=== PATIENT | male | born 1950 | race Caucasian/White ===

== ENCOUNTER 2016-08-30 10:20 | Inpatient (IN) | payer OTHER, MEDICARE ==
[~2016-08-30] VITALS: Ht 193 cm; Wt 138.5 kg
[~2016-08-30 10:20] MED LIST: ACET650S19 PO; ATOR40TA59 PO; CELE200C PO; FERR325T72 PO; FURO80TA3 PO; GLIP5TAB10 PO; HYDR-2666 PO; HYDR-2672 PO; HYDR-963 PO; HYDR-971 PO; Hydrocodone/Acetaminophen PO; LEVO500T8 PO; LISI-334 PO; METF-620 PO; PANT40TA5 PO; POTA20TA82 PO; SOTA80TA48 PO; SUCR1TAB29 PO; WARF-78 PO; WARF5TAB7 PO; Warfarin Sodium MC
[2016-08-30] MEDS ORDERED: IV NORMAL SALINE 1000ML BAG 1,000 ML IV ONE (10:45)
[2016-08-30] MEDS ORDERED: fentaNYL PF VIAL 100 MCG/2 ML VIAL IV ONE (10:45)
[2016-08-30 10:58] LABS: BASO # 0.1 x10^3/uL (0.0-0.2); BASO % 1 % (0-3); EOS % 3 % (0-3); HEMATOCRIT 32.7 % (39.0-53.0); HEMOGLOBIN 11.1 g/dL (13.0-17.5); LYMPH % 14 % (24-48); MEAN CORPUSCULAR HEMOGLOBIN 29 pg (25-35); MEAN CORPUSCULAR HGB CONC 34 g/dL (31-37); MEAN CORPUSCULAR VOLUME 86 fL (79-100); MONO % 8 % (0-9); NEUT % 74 % (31-73); PLATELET COUNT 183 x10^3/uL (140-400); RED BLOOD COUNT 3.82 x10^6/uL (4.30-5.70); RED CELL DISTRIBUTION WIDTH 14.4 % (11.5-14.5)
[2016-08-30 11:07] LABS: INR 1.2 (0.8-1.1); PROTHROMBIN TIME PATIENT 14.3 SEC (11.7-14.0)
[2016-08-30 11:25] LABS: ETHANOL < 10 mg/dL (0-10)
[2016-08-30 11:34] LABS: CALCIUM 9.1 mg/dL (8.5-10.1); CREATININE 1.3 mg/dL (0.7-1.3); GFR 54.9; POTASSIUM 4.3 mmol/L (3.5-5.1)
[2016-08-30 11:39] LABS: ALBUMIN 3.5 g/dL (3.4-5.0); MAGNESIUM 1.6 mg/dL (1.8-2.4); TOTAL BILIRUBIN 0.4 mg/dL (0.2-1.0); TOTAL PROTEIN 7.1 g/dL (6.4-8.2)
[2016-08-30] MEDS ORDERED: CONTRAST GIVEN MC PRN (11:45)
[2016-08-30] MEDS ORDERED: IOHEXOL 300 MG/ML 75 ML VIAL IV ONE (12:15)
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
[2016-08-30 12:50] LABS: BILIRUBIN,URINE NEGATIVE (NEG); GLUCOSE,URINE NEGATIVE (NEG); NITRITE,URINE NEGATIVE (NEG); PROTEIN,URINE NEGATIVE (NEG-TRACE); UROBILINOGEN,URINE 0.2 mg/dL (0.2 mg/dL)
[2016-08-30 12:56] LABS: BARBITURATES NEG (NEG); BENZODIAZEPINES NEG (NEG); CANNABINOIDS NEG (NEG); COCAINE NEG (NEG); METHADONE NEG (NEG); OPIATES NEG (NEG); PHENCYCLIDINE NEG (NEG)
[2016-08-30 12:58] LABS: BACTERIA,URINE 0 /HPF (0-FEW); WBC,URINE OCC /HPF (0-4)
[2016-08-30 12:59] LABS: SQUAMOUS EPITHELIAL CELL,UR OCC /LPF
[2016-08-30] MEDS ORDERED: ONDANSETRON PF 4 MG/2 ML VIAL. IV PRN (13:00)
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
[2016-08-30] MEDS ORDERED: SERT50TA PO (14:39)
[2016-08-30] MEDS ORDERED: ASPI1TAB88 PO (14:39)
--- NOTE | 2016-08-30 14:50 | ACF ---
Admission Forms Criteria MENTAL STATUS CHANGE Clinical Indications for Inpatient Care (Place 'X' for any and all applicable criteria): Ongoing inpatient care may be needed for 1 or more of the following(1)(2)(3)(5)( 6): [X]I. Suspected serious etiology (eg, medical disorder, [employer] event) of altered mental status [ ]II. Danger to self or others not manageable at lower level of care [ ]III. Grave disability (eg, inability to perform self care necessary at lower level of care) [ ]IV. Agitation or inappropriate behavior interfering with care for primary condition (eg, attempting to discontinue lines or drains prematurely, unable to cooperate with respiratory care) [ ]V. Delirium [A] [D][E] as described by 1 or more of the following(26): [ ]a) Delirium due to alcohol or sedative [F] withdrawal [ ]b) Delirium of uncertain etiology that has not responded to appropriate empiric treatment [ ]c) Delirium that prevents performance of a life-sustaining function (eg, feeding or hydrating oneself) [ ]. General contraindications and/or Inappropriate clinical situations for Observational Care in patients with Mental Status Change, when ANY ONE of the following is required: [ ]a) Prediction of prolongation of LOS based on ANY ONE of the following may be considered as a contraindication for observational care 2, 3, 4, 5, 6, 7, 8, 9, 10, 11 [ ]i) Age > 65 yrs. [ ]ii) Patient arriving by ambulance [ ]iii) Patient with high acuity [ ]iv) Patient requiring vital sign monitoring [ ]v) Patient on IV medication [ ]b) Systolic blood pressures greater than or equal to 180mmHg 3, 12 [ ]c) Patient with altered mental status including delirium and other alteration of consciousness, (3) [ ]d) Patient whose discharge disposition will be to a halfway home or rehabilitation home should not be managed in Emergency Department Observation Unit. CMS rule requires 3 days hospital stay before such placement.3,13 [ ]e) Patient with failure to thrive due to broad array of etiologies 3,16,17 [ ]f) Inability to ambulate 3,14 Extended stay beyond goal length of stay for the primary condition may be needed until ALL of the following are present(3)(5): [ ]a) Underlying medical etiology of mental status change is absent, or has been established and adequately treated [ ]b) Danger to self or others is absent or manageable at lower level of care. [ ]c) Behavior crisis management, including physical or chemical restraints, is not required or available at lower level of car [ ]d) Substance or alcohol withdrawal is absent or manageable at lower level of care. [ ]e) Behavioral symptoms (eg, agitation, somnolence, inappropriate behavior) are absent, or are manageable at lower level of care. The original [facility] [employer] content created by [facility] has been revised. The portions of the content which have been revised are identified through the use of italic text or in bold, and [facility] has neither reviewed nor approved the modified material. All other unmodified content is copyright [facility]. Please see references footnoted in the original [facility] edition 2016 Admission Criteria Met?: Yes YADI NGUYEN August 30, 2016 14:50
[2016-08-30 15:00] VITALS: BP 117/79
[2016-08-30] MEDS: fentaNYL PF VIAL 100 MCG/2 ML VIAL IV PRN (15:43)
--- NOTE | 2016-08-30 15:59 | EKG ---
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
[2016-08-30 19:57] VITALS: BP 104/81
[2016-08-31] VITALS (7 sets, daily range): BP systolic 107–140; BP diastolic 68–103
[2016-08-31 03:35] LABS: BASO % 1 % (0-3); EOS % 3 % (0-3); HEMATOCRIT 30.2 % (39.0-53.0); HEMOGLOBIN 10.2 g/dL (13.0-17.5); LYMPH # 1.2 x10^3/uL (1.0-4.8); LYMPH % 18 % (24-48); MEAN CORPUSCULAR HEMOGLOBIN 29 pg (25-35); MEAN CORPUSCULAR HGB CONC 34 g/dL (31-37); MEAN CORPUSCULAR VOLUME 85 fL (79-100); MONO % 8 % (0-9); NEUT % 70 % (31-73); PLATELET COUNT 152 x10^3/uL (140-400); RED BLOOD COUNT 3.54 x10^6/uL (4.30-5.70); RED CELL DISTRIBUTION WIDTH 14.4 % (11.5-14.5); WHITE BLOOD COUNT 6.5 x10^3/uL (4.0-11.0)
[2016-08-31 03:50] LABS: CALCIUM 8.7 mg/dL (8.5-10.1); CREATININE 1.2 mg/dL (0.7-1.3); GFR 60.2; POTASSIUM 4.1 mmol/L (3.5-5.1)
[2016-08-31] MEDS: fentaNYL PF VIAL 100 MCG/2 ML VIAL IV PRN (05:27)
[2016-08-31] MEDS ORDERED: HYDROcodone/APAP 10/325 1 TAB TABLET PO PRN (08:15)
--- NOTE | 2016-08-31 08:18 | PDOC ---
Provider Note Provider Note [id number] ANA MARIA REYNA MD August 31, 2016 08:18
[2016-08-31] MEDS: ACETAMINOPHEN 650 MG/20.3 ML SOLUTION. PO SCH ×4 (09:04→20:37)
[2016-08-31] MEDS: SOTALOL 80 MG TABLET. PO SCH ×2 (09:05→20:38)
[2016-08-31] MEDS: PANTOPRAZOLE 40 MG TABLET.DR. PO SCH ×2 (09:05→16:54)
[2016-08-31] MEDS: FUROSEMIDE 80 MG TABLET. PO SCH (09:05)
[2016-08-31] MEDS: SERTRALINE 50 MG TABLET. PO SCH (09:06)
[2016-08-31] MEDS: POTASSIUM CHLORIDE 20 MEQ TABLET.ER. PO SCH ×2 (09:06→16:54)
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
[2016-08-31] MEDS ORDERED: ATORVASTATIN CALCIUM 40 MG TABLET. PO SCH (21:00)
[2016-09-01 03:00] VITALS: BP 130/85
[2016-09-01] MEDS: ACETAMINOPHEN 650 MG/20.3 ML SOLUTION. PO SCH ×3 (03:35→08:03)
[2016-09-01 07:00] VITALS: BP 149/101
[2016-09-01] MEDS: POTASSIUM CHLORIDE 20 MEQ TABLET.ER. PO SCH (08:03)
[2016-09-01] MEDS: FUROSEMIDE 80 MG TABLET. PO SCH (08:03)
[2016-09-01] MEDS: PANTOPRAZOLE 40 MG TABLET.DR. PO SCH (08:04)
[2016-09-01] MEDS: SERTRALINE 50 MG TABLET. PO SCH (08:04)
[2016-09-01 08:05] VITALS: BP 149/101
[2016-09-01] MEDS: SOTALOL 80 MG TABLET. PO SCH (08:05)
--- NOTE | 2016-09-01 08:20 | DISCH ---
DISCHARGE INSTRUCTIONS Condition on Discharge Condition on Discharge: Stable Activity After Discharge Activity Instructions for Disc: No restrictions Diet after Discharge Diet after Discharge: Cardiac Follow-Up Follow up with: as scheduled ANA MARIA REYNA MD September 01, 2016 08:20
--- NOTE | 2016-09-01 08:24 | PDOC ---
Provider Note Provider Note [id number] ANA MARIA REYNA MD September 01, 2016 08:24
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
== END 2016-09-01 11:50 | disposition home or self-care (01) | DRG 605 ==
LOC: ER 10:20 → 6 SOUTH 11:50
PROVIDERS: ADMIT Family Medicine; ATTEND Family Medicine
DX: S00.03XA Contusion of scalp, initial encounter (principal); E11.42 Type 2 diabetes mellitus with diabetic polyneuropathy; E78.5 Hyperlipidemia, unspecified; I09.9 Rheumatic heart disease, unspecified; I11.0 Hypertensive heart disease with heart failure; I25.10 Atherosclerotic heart disease of native coronary artery without angina pectoris; I34.0 Nonrheumatic mitral (valve) insufficiency; I35.1 Nonrheumatic aortic (valve) insufficiency; I48.2 Chronic atrial fibrillation; I50.9 Heart failure, unspecified; N28.1 Cyst of kidney, acquired; M19.90 Unspecified osteoarthritis, unspecified site; R09.02 Hypoxemia; Z88.0 Allergy status to penicillin; Y92.488 Other paved roadways as the place of occurrence of the external cause; V49.3XXA Car occupant (driver) (passenger) injured in unspecified nontraffic accident, initial encounter; Z82.49 Family history of ischemic heart disease and other diseases of the circulatory system
CPT/HCPCS: 36415; 70450; 71275; 72125; 74177; 80048; 80053; 81001; 82550; 82947; 83605; 83690; 83735; 83880; 84443; 84484; 85027; 85610; 85730; 93005; 96374; G0480; G0481; G6038; J3010; J7030; Q9967; 80196; 99285-25

== ENCOUNTER 2016-09-18 12:00 | Inpatient (IN) | payer MEDICARE ==
[~2016-09-18] VITALS: Ht 190.5 cm; Wt 136.1 kg
[2016-09-18] VITALS (9 sets, daily range): BP systolic 100–132; BP diastolic 71–96
[~2016-09-18 12:00] MED LIST changes: +ASPI1TAB88 PO; -HYDR-2666 PO; -HYDR-2672 PO; +HYDR-2758 PO; +HYDR-2766 PO; +SERT50TA PO; -SUCR1TAB29 PO; +SUCR1TAB35 PO
[2016-09-18] MEDS ORDERED: fentaNYL PF VIAL 100 MCG/2 ML VIAL IV PRN (12:15)
[2016-09-18] MEDS ORDERED: NITROGLYCERIN SUBLINGUAL 0.4 MG BOTTLE OF 25. SL PRN ×2 (12:15→15:30)
[2016-09-18] MEDS ORDERED: ASPIRIN CHEWABLE 81 MG TABLET. PO ONE (12:15)
[2016-09-18] MEDS ORDERED: AMIODARONE 900 MG in IV DEXTROSE 5% 500 ML IV PRN (12:15)
[2016-09-18] MEDS ORDERED: AMIODARONE 150 MG in IV DEXTROSE 5% 100 ML IV ONE (12:15)
[2016-09-18 12:24] LABS: BASO # 0.1 x10^3/uL (0.0-0.2); BASO % 1 % (0-3); EOS % 2 % (0-3); HEMATOCRIT 37.3 % (39.0-53.0); HEMOGLOBIN 12.4 g/dL (13.0-17.5); LYMPH # 1.3 x10^3/uL (1.0-4.8); LYMPH % 12 % (24-48); MEAN CORPUSCULAR HEMOGLOBIN 29 pg (25-35); MEAN CORPUSCULAR HGB CONC 33 g/dL (31-37); MEAN CORPUSCULAR VOLUME 87 fL (79-100); MONO % 6 % (0-9); NEUT % 79 % (31-73); PLATELET COUNT 230 x10^3/uL (140-400); RED BLOOD COUNT 4.32 x10^6/uL (4.30-5.70); RED CELL DISTRIBUTION WIDTH 14.2 % (11.5-14.5); WHITE BLOOD COUNT 10.3 x10^3/uL (4.0-11.0)
[2016-09-18 12:25] LABS: POTASSIUM ISTAT 4.3 mmol/L (3.5-5.0)
[2016-09-18 12:39] LABS: CALCIUM 9.1 mg/dL (8.5-10.1); CREATININE 1.6 mg/dL (0.7-1.3); GFR 43.2; POTASSIUM 4.5 mmol/L (3.5-5.1)
--- NOTE | 2016-09-18 12:39 | EKG ---
[facility] [address] [place] [address] Test Date: 2016-09-18 Test Time: 12:02:46 Pat Name: AGUSTIN ESTRELLA Department: Room: Gender: M [employer]: : [id number] Requested By: BRIGIDA CHA Order Number: [id number] Reading MD: Jamil Lopez Measurements Intervals [place] Rate: 114 P: 67 MA: 60 QRS: -67 QRSD: 122 T: 3 QT: 364 QTc: 506 Interpretive Statements SINUS TACHYCARDIA ABNORMAL LEFT AXIS DEVIATION LEFT ANTERIOR FASCICULAR BLOCK LVH WITH REPOLARIZATION ABNORMALITY NONSPECIFIC ST-T WAVE CHANGES. RI6.01 Unconfirmed report Compared to ECG 08/30/2016 10:35:46 Electronically Signed On 09-22-2016 9:41:19 CDT by Jamil Lopez
--- NOTE | 2016-09-18 12:40 | RAD ---
Indication: Chest pain. Time of exam 12:16 PM Correlation is made with prior chest from 07/23/2015. The heart is enlarged but stable. The lungs are clear of acute infiltrates. No failure is seen. There is no effusion or pneumothorax. Calcified granuloma right lower lobe is stable. Impression: Stable chest. No acute feature is detected.
[2016-09-18] MEDS ORDERED: IV NORMAL SALINE 500ML BAG 500 ML IV ONE (12:45)
[2016-09-18] MEDS ORDERED: IV NORMAL SALINE 1000ML BAG 1,000 ML IV ONE (12:45)
[2016-09-18 12:52] LABS: DIRECT BILIRUBIN 0.4 mg/dL (0.0-0.2); MAGNESIUM 1.9 mg/dL (1.8-2.4); TOTAL BILIRUBIN 0.7 mg/dL (0.2-1.0); TOTAL PROTEIN 7.5 g/dL (6.4-8.2)
[2016-09-18] MEDS ORDERED: DIGOXIN 250 MCG TABLET. PO ONE (13:00)
--- NOTE | 2016-09-18 14:23 | ED.ADGEN ---
Past Medical History Past Medical History: A-Fib, CHF, Diabetes-Type II, Heart Disease Additional Past Medical Histor: AORTIC VALVE LEAK Past Surgical History: Tonsillectomy Additional Past Surgical Histo: CARDIAC CATH W NO STENT PER PATIENT Alcohol Use: None Drug Use: None Adult General Chief Complaint Chief Complaint: CHEST PAIN HPI HPI Patient is a 66 year old woman, history of type 2 diabetes mellitus, atrial fibrillation, atrial flutter, CHF, aortic valve leak, who presents to the emergency department via EMS with report of chest pain and flutter, with a concern for a run of ventricular tachycardia area patient became diaphoretic, and minimally responsive en route to the emergency department, they state that they witnessed a brief run of ventricular tachycardia, however patient became alert again, never lost pulses, and went back to with a sinus tachycardia without intervention. Patient was initiated and amiodarone by EMS, before they lost a line en route. There was no infiltration. Patient upon arousing the ED is complaining of midsternal chest pain, he is noted to be pale and diaphoretic , hypotensive, 80s over 50s, heart rate in the 1 teens, in atrial flutter. Patient states that he was feeling well up until about 8:00 this morning and began experiencing a fluttering sensation in his chest, and a feeling of chest pain. He states he has had similar symptoms previously associated with his cardiac issues. His faculty member is Dr. Dickinson. He states that his gives them although his medications but he believes to, patient's stay already, including a full dose of aspirin. Complains of mild dizziness and nausea, and as stated had a brief episode of possible syncope en route to the emergency department. He is complaining of bilateral ear pain, mild headache, denies any weakness, numbness or tingling. Patient's family is en route to the emergency department. Review of Systems Review of Systems Constitutional: Denies fever or chills. [] Eyes: Denies change in visual acuity. [] HENT: Denies nasal congestion or sore throat. [] Respiratory: Denies cough or shortness of breath. [] Cardiovascular: Chest pain, no edema. Complaining of "fluttering in the chest". GI: Denies abdominal pain, nausea, vomiting, bloody stools or diarrhea. [] : Denies dysuria. [] Musculoskeletal: Denies back pain or joint pain. [] Integument: Denies rash. [] Neurologic: Denies headache, focal weakness or sensory changes. [] Endocrine: Denies polyuria or polydipsia. [] Lymphatic: Denies swollen glands. [] Psychiatric: Denies depression or anxiety. [] Current Medications Current Medications Current Medications Medications (Trade) Dose Ordered Sig/Chantal Start Time Stop Time Status Last Admin Dose Admin Amiodarone HCl 150 mg/Dextrose 103 ml @ 618 mls/hr 1X ONCE 09/18/16 12:15 09/18/16 12:24 DC 09/18/16 12:24 618 MLS/HR Amiodarone HCl 900 mg/Dextrose 518 ml @ 0 mls/hr CONT PRN 09/18/16 12:15 09/18/16 12:35 DC 09/18/16 12:34 33 MLS/HR Aspirin (Children'S Aspirin) 324 mg 1X ONCE 09/18/16 12:15 09/18/16 12:16 DC 09/18/16 12:19 324 MG Digoxin (Lanoxin) 500 mcg 1X ONCE 09/18/16 13:00 09/18/16 13:01 DC 09/18/16 12:50 500 MCG Fentanyl Citrate (Fentanyl 2ml Vial) 25 mcg PRN Q15MIN PRN 09/18/16 12:15 09/18/16 15:34 DC 09/18/16 12:27 25 MCG Nitroglycerin (Nitrostat) 0.4 mg PRN Q5MIN PRN 09/18/16 12:15 Sodium Chloride 500 ml @ 500 mls/hr 1X ONCE 09/18/16 12:45 09/18/16 13:44 DC Allergies Allergies Allergies Coded Allergies Type Severity Reaction Last Updated Verified Penicillins Allergy Severe RASH AND HIVES 10/10/15 Yes Physical Exam Physical Exam Constitutional: Well developed, well nourished, ill in appearance, pale and diaphoretic. [] HENT: Normocephalic, atraumatic, bilateral external ears normal, oropharynx moist, no oral exudates, nose normal. [] Eyes: PERRLA, EOMI, conjunctiva normal, no discharge. [] Neck: Normal range of motion, no tenderness, supple, no stridor. [] Cardiovascular:Heart rate regular rhythm, 3-5 systolic murmur, S1, S2, rapid. No rubs, no gallops. Lungs & Thorax: Diminished breath sounds at bases bilaterally, no rhonchi or rales. [] Abdomen: Bowel sounds normal, soft, obese, no rebound, rigidity, no guarding, no tenderness, no masses, no pulsatile masses. [] Skin: Diaphoretic, pale, no erythema, no rash. [] Back: No tenderness, no CVA tenderness. [] Extremities: No tenderness, no cyanosis, no clubbing, ROM intact, no edema. [] Neurologic: Patient is drowsy, but easily aroused, oriented X 3, normal motor function, normal sensory function, no focal deficits noted. [] Psychologic: Affect normal, judgement normal, mood normal. [] Current Patient Data Vital Signs Vital Signs Date Time Temp Pulse Resp B/P (MAP) Pulse Ox O2 Delivery O2 Flow Rate FiO2 09/18/16 12:50 90/64 09/18/16 12:27 16 94 Room Air 09/18/16 12:24 117 09/18/16 12:00 98.2 98.2 Lab Values Laboratory Tests Test 09/18/16 12:05 09/18/16 12:20 White Blood Count 10.3 x10^3/uL (4.0-11.0) Red Blood Count 4.32 x10^6/uL (4.30-5.70) Hemoglobin 12.4 g/dL (13.0-17.5) L Hematocrit 37.3 % (39.0-53.0) L Mean Corpuscular Volume 87 fL (79-100) Mean Corpuscular Hemoglobin 29 pg (25-35) Mean Corpuscular Hemoglobin Concent 33 g/dL (31-37) Red Cell Distribution Width 14.2 % (11.5-14.5) Platelet Count 230 x10^3/uL (140-400) Neutrophils (%) (Auto) 79 % (31-73) H Lymphocytes (%) (Auto) 12 % (24-48) L Monocytes (%) (Auto) 6 % (0-9) Eosinophils (%) (Auto) 2 % (0-3) Basophils (%) (Auto) 1 % (0-3) Neutrophils # (Auto) 8.2 x10^3uL (1.8-7.7) H Lymphocytes # (Auto) 1.3 x10^3/uL (1.0-4.8) Monocytes # (Auto) 0.6 x10^3/uL (0.0-1.1) Eosinophils # (Auto) 0.2 x10^3/uL (0.0-0.7) Basophils # (Auto) 0.1 x10^3/uL (0.0-0.2) Sodium Level 142 mmol/L (136-145) Potassium Level 4.5 mmol/L (3.5-5.1) Chloride Level 102 mmol/L (98-107) Carbon Dioxide Level 29 mmol/L (21-32) Anion Gap 11 (6-14) 18 mmol/L (6-14) H Blood Urea Nitrogen 37 mg/dL (8-26) H Creatinine 1.6 mg/dL (0.7-1.3) H Estimated GFR (Cockcroft-Gault) 43.2 Glucose Level 196 mg/dL (70-99) H 197 mg/dL (70-99) H Calcium Level 9.1 mg/dL (8.5-10.1) Magnesium Level 1.9 mg/dL (1.8-2.4) Total Bilirubin 0.7 mg/dL (0.2-1.0) Direct Bilirubin 0.4 mg/dL (0.0-0.2) H Aspartate Amino Transferase (AST) 44 U/L (15-37) H Alanine Aminotransferase (ALT) 40 U/L (16-63) Alkaline Phosphatase 112 U/L (46-116) Troponin I Quantitative 0.017 ng/mL (0.000-0.055) CH-Hli-A-Type Natriuretic Peptide 2232 pg/mL (0-124) H Total Protein 7.5 g/dL (6.4-8.2) Albumin 4.0 g/dL (3.4-5.0) POC Hemoglobin 12.6 g/dL (14-18) L POC Hematocrit 37 % (37-52) POC Sodium 139 mmol/L (135-145) POC Potassium 4.3 mmol/L (3.5-5.0) POC Chloride 100 mmol/L (98-110) POC Total CO2 26 mmol/L (23-32) POC Blood Urea Nitrogen 35 mg/dL (8-26) H POC Creatinine 1.6 mg/dL (0.5-1.4) H POC Ionized Calcium (Yasmine) 1.16 mmol/L (1.13-1.32) POC Troponin I 0.00 ng/ml (<0.08) Laboratory Tests 09/18/16 12:05 Laboratory Tests 09/18/16 12:05 09/18/16 12:20 EKG EKG ECG: EMS 12-lead: Patient noted to have possible ventricular tachycardia on rhythm strip. EC: Atrial flutter, with right bundle branch block noted, left axis deviation, QTC of 506, NE 2, QRS of 122, abnormal ECG, does not meet STEMI criteria. As interpreted by me. [EC: Atrial fibrillation, heart rate 115 bpm, QTC of 503, NE 58, QRS of 116, left jugular hypertrophy noted, abnormal ECG, does not meet STEMI criteria. Went for above EKGs are compared to previous ECG from , morphology is overall preserved, with atrial flutter pattern again identified. Radiology/Procedures Radiology/Procedures [][facility] [address] [place] [address] IMAGING REPORT Signed PATIENT: AGUSTIN ESTRELLA ACCOUNT: [id number] : 1950 LOCATION: ER AGE: 66 SEX: M EXAM STATUS: PRE ER ORD. PHYSICIAN: BRIGIDA CHA DO REASON: CP PROCEDURE: PORTABLE CHEST 1V Indication: Chest pain. Time of exam 12:16 PM Correlation is made with prior chest from 07/23/2015. The heart is enlarged but stable. The lungs are clear of acute infiltrates. No failure is seen. There is no effusion or pneumothorax. Calcified granuloma right lower lobe is stable. Impression: Stable chest. No acute feature is detected. DICTATED and SIGNED BY: SEE HOLLAND MD DATE: 09/18/16 1037 CC: ANA MARIA REYNA MD; BRIGIDA CHA DO ~ Course & Med Decision Making Course & Med Decision Making Pertinent Labs and Imaging studies reviewed. (See chart for details) Upon arrival, patient was pale and diaphoretic, noted to be hypotensive 80s over 50s, with heart rate in the 1 teens, atrial flutter. IV fluids were initiated, as was amiodarone infusion. Patient was placed on the Zoll pads, however his mentation and coloration rapidly improved, along with his blood pressure. Blood pressure is now 90s over 60s, heart rate is still in the 1 teens atrial flutter, patient is awake, alert, oriented, stating that his chest pain is fully resolved of receiving a dose of fentanyl in the emergency department. Review of ECGs as stated, patient remains in atrial flutter, with concern for a run of ventricular tachycardia en route to the ED. Laboratory studies reveal a creatinine of 1.6, without any significant electrolyte abnormalities, troponin is negative. Findings as above discussed with Dr. Estrella on-call for the patient's primary gas distribution and emergency clerk, Dr. Dickinson, patient has received amiodarone, and a dose of digoxin 500 g in the ED, and is resting comfortably, heart rate is now at 111 atrial flutter, blood pressure is 102/69, and patient is resting comfortably and denying all complaints at this time. Family is at bedside. She is agreeable with the single dose of digoxin and plan to continue the amiodarone drip, with admission to the ICU, where she will all the patient closely. At this time there is no indication for intervention. I did discuss with the patient and family at bedside, they are agreeable with this plan. Findings as above discussed with Dr. Marrero, is on-call for the patient 's primary care provider Dr. Reyna, patient accepted to his service as a full [place] or the ICU, with cardiology consultation and close monitoring as stated. His blood pressure improved to 1 teens over 70s, heart rate 90s to low 100s and atrial flutter, denying complaints, at time of transfer to the ICU. Dragon Disclaimer Dragon Disclaimer This electronic medical record was generated, in whole or in part, using a voice recognition dictation system. Departure Impression: Primary Impression: Chest pain Additional Impression: Arrhythmia Disposition: 09 ADMITTED INPATIENT Admitting Physician: Carlos Marrero Condition: IMPROVED Problem Qualifiers BRIGIDA CHA DO Sep 18, 2016 14:23
[2016-09-18] MEDS ORDERED: ONDANSETRON PF 4 MG/2 ML VIAL. IV PRN (15:30)
[2016-09-18] MEDS ORDERED: DEXTROSE 50% 25 GM / 50ML DISP.SYRIN. IV PRN (15:30)
[2016-09-18] MEDS ORDERED: ACETAMINOPHEN 325 MG TABLET. PO PRN (15:30)
[2016-09-18] MEDS: INSULIN ASPART 300 UNITS/3 ML INSULN.PEN SQ SCH (17:00)
[2016-09-18] MEDS: METOPROLOL TARTRATE 5 MG/5 ML VIAL. IVP SCH (20:39)
[2016-09-19] VITALS (24 sets, daily range): BP systolic 103–136; BP diastolic 69–97
[2016-09-19] MEDS: METOPROLOL TARTRATE 5 MG/5 ML VIAL. IVP SCH ×4 (00:03→18:01)
[2016-09-19 04:50] LABS: BASO % 0 % (0-3); EOS % 3 % (0-3); HEMATOCRIT 31.4 % (39.0-53.0); HEMOGLOBIN 10.8 g/dL (13.0-17.5); LYMPH # 1.4 x10^3/uL (1.0-4.8); LYMPH % 17 % (24-48); MEAN CORPUSCULAR HEMOGLOBIN 29 pg (25-35); MEAN CORPUSCULAR HGB CONC 35 g/dL (31-37); MEAN CORPUSCULAR VOLUME 84 fL (79-100); MONO % 8 % (0-9); NEUT % 72 % (31-73); PLATELET COUNT 171 x10^3/uL (140-400); RED BLOOD COUNT 3.74 x10^6/uL (4.30-5.70); WHITE BLOOD COUNT 7.9 x10^3/uL (4.0-11.0)
[2016-09-19 05:10] LABS: CALCIUM 8.8 mg/dL (8.5-10.1); CREATININE 1.5 mg/dL (0.7-1.3); GFR 46.5; POTASSIUM 4.2 mmol/L (3.5-5.1)
[2016-09-19] MEDS: fentaNYL PF VIAL 100 MCG/2 ML VIAL IV PRN ×2 (05:35→14:07)
--- NOTE | 2016-09-19 06:56 | ACF ---
Admission Forms Criteria CHEST PAIN Clinical Indications for Admission to Inpatient Care (Place 'X' for any and all applicable criteria): Admission is indicated for chest pain and ANY ONE of the following(1)(2)(3)(4)(5 ): [ ]I. Angina with acute coronary syndrome (Also use Myocardial Infarction or Angina guideline) [ ]II. Hemodynamic instability [ ]III. Angina needing acute intervention as indicated by ALL of the following( 11)(12): [ ]a) Unstable angina is present as indicated by angina that is ANY ONE of the following: [ ]i) New onset [ ]ii) Nocturnal [ ]iii) Prolonged at rest [ ]iv) Progressive [ ]b) Angina warrants acute intervention as indicated by ANY ONE of the following: [ ]i) Recurrent angina (e.g, not responding as previously to treatment) [ ]ii) Angina at rest or with low-level activities despite initial medical therapy [ ]iii) New or presumably new ST-segment depression on ECG [ ]iv) Signs or symptoms of heart failure (eg, dyspnea, pulmonary edema) [ ]v) New or worsening mitral regurgitation [ ]vi) Hemodynamic instability [ ]vii) Dangerous arrhythmia (eg, sustained ventricular tachycardia) [ ]viii) History of percutaneous coronary intervention within 6 months [ ]ix) History of coronary artery bypass graft surgery [ ]x) ELLIE risk score of 2 or greater[A] [ ]xi) History of Diabetes(14) [ ]xii) High-risk cardiac ischemia findings on noninvasive testing (e.g, echocardiogram, treadmill testing, nuclear scan) [ ]xiii) Chronic renal insufficiency (ie, estimated GFR less than 60 mL/min/1.732m) [ ]xiv) Left ventricular ejection fraction less than 40% [X]IV. Evidence of IA (eg, cardiac biomarkers positive, ST-segment elevation on ECG) also use Myocardial Infarction Criteria Form. [ ]V. Pulmonary edema [ ]. Respiratory distress [ ]VII. Chest pain indicative of serious diagnosis other than coronary artery disease (eg, aortic dissection) [ ]VIII. Contraindications and/or Inappropriate clinical situations for Observational Care in patients with Chest Pain, when ANY ONE of the following is required: [ ]a) Patient with risk factor for pulmonary embolism, acute coronary syndrome and myocardial infarction (18) [ ]b) Patient with Pulmonary embolism require an average LOS of 4.3 days, therefore emergency department observation management is inappropriate 18,23 [ ]c) Painful condition/s in the elderly, have the highest rate of recidivism after emergency department observation management (10.8%) 20,21,22 [ ]d) Elevated cardiac biomarker requires intensive and exhaustive care (19) [ ]IX. General contraindications and/or Inappropriate clinical situations for Observational Care in patients with Chest Pain, when ANY ONE of the following is required: [ ]a) Prediction of prolongation of LOS based on ANY ONE of the following may be considered as a contraindication for observational care 2, 3, 4, 5, 6, 7, 8, 9, 10, 11 [ ]i) Age > 65 yrs. [ ]ii) Patient arriving by ambulance [ ]iii) Patient with high acuity [ ]iv) Patient requiring vital sign monitoring [ ]v) Patient on IV medication [ ]b) Systolic blood pressures 180mmHg 3,12 [ ]c) Patient with altered mental status including delirium and other alteration of consciousness, (3) [ ]d) Patient whose discharge disposition will be to a usp home or rehabilitation home should not be managed in Emergency Department Observation Unit. CMS rule requires 3 days hospital stay before such placement. 3,13 [ ]e) Patient with failure to thrive due to broad array of etiologies 3,16,17 [ ]f) Inability to ambulate 3,14 Extended stay beyond goal length of stay may be needed for (1)(28): [ ]a) Specific condition diagnosed after evaluation (eg, pulmonary embolism, aortic dissection) [ ]b) Unstable angina [ ]c) Continued suspicion of acute coronary syndrome with inability to complete needed cardiac evaluation (eg, patient clinically unable to undergo stress testing) [ ]d) Myocardial infarction (Contents from ANGINA and CHEST PAIN clinical indications for admission to inpatient care have been integrated in this form) The original [employer] content created by [employer] has been revised. The portions of the content which have been revised are identified through the use of italic text or in bold, and [facility] has neither reviewed nor approved the modified material. All other unmodified content is copyright [employer]. Please see references footnoted in the original [facility] edition 2016 Admission Criteria Met?: Yes RASHI DALEY Sep 19, 2016 06:56
[2016-09-19] MEDS: INSULIN ASPART 300 UNITS/3 ML INSULN.PEN SQ SCH ×3 (08:00→17:58)
--- NOTE | 2016-09-19 11:26 | CARD ---
APPROVED REPORT EXAM: Two-dimensional and M-mode echocardiogram with Doppler and color Doppler. Other Information Quality : GoodHR: 111bpm Rhythm : Tachycardia INDICATION Atrial flutter RISK FACTORS Obesity 2D DIMENSIONS RVDd2.7 (2.9-3.5cm)Left Atrium(2D)3.7 (1.6-4.0cm) IVSd1.2 (0.7-1.1cm)Aortic Root(2D)2.6 (2.0-3.7cm) LVDd4.6 (3.9-5.9cm)LVOT Diameter2.5 (1.8-2.4cm) PWd1.2 (0.7-1.1cm)LVDs3.9 (2.5-4.0cm) FS (%) 16.2 %SV33.2 ml LVEF(%)34.1 (>50%) Aortic Valve AoV Peak Amado.236.4cm/sAoV VTI36.2cm AO Peak GR.22.4mmHgLVOT Peak Amado.93.7cm/s AO Mean GR.12mmHgAVA (VMAX)1.96cm2 Mitral Valve MV E Nmzxoext90.1cm/sMV DECEL [id number] MV A Kyvgdmmv77.6cm/sE/A Ratio0.4 MV A [id number] Tricuspid Valve TR P. Jelmfpgb205dg/sTR Peak Gr.18mmHg LEFT VENTRICLE The left ventricle is normal size. There is mild concentric left ventricular hypertrophy. Left ventri carie systolic function is mildly impaired. The Ejection Fraction is 45-50%. Abnormal septal wall motio n is noted. There is mild global hypokinesis of the left ventricle. No left ventricle thrombus noted on this study. RIGHT VENTRICLE The right ventricle is normal size. There is normal right ventricular wall thickness. The right ventr icular systolic function is normal. ATRIA The left atrium is moderately dilated. The right atrium size is normal. The interatrial septum is int act with no evidence for an atrial septal defect or patent foramen ovale as noted on 2-D or Doppler i maging. AORTIC VALVE The aortic valve is not well visualized. Doppler and Color Flow revealed no significant aortic regurg itation. Aortic valve stenosis was difficult to assess at exam time. Visually,there is some aortic va lvular narrowing possibly in the mild range. MITRAL VALVE The mitral valve is not well visualized but appears to open well. Mitral annular calcification is mil d. There is no evidence of mitral valve prolapse. There is no mitral valve stenosis. Doppler and [place] r Flow revealed trace mitral regurgitation. TRICUSPID VALVE Doppler and Color Flow revealed trace tricuspid regurgitation. The pulmonary artery systolic pressure is estimated at 21 mmHg. There is no pulmonary hypertension. PULMONIC VALVE The pulmonicl valve is not well visualized but appears to open well. Doppler and Color Flow revealed no pulmonic valvular regurgitation. There is no pulmonic valvular stenosis. GREAT VESSELS The aortic root is normal in size. The ascending aorta is normal in size. The pulmonary artery is nor mal. The IVC was obscured, unable to assess. PERICARDIAL EFFUSION There is no evidence of significant pericardial effusion. Critical Notification Critical Value: No <Conclusion> The left ventricle is normal size. There is mild concentric left ventricular hypertrophy. Left ventricle systolic function is mildly impaired. The Ejection Fraction is 45-50% There is hypokinesis of the septum and apex There is no significant diastolic dysfunction There is no evidence of significant pericardial effusion. There is no mitral stenosis and a trace mitral regurgitation The lrdft atrium is mildly enlarged The aortic valve was not well visualized and adequate doppler interrogation could not be carried out The right ventricle is of a normal size. Doppler and Color Flow revealed trace tricuspid regurgitation. The pulmonary artery systolic pressure is estimated at 21 mmHg. There is no pulmonary hypertension.
--- NOTE | 2016-09-19 12:42 | PDOC ---
GENERAL General: see dictated H&P. Problems: VITAL SIGNS Vital Signs: Vital Signs Date Time Temp Pulse Resp B/P (MAP) Pulse Ox O2 Delivery O2 Flow Rate FiO2 09/19/16 12:00 Nasal Cannula 2.0 09/19/16 12:00 98.6 120 20 119/80 (93) 100 98.6 I & O I & O Intake and Output 09/19/16 07:00 Intake Total 1003 ml Output Total 1200 ml Balance -197 ml Intake Oral 400 ml IV Total 603 ml Output Urine Total 1200 ml ALLERGIES Allergies: Allergies Coded Allergies Type Severity Reaction Last Updated Verified Penicillins Allergy Severe RASH AND HIVES 10/10/15 Yes MEDS Medications: Current Medications Medications (Trade) Dose Ordered Sig/Chantal Start Time Stop Time Status Last Admin Dose Admin Acetaminophen (Tylenol) 650 mg PRN Q4HRS PRN 09/18/16 15:30 09/19/16 15:29 Amiodarone HCl 150 mg/Dextrose 103 ml @ 618 mls/hr 1X ONCE 09/18/16 12:15 09/18/16 12:24 DC 09/18/16 12:24 618 MLS/HR Amiodarone HCl 900 mg/Dextrose 518 ml @ 0 mls/hr CONT PRN 09/18/16 12:15 09/18/16 12:35 DC 09/18/16 12:34 33 MLS/HR Aspirin (Children'S Aspirin) 324 mg 1X ONCE 09/18/16 12:15 09/18/16 12:16 DC 09/18/16 12:19 324 MG Dextrose (Dextrose 50%-Water Syringe) 12.5 gm PRN Q15MIN PRN 09/18/16 15:30 Digoxin (Lanoxin) 500 mcg 1X ONCE 09/18/16 13:00 09/18/16 13:01 DC 09/18/16 12:50 500 MCG Enoxaparin Sodium (Lovenox 150mg Syringe) 130 mg 1X ONCE 09/18/16 19:45 09/18/16 19:48 DC 09/18/16 19:51 130 MG Fentanyl Citrate (Fentanyl 2ml Vial) 50 mcg PRN Q2HR PRN 09/18/16 15:30 09/19/16 15:29 09/19/16 05:35 50 MCG Insulin Aspart (NovoLOG) 0-5 UNITS TIDWMEALS 09/18/16 17:00 Metoprolol Tartrate (Lopressor) 2.5 mg Q6HRS 09/18/16 20:30 09/19/16 05:35 2.5 MG Nitroglycerin (Nitrostat) 0.4 mg PRN Q5MIN PRN 09/18/16 15:30 09/18/16 15:34 DC Ondansetron HCl (Zofran) 4 mg PRN Q8HRS PRN 09/18/16 15:30 09/19/16 15:29 Sodium Chloride 500 ml @ 500 mls/hr 1X ONCE 09/18/16 12:45 09/18/16 13:44 DC LAB Lab: Laboratory Tests Test 09/18/16 17:47 09/18/16 18:08 09/19/16 00:55 09/19/16 04:25 Glucose (Fingerstick) 106 mg/dL (70-99) Troponin I Quantitative 3.126 ng/mL (0.000-0.055) 4.990 ng/mL (0.000-0.055) 6.234 ng/mL (0.000-0.055) White Blood Count 7.9 x10^3/uL (4.0-11.0) Red Blood Count 3.74 x10^6/uL (4.30-5.70) Hemoglobin 10.8 g/dL (13.0-17.5) Hematocrit 31.4 % (39.0-53.0) Mean Corpuscular Volume 84 fL (79-100) Mean Corpuscular Hemoglobin 29 pg (25-35) Mean Corpuscular Hemoglobin Concent 35 g/dL (31-37) Red Cell Distribution Width 14.0 % (11.5-14.5) Platelet Count 171 x10^3/uL (140-400) Neutrophils (%) (Auto) 72 % (31-73) Lymphocytes (%) (Auto) 17 % (24-48) Monocytes (%) (Auto) 8 % (0-9) Eosinophils (%) (Auto) 3 % (0-3) Basophils (%) (Auto) 0 % (0-3) Neutrophils # (Auto) 5.7 x10^3uL (1.8-7.7) Lymphocytes # (Auto) 1.4 x10^3/uL (1.0-4.8) Monocytes # (Auto) 0.6 x10^3/uL (0.0-1.1) Eosinophils # (Auto) 0.2 x10^3/uL (0.0-0.7) Basophils # (Auto) 0.0 x10^3/uL (0.0-0.2) Sodium Level 140 mmol/L (136-145) Potassium Level 4.2 mmol/L (3.5-5.1) Chloride Level 103 mmol/L (98-107) Carbon Dioxide Level 30 mmol/L (21-32) Anion Gap 7 (6-14) Blood Urea Nitrogen 39 mg/dL (8-26) Creatinine 1.5 mg/dL (0.7-1.3) Estimated GFR (Cockcroft-Gault) 46.5 Glucose Level 119 mg/dL (70-99) Calcium Level 8.8 mg/dL (8.5-10.1) Test 09/19/16 08:04 09/19/16 12:09 Glucose (Fingerstick) 107 mg/dL (70-99) 137 mg/dL (70-99) MARISOL MG MD Sep 19, 2016 12:42
[2016-09-19] MEDS: IV NORMAL SALINE 1000ML BAG 1,000 ML IV SCH (13:30)
[2016-09-19] MEDS ORDERED: LEVOTHYROXINE 50 MCG TABLET PO SCH (13:30)
--- NOTE | 2016-09-19 15:11 | HP ---
ADMIT DATE: CHIEF COMPLAINT AND HISTORY OF PRESENT ILLNESS: This is a 66-year-old white male patient of Dr. Stanley Selby, had the onset of feeling his heart racing like crazy and then a severe headache on the day of admission. He summoned the ambulance and passed out at least [address] to the hospital with tachycardia that was felt to be ventricular tachycardia, although he spontaneously awoken on each of the three and did not require any cardioversion. He was started on amiodarone on the way. Does have a longstanding history of AFib/flutter and sees cardiology namely Dr. Dickinson regularly for this. He was admitted through the Emergency Room to the ICU for the same. PAST MEDICAL HISTORY: Remarkable for the AFib/flutter, he has the history of congestive heart failure, diabetes, atherosclerotic heart disease, aortic insufficiency, ____ some years ago with no stenting needed. MEDICATIONS: Medications were brought with the patient, listed on the computer and have been addressed. ALLERGIES: ALLERGIC TO PENICILLIN. SOCIAL HISTORY: He is nonsmoker, nondrinker, does not use drugs. He is retired from the [employer]. FAMILY HISTORY: Noncontributory. REVIEW OF SYSTEMS: Is that as mentioned above. PHYSICAL EXAMINATION: GENERAL: He is a well-developed, well-nourished white male, in no acute distress at time of my examination. VITAL SIGNS: Stable. He is afebrile. He is slightly tachycardic with a heart rate of 110. HEAD, EYES, EARS, NOSE AND THROAT: Unremarkable. NECK: Supple, without any thyromegaly. CHEST: Clear to auscultation and percussion. HEART: Regular with grade 2-3/6 systolic murmur and is tachycardic. ABDOMEN: Soft, nontender, without hepatosplenomegaly or masses. EXTREMITIES: Without cyanosis, clubbing or edema. NEUROLOGIC: He is intact. LABORATORY DATA: Initial lab work and investigations shows normal chest x-ray. Creatinine of 1.6. BNP of 2200, TSH was increased is 6.2. IMPRESSION: 1. Cardiac arrhythmia with syncope as discussed above likely Vtach but certainly could be his atrial flutter with strange conduction. 2. Other problems listed above. PLAN: The patient has in the ICU. Cardiology has been consulted. He has been remained on amiodarone drip at the time of admission. The patient will be monitored, managed and treated appropriately. MARISOL MG MD DR: Ade JOB#: [id number] / [id number]
[2016-09-19] MEDS: SERTRALINE 50 MG TABLET. PO SCH (17:10)
[2016-09-19] MEDS ORDERED: METOPROLOL TARTRATE 5 MG/5 ML VIAL. IVP SCH (19:30)
--- NOTE | 2016-09-19 20:57 | RAD ---
PQRS Compliance Statement: One or more of the following individualized dose reduction techniques were utilized for this examination: 1. Automated exposure control 2. Adjustment of the mA and/or kV according to patient size 3. Use of iterative reconstruction technique CT HEAD WITHOUT CONTRAST History: headache, weakness, frequent falls Comparison: CT head without contrast, August 30, 2016. Technique: Axial images are obtained of the head from the skull base through the vertex without IV contrast. Findings: No mass-effect, midline shift, extra-axial fluid collection, hemorrhage, or obvious acute infarction is identified. Basilar cisterns are patent. The ventricles and sulci are prominent, consistent with age-related cerebral atrophy. Bone windows demonstrate no acute calvarial abnormality. Left parietal scalp hematoma is mostly resolved. The visualized paranasal sinuses are clear. Mastoid air cells are well aerated. IMPRESSION: No acute intracranial abnormality. Electronically signed by: Steven Coelho MD (09/19/2016 8:54 PM)
[2016-09-19] MEDS ORDERED: ASPIRIN PO SCH (21:00)
[2016-09-19] MEDS ORDERED: CAFFEINE PO SCH (21:00)
--- NOTE | 2016-09-19 23:48 | CONS ---
DATE OF CONSULTATION: HISTORY OF PRESENT ILLNESS: This is a 66-year-old white male who was at home. He had a sudden onset of palpitations and shortness of breath. He also had chest pain. He had a headache. These symptoms got worse and he requested his to call the ambulance. In the ambulance, he states the pain got worse. He also had a few syncopal episodes. He was brought into the Emergency Room and I saw him over there. All these symptoms started just yesterday. He has fallen twice. He has been in the hospital. The believes he did hit his head at those times. The last time he was here he was seen by Dr. Dickinson. Both the falls occurred after he had been driving and Dr. Dickinson advised him not to drive. During those hospitalizations, it was known that he was in atrial fibrillation and Dr. Dickinson was aware of it. He, however, had no chest pain. He believes he has had a cardiac catheterization in the past, but he does not remember when. He did have a GI bleed in September and October 2015 and thus when he went into atrial fibrillation he is not on any anticoagulation. His ventricular response was controlled. He gives no history of hypertension. I believe he does have diabetes mellitus. There is no history of myocardial infarction, though he believes he has had a cardiac catheterization in the past. There is no history of stroke. PRESENT MEDICATIONS: 1. Atorvastatin 40 mg a day. 2. Furosemide 80 mg a day. 3. Glipizide 5 mg a day. 4. Metformin 1000 mg twice a day. 5. Protonix 20 mg a day. 6. Zoloft 50 mg at night. 7. Sotalol 40 mg twice a day. He has had at least 3 admissions to this hospital for altered mental status and was thought to have mild dementia. The first one was in 2013 and then in 2016 and again now in 2017. He had undergone an echocardiogram and then a TOMAS last year and the TOMAS revealed severe aortic regurgitation. There is no documentation of severe congestive heart failure. PHYSICAL EXAMINATION: GENERAL: When I saw him in the ER he was alert, awake, though a little bit drowsy. His and daughter had to contribute to in history that he was giving. VITAL SIGNS: In the ER his heart rate was 120 beats per minute. The blood pressure was 90/70. LUNGS: Clear. HEART: The heart sounds are normal. There is a grade 1/6 systolic murmur. ABDOMEN: Soft. EXTREMITIES: There is no edema of the legs. LABORATORY DATA: A chest x-ray was unremarkable. I reviewed the EKGs. He has right bundle branch block. This probably shows atrial flutter with a 2:1 conduction. There was one area in which flutter waves could be seen when the R-R interval was slightly longer, but most of the time it could not be seen. The ambulance has an EKG which shows a rate of 250 beats per minute and wide QRS complexes. When comparing the access and the morphology of the complexes during the rapid rate at 250 and during the slower rate at 125 they are very similar. It is quite possible that this rapid rate represents a 1:1 conduction rather than ventricular tachycardia. The patient was given amiodarone and started on an amiodarone drip in the ambulance. LABORATORY INVESTIGATIONS: Initial troponin was negative. However, later the troponin went up to 3, then 4 and then 6. The hemoglobin is 10.2. The BUN is 39, the creatinine is 1.5. The blood sugars are acceptable. IMPRESSION: 1. [id number] myocardial infarction. 2. Atrial flutter with 2:1 conduction, brief episode of a 1:1 conduction causing a wide QRS tachycardia. Doubt that this is his ventricular tachycardia. 3. Chest pain. 4. History of aortic regurgitation, no evidence of congestive heart failure. 5. Diabetes mellitus. 6. Obesity. 7. Probable early dementia. 8. Mild chronic kidney disease. Discussed in length with the patient and his . He has had no further episodes of chest pain. His heart rate is controlled with beta denisse and he has had no further ventricular arrhythmia since the amiodarone was discontinued. Because of the elevated enzymes to 6, it would be best to proceed with coronary arteriograms. The patient is agreeable. We will arrange for it tomorrow. In the meantime, I will continue to give him the IV Lopressor, which is keeping his heart rate under control. Thank you for asking us to see him. Dr. Dickinson returns on 09/21/2016 at night. AMADO YU MD DR: KIRK/danni JOB#: [id number] / [id number]
[2016-09-20] VITALS (30 sets, daily range): BP systolic 119–184; BP diastolic 83–126
[2016-09-20] MEDS: METOPROLOL TARTRATE 5 MG/5 ML VIAL. IVP SCH ×4 (00:03→19:00)
[2016-09-20] MEDS: IV NORMAL SALINE 1000ML BAG 1,000 ML IV SCH (02:50)
[2016-09-20 04:56] LABS: CALCIUM 8.7 mg/dL (8.5-10.1); CREATININE 1.2 mg/dL (0.7-1.3); GFR 60.2; POTASSIUM 4.3 mmol/L (3.5-5.1)
[2016-09-20 04:59] LABS: CHOLESTEROL/HDL RATIO 3.6
[2016-09-20] MEDS: INSULIN ASPART 300 UNITS/3 ML INSULN.PEN SQ SCH ×3 (07:10→17:00)
[2016-09-20] MEDS ORDERED: ANTI-COAG MONITOR BY PHARMACY. MC PRN (08:15)
[2016-09-20] MEDS: SERTRALINE 50 MG TABLET. PO SCH (13:27)
[2016-09-20] MEDS ORDERED: LIDOCAINE 2% 20 ML VIAL. ONE (13:40)
[2016-09-20] MEDS ORDERED: IODIXANOL 320 MG/ML 100 ML VIAL. ONE (13:40)
[2016-09-20] MEDS ORDERED: MIDAZOLAM HCL/PF 2 MG/2 ML VIAL. ONE (14:02)
[2016-09-20] MEDS ORDERED: fentaNYL PF VIAL 100 MCG/2 ML VIAL ONE (14:03)
[2016-09-20] MEDS ORDERED: NITROGLYCERIN PREMIX 250 ML IV ONE (14:39)
[2016-09-20] MEDS ORDERED: ADENOSINE 90 MG/30 ML VIAL. IV ONE (14:49)
[2016-09-20] MEDS ORDERED: hydrALAZINE 20 MG/ML VIAL. ONE (15:06)
[2016-09-20] MEDS ORDERED: HEPARIN for IV BOLUS 10,000 UNIT/10 ML VIAL. ONE (15:17)
[2016-09-20] MEDS ORDERED: ADENOSINE 90 MG in IV NORMAL SALINE 50ML 90 ML IV ONE (15:30)
[2016-09-20] MEDS ORDERED: CONTRAST GIVEN MC PRN (15:30)
[2016-09-20] MEDS ORDERED: hydrALAZINE 20 MG/ML VIAL. IVP ONE (15:30)
[2016-09-20] MEDS ORDERED: IODIXANOL 320 MG/ML 100 ML VIAL. IART ONE (15:30)
[2016-09-20] MEDS ORDERED: fentaNYL PF VIAL 100 MCG/2 ML VIAL IV ONE (15:30)
[2016-09-20] MEDS ORDERED: HEPARIN for IV BOLUS 10,000 UNIT/10 ML VIAL. IV ONE (15:30)
[2016-09-20] MEDS ORDERED: MIDAZOLAM HCL/PF 2 MG/2 ML VIAL. IV ONE (15:30)
--- NOTE | 2016-09-20 15:40 | CARD ---
APPROVED REPORT Procedure(s) performed: Left Heart Catheterization, Coronary angiography FFR / IFR - LAD HISTORY previous NE: previous CHF, diabetes mellitus with oraloral and insulin treatment, peripheral vascular disease, tobacco history() : The patient is a former smoker, hypertension, dyslipidemia, family hist ory of premature CAD. INDICATION The indication(s) include : non-STEMI . CASE TECHNIQUE During this case, Fluoroscopy and low osmolar contrast were used for imaging. PROCEDURE NARRATIVE The patient was brought electively to the cardiac catheterization lab. A timeout was performed confi rming the patient's name, date of , procedure, and site of procedure. All necessary personnel w ere wearing the appropriate protective equipment and radiation monitor devices. After explaining the risks and benefits of the procedure and alternatives, informed consent was obtained. (See nursing no maria teresa for medications administered). Due to patient's height at 6'4'', a radial approach was limited d ue to catheter length. The right groin was sterilely prepped and draped in the usual fashion. The r ight groin was infiltrated with 10 mL of 2% lidocaine for subcutaneous anesthesia. A 6 F sheath was inserted into the right CF artery without difficulty. Right and left coronary angiography was perfor med using a JR4 and JL5 catheter, respectively. Left ventricular end diastolic pressure was obtaine d with a pigtail catheter and pullback was performed. HEMODYNAMICS: LVEDP 12 mm Hg No gradient on LV to aortic pullback. LEFT VENTRICULOGRAM: Deferred due to renal insufficiency and previous echo. CORONARY ANGIOGRAPHY: LM is a large caliber vessel with normal angiographic appearance. LAD is a large caliber vessel with a mid 70% stenosis. D1 is a moderate caliber vessel with possible ostial 50% stenosis. LCx is a large caliber co-dominant vessel with normal angiographic appearance. OM1 is a moderate caliber vessel with normal angiographic appearance. LPDA is a moderate caliber vessel with normal angiographic appearance. RCA is a moderate caliber co-dominant vessel with normal angiographic appearance. *Due to patient's body habitus, iliac tortuosity and difficulty engaging, the ostium diagonal vessel could not be vessel visualized. INTERVENTIONAL TECHNIQUE: FFR OF THE LAD The patient previously was reported to have moderate to severe aortic insufficiency and current surfa ce echo could not delineate the aortic valve well. Based upon the hemodynamic tracings, he did not burgos ve severe or AI. The patient also has a history of GIB for which he has not been on anticoagulatio n or antiplatelet therapy. Therefore, it was felt that perhaps a ZHANG to LAD with aortic valve replac ement may be the best option to avoid show card writer anti-platelet therapy. Therefore, a functional study was performed. Enoxaparin was administered prior to the intervention. The 6Fr short sheath was exchan ged for a 55 cm Alfred Sheath. Next, a 6F JL5 guide catheter was used to engage the LM. A 0.014'' Verr sandy pressure wire was used to engage the LM. After appropriate normalization, NTG administration and confirmation of pressures, an iFR was measured at 0.92 (Threshold of abnormality). Therefore, a FFR s tudy was performed where 140mcg/kg/min of adenosine was administered and an FFR was measured at 0.80 (positive study). Finally, a pigtail catheter was placed in the left ventricle and pressures were obt ained. The right groin sheath was removed and hemostasis achieved with an Angioseal device. The patie nt tolerated the procedure well and there were no immediate complications. Conclusion 1. Normal left sided filling pressures. 2. 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 3. Positive FFR of the mid LAD at 0.80. Recommendations 1. Consider repeat TOMAS to evaluate the aortic valve, if patient has persistent moderate to severe aor tic insufficiency, he might be best served with AVR and 1V CABG (ZHANG to LAD) given his history of GI B which would allow him to not have to be on DAPT for up to 1 year. 2. Ultimately, if surgery is not indicated, would recommend challenge with DAPT for 4 weeks and if to lerated would then consider drug eluting stent placement in the LAD. Given the patient's Afib and nee d for anticoagulation, he might be high risk for GIB, therefore, ultimately, he might only be able to tolerate a bare metal stent to limit duration of dual anti-platelet therapy. Ideally, given the loca tion of lesion, retirement patency would be best served with either a ZHANG or drug eluting stent. 3. Final recommendations per Dr. Andrew Vaughan and Dr. Dickinson. 4. If repeat intervention planned, recommend either left radial or plan for long sheath placement to traverse the iliac tortuosity.
--- NOTE | 2016-09-20 21:02 | PDOC ---
Provider Note Provider Note Cussed with Dr. Payne. He has a significant obstruction in the LAD. He has already shown some wall motion abnormalities on echocardiogram in the LAD distribution. There is a possible ostial obstruction of D1. Surgery is being considered and patient voices his desire to proceed with surgery. Dr. Dickinson returns tomorrow and he will decide. He continues to be in atrial flutter. Blood pressure is now elevated. May transfer out of ICU. AMADO YU MD Sep 20, 2016 21:02
[2016-09-20] MEDS ORDERED: amLODIPine BESYLATE 5 MG TABLET PO ONE (21:15)
[2016-09-20] MEDS: METOPROLOL TART IMMED RELEASE 50 MG TABLET. PO SCH (21:36)
[2016-09-20] MEDS: ACETAMINOPHEN 325 MG TABLET. PO PRN (21:59)
[2016-09-21] VITALS (12 sets, daily range): BP systolic 112–150; BP diastolic 65–98
[2016-09-21] MEDS: ACETAMINOPHEN 325 MG TABLET. PO PRN ×2 (04:14→20:02)
[2016-09-21 05:01] LABS: CREATININE 0.9 mg/dL (0.7-1.3); GFR 83.9; POTASSIUM 4.2 mmol/L (3.5-5.1)
[2016-09-21] MEDS: METOPROLOL TART IMMED RELEASE 50 MG TABLET. PO SCH ×3 (06:08→21:39)
[2016-09-21] MEDS: INSULIN ASPART 300 UNITS/3 ML INSULN.PEN SQ SCH ×3 (08:00→17:00)
[2016-09-21] MEDS: SERTRALINE 50 MG TABLET. PO SCH (08:29)
[2016-09-21] MEDS ORDERED: DIGOXIN 250 MCG TABLET. PO ONE (08:45)
--- NOTE | 2016-09-21 08:51 | PDOC ---
Provider Note Provider Note no more chest pain, still af /rate 110-120- will add digoxin to po metop- esr re headaches as ct ok ANA MARIA REYNA MD Sep 21, 2016 08:51
[2016-09-21] MEDS ORDERED: amLODIPine BESYLATE 5 MG TABLET PO SCH (09:00)
[2016-09-21] MEDS: PANTOPRAZOLE 40 MG TABLET.DR. PO SCH (12:17)
[2016-09-21] MEDS: DIGOXIN 250 MCG TABLET. PO SCH (17:28)
--- NOTE | 2016-09-21 23:18 | PDOC ---
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 Remains in atrial flutter. Heart rate response is 100 -110 bpm at rest. Discussed with his sister. When the patient had bleeding ulcer he was taking large doses of NSAIDs. He probably will be able to tolerate the DAPT . Dr. Dickinson returns tomorrow. AMADO YU MD Sep 21, 2016 23:18
[2016-09-22 03:15] VITALS: BP 135/98
[2016-09-22] MEDS: ACETAMINOPHEN 325 MG TABLET. PO PRN ×2 (05:22→12:29)
[2016-09-22 07:39] VITALS: BP 107/84
[2016-09-22] MEDS: SERTRALINE 50 MG TABLET. PO SCH (08:29)
[2016-09-22] MEDS: METOPROLOL TART IMMED RELEASE 50 MG TABLET. PO SCH ×2 (08:29→20:19)
[2016-09-22] MEDS: PANTOPRAZOLE 40 MG TABLET.DR. PO SCH (08:29)
[2016-09-22] MEDS: DIGOXIN 250 MCG TABLET. PO SCH (08:29)
[2016-09-22] MEDS: INSULIN ASPART 300 UNITS/3 ML INSULN.PEN SQ SCH ×3 (08:34→18:34)
--- NOTE | 2016-09-22 08:57 | PDOC ---
Provider Note Provider Note 1 week of persistant, bilat pain in "ears" and central head, no jaw claudication , esr only 29 but is a little up, and he is tender over both TAs- cannot be sure he does not have early temporal arteritis, discussed need for art bx to rule out , in advance of any CV intervention- he consents to discuss bx w/ surgeon, will start moderate dose pred in advance, will need more insulin re same-- notr TOMAS 2013 showed NO aortic stenosis, but moderate aortic regurg ANA MARIA REYNA MD Sep 22, 2016 08:57
[2016-09-22] MEDS: predniSONE 20 MG TABLET PO SCH (09:53)
[2016-09-22 12:32] VITALS: BP 131/79
--- NOTE | 2016-09-22 15:26 | PDOC2 ---
CONSULT Date of Consult Date of Consult DATE: 09/22/16 TIME: 15:25 Past Medical History Cardiovascular: CAD, HTN, Hyperlipidemia, Valve insufficiency Pulmonary: Bronchitis Endocrine: Diabetes Family History Family History: Hypertension Current Problem List Problem List Problems Medical Problems: (1) Arrhythmia Status: Acute Current Medications Current Medications Current Medications Aspirin (Children'S Aspirin) 324 mg 1X ONCE PO Last administered on 09/18/16 12:19; Start 09/18/16 at 12:15; Stop 09/18/16 at 12:16; Status DC Fentanyl Citrate (Fentanyl 2ml Vial) 25 mcg PRN Q15MIN PRN IV PAIN GREATER THAN 3/10 Last administered on 09/18/16 12:27; Start 09/18/16 at 12:15; Stop 09/18 at 15:34; Status DC Nitroglycerin (Nitrostat) 0.4 mg PRN Q5MIN PRN SL CHEST PAIN; Start 09/18/16 at 12:15 Amiodarone HCl 150 mg/Dextrose 103 ml @ 618 mls/hr 1X ONCE IV Last administered on 09/18/16 12:24; Start 09/18/16 at 12:15; Stop 09/18/16 at 12:24; Status DC Amiodarone HCl 900 mg/Dextrose 518 ml @ 0 mls/hr CONT PRN IV SEE I/O RECORD Last administered on 09/18/16 12:34; Start 09/18/16 at 12:15; Stop 09/18/16 at 12: 35; Status DC Sodium Chloride 1,000 ml @ 1,000 mls/hr 1X ONCE IV Last administered on 12:35; Start 09/18/16 at 12:45; Stop 09/18/16 at 13:44; Status DC Digoxin (Lanoxin) 500 mcg 1X ONCE PO Last administered on 09/18/16 12:50; Start 09/18/16 at 13:00; Stop 09/18/16 at 13:01; Status DC Sodium Chloride 500 ml @ 500 mls/hr 1X ONCE IV ; Start 09/18/16 at 12:45; Stop 09/18/16 at 13:44; Status DC Ondansetron HCl (Zofran) 4 mg PRN Q8HRS PRN IV NAUSEA/VOMITING; Start 09/18/16 at 15:30; Stop 09/19/16 at 15:29; Status DC Fentanyl Citrate (Fentanyl 2ml Vial) 50 mcg PRN Q2HR PRN IV PAIN Last administered on 09/19/16 14:07; Start 09/18/16 at 15:30; Stop 09/19/16 at 15:29; Status DC Acetaminophen (Tylenol) 650 mg PRN Q4HRS PRN PO FEVER; Start 09/18/16 at 15:30; Stop 09/19/16 at 15:29; Status DC Nitroglycerin (Nitrostat) 0.4 mg PRN Q5MIN PRN SL CHEST PAIN; Start 09/18/16 at 15:30; Stop 09/18/16 at 15:34; Status DC Insulin Aspart (NovoLOG) 0-5 UNITS TIDWMEALS SQ Last administered on 09/22/16 12:38; Start 09/18/16 at 17:00 Dextrose (Dextrose 50%-Water Syringe) 12.5 gm PRN Q15MIN PRN IV SEE COMMENTS; Start 09/18/16 at 15:30 Metoprolol Tartrate (Lopressor) 2.5 mg Q6HRS IVP ; Start 09/19/16 at 19:30; Stop 09/19/16 at 19:30; Status DC Enoxaparin Sodium (Lovenox 150mg Syringe) 130 mg 1X ONCE SQ Last administered on 09/18/16 19:51; Start 09/18/16 at 19:45; Stop 09/18/16 at 19:48; Status DC Metoprolol Tartrate (Lopressor) 2.5 mg Q6HRS IVP Last administered on 09/19/16 05:35; Start 09/18/16 at 20:30; Stop 09/19/16 at 12:53; Status DC Levothyroxine Sodium (Synthroid) 50 mcg DAILY07 PO ; Start 09/19/16 at 13:30; Stop 09/19/16 at 14:26; Status DC Sodium Chloride 1,000 ml @ 75 mls/hr [id number] IV Last administered on 09/20/16 02:50; Start 09/19/16 at 13:30; Stop 09/20/16 at 19:05; Status DC Enoxaparin Sodium (Lovenox Per Pharmacy Treatment Dosing) 1 each PRN DAILY PRN MC SEE COMMENTS; Start 09/19/16 at 13:00; Stop 09/20/16 at 21:22; Status DC Metoprolol Tartrate (Lopressor) 5 mg Q6HRS IVP Last administered on 09/20/16 19 :00; Start 09/19/16 at 13:30; Stop 09/20/16 at 21:22; Status DC Enoxaparin Sodium (Lovenox 150mg Syringe) 130 mg BID SQ Last administered on 14:03; Start 09/19/16 at 13:30; Stop 09/20/16 at 19:54; Status DC Sertraline HCl (Zoloft) 50 mg DAILY PO Last administered on 09/22/16 08:29; Start 09/19/16 at 14:30 Non-Formulary Medication 2 each BID PO ; Start 09/19/16 at 21:00; Status UNV Info (Anti-Coagulation Monitoring By Pharmacy) 1 each PRN DAILY PRN MC SEE COMMENTS Last administered on 09/20/16 08:20; Start 09/20/16 at 08:15; Stop at 16:21; Status DC Lidocaine HCl 20 ml STK-MED ONCE .ROUTE ; Start 09/20/16 at 13:40; Stop 09/20/16 at 13:41; Status DC Heparin Sodium/ Sodium Chloride 1,000 ml @ As Directed STK-MED ONCE .ROUTE ; Start 09/20/16 at 13:40; Stop 09/20/16 at 13:41; Status DC Iodixanol (Visipaque 320) 100 ml STK-MED ONCE .ROUTE ; Start 09/20/16 at 13:40; Stop 09/20/16 at 13:41; Status DC Midazolam HCl (Versed) 2 mg STK-MED ONCE .ROUTE ; Start 09/20/16 at 14:02; Stop 09/20/16 at 14:03; Status DC Fentanyl Citrate (Fentanyl 2ml Vial) 100 mcg STK-MED ONCE .ROUTE ; Start at 14:03; Stop 09/20/16 at 14:04; Status DC Heparin Sodium/ Sodium Chloride 500 ml @ As Directed STK-MED ONCE .ROUTE ; Start 09/20/16 at 14:32; Stop 09/20/16 at 14:33; Status DC Nitroglycerin/ Dextrose 250 ml @ As Directed STK-MED ONCE IV ; Start 09/20/16 at 14:39; Stop 09/20/16 at 14:40; Status DC Adenosine (Adenoscan) 90 mg STK-MED ONCE IV ; Start 09/20/16 at 14:49; Stop at 14:50; Status DC Hydralazine HCl (Apresoline) 20 mg STK-MED ONCE .ROUTE ; Start 09/20/16 at 15:06 ; Stop 09/20/16 at 15:07; Status DC Heparin Sodium (Porcine) (Heparin Sodium) 10,000 unit STK-MED ONCE .ROUTE ; Start 09/20/16 at 15:17; Stop 09/20/16 at 15:18; Status DC Heparin Sodium/ Sodium Chloride 1,000 unit 1X ONCE IART Last administered on 15:28; Start 09/20/16 at 15:30; Stop 09/20/16 at 15:31; Status DC Midazolam HCl (Versed) 2 mg 1X ONCE IV ; Start 09/20/16 at 15:30; Stop 09/20/16 at 15:31; Status DC Fentanyl Citrate (Fentanyl 2ml Vial) 100 mcg 1X ONCE IV ; Start 09/20/16 at 15: 30; Stop 09/20/16 at 15:31; Status DC Iodixanol (Visipaque 320) 100 ml 1X ONCE IART Last administered on 09/20/16 15 :28; Start 09/20/16 at 15:30; Stop 09/20/16 at 15:31; Status DC Heparin Sodium (Porcine) (Heparin Sodium) 4,000 unit 1X ONCE IV Last administered on 09/20/16 15:32; Start 09/20/16 at 15:30; Stop 09/20/16 at 15:31; Status DC Adenosine 90 mg/ Sodium Chloride 120 ml @ 200 mls/hr 1X ONCE IV Last administered on 09/20/16 15:29; Start 09/20/16 at 15:30; Stop 09/20/16 at 16:05; Status DC Hydralazine HCl (Apresoline) 5 mg 1X ONCE IVP Last administered on 09/20/16 15 :30; Start 09/20/16 at 15:30; Stop 09/20/16 at 15:31; Status DC Info (Do NOT chart on this entry -- for MONITORING) 1 each PRN DAILY PRN MC SEE COMMENTS; Start 09/20/16 at 15:30; Stop 09/22/16 at 15:29 Amlodipine Besylate (Norvasc) 5 mg DAILY PO Last administered on 09/21/16 08:30 ; Start 09/21/16 at 09:00; Stop 09/21/16 at 23:22; Status DC Amlodipine Besylate (Norvasc) 5 mg 1X ONCE PO Last administered on 09/20/16 21 :36; Start 09/20/16 at 21:15; Stop 09/20/16 at 21:16; Status DC Metoprolol Tartrate (Lopressor) 50 mg Q8HRS PO Last administered on 09/21/16 21 :39; Start 09/20/16 at 22:00; Stop 09/21/16 at 23:22; Status DC Acetaminophen (Tylenol) 650 mg PRN QID PRN PO PAIN Last administered on 12:29; Start 09/20/16 at 22:00 Pantoprazole Sodium (Protonix) 40 mg DAILYAC PO Last administered on 09/22/16 08:29; Start 09/21/16 at 11:30 Digoxin (Lanoxin) 500 mcg 1X ONCE PO Last administered on 09/21/16 09:28; Start 09/21/16 at 08:45; Stop 09/21/16 at 08:55; Status DC Digoxin (Lanoxin) 250 mcg DAILY PO Last administered on 09/22/16 08:29; Start 09/21/16 at 16:00 Metoprolol Tartrate (Lopressor) 50 mg BID PO Last administered on 09/22/16 08: 29; Start 09/22/16 at 09:00 Diltiazem HCl (Cardizem 24hr Cd) 180 mg DAILY PO Last administered on 09/22/16 08:29; Start 09/22/16 at 09:00 Prednisone (Prednisone) 40 mg DAILY PO Last administered on 09/22/16 09:53; Start 09/22/16 at 09:30 Metformin HCl (Glucophage) 1,000 mg BIDWMEALS PO ; Start 09/22/16 at 17:00 Active Scripts Active Pantoprazole Sodium 40 Mg Tablet.dr 40 Mg PO BIDAC Reported Joaquin Back & Body Caplet (Aspirin/Caffeine) 1 Each Tablet 2 Each PO BID Zoloft (Sertraline Hcl) 50 Mg Tablet 1 Tab PO DAILY Glipizide 5 Mg Tablet 0.5 Tab PO BID Potassium Chloride 20 Meq Tablet.er 20 Meq PO BID last dose this am next dose with supper Sotalol (Sotalol Hcl) 80 Mg Tablet 40 Mg PO BID last dose this am next dose tonight Furosemide 80 Mg Tablet 80 Mg PO DAILY last dose this am next dose tomorrow Atorvastatin Calcium 40 Mg Tablet 40 Mg PO HS last dose was last dose next dose tonight Metformin Hcl 1,000 Mg Tablet 1,000 Mg PO BID last dose this am next dose with supper Allergies Allergies: Coded Allergies: Penicillins (Verified Allergy, Severe, RASH AND HIVES, 10/10/15) Vitals VITALS Vital Signs Date Time Temp Pulse Resp B/P (MAP) Pulse Ox O2 Delivery O2 Flow Rate FiO2 09/22/16 12:32 88 131/79 (96) 09/22/16 08:00 Room Air 2.0 09/22/16 07:39 97.7 20 97 97.7 Labs Labs Laboratory Tests Test 09/20/16 16:04 09/20/16 21:40 09/21/16 04:10 09/21/16 08:13 Glucose (Fingerstick) 99 mg/dL (70-99) 248 mg/dL (70-99) 132 mg/dL (70-99) Sodium Level 139 mmol/L (136-145) Potassium Level 4.2 mmol/L (3.5-5.1) Chloride Level 103 mmol/L (98-107) Carbon Dioxide Level 31 mmol/L (21-32) Anion Gap 5 (6-14) Blood Urea Nitrogen 19 mg/dL (8-26) Creatinine 0.9 mg/dL (0.7-1.3) Estimated GFR (Cockcroft-Gault) 83.9 Glucose Level 120 mg/dL (70-99) Calcium Level 9.0 mg/dL (8.5-10.1) Test 09/21/16 09:20 09/21/16 11:32 09/21/16 16:58 09/21/16 20:32 Erythrocyte Sedimentation Rate 29 (0-15) Glucose (Fingerstick) 280 mg/dL (70-99) 118 mg/dL (70-99) 197 mg/dL (70-99) Test 09/22/16 07:44 09/22/16 12:28 Glucose (Fingerstick) 166 mg/dL (70-99) 171 mg/dL (70-99) Laboratory Tests Test 09/21/16 16:58 09/21/16 20:32 09/22/16 07:44 09/22/16 12:28 Glucose (Fingerstick) 118 mg/dL (70-99) 197 mg/dL (70-99) 166 mg/dL (70-99) 171 mg/dL (70-99) Assessment/Plan Assessment/Plan FNTBD for left TAB in the morning Thanks for consult RIGO GUZMÁN MD Sep 22, 2016 15:26
[2016-09-22 15:50] VITALS: BP 156/104
[2016-09-22 19:10] VITALS: BP 104/64
--- NOTE | 2016-09-22 21:17 | PDOC ---
PROGRESS NOTES Subjective Subjective No chest pains now. Complaining of a severe headache. Objective Objective Vital Signs Date Time Temp Pulse Resp B/P (MAP) Pulse Ox O2 Delivery O2 Flow Rate FiO2 09/22/16 20:19 119 105/63 09/22/16 19:10 97.5 18 96 Room Air 97.5 09/22/16 08:00 2.0 Intake and Output 09/22/16 07:00 Intake Total 1180 ml Output Total 1000 ml Balance 180 ml Intake Oral 1180 ml Output Urine Total 1000 ml Physical Exam Physical Exam No significant changes in cardiac exam Assessment Assessment At this time the patient appears to be compensated cardiac-rayo. He has a known history of valvular heart disease with aortic insufficiency as well as coronary artery disease. He would be a very poor surgical candidate. At this time I think that we need to evaluate this situation of a possible temporal arteritis therefore I agree with proceeding with the biopsy. After the biopsy and then depending on the results I would then suggest to get a cardiovascular surgery consult and then discuss with the patient and the family the situation, options, risks as well as his poor overall conditioning. Comment Review of Relevant I have reviewed the following items mervin (where applicable) has been applied. Labs Laboratory Tests Test 09/20/16 21:40 09/21/16 04:10 09/21/16 08:13 09/21/16 09:20 Glucose (Fingerstick) 248 mg/dL (70-99) 132 mg/dL (70-99) Sodium Level 139 mmol/L (136-145) Potassium Level 4.2 mmol/L (3.5-5.1) Chloride Level 103 mmol/L (98-107) Carbon Dioxide Level 31 mmol/L (21-32) Anion Gap 5 (6-14) Blood Urea Nitrogen 19 mg/dL (8-26) Creatinine 0.9 mg/dL (0.7-1.3) Estimated GFR (Cockcroft-Gault) 83.9 Glucose Level 120 mg/dL (70-99) Calcium Level 9.0 mg/dL (8.5-10.1) Erythrocyte Sedimentation Rate 29 (0-15) Test 09/21/16 11:32 09/21/16 16:58 09/21/16 20:32 09/22/16 07:44 Glucose (Fingerstick) 280 mg/dL (70-99) 118 mg/dL (70-99) 197 mg/dL (70-99) 166 mg/dL (70-99) Test 09/22/16 12:28 09/22/16 17:12 09/22/16 21:02 Glucose (Fingerstick) 171 mg/dL (70-99) 230 mg/dL (70-99) 299 mg/dL (70-99) Laboratory Tests Test 09/22/16 07:44 09/22/16 12:28 09/22/16 17:12 09/22/16 21:02 Glucose (Fingerstick) 166 mg/dL (70-99) 171 mg/dL (70-99) 230 mg/dL (70-99) 299 mg/dL (70-99) Medications Current Medications Aspirin (Children'S Aspirin) 324 mg 1X ONCE PO Last administered on 09/18/16 12:19; Start 09/18/16 at 12:15; Stop 09/18/16 at 12:16; Status DC Fentanyl Citrate (Fentanyl 2ml Vial) 25 mcg PRN Q15MIN PRN IV PAIN GREATER THAN 3/10 Last administered on 09/18/16 12:27; Start 09/18/16 at 12:15; Stop 09/18 at 15:34; Status DC Nitroglycerin (Nitrostat) 0.4 mg PRN Q5MIN PRN SL CHEST PAIN; Start 09/18/16 at 12:15 Amiodarone HCl 150 mg/Dextrose 103 ml @ 618 mls/hr 1X ONCE IV Last administered on 09/18/16 12:24; Start 09/18/16 at 12:15; Stop 09/18/16 at 12:24; Status DC Amiodarone HCl 900 mg/Dextrose 518 ml @ 0 mls/hr CONT PRN IV SEE I/O RECORD Last administered on 09/18/16 12:34; Start 09/18/16 at 12:15; Stop 09/18/16 at 12: 35; Status DC Sodium Chloride 1,000 ml @ 1,000 mls/hr 1X ONCE IV Last administered on 12:35; Start 09/18/16 at 12:45; Stop 09/18/16 at 13:44; Status DC Digoxin (Lanoxin) 500 mcg 1X ONCE PO Last administered on 09/18/16 12:50; Start 09/18/16 at 13:00; Stop 09/18/16 at 13:01; Status DC Sodium Chloride 500 ml @ 500 mls/hr 1X ONCE IV ; Start 09/18/16 at 12:45; Stop 09/18/16 at 13:44; Status DC Ondansetron HCl (Zofran) 4 mg PRN Q8HRS PRN IV NAUSEA/VOMITING; Start 09/18/16 at 15:30; Stop 09/19/16 at 15:29; Status DC Fentanyl Citrate (Fentanyl 2ml Vial) 50 mcg PRN Q2HR PRN IV PAIN Last administered on 09/19/16 14:07; Start 09/18/16 at 15:30; Stop 09/19/16 at 15:29; Status DC Acetaminophen (Tylenol) 650 mg PRN Q4HRS PRN PO FEVER; Start 09/18/16 at 15:30; Stop 09/19/16 at 15:29; Status DC Nitroglycerin (Nitrostat) 0.4 mg PRN Q5MIN PRN SL CHEST PAIN; Start 09/18/16 at 15:30; Stop 09/18/16 at 15:34; Status DC Insulin Aspart (NovoLOG) 0-5 UNITS TIDWMEALS SQ Last administered on 09/22/16 18:34; Start 09/18/16 at 17:00 Dextrose (Dextrose 50%-Water Syringe) 12.5 gm PRN Q15MIN PRN IV SEE COMMENTS; Start 09/18/16 at 15:30 Metoprolol Tartrate (Lopressor) 2.5 mg Q6HRS IVP ; Start 09/19/16 at 19:30; Stop 09/19/16 at 19:30; Status DC Enoxaparin Sodium (Lovenox 150mg Syringe) 130 mg 1X ONCE SQ Last administered on 09/18/16 19:51; Start 09/18/16 at 19:45; Stop 09/18/16 at 19:48; Status DC Metoprolol Tartrate (Lopressor) 2.5 mg Q6HRS IVP Last administered on 09/19/16 05:35; Start 09/18/16 at 20:30; Stop 09/19/16 at 12:53; Status DC Levothyroxine Sodium (Synthroid) 50 mcg DAILY07 PO ; Start 09/19/16 at 13:30; Stop 09/19/16 at 14:26; Status DC Sodium Chloride 1,000 ml @ 75 mls/hr [id number] IV Last administered on 09/20/16 02:50; Start 09/19/16 at 13:30; Stop 09/20/16 at 19:05; Status DC Enoxaparin Sodium (Lovenox Per Pharmacy Treatment Dosing) 1 each PRN DAILY PRN MC SEE COMMENTS; Start 09/19/16 at 13:00; Status Cancel Metoprolol Tartrate (Lopressor) 5 mg Q6HRS IVP Last administered on 09/20/16 19 :00; Start 09/19/16 at 13:30; Stop 09/20/16 at 21:22; Status DC Enoxaparin Sodium (Lovenox 150mg Syringe) 130 mg BID SQ Last administered on 14:03; Start 09/19/16 at 13:30; Stop 09/20/16 at 19:54; Status DC Sertraline HCl (Zoloft) 50 mg DAILY PO Last administered on 09/22/16 08:29; Start 09/19/16 at 14:30 Non-Formulary Medication 2 each BID PO ; Start 09/19/16 at 21:00; Status UNV Info (Anti-Coagulation Monitoring By Pharmacy) 1 each PRN DAILY PRN MC SEE COMMENTS Last administered on 09/20/16 08:20; Start 09/20/16 at 08:15; Stop at 16:21; Status DC Lidocaine HCl 20 ml STK-MED ONCE .ROUTE ; Start 09/20/16 at 13:40; Stop 09/20/16 at 13:41; Status DC Heparin Sodium/ Sodium Chloride 1,000 ml @ As Directed STK-MED ONCE .ROUTE ; Start 09/20/16 at 13:40; Stop 09/20/16 at 13:41; Status DC Iodixanol (Visipaque 320) 100 ml STK-MED ONCE .ROUTE ; Start 09/20/16 at 13:40; Stop 09/20/16 at 13:41; Status DC Midazolam HCl (Versed) 2 mg STK-MED ONCE .ROUTE ; Start 09/20/16 at 14:02; Stop 09/20/16 at 14:03; Status DC Fentanyl Citrate (Fentanyl 2ml Vial) 100 mcg STK-MED ONCE .ROUTE ; Start at 14:03; Stop 09/20/16 at 14:04; Status DC Heparin Sodium/ Sodium Chloride 500 ml @ As Directed STK-MED ONCE .ROUTE ; Start 09/20/16 at 14:32; Stop 09/20/16 at 14:33; Status DC Nitroglycerin/ Dextrose 250 ml @ As Directed STK-MED ONCE IV ; Start 09/20/16 at 14:39; Stop 09/20/16 at 14:40; Status DC Adenosine (Adenoscan) 90 mg STK-MED ONCE IV ; Start 09/20/16 at 14:49; Stop at 14:50; Status DC Hydralazine HCl (Apresoline) 20 mg STK-MED ONCE .ROUTE ; Start 09/20/16 at 15:06 ; Stop 09/20/16 at 15:07; Status DC Heparin Sodium (Porcine) (Heparin Sodium) 10,000 unit STK-MED ONCE .ROUTE ; Start 09/20/16 at 15:17; Stop 09/20/16 at 15:18; Status DC Heparin Sodium/ Sodium Chloride 1,000 unit 1X ONCE IART Last administered on 15:28; Start 09/20/16 at 15:30; Stop 09/20/16 at 15:31; Status DC Midazolam HCl (Versed) 2 mg 1X ONCE IV ; Start 09/20/16 at 15:30; Stop 09/20/16 at 15:31; Status DC Fentanyl Citrate (Fentanyl 2ml Vial) 100 mcg 1X ONCE IV ; Start 09/20/16 at 15: 30; Stop 09/20/16 at 15:31; Status DC Iodixanol (Visipaque 320) 100 ml 1X ONCE IART Last administered on 09/20/16 15 :28; Start 09/20/16 at 15:30; Stop 09/20/16 at 15:31; Status DC Heparin Sodium (Porcine) (Heparin Sodium) 4,000 unit 1X ONCE IV Last administered on 09/20/16 15:32; Start 09/20/16 at 15:30; Stop 09/20/16 at 15:31; Status DC Adenosine 90 mg/ Sodium Chloride 120 ml @ 200 mls/hr 1X ONCE IV Last administered on 09/20/16 15:29; Start 09/20/16 at 15:30; Stop 09/20/16 at 16:05; Status DC Hydralazine HCl (Apresoline) 5 mg 1X ONCE IVP Last administered on 09/20/16 15 :30; Start 09/20/16 at 15:30; Stop 09/20/16 at 15:31; Status DC Info (Do NOT chart on this entry -- for MONITORING) 1 each PRN DAILY PRN MC SEE COMMENTS; Start 09/20/16 at 15:30; Stop 09/22/16 at 15:29; Status DC Amlodipine Besylate (Norvasc) 5 mg DAILY PO Last administered on 09/21/16 08:30 ; Start 09/21/16 at 09:00; Stop 09/21/16 at 23:22; Status DC Amlodipine Besylate (Norvasc) 5 mg 1X ONCE PO Last administered on 09/20/16 21 :36; Start 09/20/16 at 21:15; Stop 09/20/16 at 21:16; Status DC Metoprolol Tartrate (Lopressor) 50 mg Q8HRS PO Last administered on 09/21/16 21 :39; Start 09/20/16 at 22:00; Stop 09/21/16 at 23:22; Status DC Acetaminophen (Tylenol) 650 mg PRN QID PRN PO PAIN Last administered on 12:29; Start 09/20/16 at 22:00 Pantoprazole Sodium (Protonix) 40 mg DAILYAC PO Last administered on 09/22/16 08:29; Start 09/21/16 at 11:30 Digoxin (Lanoxin) 500 mcg 1X ONCE PO Last administered on 09/21/16 09:28; Start 09/21/16 at 08:45; Stop 09/21/16 at 08:55; Status DC Digoxin (Lanoxin) 250 mcg DAILY PO Last administered on 09/22/16 08:29; Start 09/21/16 at 16:00 Metoprolol Tartrate (Lopressor) 50 mg BID PO Last administered on 09/22/16 20: 19; Start 09/22/16 at 09:00 Diltiazem HCl (Cardizem 24hr Cd) 180 mg DAILY PO Last administered on 09/22/16 08:29; Start 09/22/16 at 09:00 Prednisone (Prednisone) 40 mg DAILY PO Last administered on 09/22/16 09:53; Start 09/22/16 at 09:30 Metformin HCl (Glucophage) 1,000 mg BIDWMEALS PO Last administered on 09/22/16 18:29; Start 09/22/16 at 17:00 Levofloxacin/ Dextrose 100 ml @ 100 mls/hr 1X PREOP PRN IV prophylaxis; Start 09/23/16 at 06:00; Stop 09/23/16 at 18:00 Fentanyl Citrate (Fentanyl 2ml Vial) 25 mcg PRN Q5MIN PRN IV MILD PAIN; Start 09/23/16 at 07:00; Stop 09/24/16 at 06:59 Fentanyl Citrate (Fentanyl 2ml Vial) 50 mcg PRN Q5MIN PRN IV MODERATE PAIN; Start 09/23/16 at 07:00; Stop 09/24/16 at 06:59 Morphine Sulfate 1 mg PRN Q10MIN PRN IV SEVERE PAIN; Start 09/23/16 at 07:00; Stop 09/24/16 at 06:59 Ringer's Solution 1,000 ml @ 0 mls/hr Q0M IV ; Start 09/23/16 at 07:00; Stop 09/23/16 at 18:59 Lidocaine HCl 2 ml PRN 1X PRN ID PRIOR TO IV START; Start 09/23/16 at 07:00; Stop 09/24/16 at 06:59 Hydromorphone HCl (Dilaudid) 0.5 mg PRN Q10MIN PRN IV SEV PAIN, Second choice; Start 09/23/16 at 07:00; Stop 09/24/16 at 06:59 Prochlorperazine Edisylate (Compazine) 5 mg PACU PRN PRN IV NAUSEA, MRX1; Start 09/23/16 at 07:00; Stop 09/24/16 at 06:59 Active Scripts Active Pantoprazole Sodium 40 Mg Tablet.dr 40 Mg PO BIDAC Reported Joaquin Back & Body Caplet (Aspirin/Caffeine) 1 Each Tablet 2 Each PO BID Zoloft (Sertraline Hcl) 50 Mg Tablet 1 Tab PO DAILY Glipizide 5 Mg Tablet 0.5 Tab PO BID Potassium Chloride 20 Meq Tablet.er 20 Meq PO BID last dose this am next dose with supper Sotalol (Sotalol Hcl) 80 Mg Tablet 40 Mg PO BID last dose this am next dose tonight Furosemide 80 Mg Tablet 80 Mg PO DAILY last dose this am next dose tomorrow Atorvastatin Calcium 40 Mg Tablet 40 Mg PO HS last dose was last dose next dose tonight Metformin Hcl 1,000 Mg Tablet 1,000 Mg PO BID last dose this am next dose with supper Vitals/I & O Vital Sign - Last 24 Hours 09/21/16 09/21/16 09/22/16 09/22/16 21:39 23:15 03:15 07:39 Temp 98.5 98.1 97.7 98.5 98.1 97.7 Pulse 116 115 105 123 Resp 22 18 20 B/P (MAP) 128/74 150/90 (110) 135/98 (110) 107/84 (92) Pulse Ox 98 97 97 O2 Delivery Room Air Room Air Room Air 09/22/16 09/22/16 09/22/16 09/22/16 08:00 08:29 08:29 08:29 Pulse 123 123 123 B/P (MAP) 107/84 107/84 107/84 O2 Delivery Room Air O2 Flow Rate 2.0 09/22/16 09/22/16 09/22/16 09/22/16 12:32 15:50 19:10 20:19 Temp 98.0 97.5 98.0 97.5 Pulse 88 103 110 119 Resp 22 18 B/P (MAP) 131/79 (96) 156/104 (121) 104/64 (77) 105/63 Pulse Ox 96 96 O2 Delivery Room Air Room Air Intake and Output 09/21/16 09/21/16 09/22/16 15:00 23:00 07:00 Intake Total 700 ml 480 ml Output Total 400 ml 600 ml Balance 300 ml 480 ml -600 ml EUGENIO THOMPSON MD Sep 22, 2016 21:17
[2016-09-22 23:10] VITALS: BP 140/83
[2016-09-23 03:15] VITALS: BP 133/92
[2016-09-23] MEDS: ACETAMINOPHEN 325 MG TABLET. PO PRN ×2 (05:14→10:48)
[2016-09-23] MEDS ORDERED: IV RINGERS,LACTATED 1000ML 1,000 ML IV SCH (07:00)
[2016-09-23] MEDS ORDERED: LIDOCAINE 1% 1 ML SYRINGE. ID PRN (07:00)
[2016-09-23] MEDS ORDERED: fentaNYL PF VIAL 100 MCG/2 ML VIAL IV PRN ×2 (07:00)
[2016-09-23] MEDS ORDERED: PROCHLORPERAZINE 10 MG/2 ML VIAL. IV PRN (07:00)
[2016-09-23] MEDS ORDERED: MORPHINE SULFATE 2 MG/ML DISP.SYRIN. IV PRN (07:00)
[2016-09-23] MEDS ORDERED: HYDROmorphone 2 MG/ML VIAL IV PRN (07:00)
[2016-09-23] MEDS ORDERED: BUPIVAC MPF-EPI 0.5%-1:200000 30 ML VIAL. ONE (07:38)
[2016-09-23] MEDS ORDERED: BUPIVACAINE MPF 0.5% 30 ML VIAL. ONE (07:38)
[2016-09-23] MEDS: INSULIN ASPART 300 UNITS/3 ML INSULN.PEN SQ SCH ×4 (08:00→21:29)
[2016-09-23] MEDS ORDERED: fentaNYL PF VIAL 100 MCG/2 ML VIAL ONE (08:21)
[2016-09-23] MEDS ORDERED: NEOMY/BACITR/POLYMYXIN OINT PACKET. TP ONE (08:46)
[2016-09-23] MEDS ORDERED: LIDOCAINE 2% PF Vial for OR 5 ML VIAL. ONE (09:08)
[2016-09-23] MEDS ORDERED: PHENYLEPHRINE in 0.9% NACL PF 1 MG/10 ML DISP.SYRIN. IV ONE (09:08)
[2016-09-23] MEDS ORDERED: ONDANSETRON PF 4 MG/2 ML VIAL. ONE (09:08)
[2016-09-23] MEDS ORDERED: DEXAMETHASONE SOD PHOS 20 MG/5 ML VIAL. ONE (09:08)
[2016-09-23] MEDS ORDERED: PROPOFOL 20 ML IV ONE (09:08)
[2016-09-23] MEDS ORDERED: SEVOFLURANE 31 TO 60 MINUTES. IH ONE (09:08)
--- NOTE | 2016-09-23 09:08 | PDOC ---
Provider Note Provider Note out for surg- still had MONDRAGON yesterday- pulse slower last 12 hrs- will continue pred until TA bx back to r/o TA- consult dr rodríguez re CAD but agree poor surg candidate- back on metformin re dm, will need more insulin for steroids ANA MARIA REYNA MD Sep 23, 2016 09:08
--- NOTE | 2016-09-23 09:29 | PDOC ---
BRIEF OPERATIVE NOTE Date: Sep 23, 2016 Pre-Op Diagnosis headaches Post-Op Diagnosis same Procedure Performed left temporal artery biopsy Surgeon Bharathi Anesthesia Type: General Blood Loss 5cc IV Fluid 800cc Specimens Obtained left temporal artery biopsy Findings mildly prominent artery Complications none Additional Remarks # [id number] RIGO GUZMÁN MD Sep 23, 2016 09:29
[2016-09-23] MEDS: SERTRALINE 50 MG TABLET. PO SCH (10:37)
[2016-09-23] MEDS: PANTOPRAZOLE 40 MG TABLET.DR. PO SCH (10:37)
[2016-09-23] MEDS: predniSONE 20 MG TABLET PO SCH (10:37)
[2016-09-23] MEDS: METOPROLOL TART IMMED RELEASE 50 MG TABLET. PO SCH ×2 (10:41→21:12)
[2016-09-23] MEDS: DIGOXIN 250 MCG TABLET. PO SCH (10:41)
--- NOTE | 2016-09-23 10:44 | OP ---
DATE OF SURGERY: 09/23/2016 PREOPERATIVE DIAGNOSIS: Headaches, rule out temporal arteritis. POSTOPERATIVE DIAGNOSIS: Headaches, rule out temporal arteritis. PROCEDURE: Left temporal artery biopsy. SURGEON: Rigo Guzmán MD ANESTHESIA: General. ESTIMATED BLOOD LOSS: 5 mL. IV FLUID: 800. INDICATIONS: The patient is a 66-year-old gentleman with persistent headaches. He is brought for temporal artery biopsy. DESCRIPTION OF PROCEDURE: The patient was taken to the Operating Suite, given general LMA, and the left alevism preauricular area was prepped and draped in the usual sterile fashion. A course of the vessel was traced with a marking pen, and the incision was infiltrated with 0.5% Marcaine plain. Skin was incised, and dissection was carried down to the vessel. A segment was ligated proximally and distally and harvested for biopsy. Good hemostasis was present. Incision was closed with interrupted inverted 3-0 Vicryl in the subcutaneous tissue, subcuticular 4-0 Monocryl with Steri-Strips for the skin. Sterile dressing was applied. The patient was awakened from his anesthetic and taken to the Recovery Room in satisfactory condition. RIGO GUZMÁN MD DR: LIONEL/danni JOB#: [id number] / [id number]
[2016-09-23 11:00] VITALS: BP 127/82
[2016-09-23 15:00] VITALS: BP 120/80
--- NOTE | 2016-09-23 15:35 | PDOC ---
PROGRESS NOTES Subjective Subjective The patient tolerated the temporal artery biopsy very well. There were no issues with the anesthetic. No cardiac complaints at this time Objective Objective Vital Signs Date Time Temp Pulse Resp B/P (MAP) Pulse Ox O2 Delivery O2 Flow Rate FiO2 09/23/16 11:00 98.0 93 18 127/82 (97) 97 Room Air 98.0 09/23/16 09:31 10 Intake and Output 09/23/16 07:00 Intake Total 520 ml Output Total 1200 ml Balance -680 ml Intake Oral 520 ml Output Urine Total 1200 ml # Voids 3 Physical Exam Physical Exam No significant changes in cardiac exam Assessment Assessment Patient compensated cardiac-rayo. Awaiting results of the biopsy. Comment Review of Relevant I have reviewed the following items mervin (where applicable) has been applied. Labs Laboratory Tests Test 09/21/16 16:58 09/21/16 20:32 09/22/16 07:44 09/22/16 12:28 Glucose (Fingerstick) 118 mg/dL (70-99) 197 mg/dL (70-99) 166 mg/dL (70-99) 171 mg/dL (70-99) Test 09/22/16 17:12 09/22/16 21:02 09/23/16 07:37 09/23/16 09:52 Glucose (Fingerstick) 230 mg/dL (70-99) 299 mg/dL (70-99) 107 mg/dL (70-99) 128 mg/dL (70-99) Test 09/23/16 13:10 Glucose (Fingerstick) 240 mg/dL (70-99) Laboratory Tests Test 09/22/16 17:12 09/22/16 21:02 09/23/16 07:37 09/23/16 09:52 Glucose (Fingerstick) 230 mg/dL (70-99) 299 mg/dL (70-99) 107 mg/dL (70-99) 128 mg/dL (70-99) Test 09/23/16 13:10 Glucose (Fingerstick) 240 mg/dL (70-99) Medications Current Medications Aspirin (Children'S Aspirin) 324 mg 1X ONCE PO Last administered on 09/18/16t 12:19; Start 09/18/16 at 12:15; Stop 09/18/16 at 12:16; Status DC Fentanyl Citrate (Fentanyl 2ml Vial) 25 mcg PRN Q15MIN PRN IV PAIN GREATER THAN 3/10 Last administered on 09/18/16 12:27; Start 09/18/16 at 12:15; Stop 09/18 at 15:34; Status DC Nitroglycerin (Nitrostat) 0.4 mg PRN Q5MIN PRN SL CHEST PAIN; Start 09/18/16 at 12:15 Amiodarone HCl 150 mg/Dextrose 103 ml @ 618 mls/hr 1X ONCE IV Last administered on 09/18/16 12:24; Start 09/18/16 at 12:15; Stop 09/18/16 at 12:24; Status DC Amiodarone HCl 900 mg/Dextrose 518 ml @ 0 mls/hr CONT PRN IV SEE I/O RECORD Last administered on 09/18/16 12:34; Start 09/18/16 at 12:15; Stop 09/18/16 at 12: 35; Status DC Sodium Chloride 1,000 ml @ 1,000 mls/hr 1X ONCE IV Last administered on 12:35; Start 09/18/16 at 12:45; Stop 09/18/16 at 13:44; Status DC Digoxin (Lanoxin) 500 mcg 1X ONCE PO Last administered on 09/18/16 12:50; Start 09/18/16 at 13:00; Stop 09/18/16 at 13:01; Status DC Sodium Chloride 500 ml @ 500 mls/hr 1X ONCE IV ; Start 09/18/16 at 12:45; Stop 09/18/16 at 13:44; Status DC Ondansetron HCl (Zofran) 4 mg PRN Q8HRS PRN IV NAUSEA/VOMITING; Start 09/18/16 at 15:30; Stop 09/19/16 at 15:29; Status DC Fentanyl Citrate (Fentanyl 2ml Vial) 50 mcg PRN Q2HR PRN IV PAIN Last administered on 09/19/16 14:07; Start 09/18/16 at 15:30; Stop 09/19/16 at 15:29; Status DC Acetaminophen (Tylenol) 650 mg PRN Q4HRS PRN PO FEVER; Start 09/18/16 at 15:30; Stop 09/19/16 at 15:29; Status DC Nitroglycerin (Nitrostat) 0.4 mg PRN Q5MIN PRN SL CHEST PAIN; Start 09/18/16 at 15:30; Stop 09/18/16 at 15:34; Status DC Insulin Aspart (NovoLOG) 0-5 UNITS TIDWMEALS SQ Last administered on 09/23/16 13:15; Start 09/18/16 at 17:00 Dextrose (Dextrose 50%-Water Syringe) 12.5 gm PRN Q15MIN PRN IV SEE COMMENTS; Start 09/18/16 at 15:30 Metoprolol Tartrate (Lopressor) 2.5 mg Q6HRS IVP ; Start 09/19/16 at 19:30; Stop 09/19/16 at 19:30; Status DC Enoxaparin Sodium (Lovenox 150mg Syringe) 130 mg 1X ONCE SQ Last administered on 09/18/16 19:51; Start 09/18/16 at 19:45; Stop 09/18/16 at 19:48; Status DC Metoprolol Tartrate (Lopressor) 2.5 mg Q6HRS IVP Last administered on 09/19/16 05:35; Start 09/18/16 at 20:30; Stop 09/19/16 at 12:53; Status DC Levothyroxine Sodium (Synthroid) 50 mcg DAILY07 PO ; Start 09/19/16 at 13:30; Stop 09/19/16 at 14:26; Status DC Sodium Chloride 1,000 ml @ 75 mls/hr [id number] IV Last administered on 09/20/16 02:50; Start 09/19/16 at 13:30; Stop 09/20/16 at 19:05; Status DC Enoxaparin Sodium (Lovenox Per Pharmacy Treatment Dosing) 1 each PRN DAILY PRN MC SEE COMMENTS; Start 09/19/16 at 13:00; Status Cancel Metoprolol Tartrate (Lopressor) 5 mg Q6HRS IVP Last administered on 09/20/16 19 :00; Start 09/19/16 at 13:30; Stop 09/20/16 at 21:22; Status DC Enoxaparin Sodium (Lovenox 150mg Syringe) 130 mg BID SQ Last administered on 14:03; Start 09/19/16 at 13:30; Stop 09/20/16 at 19:54; Status DC Sertraline HCl (Zoloft) 50 mg DAILY PO Last administered on 09/23/16t 10:37; Start 09/19/16 at 14:30 Non-Formulary Medication 2 each BID PO ; Start 09/19/16 at 21:00; Status UNV Info (Anti-Coagulation Monitoring By Pharmacy) 1 each PRN DAILY PRN MC SEE COMMENTS Last administered on 09/20/16t 08:20; Start 09/20/16 at 08:15; Stop at 16:21; Status DC Lidocaine HCl 20 ml STK-MED ONCE .ROUTE ; Start 09/20/16 at 13:40; Stop 09/20/16 at 13:41; Status DC Heparin Sodium/ Sodium Chloride 1,000 ml @ As Directed STK-MED ONCE .ROUTE ; Start 09/20/16 at 13:40; Stop 09/20/16 at 13:41; Status DC Iodixanol (Visipaque 320) 100 ml STK-MED ONCE .ROUTE ; Start 09/20/16 at 13:40; Stop 09/20/16 at 13:41; Status DC Midazolam HCl (Versed) 2 mg STK-MED ONCE .ROUTE ; Start 09/20/16 at 14:02; Stop 09/20/16 at 14:03; Status DC Fentanyl Citrate (Fentanyl 2ml Vial) 100 mcg STK-MED ONCE .ROUTE ; Start at 14:03; Stop 09/20/16 at 14:04; Status DC Heparin Sodium/ Sodium Chloride 500 ml @ As Directed STK-MED ONCE .ROUTE ; Start 09/20/16 at 14:32; Stop 09/20/16 at 14:33; Status DC Nitroglycerin/ Dextrose 250 ml @ As Directed STK-MED ONCE IV ; Start 09/20/16 at 14:39; Stop 09/20/16 at 14:40; Status DC Adenosine (Adenoscan) 90 mg STK-MED ONCE IV ; Start 09/20/16 at 14:49; Stop at 14:50; Status DC Hydralazine HCl (Apresoline) 20 mg STK-MED ONCE .ROUTE ; Start 09/20/16 at 15:06 ; Stop 09/20/16 at 15:07; Status DC Heparin Sodium (Porcine) (Heparin Sodium) 10,000 unit STK-MED ONCE .ROUTE ; Start 09/20/16 at 15:17; Stop 09/20/16 at 15:18; Status DC Heparin Sodium/ Sodium Chloride 1,000 unit 1X ONCE IART Last administered on 15:28; Start 09/20/16 at 15:30; Stop 09/20/16 at 15:31; Status DC Midazolam HCl (Versed) 2 mg 1X ONCE IV ; Start 09/20/16 at 15:30; Stop 09/20/16 at 15:31; Status DC Fentanyl Citrate (Fentanyl 2ml Vial) 100 mcg 1X ONCE IV ; Start 09/20/16 at 15: 30; Stop 09/20/16 at 15:31; Status DC Iodixanol (Visipaque 320) 100 ml 1X ONCE IART Last administered on 09/20/16 15 :28; Start 09/20/16 at 15:30; Stop 09/20/16 at 15:31; Status DC Heparin Sodium (Porcine) (Heparin Sodium) 4,000 unit 1X ONCE IV Last administered on 09/20/16 15:32; Start 09/20/16 at 15:30; Stop 09/20/16 at 15:31; Status DC Adenosine 90 mg/ Sodium Chloride 120 ml @ 200 mls/hr 1X ONCE IV Last administered on 09/20/16 15:29; Start 09/20/16 at 15:30; Stop 09/20/16 at 16:05; Status DC Hydralazine HCl (Apresoline) 5 mg 1X ONCE IVP Last administered on 09/20/16 15 :30; Start 09/20/16 at 15:30; Stop 09/20/16 at 15:31; Status DC Info (Do NOT chart on this entry -- for MONITORING) 1 each PRN DAILY PRN MC SEE COMMENTS; Start 09/20/16 at 15:30; Stop 09/22/16 at 15:29; Status DC Amlodipine Besylate (Norvasc) 5 mg DAILY PO Last administered on 09/21/16 08:30 ; Start 09/21/16 at 09:00; Stop 09/21/16 at 23:22; Status DC Amlodipine Besylate (Norvasc) 5 mg 1X ONCE PO Last administered on 09/20/16 21 :36; Start 09/20/16 at 21:15; Stop 09/20/16 at 21:16; Status DC Metoprolol Tartrate (Lopressor) 50 mg Q8HRS PO Last administered on 09/21/16 21 :39; Start 09/20/16 at 22:00; Stop 09/21/16 at 23:22; Status DC Acetaminophen (Tylenol) 650 mg PRN QID PRN PO PAIN Last administered on 10:48; Start 09/20/16 at 22:00 Pantoprazole Sodium (Protonix) 40 mg DAILYAC PO Last administered on 09/23/16 10:37; Start 09/21/16 at 11:30 Digoxin (Lanoxin) 500 mcg 1X ONCE PO Last administered on 09/21/16 09:28; Start 09/21/16 at 08:45; Stop 09/21/16 at 08:55; Status DC Digoxin (Lanoxin) 250 mcg DAILY PO Last administered on 09/23/16 10:41; Start 09/21/16 at 16:00 Metoprolol Tartrate (Lopressor) 50 mg BID PO Last administered on 09/23/16 10: 41; Start 09/22/16 at 09:00 Diltiazem HCl (Cardizem 24hr Cd) 180 mg DAILY PO Last administered on 09/23/16 10:40; Start 09/22/16 at 09:00 Prednisone (Prednisone) 40 mg DAILY PO Last administered on 09/23/16 10:37; Start 09/22/16 at 09:30 Metformin HCl (Glucophage) 1,000 mg BIDWMEALS PO Last administered on 09/23/16 10:37; Start 09/22/16 at 17:00 Levofloxacin/ Dextrose 100 ml @ 100 mls/hr 1X PREOP PRN IV prophylaxis Last administered on 09/23/16 08:44; Start 09/23/16 at 06:00; Stop 09/23/16 at 18:00 Fentanyl Citrate (Fentanyl 2ml Vial) 25 mcg PRN Q5MIN PRN IV MILD PAIN; Start 09/23/16 at 07:00; Stop 09/24/16 at 06:59 Fentanyl Citrate (Fentanyl 2ml Vial) 50 mcg PRN Q5MIN PRN IV MODERATE PAIN; Start 09/23/16 at 07:00; Stop 09/24/16 at 06:59 Morphine Sulfate 1 mg PRN Q10MIN PRN IV SEVERE PAIN; Start 09/23/16 at 07:00; Stop 09/24/16 at 06:59 Ringer's Solution 1,000 ml @ 0 mls/hr Q0M IV ; Start 09/23/16 at 07:00; Stop 09/23/16 at 18:59 Lidocaine HCl 2 ml PRN 1X PRN ID PRIOR TO IV START; Start 09/23/16 at 07:00; Stop 09/24/16 at 06:59 Hydromorphone HCl (Dilaudid) 0.5 mg PRN Q10MIN PRN IV SEV PAIN, Second choice; Start 09/23/16 at 07:00; Stop 09/24/16 at 06:59 Prochlorperazine Edisylate (Compazine) 5 mg PACU PRN PRN IV NAUSEA, MRX1; Start 09/23/16 at 07:00; Stop 09/24/16 at 06:59 Bupivacaine HCl/ Epinephrine Bitart (Sensorcain-Mpf Epi 0.5%-[id number]) 30 ml STK -MED ONCE .ROUTE ; Start 09/23/16 at 07:38; Stop 09/23/16 at 07:39; Status DC Bupivacaine HCl (Sensorcaine Mpf 0.5%) 30 ml STK-MED ONCE .ROUTE Last administered on 09/23/16t 09:10; Start 09/23/16 at 07:38; Stop 09/23/16 at 07:39; Status DC Fentanyl Citrate (Fentanyl 2ml Vial) 100 mcg STK-MED ONCE .ROUTE ; Start at 08:21; Stop 09/23/16 at 08:22; Status DC Neomycin/ Polymyxin/ Bacitracin (Triple Antibiotic Ointment) 1 pkt STK-MED ONCE TP ; Start 09/23/16 at 08:46; Stop 09/23/16 at 08:47; Status DC Dexamethasone Sodium Phosphate (Decadron) 20 mg STK-MED ONCE .ROUTE ; Start 09/23 at 09:08; Stop 09/23/16 at 09:09; Status DC Ondansetron HCl (Zofran) 4 mg STK-MED ONCE .ROUTE ; Start 09/23/16 at 09:08; Stop 09/23/16 at 09:09; Status DC Propofol 20 ml @ As Directed STK-MED ONCE IV ; Start 09/23/16 at 09:08; Stop 09/23 at 09:09; Status DC Lidocaine HCl (Lidocaine Pf 2% Vial) 5 ml STK-MED ONCE .ROUTE ; Start 09/23/16 at 09:08; Stop 09/23/16 at 09:09; Status DC Sevoflurane (Ultane) 30 ml STK-MED ONCE IH ; Start 09/23/16 at 09:08; Stop at 09:09; Status DC Phenylephrine HCl 1 mg STK-MED ONCE IV ; Start 09/23/16 at 09:08; Stop 09/23/16 at 09:09; Status DC Active Scripts Active Pantoprazole Sodium 40 Mg Tablet.dr 40 Mg PO BIDAC Reported Joaquin Back & Body Caplet (Aspirin/Caffeine) 1 Each Tablet 2 Each PO BID Zoloft (Sertraline Hcl) 50 Mg Tablet 1 Tab PO DAILY Glipizide 5 Mg Tablet 0.5 Tab PO BID Potassium Chloride 20 Meq Tablet.er 20 Meq PO BID last dose this am next dose with supper Sotalol (Sotalol Hcl) 80 Mg Tablet 40 Mg PO BID last dose this am next dose tonight Furosemide 80 Mg Tablet 80 Mg PO DAILY last dose this am next dose tomorrow Atorvastatin Calcium 40 Mg Tablet 40 Mg PO HS last dose was last dose next dose tonight Metformin Hcl 1,000 Mg Tablet 1,000 Mg PO BID last dose this am next dose with supper Vitals/I & O Vital Sign - Last 24 Hours 09/22/16 09/22/16 09/22/16 09/22/16 15:50 19:10 20:10 20:19 Temp 98.0 97.5 98.0 97.5 Pulse 103 110 119 Resp 22 18 B/P (MAP) 156/104 (121) 104/64 (77) 105/63 Pulse Ox 96 96 O2 Delivery Room Air Room Air Room Air 09/22/16 09/23/16 09/23/16 09/23/16 23:10 03:15 07:42 08:00 Temp 98.0 98.3 97.2 98.0 98.3 97.2 Pulse 96 89 103 Resp 18 20 20 B/P (MAP) 140/83 (102) 133/92 (106) 141/94 Pulse Ox 96 96 95 O2 Delivery Room Air Room Air Room Air Room Air 09/23/16 09/23/16 09/23/16 09/23/16 09:16 09:16 09:31 09:46 Temp 98.4 98.4 Pulse 100 103 94 Resp 26 20 24 B/P (MAP) 127/80 138/102 139/95 Pulse Ox 99 97 94 O2 Delivery Simple Mask Mask Simple Mask Room Air O2 Flow Rate 10 10 10 09/23/16 09/23/16 09/23/16 09/23/16 10:01 10:40 10:41 10:41 Temp 98.2 98.2 Pulse 89 114 114 114 Resp 16 B/P (MAP) 138/86 132/84 132/84 132/84 Pulse Ox 95 O2 Delivery Room Air 09/23/16 11:00 Temp 98.0 98.0 Pulse 93 Resp 18 B/P (MAP) 127/82 (97) Pulse Ox 97 O2 Delivery Room Air Intake and Output 09/22/16 09/22/16 09/23/16 15:00 23:00 07:00 Intake Total 220 ml 300 ml Output Total 400 ml 600 ml 200 ml Balance -180 ml -600 ml 100 ml EUGENIO THOMPSON MD Sep 23, 2016 15:35
[2016-09-23] MEDS: oxyCODONE/APAP 5/325 1 TAB TABLET PO PRN (16:41)
[2016-09-23 19:40] VITALS: BP 124/79
[2016-09-23] MEDS ORDERED: INSULIN ASPART 300 UNITS/3 ML INSULN.PEN SQ ONE (21:30)
[2016-09-23 23:00] VITALS: BP 142/99
[2016-09-24 03:41] VITALS: BP 164/99
[2016-09-24] MEDS: oxyCODONE/APAP 5/325 1 TAB TABLET PO PRN ×2 (04:45→20:41)
[2016-09-24 07:00] VITALS: BP 131/86
[2016-09-24] MEDS: INSULIN ASPART 300 UNITS/3 ML INSULN.PEN SQ SCH ×3 (08:00→18:22)
[2016-09-24] MEDS: SERTRALINE 50 MG TABLET. PO SCH (08:40)
[2016-09-24] MEDS: predniSONE 20 MG TABLET PO SCH (08:40)
[2016-09-24] MEDS: METOPROLOL TART IMMED RELEASE 50 MG TABLET. PO SCH ×2 (08:40→20:38)
[2016-09-24] MEDS: DIGOXIN 250 MCG TABLET. PO SCH (08:41)
[2016-09-24] MEDS: PANTOPRAZOLE 40 MG TABLET.DR. PO SCH (08:44)
--- NOTE | 2016-09-24 08:58 | PDOC ---
Provider Note Provider Note vss, still af w/ rapid rate at times- feels MONDRAGON some better after 3 days steroid , biopsy pending- add low dose levemir, more dilt re rate ANA MARIA REYNA MD Sep 24, 2016 08:58
--- NOTE | 2016-09-24 09:02 | PDOC ---
Provider Note Provider Note add eliquis for now re high risk AF , can stop if any procedures needed- Chads2 score 2 ANA MARIA REYNA MD Sep 24, 2016 09:02
--- NOTE | 2016-09-24 10:29 | PDOC ---
SURGICAL PROGRESS NOTE Subjective pain to right temporal side now Vital Signs Vital Signs Date Time Temp Pulse Resp B/P (MAP) Pulse Ox O2 Delivery O2 Flow Rate FiO2 09/24/16 08:41 94 131/86 09/24/16 08:00 Room Air 09/24/16 07:00 97.3 18 95 97.3 09/23/16 09:31 10 I&O Intake and Output 09/24/16 07:00 Intake Total 2850 ml Output Total 200 ml Balance 2650 ml Intake Oral 1900 ml IV Total 950 ml Output Urine Total 200 ml # Bowel Movements 1 General: Alert, Cooperative HEENT: Other (temporal biopsy site c/d/i, no erythema or bleeidng) Labs Laboratory Tests Test 09/22/16 12:28 09/22/16 17:12 09/22/16 21:02 09/23/16 07:37 Glucose (Fingerstick) 171 mg/dL (70-99) 230 mg/dL (70-99) 299 mg/dL (70-99) 107 mg/dL (70-99) Test 09/23/16 09:52 09/23/16 13:10 09/23/16 17:42 09/23/16 21:09 Glucose (Fingerstick) 128 mg/dL (70-99) 240 mg/dL (70-99) 301 mg/dL (70-99) 264 mg/dL (70-99) Test 09/24/16 07:50 Glucose (Fingerstick) 127 mg/dL (70-99) Laboratory Tests Test 09/23/16 13:10 09/23/16 17:42 09/23/16 21:09 09/24/16 07:50 Glucose (Fingerstick) 240 mg/dL (70-99) 301 mg/dL (70-99) 264 mg/dL (70-99) 127 mg/dL (70-99) Problem List Problems Medical Problems: (1) Arrhythmia Status: Acute Assessment/Plan s/p biopsy site dry, will sign off, please call with questions Problems: LOUIS CORTEZ APRN Sep 24, 2016 10:29
[2016-09-24 11:00] VITALS: BP 111/72
[2016-09-24] MEDS: APIXABAN 5 MG TABLET. PO SCH ×2 (12:51→20:36)
[2016-09-24] MEDS: INSULIN DETEMIR 300 UNITS/3 ML INSULN.PEN. SQ SCH ×2 (13:00→20:54)
[2016-09-24 15:38] VITALS: BP 127/84
--- NOTE | 2016-09-24 17:29 | PDOC ---
PROGRESS NOTES Subjective Subjective She is very weak. He could not stand on his own without assistance. The biopsy results are pending. Objective Objective Vital Signs Date Time Temp Pulse Resp B/P (MAP) Pulse Ox O2 Delivery O2 Flow Rate FiO2 09/24/16 15:38 97.6 80 18 127/84 (98) 96 Room Air 97.6 09/23/16 09:31 10 Intake and Output 09/24/16 07:00 Intake Total 2850 ml Output Total 200 ml Balance 2650 ml Intake Oral 1900 ml IV Total 950 ml Output Urine Total 200 ml # Bowel Movements 1 Physical Exam Physical Exam No significant changes in cardiac exam Assessment Assessment This very weak and deconditioned patient is not in my opinion a very good surgical candidate for a big open heart surgery with bypass and valve replacement. Before deciding on the treatment modality for his heart problems I would like to see the results of the temporal artery biopsy because if he has a positive biopsy he would have to be on steroids for several weeks and we would then need to wait before anything else would be done with regards to heart surgery. Comment Review of Relevant I have reviewed the following items mervin (where applicable) has been applied. Labs Laboratory Tests Test 09/22/16 21:02 09/23/16 07:37 09/23/16 09:52 09/23/16 13:10 Glucose (Fingerstick) 299 mg/dL (70-99) 107 mg/dL (70-99) 128 mg/dL (70-99) 240 mg/dL (70-99) Test 09/23/16 17:42 09/23/16 21:09 09/24/16 07:50 09/24/16 11:42 Glucose (Fingerstick) 301 mg/dL (70-99) 264 mg/dL (70-99) 127 mg/dL (70-99) 167 mg/dL (70-99) Laboratory Tests Test 09/23/16 17:42 09/23/16 21:09 09/24/16 07:50 09/24/16 11:42 Glucose (Fingerstick) 301 mg/dL (70-99) 264 mg/dL (70-99) 127 mg/dL (70-99) 167 mg/dL (70-99) Medications Current Medications Aspirin (Children'S Aspirin) 324 mg 1X ONCE PO Last administered on 09/18/16t 12:19; Start 09/18/16 at 12:15; Stop 09/18/16 at 12:16; Status DC Fentanyl Citrate (Fentanyl 2ml Vial) 25 mcg PRN Q15MIN PRN IV PAIN GREATER THAN 3/10 Last administered on 09/18/16 12:27; Start 09/18/16 at 12:15; Stop 09/18 at 15:34; Status DC Nitroglycerin (Nitrostat) 0.4 mg PRN Q5MIN PRN SL CHEST PAIN; Start 09/18/16 at 12:15 Amiodarone HCl 150 mg/Dextrose 103 ml @ 618 mls/hr 1X ONCE IV Last administered on 09/18/16 12:24; Start 09/18/16 at 12:15; Stop 09/18/16 at 12:24; Status DC Amiodarone HCl 900 mg/Dextrose 518 ml @ 0 mls/hr CONT PRN IV SEE I/O RECORD Last administered on 09/18/16 12:34; Start 09/18/16 at 12:15; Stop 09/18/16 at 12: 35; Status DC Sodium Chloride 1,000 ml @ 1,000 mls/hr 1X ONCE IV Last administered on 12:35; Start 09/18/16 at 12:45; Stop 09/18/16 at 13:44; Status DC Digoxin (Lanoxin) 500 mcg 1X ONCE PO Last administered on 09/18/16 12:50; Start 09/18/16 at 13:00; Stop 09/18/16 at 13:01; Status DC Sodium Chloride 500 ml @ 500 mls/hr 1X ONCE IV ; Start 09/18/16 at 12:45; Stop 09/18/16 at 13:44; Status DC Ondansetron HCl (Zofran) 4 mg PRN Q8HRS PRN IV NAUSEA/VOMITING; Start 09/18/16 at 15:30; Stop 09/19/16 at 15:29; Status DC Fentanyl Citrate (Fentanyl 2ml Vial) 50 mcg PRN Q2HR PRN IV PAIN Last administered on 09/19/16 14:07; Start 09/18/16 at 15:30; Stop 09/19/16 at 15:29; Status DC Acetaminophen (Tylenol) 650 mg PRN Q4HRS PRN PO FEVER; Start 09/18/16 at 15:30; Stop 09/19/16 at 15:29; Status DC Nitroglycerin (Nitrostat) 0.4 mg PRN Q5MIN PRN SL CHEST PAIN; Start 09/18/16 at 15:30; Stop 09/18/16 at 15:34; Status DC Insulin Aspart (NovoLOG) 0-5 UNITS TIDWMEALS SQ Last administered on 09/24/16 12:59; Start 09/18/16 at 17:00 Dextrose (Dextrose 50%-Water Syringe) 12.5 gm PRN Q15MIN PRN IV SEE COMMENTS; Start 09/18/16 at 15:30 Metoprolol Tartrate (Lopressor) 2.5 mg Q6HRS IVP ; Start 09/19/16 at 19:30; Stop 09/19/16 at 19:30; Status DC Enoxaparin Sodium (Lovenox 150mg Syringe) 130 mg 1X ONCE SQ Last administered on 09/18/16 19:51; Start 09/18/16 at 19:45; Stop 09/18/16 at 19:48; Status DC Metoprolol Tartrate (Lopressor) 2.5 mg Q6HRS IVP Last administered on 09/19/16 05:35; Start 09/18/16 at 20:30; Stop 09/19/16 at 12:53; Status DC Levothyroxine Sodium (Synthroid) 50 mcg DAILY07 PO ; Start 09/19/16 at 13:30; Stop 09/19/16 at 14:26; Status DC Sodium Chloride 1,000 ml @ 75 mls/hr [id number] IV Last administered on 09/20/16 02:50; Start 09/19/16 at 13:30; Stop 09/20/16 at 19:05; Status DC Enoxaparin Sodium (Lovenox Per Pharmacy Treatment Dosing) 1 each PRN DAILY PRN MC SEE COMMENTS; Start 09/19/16 at 13:00; Status Cancel Metoprolol Tartrate (Lopressor) 5 mg Q6HRS IVP Last administered on 09/20/16 19 :00; Start 09/19/16 at 13:30; Stop 09/20/16 at 21:22; Status DC Enoxaparin Sodium (Lovenox 150mg Syringe) 130 mg BID SQ Last administered on 14:03; Start 09/19/16 at 13:30; Stop 09/20/16 at 19:54; Status DC Sertraline HCl (Zoloft) 50 mg DAILY PO Last administered on 09/24/16 08:40; Start 09/19/16 at 14:30 Non-Formulary Medication 2 each BID PO ; Start 09/19/16 at 21:00; Status UNV Info (Anti-Coagulation Monitoring By Pharmacy) 1 each PRN DAILY PRN MC SEE COMMENTS Last administered on 09/20/16 08:20; Start 09/20/16 at 08:15; Stop at 16:21; Status DC Lidocaine HCl 20 ml STK-MED ONCE .ROUTE ; Start 09/20/16 at 13:40; Stop 09/20/16 at 13:41; Status DC Heparin Sodium/ Sodium Chloride 1,000 ml @ As Directed STK-MED ONCE .ROUTE ; Start 09/20/16 at 13:40; Stop 09/20/16 at 13:41; Status DC Iodixanol (Visipaque 320) 100 ml STK-MED ONCE .ROUTE ; Start 09/20/16 at 13:40; Stop 09/20/16 at 13:41; Status DC Midazolam HCl (Versed) 2 mg STK-MED ONCE .ROUTE ; Start 09/20/16 at 14:02; Stop 09/20/16 at 14:03; Status DC Fentanyl Citrate (Fentanyl 2ml Vial) 100 mcg STK-MED ONCE .ROUTE ; Start at 14:03; Stop 09/20/16 at 14:04; Status DC Heparin Sodium/ Sodium Chloride 500 ml @ As Directed STK-MED ONCE .ROUTE ; Start 09/20/16 at 14:32; Stop 09/20/16 at 14:33; Status DC Nitroglycerin/ Dextrose 250 ml @ As Directed STK-MED ONCE IV ; Start 09/20/16 at 14:39; Stop 09/20/16 at 14:40; Status DC Adenosine (Adenoscan) 90 mg STK-MED ONCE IV ; Start 09/20/16 at 14:49; Stop at 14:50; Status DC Hydralazine HCl (Apresoline) 20 mg STK-MED ONCE .ROUTE ; Start 09/20/16 at 15:06 ; Stop 09/20/16 at 15:07; Status DC Heparin Sodium (Porcine) (Heparin Sodium) 10,000 unit STK-MED ONCE .ROUTE ; Start 09/20/16 at 15:17; Stop 09/20/16 at 15:18; Status DC Heparin Sodium/ Sodium Chloride 1,000 unit 1X ONCE IART Last administered on 15:28; Start 09/20/16 at 15:30; Stop 09/20/16 at 15:31; Status DC Midazolam HCl (Versed) 2 mg 1X ONCE IV ; Start 09/20/16 at 15:30; Stop 09/20/16 at 15:31; Status DC Fentanyl Citrate (Fentanyl 2ml Vial) 100 mcg 1X ONCE IV ; Start 09/20/16 at 15: 30; Stop 09/20/16 at 15:31; Status DC Iodixanol (Visipaque 320) 100 ml 1X ONCE IART Last administered on 09/20/16 15 :28; Start 09/20/16 at 15:30; Stop 09/20/16 at 15:31; Status DC Heparin Sodium (Porcine) (Heparin Sodium) 4,000 unit 1X ONCE IV Last administered on 09/20/16 15:32; Start 09/20/16 at 15:30; Stop 09/20/16 at 15:31; Status DC Adenosine 90 mg/ Sodium Chloride 120 ml @ 200 mls/hr 1X ONCE IV Last administered on 09/20/16 15:29; Start 09/20/16 at 15:30; Stop 09/20/16 at 16:05; Status DC Hydralazine HCl (Apresoline) 5 mg 1X ONCE IVP Last administered on 09/20/16 15 :30; Start 09/20/16 at 15:30; Stop 09/20/16 at 15:31; Status DC Info (Do NOT chart on this entry -- for MONITORING) 1 each PRN DAILY PRN MC SEE COMMENTS; Start 09/20/16 at 15:30; Stop 09/22/16 at 15:29; Status DC Amlodipine Besylate (Norvasc) 5 mg DAILY PO Last administered on 09/21/16 08:30 ; Start 09/21/16 at 09:00; Stop 09/21/16 at 23:22; Status DC Amlodipine Besylate (Norvasc) 5 mg 1X ONCE PO Last administered on 09/20/16 21 :36; Start 09/20/16 at 21:15; Stop 09/20/16 at 21:16; Status DC Metoprolol Tartrate (Lopressor) 50 mg Q8HRS PO Last administered on 09/21/16 21 :39; Start 09/20/16 at 22:00; Stop 09/21/16 at 23:22; Status DC Acetaminophen (Tylenol) 650 mg PRN QID PRN PO PAIN Last administered on 10:48; Start 09/20/16 at 22:00 Pantoprazole Sodium (Protonix) 40 mg DAILYAC PO Last administered on 09/24/16 08:44; Start 09/21/16 at 11:30 Digoxin (Lanoxin) 500 mcg 1X ONCE PO Last administered on 09/21/16 09:28; Start 09/21/16 at 08:45; Stop 09/21/16 at 08:55; Status DC Digoxin (Lanoxin) 250 mcg DAILY PO Last administered on 09/24/16 08:41; Start 09/21/16 at 16:00 Metoprolol Tartrate (Lopressor) 50 mg BID PO Last administered on 09/24/16 08: 40; Start 09/22/16 at 09:00 Diltiazem HCl (Cardizem 24hr Cd) 180 mg DAILY PO Last administered on 09/24/16 08:40; Start 09/22/16 at 09:00; Stop 09/24/16 at 08:58; Status DC Prednisone (Prednisone) 40 mg DAILY PO Last administered on 09/24/16 08:40; Start 09/22/16 at 09:30 Metformin HCl (Glucophage) 1,000 mg BIDWMEALS PO Last administered on 09/24/16 08:40; Start 09/22/16 at 17:00 Levofloxacin/ Dextrose 100 ml @ 100 mls/hr 1X PREOP PRN IV prophylaxis Last administered on 09/23/16 08:44; Start 09/23/16 at 06:00; Stop 09/23/16 at 18:00; Status DC Fentanyl Citrate (Fentanyl 2ml Vial) 25 mcg PRN Q5MIN PRN IV MILD PAIN; Start 09/23/16 at 07:00; Stop 09/24/16 at 06:59; Status DC Fentanyl Citrate (Fentanyl 2ml Vial) 50 mcg PRN Q5MIN PRN IV MODERATE PAIN; Start 09/23/16 at 07:00; Stop 09/24/16 at 06:59; Status DC Morphine Sulfate 1 mg PRN Q10MIN PRN IV SEVERE PAIN; Start 09/23/16 at 07:00; Stop 09/24/16 at 06:59; Status DC Ringer's Solution 1,000 ml @ 0 mls/hr Q0M IV ; Start 09/23/16 at 07:00; Stop 09/23/16 at 18:59; Status DC Lidocaine HCl 2 ml PRN 1X PRN ID PRIOR TO IV START; Start 09/23/16 at 07:00; Stop 09/24/16 at 06:59; Status DC Hydromorphone HCl (Dilaudid) 0.5 mg PRN Q10MIN PRN IV SEV PAIN, Second choice; Start 09/23/16 at 07:00; Stop 09/24/16 at 06:59; Status DC Prochlorperazine Edisylate (Compazine) 5 mg PACU PRN PRN IV NAUSEA, MRX1; Start 09/23/16 at 07:00; Stop 09/24/16 at 06:59; Status DC Bupivacaine HCl/ Epinephrine Bitart (Sensorcain-Mpf Epi 0.5%-[id number]) 30 ml STK -MED ONCE .ROUTE ; Start 09/23/16 at 07:38; Stop 09/23/16 at 07:39; Status DC Bupivacaine HCl (Sensorcaine Mpf 0.5%) 30 ml STK-MED ONCE .ROUTE Last administered on 09/23/16t 09:10; Start 09/23/16 at 07:38; Stop 09/23/16 at 07:39; Status DC Fentanyl Citrate (Fentanyl 2ml Vial) 100 mcg STK-MED ONCE .ROUTE ; Start at 08:21; Stop 09/23/16 at 08:22; Status DC Neomycin/ Polymyxin/ Bacitracin (Triple Antibiotic Ointment) 1 pkt STK-MED ONCE TP ; Start 09/23/16 at 08:46; Stop 09/23/16 at 08:47; Status DC Dexamethasone Sodium Phosphate (Decadron) 20 mg STK-MED ONCE .ROUTE ; Start 09/23 at 09:08; Stop 09/23/16 at 09:09; Status DC Ondansetron HCl (Zofran) 4 mg STK-MED ONCE .ROUTE ; Start 09/23/16 at 09:08; Stop 09/23/16 at 09:09; Status DC Propofol 20 ml @ As Directed STK-MED ONCE IV ; Start 09/23/16 at 09:08; Stop 09/23 at 09:09; Status DC Lidocaine HCl (Lidocaine Pf 2% Vial) 5 ml STK-MED ONCE .ROUTE ; Start 09/23/16 at 09:08; Stop 09/23/16 at 09:09; Status DC Sevoflurane (Ultane) 30 ml STK-MED ONCE IH ; Start 09/23/16 at 09:08; Stop at 09:09; Status DC Phenylephrine HCl 1 mg STK-MED ONCE IV ; Start 09/23/16 at 09:08; Stop 09/23/16 at 09:09; Status DC Oxycodone/ Acetaminophen (Percocet 5/325) 1 tab PRN Q6HRS PRN PO PAIN Last administered on 09/24/16 04:45; Start 09/23/16 at 16:00 Insulin Aspart (NovoLOG) 2 units 1X ONCE SQ Last administered on 09/23/16 21: 51; Start 09/23/16 at 21:30; Stop 09/23/16 at 21:31; Status DC Insulin Detemir (Levemir) 10 units BID SQ Last administered on 09/24/16 13:00; Start 09/24/16 at 09:00 Diltiazem HCl (Cardizem 24hr Cd) 240 mg DAILY PO ; Start 09/24/16 at 09:00 Apixaban (Eliquis) 5 mg BID PO Last administered on 09/24/16 12:51; Start at 10:00 Active Scripts Active Pantoprazole Sodium 40 Mg Tablet. 40 Mg PO BIDAC Reported Joaquin Back & Body Caplet (Aspirin/Caffeine) 1 Each Tablet 2 Each PO BID Zoloft (Sertraline Hcl) 50 Mg Tablet 1 Tab PO DAILY Glipizide 5 Mg Tablet 0.5 Tab PO BID Potassium Chloride 20 Meq Tablet.er 20 Meq PO BID last dose this am next dose with supper Sotalol (Sotalol Hcl) 80 Mg Tablet 40 Mg PO BID last dose this am next dose tonight Furosemide 80 Mg Tablet 80 Mg PO DAILY last dose this am next dose tomorrow Atorvastatin Calcium 40 Mg Tablet 40 Mg PO HS last dose was last dose next dose tonight Metformin Hcl 1,000 Mg Tablet 1,000 Mg PO BID last dose this am next dose with supper Vitals/I & O Vital Sign - Last 24 Hours 09/23/16 09/23/16 09/23/16 09/23/16 19:40 20:00 21:12 23:00 Temp 97.4 97.7 97.4 97.7 Pulse 107 107 107 Resp 22 22 B/P (MAP) 124/79 (94) 124/79 142/99 (113) Pulse Ox 94 93 O2 Delivery Room Air Room Air Room Air 09/24/16 09/24/16 09/24/16 09/24/16 03:41 04:45 05:53 07:00 Temp 97.9 97.3 97.9 97.3 Pulse 118 94 Resp 26 20 18 18 B/P (MAP) 164/99 (120) 131/86 (101) Pulse Ox 95 95 95 95 O2 Delivery Room Air Room Air Room Air Room Air 09/24/16 09/24/16 09/24/16 09/24/16 08:00 08:40 08:40 08:41 Pulse 94 94 94 B/P (MAP) 131/86 131/86 131/86 O2 Delivery Room Air 09/24/16 09/24/16 09/24/16 09:00 11:00 15:38 Temp 98.0 97.6 98.0 97.6 Pulse 82 82 80 Resp 20 18 B/P (MAP) 102/64 111/72 (85) 127/84 (98) Pulse Ox 94 96 O2 Delivery Room Air Room Air Intake and Output 09/23/16 09/23/16 09/24/16 15:00 23:00 07:00 Intake Total 1190 ml 1420 ml 240 ml Output Total 200 ml Balance 1190 ml 1420 ml 40 ml EUGENIO THOMPSON MD Sep 24, 2016 17:29
[2016-09-24] MEDS: ACETAMINOPHEN 325 MG TABLET. PO PRN (18:20)
[2016-09-24 19:03] VITALS: BP 124/71
[2016-09-24 22:27] VITALS: BP 116/72
[2016-09-25 02:57] VITALS: BP 136/82
[2016-09-25] MEDS: PANTOPRAZOLE 40 MG TABLET.DR. PO SCH (06:29)
[2016-09-25 07:00] VITALS: BP 147/90
[2016-09-25] MEDS: INSULIN ASPART 300 UNITS/3 ML INSULN.PEN SQ SCH ×3 (08:00→18:08)
[2016-09-25] MEDS: INSULIN DETEMIR 300 UNITS/3 ML INSULN.PEN. SQ SCH ×2 (09:00→20:35)
[2016-09-25] MEDS: APIXABAN 5 MG TABLET. PO SCH (09:03)
[2016-09-25] MEDS: DIGOXIN 250 MCG TABLET. PO SCH (09:03)
[2016-09-25] MEDS: SERTRALINE 50 MG TABLET. PO SCH (09:04)
[2016-09-25] MEDS: predniSONE 20 MG TABLET PO SCH (09:04)
[2016-09-25] MEDS: METOPROLOL TART IMMED RELEASE 50 MG TABLET. PO SCH ×2 (09:04→20:32)
[2016-09-25] MEDS ORDERED: ANTI-COAG MONITOR BY PHARMACY. MC PRN (09:30)
[2016-09-25 11:00] VITALS: BP 149/87
--- NOTE | 2016-09-25 12:03 | PDOC ---
Provider Note Provider Note was confused last pm w/ visual hallucinations, better now and oriented- exam nonfocal- will dc digoxin as no benefit, dc eliquis re fall risk > benefit ANA MARIA REYNA MD Sep 25, 2016 12:03
--- NOTE | 2016-09-25 14:03 | PDOC ---
PROGRESS NOTES Subjective Subjective Patient is very confused today. He had a Percocet last night to help with the severe headache. Objective Objective Vital Signs Date Time Temp Pulse Resp B/P (MAP) Pulse Ox O2 Delivery O2 Flow Rate FiO2 09/25/16 11:00 97.1 72 18 149/87 (107) 95 Room Air 97.1 09/23/16 09:31 10 Intake and Output 09/25/16 07:00 Intake Total 300 ml Output Total 100 ml Balance 200 ml Intake Oral 300 ml Output Urine Total 100 ml # Voids 1 Physical Exam Physical Exam No significant changes in cardiac exam Assessment Assessment The patient's confusion may be secondary to a combination of the premedications with the hospital stay and his dementia. I have been of the opinion that the patient has been developing dementia for some time but this has not been confirmed. The biopsy results are pending. Once we have the results of the biopsy will then discuss with the patient and the family about what to do to follow. Comment Review of Relevant I have reviewed the following items mervin (where applicable) has been applied. Labs Laboratory Tests Test 09/23/16 17:42 09/23/16 21:09 09/24/16 07:50 09/24/16 11:42 Glucose (Fingerstick) 301 mg/dL (70-99) 264 mg/dL (70-99) 127 mg/dL (70-99) 167 mg/dL (70-99) Test 09/24/16 17:27 09/24/16 20:42 09/25/16 07:58 09/25/16 11:54 Glucose (Fingerstick) 210 mg/dL (70-99) 247 mg/dL (70-99) 70 mg/dL (70-99) 117 mg/dL (70-99) Laboratory Tests Test 09/24/16 17:27 09/24/16 20:42 09/25/16 07:58 09/25/16 11:54 Glucose (Fingerstick) 210 mg/dL (70-99) 247 mg/dL (70-99) 70 mg/dL (70-99) 117 mg/dL (70-99) Medications Current Medications Aspirin (Children'S Aspirin) 324 mg 1X ONCE PO Last administered on 09/18/16t 12:19; Start 09/18/16 at 12:15; Stop 09/18/16 at 12:16; Status DC Fentanyl Citrate (Fentanyl 2ml Vial) 25 mcg PRN Q15MIN PRN IV PAIN GREATER THAN 3/10 Last administered on 09/18/16 12:27; Start 09/18/16 at 12:15; Stop 09/18 at 15:34; Status DC Nitroglycerin (Nitrostat) 0.4 mg PRN Q5MIN PRN SL CHEST PAIN; Start 09/18/16 at 12:15 Amiodarone HCl 150 mg/Dextrose 103 ml @ 618 mls/hr 1X ONCE IV Last administered on 09/18/16 12:24; Start 09/18/16 at 12:15; Stop 09/18/16 at 12:24; Status DC Amiodarone HCl 900 mg/Dextrose 518 ml @ 0 mls/hr CONT PRN IV SEE I/O RECORD Last administered on 09/18/16 12:34; Start 09/18/16 at 12:15; Stop 09/18/16 at 12: 35; Status DC Sodium Chloride 1,000 ml @ 1,000 mls/hr 1X ONCE IV Last administered on 12:35; Start 09/18/16 at 12:45; Stop 09/18/16 at 13:44; Status DC Digoxin (Lanoxin) 500 mcg 1X ONCE PO Last administered on 09/18/16 12:50; Start 09/18/16 at 13:00; Stop 09/18/16 at 13:01; Status DC Sodium Chloride 500 ml @ 500 mls/hr 1X ONCE IV ; Start 09/18/16 at 12:45; Stop 09/18/16 at 13:44; Status DC Ondansetron HCl (Zofran) 4 mg PRN Q8HRS PRN IV NAUSEA/VOMITING; Start 09/18/16 at 15:30; Stop 09/19/16 at 15:29; Status DC Fentanyl Citrate (Fentanyl 2ml Vial) 50 mcg PRN Q2HR PRN IV PAIN Last administered on 09/19/16 14:07; Start 09/18/16 at 15:30; Stop 09/19/16 at 15:29; Status DC Acetaminophen (Tylenol) 650 mg PRN Q4HRS PRN PO FEVER; Start 09/18/16 at 15:30; Stop 09/19/16 at 15:29; Status DC Nitroglycerin (Nitrostat) 0.4 mg PRN Q5MIN PRN SL CHEST PAIN; Start 09/18/16 at 15:30; Stop 09/18/16 at 15:34; Status DC Insulin Aspart (NovoLOG) 0-5 UNITS TIDWMEALS SQ Last administered on 09/24/16 18:22; Start 09/18/16 at 17:00 Dextrose (Dextrose 50%-Water Syringe) 12.5 gm PRN Q15MIN PRN IV SEE COMMENTS; Start 09/18/16 at 15:30 Metoprolol Tartrate (Lopressor) 2.5 mg Q6HRS IVP ; Start 09/19/16 at 19:30; Stop 09/19/16 at 19:30; Status DC Enoxaparin Sodium (Lovenox 150mg Syringe) 130 mg 1X ONCE SQ Last administered on 09/18/16 19:51; Start 09/18/16 at 19:45; Stop 09/18/16 at 19:48; Status DC Metoprolol Tartrate (Lopressor) 2.5 mg Q6HRS IVP Last administered on 09/19/16 05:35; Start 09/18/16 at 20:30; Stop 09/19/16 at 12:53; Status DC Levothyroxine Sodium (Synthroid) 50 mcg DAILY07 PO ; Start 09/19/16 at 13:30; Stop 09/19/16 at 14:26; Status DC Sodium Chloride 1,000 ml @ 75 mls/hr [id number] IV Last administered on 09/20/16 02:50; Start 09/19/16 at 13:30; Stop 09/20/16 at 19:05; Status DC Enoxaparin Sodium (Lovenox Per Pharmacy Treatment Dosing) 1 each PRN DAILY PRN MC SEE COMMENTS; Start 09/19/16 at 13:00; Status Cancel Metoprolol Tartrate (Lopressor) 5 mg Q6HRS IVP Last administered on 09/20/16 19 :00; Start 09/19/16 at 13:30; Stop 09/20/16 at 21:22; Status DC Enoxaparin Sodium (Lovenox 150mg Syringe) 130 mg BID SQ Last administered on 14:03; Start 09/19/16 at 13:30; Stop 09/20/16 at 19:54; Status DC Sertraline HCl (Zoloft) 50 mg DAILY PO Last administered on 09/25/16 09:04; Start 09/19/16 at 14:30 Non-Formulary Medication 2 each BID PO ; Start 09/19/16 at 21:00; Status UNV Info (Anti-Coagulation Monitoring By Pharmacy) 1 each PRN DAILY PRN MC SEE COMMENTS Last administered on 09/20/16 08:20; Start 09/20/16 at 08:15; Stop at 16:21; Status DC Lidocaine HCl 20 ml STK-MED ONCE .ROUTE ; Start 09/20/16 at 13:40; Stop 09/20/16 at 13:41; Status DC Heparin Sodium/ Sodium Chloride 1,000 ml @ As Directed STK-MED ONCE .ROUTE ; Start 09/20/16 at 13:40; Stop 09/20/16 at 13:41; Status DC Iodixanol (Visipaque 320) 100 ml STK-MED ONCE .ROUTE ; Start 09/20/16 at 13:40; Stop 09/20/16 at 13:41; Status DC Midazolam HCl (Versed) 2 mg STK-MED ONCE .ROUTE ; Start 09/20/16 at 14:02; Stop 09/20/16 at 14:03; Status DC Fentanyl Citrate (Fentanyl 2ml Vial) 100 mcg STK-MED ONCE .ROUTE ; Start at 14:03; Stop 09/20/16 at 14:04; Status DC Heparin Sodium/ Sodium Chloride 500 ml @ As Directed STK-MED ONCE .ROUTE ; Start 09/20/16 at 14:32; Stop 09/20/16 at 14:33; Status DC Nitroglycerin/ Dextrose 250 ml @ As Directed STK-MED ONCE IV ; Start 09/20/16 at 14:39; Stop 09/20/16 at 14:40; Status DC Adenosine (Adenoscan) 90 mg STK-MED ONCE IV ; Start 09/20/16 at 14:49; Stop at 14:50; Status DC Hydralazine HCl (Apresoline) 20 mg STK-MED ONCE .ROUTE ; Start 09/20/16 at 15:06 ; Stop 09/20/16 at 15:07; Status DC Heparin Sodium (Porcine) (Heparin Sodium) 10,000 unit STK-MED ONCE .ROUTE ; Start 09/20/16 at 15:17; Stop 09/20/16 at 15:18; Status DC Heparin Sodium/ Sodium Chloride 1,000 unit 1X ONCE IART Last administered on 15:28; Start 09/20/16 at 15:30; Stop 09/20/16 at 15:31; Status DC Midazolam HCl (Versed) 2 mg 1X ONCE IV ; Start 09/20/16 at 15:30; Stop 09/20/16 at 15:31; Status DC Fentanyl Citrate (Fentanyl 2ml Vial) 100 mcg 1X ONCE IV ; Start 09/20/16 at 15: 30; Stop 09/20/16 at 15:31; Status DC Iodixanol (Visipaque 320) 100 ml 1X ONCE IART Last administered on 09/20/16 15 :28; Start 09/20/16 at 15:30; Stop 09/20/16 at 15:31; Status DC Heparin Sodium (Porcine) (Heparin Sodium) 4,000 unit 1X ONCE IV Last administered on 09/20/16 15:32; Start 09/20/16 at 15:30; Stop 09/20/16 at 15:31; Status DC Adenosine 90 mg/ Sodium Chloride 120 ml @ 200 mls/hr 1X ONCE IV Last administered on 09/20/16 15:29; Start 09/20/16 at 15:30; Stop 09/20/16 at 16:05; Status DC Hydralazine HCl (Apresoline) 5 mg 1X ONCE IVP Last administered on 09/20/16 15 :30; Start 09/20/16 at 15:30; Stop 09/20/16 at 15:31; Status DC Info (Do NOT chart on this entry -- for MONITORING) 1 each PRN DAILY PRN MC SEE COMMENTS; Start 09/20/16 at 15:30; Stop 09/22/16 at 15:29; Status DC Amlodipine Besylate (Norvasc) 5 mg DAILY PO Last administered on 09/21/16 08:30 ; Start 09/21/16 at 09:00; Stop 09/21/16 at 23:22; Status DC Amlodipine Besylate (Norvasc) 5 mg 1X ONCE PO Last administered on 09/20/16 21 :36; Start 09/20/16 at 21:15; Stop 09/20/16 at 21:16; Status DC Metoprolol Tartrate (Lopressor) 50 mg Q8HRS PO Last administered on 09/21/16 21 :39; Start 09/20/16 at 22:00; Stop 09/21/16 at 23:22; Status DC Acetaminophen (Tylenol) 650 mg PRN QID PRN PO PAIN Last administered on 18:20; Start 09/20/16 at 22:00 Pantoprazole Sodium (Protonix) 40 mg DAILYAC PO Last administered on 09/25/16 06:29; Start 09/21/16 at 11:30 Digoxin (Lanoxin) 500 mcg 1X ONCE PO Last administered on 09/21/16 09:28; Start 09/21/16 at 08:45; Stop 09/21/16 at 08:55; Status DC Digoxin (Lanoxin) 250 mcg DAILY PO Last administered on 09/25/16 09:03; Start 09/21/16 at 16:00; Stop 09/25/16 at 12:02; Status DC Metoprolol Tartrate (Lopressor) 50 mg BID PO Last administered on 09/25/16 09: 04; Start 09/22/16 at 09:00 Diltiazem HCl (Cardizem 24hr Cd) 180 mg DAILY PO Last administered on 09/24/16 08:40; Start 09/22/16 at 09:00; Stop 09/24/16 at 08:58; Status DC Prednisone (Prednisone) 40 mg DAILY PO Last administered on 09/25/16 09:04; Start 09/22/16 at 09:30 Metformin HCl (Glucophage) 1,000 mg BIDWMEALS PO Last administered on 09:04; Start 09/22/16 at 17:00 Levofloxacin/ Dextrose 100 ml @ 100 mls/hr 1X PREOP PRN IV prophylaxis Last administered on 09/23/16 08:44; Start 09/23/16 at 06:00; Stop 09/23/16 at 18:00; Status DC Fentanyl Citrate (Fentanyl 2ml Vial) 25 mcg PRN Q5MIN PRN IV MILD PAIN; Start 09/23/16 at 07:00; Stop 09/24/16 at 06:59; Status DC Fentanyl Citrate (Fentanyl 2ml Vial) 50 mcg PRN Q5MIN PRN IV MODERATE PAIN; Start 09/23/16 at 07:00; Stop 09/24/16 at 06:59; Status DC Morphine Sulfate 1 mg PRN Q10MIN PRN IV SEVERE PAIN; Start 09/23/16 at 07:00; Stop 09/24/16 at 06:59; Status DC Ringer's Solution 1,000 ml @ 0 mls/hr Q0M IV ; Start 09/23/16 at 07:00; Stop 09/23/16 at 18:59; Status DC Lidocaine HCl 2 ml PRN 1X PRN ID PRIOR TO IV START; Start 09/23/16 at 07:00; Stop 09/24/16 at 06:59; Status DC Hydromorphone HCl (Dilaudid) 0.5 mg PRN Q10MIN PRN IV SEV PAIN, Second choice; Start 09/23/16 at 07:00; Stop 09/24/16 at 06:59; Status DC Prochlorperazine Edisylate (Compazine) 5 mg PACU PRN PRN IV NAUSEA, MRX1; Start 09/23/16 at 07:00; Stop 09/24/16 at 06:59; Status DC Bupivacaine HCl/ Epinephrine Bitart (Sensorcain-Mpf Epi 0.5%-[id number]) 30 ml STK -MED ONCE .ROUTE ; Start 09/23/16 at 07:38; Stop 09/23/16 at 07:39; Status DC Bupivacaine HCl (Sensorcaine Mpf 0.5%) 30 ml STK-MED ONCE .ROUTE Last administered on 09/23/16t 09:10; Start 09/23/16 at 07:38; Stop 09/23/16 at 07:39; Status DC Fentanyl Citrate (Fentanyl 2ml Vial) 100 mcg STK-MED ONCE .ROUTE ; Start at 08:21; Stop 09/23/16 at 08:22; Status DC Neomycin/ Polymyxin/ Bacitracin (Triple Antibiotic Ointment) 1 pkt STK-MED ONCE TP ; Start 09/23/16 at 08:46; Stop 09/23/16 at 08:47; Status DC Dexamethasone Sodium Phosphate (Decadron) 20 mg STK-MED ONCE .ROUTE ; Start 09/23 at 09:08; Stop 09/23/16 at 09:09; Status DC Ondansetron HCl (Zofran) 4 mg STK-MED ONCE .ROUTE ; Start 09/23/16 at 09:08; Stop 09/23/16 at 09:09; Status DC Propofol 20 ml @ As Directed STK-MED ONCE IV ; Start 09/23/16 at 09:08; Stop 09/23 at 09:09; Status DC Lidocaine HCl (Lidocaine Pf 2% Vial) 5 ml STK-MED ONCE .ROUTE ; Start 09/23/16 at 09:08; Stop 09/23/16 at 09:09; Status DC Sevoflurane (Ultane) 30 ml STK-MED ONCE IH ; Start 09/23/16 at 09:08; Stop at 09:09; Status DC Phenylephrine HCl 1 mg STK-MED ONCE IV ; Start 09/23/16 at 09:08; Stop 09/23/16 at 09:09; Status DC Oxycodone/ Acetaminophen (Percocet 5/325) 1 tab PRN Q6HRS PRN PO PAIN Last administered on 09/24/16 20:41; Start 09/23/16 at 16:00 Insulin Aspart (NovoLOG) 2 units 1X ONCE SQ Last administered on 09/23/16 21: 51; Start 09/23/16 at 21:30; Stop 09/23/16 at 21:31; Status DC Insulin Detemir (Levemir) 10 units BID SQ Last administered on 09/24/16 20:54; Start 09/24/16 at 09:00 Diltiazem HCl (Cardizem 24hr Cd) 240 mg DAILY PO Last administered on 09:04; Start 09/24/16 at 09:00 Apixaban (Eliquis) 5 mg BID PO Last administered on 09/25/16 09:03; Start 09/24 at 10:00; Stop 09/25/16 at 12:01; Status DC Info (Anti-Coagulation Monitoring By Pharmacy) 1 each PRN DAILY PRN MC SEE COMMENTS Last administered on 09/25/16 09:23; Start 09/25/16 at 09:30; Stop 02/01 at 12:03; Status DC Active Scripts Active Pantoprazole Sodium 40 Mg Tablet.dr 40 Mg PO BIDAC Reported Joaquin Back & Body Caplet (Aspirin/Caffeine) 1 Each Tablet 2 Each PO BID Zoloft (Sertraline Hcl) 50 Mg Tablet 1 Tab PO DAILY Glipizide 5 Mg Tablet 0.5 Tab PO BID Potassium Chloride 20 Meq Tablet.er 20 Meq PO BID last dose this am next dose with supper Sotalol (Sotalol Hcl) 80 Mg Tablet 40 Mg PO BID last dose this am next dose tonight Furosemide 80 Mg Tablet 80 Mg PO DAILY last dose this am next dose tomorrow Atorvastatin Calcium 40 Mg Tablet 40 Mg PO HS last dose was last dose next dose tonight Metformin Hcl 1,000 Mg Tablet 1,000 Mg PO BID last dose this am next dose with supper Vitals/I & O Vital Sign - Last 24 Hours 09/24/16 09/24/16 09/24/16 09/24/16 15:38 19:03 19:04 19:05 Temp 97.6 98.5 97.6 98.5 Pulse 80 80 Resp 18 B/P (MAP) 127/84 (98) 124/71 (88) 124/71 Pulse Ox 96 92 O2 Delivery Room Air Room Air Room Air 09/24/16 09/24/16 09/24/16 09/25/16 20:38 20:41 22:27 02:57 Temp 97.7 98.2 97.7 98.2 Pulse 122 84 68 Resp 18 18 B/P (MAP) 119/78 116/72 (87) 136/82 (100) Pulse Ox 93 94 O2 Delivery Room Air Room Air Room Air 09/25/16 09/25/16 09/25/16 09/25/16 07:00 08:00 09:03 09:04 Pulse 87 87 87 Resp 18 B/P (MAP) 147/90 (109) 147/90 147/90 Pulse Ox 96 O2 Delivery Room Air Room Air 09/25/16 09/25/16 09:04 11:00 Temp 97.1 97.1 Pulse 87 72 Resp 18 B/P (MAP) 147/90 149/87 (107) Pulse Ox 95 O2 Delivery Room Air Intake and Output 09/24/16 09/24/16 09/25/16 15:00 23:00 07:00 Intake Total 300 ml Output Total 100 ml Balance -100 ml 300 ml EUGENIO THOMPSON MD Sep 25, 2016 14:03
[2016-09-25 15:16] VITALS: BP 107/56
[2016-09-25 19:00] VITALS: BP 132/77
[2016-09-25 22:26] VITALS: BP 143/98
[2016-09-26 02:07] LABS: BILIRUBIN,URINE NEGATIVE (NEG); GLUCOSE,URINE NEGATIVE (NEG); NITRITE,URINE NEGATIVE (NEG); PH,URINE 5.5; PROTEIN,URINE 30 mg/dL (NEG-TRACE); UROBILINOGEN,URINE 0.2 mg/dL (0.2 mg/dL)
[2016-09-26 02:18] LABS: BACTERIA,URINE 0 /HPF (0-FEW); RBC,URINE 0 /HPF (0-2); SQUAMOUS EPITHELIAL CELL,UR FEW /LPF; YEAST,URINE PRESENT /HPF
[2016-09-26 04:43] VITALS: BP 132/89
[2016-09-26 07:00] VITALS: BP 158/98
[2016-09-26] MEDS: oxyCODONE/APAP 5/325 1 TAB TABLET PO PRN ×3 (07:58→22:42)
[2016-09-26] MEDS: SERTRALINE 50 MG TABLET. PO SCH (07:58)
[2016-09-26] MEDS: predniSONE 20 MG TABLET PO SCH (07:58)
[2016-09-26] MEDS: METOPROLOL TART IMMED RELEASE 50 MG TABLET. PO SCH (07:59)
[2016-09-26] MEDS: PANTOPRAZOLE 40 MG TABLET.DR. PO SCH (07:59)
[2016-09-26] MEDS: INSULIN ASPART 300 UNITS/3 ML INSULN.PEN SQ SCH ×3 (08:00→17:33)
[2016-09-26] MEDS: INSULIN DETEMIR 300 UNITS/3 ML INSULN.PEN. SQ SCH (08:04)
[2016-09-26 11:00] VITALS: BP 122/75
--- NOTE | 2016-09-26 11:36 | PDOC ---
Provider Note Provider Note vss, more alert- rate better w/ more dilt, was on sotalol at home , will wean off metoprolol and make sure no rebound tachycardia- TA bx available tomorrow, cont pred until then- he still complains of [place] , no focal signs, so will repeat ct head, rest of meds same ANA MARIA REYNA MD Sep 26, 2016 11:36
--- NOTE | 2016-09-26 13:37 | RAD ---
Indication headaches. Noncontrast images of the head were obtained and are compared to an examination one week earlier. No acute or significant calvarial finding is seen. The visualized paranasal sinuses appear unremarkable. There is no subdural or epidural hematoma. There is underlying atrophy. An acute finding is not seen. There is no evidence of hemorrhage. There has not been a significant change when compared to the previous exam IMPRESSION: No acute finding. No significant change PQRS Compliance Statement: One or more of the following individualized dose reduction techniques were utilized for this examination: 1. Automated exposure control 2. Adjustment of the mA and/or kV according to patient size 3. Use of iterative reconstruction technique
--- NOTE | 2016-09-26 14:02 | PDOC ---
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 He continues to complain headaches. Has not had any chest pain. Heart rate is under control with a normal blood pressure response. Biopsy results are not yet available. Apparently prednisone has not been effective. AMADO YU MD Sep 26, 2016 14:02
[2016-09-26 15:00] VITALS: BP 124/61
[2016-09-26 19:05] VITALS: BP 115/81
[2016-09-26] MEDS ORDERED: METOPROLOL TART IMMED RELEASE 25 MG TABLET. PO SCH (21:00)
[2016-09-26] MEDS ORDERED: INSULIN DETEMIR 300 UNITS/3 ML INSULN.PEN. SQ SCH (23:00)
[2016-09-26 23:13] VITALS: BP 154/105
[2016-09-27 03:29] VITALS: BP 146/90
[2016-09-27 07:45] VITALS: BP 147/87
[2016-09-27] MEDS: INSULIN ASPART 300 UNITS/3 ML INSULN.PEN SQ SCH ×3 (08:00→17:00)
--- NOTE | 2016-09-27 08:43 | PDOC ---
Provider Note Provider Note feels better but hr still [id number] and af - will resume home sotalol in place of metoprolol, abhijeet dc w/ af/rvr- TA bx pending, resume home glipizide also ANA MARIA REYNA MD Sep 27, 2016 08:43
[2016-09-27] MEDS ORDERED: INSULIN DETEMIR 300 UNITS/3 ML INSULN.PEN. SQ SCH (09:00)
[2016-09-27] MEDS: PANTOPRAZOLE 40 MG TABLET.DR. PO SCH (09:09)
[2016-09-27] MEDS: ACETAMINOPHEN 325 MG TABLET. PO PRN (09:09)
[2016-09-27] MEDS: SERTRALINE 50 MG TABLET. PO SCH (09:10)
[2016-09-27] MEDS: glipiZIDE 5 MG TABLET PO SCH ×2 (09:10→21:17)
[2016-09-27] MEDS: oxyCODONE/APAP 5/325 1 TAB TABLET PO PRN (09:11)
[2016-09-27] MEDS: predniSONE 20 MG TABLET PO SCH (09:12)
[2016-09-27] MEDS: SOTALOL 80 MG TABLET. PO SCH ×2 (09:12→21:13)
[2016-09-27 11:06] VITALS: BP 138/92
--- NOTE | 2016-09-27 11:47 | PDOC ---
PROGRESS NOTES Subjective Subjective The patient is less confused but still having confusion. The temporal artery biopsy was negative but distant does not completely rule out the possibility of a temporal arteritis seems it could have skip lesions Objective Objective Vital Signs Date Time Temp Pulse Resp B/P (MAP) Pulse Ox O2 Delivery O2 Flow Rate FiO2 09/27/16 11:06 97.6 103 24 138/92 (107) 95 Room Air 97.6 09/23/16 09:31 10 Intake and Output 09/27/16 07:00 Intake Total 2480 ml Output Total 0 ml Balance 2480 ml Intake Oral 2480 ml Output Urine Total 0 ml # Voids 5 Physical Exam Physical Exam No significant changes in cardiac exam Assessment Assessment A patient's biopsy was negative but he continues to have confusion. It could still be a temporal arteritis. I would like to get a neurology consult. After he is evaluated by neurology consider getting a CV surgery consult since the patient and family are willing to have surgery as a consideration. To me he would be a very poor surgical risk. Comment Review of Relevant I have reviewed the following items mervin (where applicable) has been applied. Labs Laboratory Tests Test 09/25/16 11:54 09/25/16 14:42 09/25/16 16:29 09/25/16 17:13 Glucose (Fingerstick) 117 mg/dL (70-99) 219 mg/dL (70-99) 276 mg/dL (70-99) 283 mg/dL (70-99) Test 09/25/16 20:31 09/25/16 21:45 09/26/16 06:57 09/26/16 11:08 Glucose (Fingerstick) 216 mg/dL (70-99) 111 mg/dL (70-99) 172 mg/dL (70-99) Urine Collection Type Unknown Urine Color Yellow Urine Clarity Clear Urine pH 5.5 Urine Specific Cameron 1.015 Urine Protein 30 mg/dL (NEG-TRACE) Urine Glucose (UA) Negative mg/dL (NEG) Urine Ketones (Stick) Negative mg/dL (NEG) Urine Blood Negative (NEG) Urine Nitrite Negative (NEG) Urine Bilirubin Negative (NEG) Urine Urobilinogen Dipstick 0.2 mg/dL (0.2 mg/dL) Urine Leukocyte Esterase Negative (NEG) Urine RBC 0 /HPF (0-2) Urine WBC 1-4 /HPF (0-4) Urine Squamous Epithelial Cells Few /LPF Urine Amorphous Sediment Present /HPF Urine Bacteria 0 /HPF (0-FEW) Urine Mucus Mod /LPF Urine Yeast Present /HPF Test 09/26/16 17:12 09/26/16 20:43 09/27/16 07:58 Glucose (Fingerstick) 271 mg/dL (70-99) 192 mg/dL (70-99) 91 mg/dL (70-99) Laboratory Tests Test 09/26/16 17:12 09/26/16 20:43 09/27/16 07:58 Glucose (Fingerstick) 271 mg/dL (70-99) 192 mg/dL (70-99) 91 mg/dL (70-99) Medications Current Medications Aspirin (Children'S Aspirin) 324 mg 1X ONCE PO Last administered on 09/18/16 12:19; Start 09/18/16 at 12:15; Stop 09/18/16 at 12:16; Status DC Fentanyl Citrate (Fentanyl 2ml Vial) 25 mcg PRN Q15MIN PRN IV PAIN GREATER THAN 3/10 Last administered on 09/18/16 12:27; Start 09/18/16 at 12:15; Stop 09/18 at 15:34; Status DC Nitroglycerin (Nitrostat) 0.4 mg PRN Q5MIN PRN SL CHEST PAIN; Start 09/18/16 at 12:15 Amiodarone HCl 150 mg/Dextrose 103 ml @ 618 mls/hr 1X ONCE IV Last administered on 09/18/16 12:24; Start 09/18/16 at 12:15; Stop 09/18/16 at 12:24; Status DC Amiodarone HCl 900 mg/Dextrose 518 ml @ 0 mls/hr CONT PRN IV SEE I/O RECORD Last administered on 09/18/16 12:34; Start 09/18/16 at 12:15; Stop 09/18/16 at 12: 35; Status DC Sodium Chloride 1,000 ml @ 1,000 mls/hr 1X ONCE IV Last administered on 12:35; Start 09/18/16 at 12:45; Stop 09/18/16 at 13:44; Status DC Digoxin (Lanoxin) 500 mcg 1X ONCE PO Last administered on 6/3/17at 12:50; Start 09/18/16 at 13:00; Stop 09/18/16 at 13:01; Status DC Sodium Chloride 500 ml @ 500 mls/hr 1X ONCE IV ; Start 09/18/16 at 12:45; Stop 09/18/16 at 13:44; Status DC Ondansetron HCl (Zofran) 4 mg PRN Q8HRS PRN IV NAUSEA/VOMITING; Start 09/18/16 at 15:30; Stop 09/19/16 at 15:29; Status DC Fentanyl Citrate (Fentanyl 2ml Vial) 50 mcg PRN Q2HR PRN IV PAIN Last administered on 09/19/16 14:07; Start 09/18/16 at 15:30; Stop 09/19/16 at 15:29; Status DC Acetaminophen (Tylenol) 650 mg PRN Q4HRS PRN PO FEVER; Start 09/18/16 at 15:30; Stop 09/19/16 at 15:29; Status DC Nitroglycerin (Nitrostat) 0.4 mg PRN Q5MIN PRN SL CHEST PAIN; Start 09/18/16 at 15:30; Stop 09/18/16 at 15:34; Status DC Insulin Aspart (NovoLOG) 0-5 UNITS TIDWMEALS SQ Last administered on 09/26/16 17:33; Start 09/18/16 at 17:00 Dextrose (Dextrose 50%-Water Syringe) 12.5 gm PRN Q15MIN PRN IV SEE COMMENTS; Start 09/18/16 at 15:30 Metoprolol Tartrate (Lopressor) 2.5 mg Q6HRS IVP ; Start 09/19/16 at 19:30; Stop 09/19/16 at 19:30; Status DC Enoxaparin Sodium (Lovenox 150mg Syringe) 130 mg 1X ONCE SQ Last administered on 09/18/16 19:51; Start 09/18/16 at 19:45; Stop 09/18/16 at 19:48; Status DC Metoprolol Tartrate (Lopressor) 2.5 mg Q6HRS IVP Last administered on 09/19/16 05:35; Start 09/18/16 at 20:30; Stop 09/19/16 at 12:53; Status DC Levothyroxine Sodium (Synthroid) 50 mcg DAILY07 PO ; Start 09/19/16 at 13:30; Stop 09/19/16 at 14:26; Status DC Sodium Chloride 1,000 ml @ 75 mls/hr [id number] IV Last administered on 09/20/16 02:50; Start 09/19/16 at 13:30; Stop 09/20/16 at 19:05; Status DC Enoxaparin Sodium (Lovenox Per Pharmacy Treatment Dosing) 1 each PRN DAILY PRN MC SEE COMMENTS; Start 09/19/16 at 13:00; Status Cancel Metoprolol Tartrate (Lopressor) 5 mg Q6HRS IVP Last administered on 09/20/16 19 :00; Start 09/19/16 at 13:30; Stop 09/20/16 at 21:22; Status DC Enoxaparin Sodium (Lovenox 150mg Syringe) 130 mg BID SQ Last administered on 14:03; Start 09/19/16 at 13:30; Stop 09/20/16 at 19:54; Status DC Sertraline HCl (Zoloft) 50 mg DAILY PO Last administered on 09/27/16 09:10; Start 09/19/16 at 14:30 Non-Formulary Medication 2 each BID PO ; Start 09/19/16 at 21:00; Status UNV Info (Anti-Coagulation Monitoring By Pharmacy) 1 each PRN DAILY PRN MC SEE COMMENTS Last administered on 09/20/16 08:20; Start 09/20/16 at 08:15; Stop at 16:21; Status DC Lidocaine HCl 20 ml STK-MED ONCE .ROUTE ; Start 09/20/16 at 13:40; Stop 09/20/16 at 13:41; Status DC Heparin Sodium/ Sodium Chloride 1,000 ml @ As Directed STK-MED ONCE .ROUTE ; Start 09/20/16 at 13:40; Stop 09/20/16 at 13:41; Status DC Iodixanol (Visipaque 320) 100 ml STK-MED ONCE .ROUTE ; Start 09/20/16 at 13:40; Stop 09/20/16 at 13:41; Status DC Midazolam HCl (Versed) 2 mg STK-MED ONCE .ROUTE ; Start 09/20/16 at 14:02; Stop 09/20/16 at 14:03; Status DC Fentanyl Citrate (Fentanyl 2ml Vial) 100 mcg STK-MED ONCE .ROUTE ; Start at 14:03; Stop 09/20/16 at 14:04; Status DC Heparin Sodium/ Sodium Chloride 500 ml @ As Directed STK-MED ONCE .ROUTE ; Start 09/20/16 at 14:32; Stop 09/20/16 at 14:33; Status DC Nitroglycerin/ Dextrose 250 ml @ As Directed STK-MED ONCE IV ; Start 09/20/16 at 14:39; Stop 09/20/16 at 14:40; Status DC Adenosine (Adenoscan) 90 mg STK-MED ONCE IV ; Start 09/20/16 at 14:49; Stop at 14:50; Status DC Hydralazine HCl (Apresoline) 20 mg STK-MED ONCE .ROUTE ; Start 09/20/16 at 15:06 ; Stop 09/20/16 at 15:07; Status DC Heparin Sodium (Porcine) (Heparin Sodium) 10,000 unit STK-MED ONCE .ROUTE ; Start 09/20/16 at 15:17; Stop 09/20/16 at 15:18; Status DC Heparin Sodium/ Sodium Chloride 1,000 unit 1X ONCE IART Last administered on 15:28; Start 09/20/16 at 15:30; Stop 09/20/16 at 15:31; Status DC Midazolam HCl (Versed) 2 mg 1X ONCE IV ; Start 09/20/16 at 15:30; Stop 09/20/16 at 15:31; Status DC Fentanyl Citrate (Fentanyl 2ml Vial) 100 mcg 1X ONCE IV ; Start 09/20/16 at 15: 30; Stop 09/20/16 at 15:31; Status DC Iodixanol (Visipaque 320) 100 ml 1X ONCE IART Last administered on 09/20/16 15 :28; Start 09/20/16 at 15:30; Stop 09/20/16 at 15:31; Status DC Heparin Sodium (Porcine) (Heparin Sodium) 4,000 unit 1X ONCE IV Last administered on 09/20/16 15:32; Start 09/20/16 at 15:30; Stop 09/20/16 at 15:31; Status DC Adenosine 90 mg/ Sodium Chloride 120 ml @ 200 mls/hr 1X ONCE IV Last administered on 09/20/16 15:29; Start 09/20/16 at 15:30; Stop 09/20/16 at 16:05; Status DC Hydralazine HCl (Apresoline) 5 mg 1X ONCE IVP Last administered on 09/20/16 15 :30; Start 09/20/16 at 15:30; Stop 09/20/16 at 15:31; Status DC Info (Do NOT chart on this entry -- for MONITORING) 1 each PRN DAILY PRN MC SEE COMMENTS; Start 09/20/16 at 15:30; Stop 09/22/16 at 15:29; Status DC Amlodipine Besylate (Norvasc) 5 mg DAILY PO Last administered on 09/21/16 08:30 ; Start 09/21/16 at 09:00; Stop 09/21/16 at 23:22; Status DC Amlodipine Besylate (Norvasc) 5 mg 1X ONCE PO Last administered on 09/20/16 21 :36; Start 09/20/16 at 21:15; Stop 09/20/16 at 21:16; Status DC Metoprolol Tartrate (Lopressor) 50 mg Q8HRS PO Last administered on 09/21/16 21 :39; Start 09/20/16 at 22:00; Stop 09/21/16 at 23:22; Status DC Acetaminophen (Tylenol) 650 mg PRN QID PRN PO PAIN Last administered on 09:09; Start 09/20/16 at 22:00 Pantoprazole Sodium (Protonix) 40 mg DAILYAC PO Last administered on 09/27/16 09:09; Start 09/21/16 at 11:30 Digoxin (Lanoxin) 500 mcg 1X ONCE PO Last administered on 09/21/16 09:28; Start 09/21/16 at 08:45; Stop 09/21/16 at 08:55; Status DC Digoxin (Lanoxin) 250 mcg DAILY PO Last administered on 09/25/16 09:03; Start 09/21/16 at 16:00; Stop 09/25/16 at 12:02; Status DC Metoprolol Tartrate (Lopressor) 50 mg BID PO Last administered on 09/26/16 07: 59; Start 09/22/16 at 09:00; Stop 09/26/16 at 11:29; Status DC Diltiazem HCl (Cardizem 24hr Cd) 180 mg DAILY PO Last administered on 09/24/16 08:40; Start 09/22/16 at 09:00; Stop 09/24/16 at 08:58; Status DC Prednisone (Prednisone) 40 mg DAILY PO Last administered on 09/27/16 09:12; Start 09/22/16 at 09:30 Metformin HCl (Glucophage) 1,000 mg BIDWMEALS PO Last administered on 09:10; Start 09/22/16 at 17:00 Levofloxacin/ Dextrose 100 ml @ 100 mls/hr 1X PREOP PRN IV prophylaxis Last administered on 09/23/16 08:44; Start 09/23/16 at 06:00; Stop 09/23/16 at 18:00; Status DC Fentanyl Citrate (Fentanyl 2ml Vial) 25 mcg PRN Q5MIN PRN IV MILD PAIN; Start 09/23/16 at 07:00; Stop 09/24/16 at 06:59; Status DC Fentanyl Citrate (Fentanyl 2ml Vial) 50 mcg PRN Q5MIN PRN IV MODERATE PAIN; Start 09/23/16 at 07:00; Stop 09/24/16 at 06:59; Status DC Morphine Sulfate 1 mg PRN Q10MIN PRN IV SEVERE PAIN; Start 09/23/16 at 07:00; Stop 09/24/16 at 06:59; Status DC Ringer's Solution 1,000 ml @ 0 mls/hr Q0M IV ; Start 09/23/16 at 07:00; Stop 09/23/16 at 18:59; Status DC Lidocaine HCl 2 ml PRN 1X PRN ID PRIOR TO IV START; Start 09/23/16 at 07:00; Stop 09/24/16 at 06:59; Status DC Hydromorphone HCl (Dilaudid) 0.5 mg PRN Q10MIN PRN IV SEV PAIN, Second choice; Start 09/23/16 at 07:00; Stop 09/24/16 at 06:59; Status DC Prochlorperazine Edisylate (Compazine) 5 mg PACU PRN PRN IV NAUSEA, MRX1; Start 09/23/16 at 07:00; Stop 09/24/16 at 06:59; Status DC Bupivacaine HCl/ Epinephrine Bitart (Sensorcain-Mpf Epi 0.5%-1:720940) 30 ml STK -MED ONCE .ROUTE ; Start 09/23/16 at 07:38; Stop 09/23/16 at 07:39; Status DC Bupivacaine HCl (Sensorcaine Mpf 0.5%) 30 ml STK-MED ONCE .ROUTE Last administered on 09/23/16 09:10; Start 09/23/16 at 07:38; Stop 09/23/16 at 07:39; Status DC Fentanyl Citrate (Fentanyl 2ml Vial) 100 mcg STK-MED ONCE .ROUTE ; Start at 08:21; Stop 09/23/16 at 08:22; Status DC Neomycin/ Polymyxin/ Bacitracin (Triple Antibiotic Ointment) 1 pkt STK-MED ONCE TP ; Start 09/23/16 at 08:46; Stop 09/23/16 at 08:47; Status DC Dexamethasone Sodium Phosphate (Decadron) 20 mg STK-MED ONCE .ROUTE ; Start 09/23 at 09:08; Stop 09/23/16 at 09:09; Status DC Ondansetron HCl (Zofran) 4 mg STK-MED ONCE .ROUTE ; Start 09/23/16 at 09:08; Stop 09/23/16 at 09:09; Status DC Propofol 20 ml @ As Directed STK-MED ONCE IV ; Start 09/23/16 at 09:08; Stop 09/23 at 09:09; Status DC Lidocaine HCl (Lidocaine Pf 2% Vial) 5 ml STK-MED ONCE .ROUTE ; Start 09/23/16 at 09:08; Stop 09/23/16 at 09:09; Status DC Sevoflurane (Ultane) 30 ml STK-MED ONCE IH ; Start 09/23/16 at 09:08; Stop at 09:09; Status DC Phenylephrine HCl 1 mg STK-MED ONCE IV ; Start 09/23/16 at 09:08; Stop 09/23/16 at 09:09; Status DC Oxycodone/ Acetaminophen (Percocet 5/325) 1 tab PRN Q6HRS PRN PO PAIN Last administered on 09/27/16 09:11; Start 09/23/16 at 16:00 Insulin Aspart (NovoLOG) 2 units 1X ONCE SQ Last administered on 09/23/16 21: 51; Start 09/23/16 at 21:30; Stop 09/23/16 at 21:31; Status DC Insulin Detemir (Levemir) 10 units BID SQ Last administered on 09/26/16 08:04 ; Start 09/24/16 at 09:00; Stop 09/26/16 at 22:32; Status DC Diltiazem HCl (Cardizem 24hr Cd) 240 mg DAILY PO Last administered on 09:11; Start 09/24/16 at 09:00 Apixaban (Eliquis) 5 mg BID PO Last administered on 09/25/16 09:03; Start 09/24 at 10:00; Stop 09/25/16 at 12:01; Status DC Info (Anti-Coagulation Monitoring By Pharmacy) 1 each PRN DAILY PRN MC SEE COMMENTS Last administered on 09/25/16 09:23; Start 09/25/16 at 09:30; Stop 02/01 at 12:03; Status DC Metoprolol Tartrate (Lopressor) 25 mg BID PO Last administered on 09/26/16 21: 26; Start 09/26/16 at 21:00; Stop 09/27/16 at 08:39; Status DC Insulin Detemir (Levemir) 6 units BID SQ ; Start 09/27/16 at 09:00; Stop at 09:00; Status DC Insulin Detemir (Levemir) 6 units BID SQ Last administered on 09/26/16 22:45; Start 09/26/16 at 23:00; Stop 09/27/16 at 08:39; Status DC Sotalol HCl (Betapace) 40 mg BID PO Last administered on 09/27/16 09:12; Start 09/27/16 at 09:00 Glipizide (Glucotrol) 2.5 mg BID PO Last administered on 09/27/16 09:10; Start 09/27/16 at 09:00 Active Scripts Active Pantoprazole Sodium 40 Mg Tablet.dr 40 Mg PO BIDAC Reported Joaquin Back & Body Caplet (Aspirin/Caffeine) 1 Each Tablet 2 Each PO BID Zoloft (Sertraline Hcl) 50 Mg Tablet 1 Tab PO DAILY Glipizide 5 Mg Tablet 0.5 Tab PO BID Potassium Chloride 20 Meq Tablet.er 20 Meq PO BID last dose this am next dose with supper Sotalol (Sotalol Hcl) 80 Mg Tablet 40 Mg PO BID last dose this am next dose tonight Furosemide 80 Mg Tablet 80 Mg PO DAILY last dose this am next dose tomorrow Atorvastatin Calcium 40 Mg Tablet 40 Mg PO HS last dose was last dose next dose tonight Metformin Hcl 1,000 Mg Tablet 1,000 Mg PO BID last dose this am next dose with supper Vitals/I & O Vital Sign - Last 24 Hours 09/26/16 09/26/16 09/26/16 09/26/16 15:00 15:45 19:05 19:35 Temp 98.1 99.0 98.1 99.0 Pulse 90 99 Resp 16 18 B/P (MAP) 124/61 (82) 115/81 (92) Pulse Ox 96 94 O2 Delivery Room Air Room Air Room Air Room Air 09/26/16 09/26/16 09/26/16 09/27/16 21:26 22:42 23:13 03:29 Temp 97.9 98.0 97.9 98.0 Pulse 101 108 72 Resp 18 16 B/P (MAP) 115/81 154/105 (121) 146/90 (108) Pulse Ox 92 93 O2 Delivery Room Air Room Air Room Air 09/27/16 09/27/16 09/27/16 09/27/16 07:45 09:11 09:11 09:12 Temp 97.7 97.7 Pulse 97 97 97 Resp 17 18 B/P (MAP) 147/87 (107) 147/87 147/87 Pulse Ox 94 94 O2 Delivery Room Air Room Air 09/27/16 09/27/16 10:11 11:06 Temp 97.6 97.6 Pulse 103 Resp 18 24 B/P (MAP) 138/92 (107) Pulse Ox 94 95 O2 Delivery Room Air Room Air Intake and Output 09/26/16 09/26/16 09/27/16 15:00 23:00 07:00 Intake Total 490 ml 990 ml 1000 ml Output Total 0 ml Balance 490 ml 990 ml 1000 ml EUGENIO THOMPSON MD Sep 27, 2016 11:47
[2016-09-27 15:40] VITALS: BP 139/98
--- NOTE | 2016-09-27 16:38 | PATHOLOGY ---
PATHOLOGY REPORT * * * * * * * * FINAL DIAGNOSIS: Left temporal artery biopsy: - No significant pathologic abnormalities. COMMENT: The left temporal artery biopsy is examined at multiple levels. There is no evidence of temporal arteritis. (JPM:[id number]; d/t: 09/27/2016) REPORT ELECTRONICALLY SIGNED BY: Tim Paul M.D. DATE/TIME: 09/27/2016 16:37 * * * * * * * * GROSS PATHOLOGY: Received in formalin labeled "Agustin Estrella, left temporal biopsy," and additionally labeled on the requisition as "left temporal artery biopsy," is a 2.3 cm segment of whitish-álvarez tubular soft tissue measuring 0.2 cm in diameter. The tissue is submitted in toto in cassette A1. (KAH; 09/24/2016) INITIAL CPT CODE(S): A; 77144 Professional services performed by [facility] [place] [address] Technical services performed by [facility] at [address] [place] [address], [facility] [address], [place] [address]. SPECIMEN(S) RECEIVED: A.Left temporal artery biopsy CLINICAL HISTORY: Headaches PATIENT: AGUSTIN ESTRELLA /AGE: 2 1950 (Age: 66) PATIENT #: [id number] ALT CASE #: SPECIMEN COLLECTION DATE: 09/23/2016 SPECIMEN RECEIVED DATE: 09/23/2016 [facility] - [address] [place] [address] - PHONE: [phone] * * * END OF REPORT * * *
--- NOTE | 2016-09-27 19:32 | PDOC2 ---
NEUROLOGY CONSULT Date of Admission Date of Admission DATE: 09/27/16 TIME: 19:22 Reason for Consult Reason for Consult: IMPRESSION: Worsening of headaches. Chronic headache. MS changes. DM AFib/flutter Syncope. Obesity. RECOMMENDATIONS/PLAN: Brain MRI w/wo contrast. Lab: see orders. Pain control Treat medical and cardiac diseases. OT/PT. HISTORY OF THE PRESENT ILLNESS: 66-y-old male patient was admitted due to cardiac diseases. he has Hx of chronic headaches but his headaches became worse now and he rated his headaches 10/10. His haedaches were described as sharp pain in his left side of head to right side of head per his description. PAST MEDICAL HISTORY: AFib/flutter, CHF, diabetes, atherosclerotic heart disease, aortic insufficiency. ALLERGIES: ALLERGIC TO PENICILLIN. SOCIAL HISTORY: He is nonsmoker, nondrinker, does not use drugs. He is retired from the [employer]. FAMILY HISTORY: Noncontributory. MEDICATIONS: Refer to [facility] FAMILY HISTORY: Non contributory. SOCIAL HISTORY: Denies smoking, drinking, and illicit drug use. REVIEW OF SYSTEMS: Constitutional: No malnutrition, weight loss, cachexia. Head: No traumatic brain or head injury. Skin: No edema, or rash. Ear: pain in left side ear area. Eyes: No vision loss or color blindness. Nose: No bleeding or purulent discharges. Hearing: Hearing decrease. Neck: No injury. Cardiac: AFib, syncope. Pulmonary: No COPD. GI: No GI ulcer, GI bleeding. Urinary/genital: No dysuria, hematuria, incontinence. Endocrinologic: Diabetes Mellitus, obesity. Skeletomuscular: No muscular atrophy, deformity. Neurological: see HP. Psychiatric: Denies drug use/abuse. Otherwise, not [id number] review of systems. PHYSICAL EXAMINATION: General appearance is in subacute distress. HEENT: Normocephalic and nontraumatic. Eyes, nose, ears, and throat are unremarkable. Neck is supple. No lymphadenopathy. No crepitus. Cardiovascular: S1, S2, regular rate and rhythm. Pulmonary: Clear to auscultation bilaterally. Abdomen: Bowel sounds are positive. Abdomen is soft, nontender, and nondistended. Extremities: No rash, lesions, or edema. No restriction of range of motion NEUROLOGICAL EXAMINATION: Awake. Oriented to time, place and person. PERRL. EOMI. CN: no focal findings. Muscle tone: within normal. Muscle strength: 4+ DTR: 2 Plantar reflex: Neutral response bilaterally Gait: not examined in bed. Sensory exam: no abnormal findings. No acute cerebellar signs elicited. F-T-N test fine. Current Medications Current Medications Current Medications Aspirin (Children'S Aspirin) 324 mg 1X ONCE PO Last administered on 09/18/16 12:19; Start 09/18/16 at 12:15; Stop 09/18/16 at 12:16; Status DC Fentanyl Citrate (Fentanyl 2ml Vial) 25 mcg PRN Q15MIN PRN IV PAIN GREATER THAN 3/10 Last administered on 09/18/16 12:27; Start 09/18/16 at 12:15; Stop 09/18 at 15:34; Status DC Nitroglycerin (Nitrostat) 0.4 mg PRN Q5MIN PRN SL CHEST PAIN; Start 09/18/16 at 12:15 Amiodarone HCl 150 mg/Dextrose 103 ml @ 618 mls/hr 1X ONCE IV Last administered on 09/18/16 12:24; Start 09/18/16 at 12:15; Stop 09/18/16 at 12:24; Status DC Amiodarone HCl 900 mg/Dextrose 518 ml @ 0 mls/hr CONT PRN IV SEE I/O RECORD Last administered on 09/18/16 12:34; Start 09/18/16 at 12:15; Stop 09/18/16 at 12: 35; Status DC Sodium Chloride 1,000 ml @ 1,000 mls/hr 1X ONCE IV Last administered on 12:35; Start 09/18/16 at 12:45; Stop 09/18/16 at 13:44; Status DC Digoxin (Lanoxin) 500 mcg 1X ONCE PO Last administered on 09/18/16 12:50; Start 09/18/16 at 13:00; Stop 09/18/16 at 13:01; Status DC Sodium Chloride 500 ml @ 500 mls/hr 1X ONCE IV ; Start 09/18/16 at 12:45; Stop 09/18/16 at 13:44; Status DC Ondansetron HCl (Zofran) 4 mg PRN Q8HRS PRN IV NAUSEA/VOMITING; Start 09/18/16 at 15:30; Stop 09/19/16 at 15:29; Status DC Fentanyl Citrate (Fentanyl 2ml Vial) 50 mcg PRN Q2HR PRN IV PAIN Last administered on 09/19/16 14:07; Start 09/18/16 at 15:30; Stop 09/19/16 at 15:29; Status DC Acetaminophen (Tylenol) 650 mg PRN Q4HRS PRN PO FEVER; Start 09/18/16 at 15:30; Stop 09/19/16 at 15:29; Status DC Nitroglycerin (Nitrostat) 0.4 mg PRN Q5MIN PRN SL CHEST PAIN; Start 09/18/16 at 15:30; Stop 09/18/16 at 15:34; Status DC Insulin Aspart (NovoLOG) 0-5 UNITS TIDWMEALS SQ Last administered on 09/26/16 17:33; Start 09/18/16 at 17:00 Dextrose (Dextrose 50%-Water Syringe) 12.5 gm PRN Q15MIN PRN IV SEE COMMENTS; Start 09/18/16 at 15:30 Metoprolol Tartrate (Lopressor) 2.5 mg Q6HRS IVP ; Start 09/19/16 at 19:30; Stop 09/19/16 at 19:30; Status DC Enoxaparin Sodium (Lovenox 150mg Syringe) 130 mg 1X ONCE SQ Last administered on 09/18/16 19:51; Start 09/18/16 at 19:45; Stop 09/18/16 at 19:48; Status DC Metoprolol Tartrate (Lopressor) 2.5 mg Q6HRS IVP Last administered on 09/19/16 05:35; Start 09/18/16 at 20:30; Stop 09/19/16 at 12:53; Status DC Levothyroxine Sodium (Synthroid) 50 mcg DAILY07 PO ; Start 09/19/16 at 13:30; Stop 09/19/16 at 14:26; Status DC Sodium Chloride 1,000 ml @ 75 mls/hr [id number] IV Last administered on 09/20/16 02:50; Start 09/19/16 at 13:30; Stop 09/20/16 at 19:05; Status DC Enoxaparin Sodium (Lovenox Per Pharmacy Treatment Dosing) 1 each PRN DAILY PRN MC SEE COMMENTS; Start 09/19/16 at 13:00; Status Cancel Metoprolol Tartrate (Lopressor) 5 mg Q6HRS IVP Last administered on 09/20/16 19 :00; Start 09/19/16 at 13:30; Stop 09/20/16 at 21:22; Status DC Enoxaparin Sodium (Lovenox 150mg Syringe) 130 mg BID SQ Last administered on 14:03; Start 09/19/16 at 13:30; Stop 09/20/16 at 19:54; Status DC Sertraline HCl (Zoloft) 50 mg DAILY PO Last administered on 09/27/16 09:10; Start 09/19/16 at 14:30 Non-Formulary Medication 2 each BID PO ; Start 09/19/16 at 21:00; Status UNV Info (Anti-Coagulation Monitoring By Pharmacy) 1 each PRN DAILY PRN MC SEE COMMENTS Last administered on 09/20/16 08:20; Start 09/20/16 at 08:15; Stop at 16:21; Status DC Lidocaine HCl 20 ml STK-MED ONCE .ROUTE ; Start 09/20/16 at 13:40; Stop 09/20/16 at 13:41; Status DC Heparin Sodium/ Sodium Chloride 1,000 ml @ As Directed STK-MED ONCE .ROUTE ; Start 09/20/16 at 13:40; Stop 09/20/16 at 13:41; Status DC Iodixanol (Visipaque 320) 100 ml STK-MED ONCE .ROUTE ; Start 09/20/16 at 13:40; Stop 09/20/16 at 13:41; Status DC Midazolam HCl (Versed) 2 mg STK-MED ONCE .ROUTE ; Start 09/20/16 at 14:02; Stop 09/20/16 at 14:03; Status DC Fentanyl Citrate (Fentanyl 2ml Vial) 100 mcg STK-MED ONCE .ROUTE ; Start at 14:03; Stop 09/20/16 at 14:04; Status DC Heparin Sodium/ Sodium Chloride 500 ml @ As Directed STK-MED ONCE .ROUTE ; Start 09/20/16 at 14:32; Stop 09/20/16 at 14:33; Status DC Nitroglycerin/ Dextrose 250 ml @ As Directed STK-MED ONCE IV ; Start 09/20/16 at 14:39; Stop 09/20/16 at 14:40; Status DC Adenosine (Adenoscan) 90 mg STK-MED ONCE IV ; Start 09/20/16 at 14:49; Stop at 14:50; Status DC Hydralazine HCl (Apresoline) 20 mg STK-MED ONCE .ROUTE ; Start 09/20/16 at 15:06 ; Stop 09/20/16 at 15:07; Status DC Heparin Sodium (Porcine) (Heparin Sodium) 10,000 unit STK-MED ONCE .ROUTE ; Start 09/20/16 at 15:17; Stop 09/20/16 at 15:18; Status DC Heparin Sodium/ Sodium Chloride 1,000 unit 1X ONCE IART Last administered on 15:28; Start 09/20/16 at 15:30; Stop 09/20/16 at 15:31; Status DC Midazolam HCl (Versed) 2 mg 1X ONCE IV ; Start 09/20/16 at 15:30; Stop 09/20/16 at 15:31; Status DC Fentanyl Citrate (Fentanyl 2ml Vial) 100 mcg 1X ONCE IV ; Start 09/20/16 at 15: 30; Stop 09/20/16 at 15:31; Status DC Iodixanol (Visipaque 320) 100 ml 1X ONCE IART Last administered on 09/20/16 15 :28; Start 09/20/16 at 15:30; Stop 09/20/16 at 15:31; Status DC Heparin Sodium (Porcine) (Heparin Sodium) 4,000 unit 1X ONCE IV Last administered on 09/20/16 15:32; Start 09/20/16 at 15:30; Stop 09/20/16 at 15:31; Status DC Adenosine 90 mg/ Sodium Chloride 120 ml @ 200 mls/hr 1X ONCE IV Last administered on 09/20/16 15:29; Start 09/20/16 at 15:30; Stop 09/20/16 at 16:05; Status DC Hydralazine HCl (Apresoline) 5 mg 1X ONCE IVP Last administered on 09/20/16 15 :30; Start 09/20/16 at 15:30; Stop 09/20/16 at 15:31; Status DC Info (Do NOT chart on this entry -- for MONITORING) 1 each PRN DAILY PRN MC SEE COMMENTS; Start 09/20/16 at 15:30; Stop 09/22/16 at 15:29; Status DC Amlodipine Besylate (Norvasc) 5 mg DAILY PO Last administered on 09/21/16 08:30 ; Start 09/21/16 at 09:00; Stop 09/21/16 at 23:22; Status DC Amlodipine Besylate (Norvasc) 5 mg 1X ONCE PO Last administered on 09/20/16 21 :36; Start 09/20/16 at 21:15; Stop 09/20/16 at 21:16; Status DC Metoprolol Tartrate (Lopressor) 50 mg Q8HRS PO Last administered on 09/21/16 21 :39; Start 09/20/16 at 22:00; Stop 09/21/16 at 23:22; Status DC Acetaminophen (Tylenol) 650 mg PRN QID PRN PO PAIN Last administered on 09:09; Start 09/20/16 at 22:00 Pantoprazole Sodium (Protonix) 40 mg DAILYAC PO Last administered on 09/27/16 09:09; Start 09/21/16 at 11:30 Digoxin (Lanoxin) 500 mcg 1X ONCE PO Last administered on 09/21/16 09:28; Start 09/21/16 at 08:45; Stop 09/21/16 at 08:55; Status DC Digoxin (Lanoxin) 250 mcg DAILY PO Last administered on 09/25/16 09:03; Start 09/21/16 at 16:00; Stop 09/25/16 at 12:02; Status DC Metoprolol Tartrate (Lopressor) 50 mg BID PO Last administered on 09/26/16 07: 59; Start 09/22/16 at 09:00; Stop 09/26/16 at 11:29; Status DC Diltiazem HCl (Cardizem 24hr Cd) 180 mg DAILY PO Last administered on 09/24/16 08:40; Start 09/22/16 at 09:00; Stop 09/24/16 at 08:58; Status DC Prednisone (Prednisone) 40 mg DAILY PO Last administered on 09/27/16 09:12; Start 09/22/16 at 09:30 Metformin HCl (Glucophage) 1,000 mg BIDWMEALS PO Last administered on 18:47; Start 09/22/16 at 17:00 Levofloxacin/ Dextrose 100 ml @ 100 mls/hr 1X PREOP PRN IV prophylaxis Last administered on 09/23/16 08:44; Start 09/23/16 at 06:00; Stop 09/23/16 at 18:00; Status DC Fentanyl Citrate (Fentanyl 2ml Vial) 25 mcg PRN Q5MIN PRN IV MILD PAIN; Start 09/23/16 at 07:00; Stop 09/24/16 at 06:59; Status DC Fentanyl Citrate (Fentanyl 2ml Vial) 50 mcg PRN Q5MIN PRN IV MODERATE PAIN; Start 09/23/16 at 07:00; Stop 09/24/16 at 06:59; Status DC Morphine Sulfate 1 mg PRN Q10MIN PRN IV SEVERE PAIN; Start 09/23/16 at 07:00; Stop 09/24/16 at 06:59; Status DC Ringer's Solution 1,000 ml @ 0 mls/hr Q0M IV ; Start 09/23/16 at 07:00; Stop 09/23/16 at 18:59; Status DC Lidocaine HCl 2 ml PRN 1X PRN ID PRIOR TO IV START; Start 09/23/16 at 07:00; Stop 09/24/16 at 06:59; Status DC Hydromorphone HCl (Dilaudid) 0.5 mg PRN Q10MIN PRN IV SEV PAIN, Second choice; Start 09/23/16 at 07:00; Stop 09/24/16 at 06:59; Status DC Prochlorperazine Edisylate (Compazine) 5 mg PACU PRN PRN IV NAUSEA, MRX1; Start 09/23/16 at 07:00; Stop 09/24/16 at 06:59; Status DC Bupivacaine HCl/ Epinephrine Bitart (Sensorcain-Mpf Epi 0.5%-[id number]) 30 ml STK -MED ONCE .ROUTE ; Start 09/23/16 at 07:38; Stop 09/23/16 at 07:39; Status DC Bupivacaine HCl (Sensorcaine Mpf 0.5%) 30 ml STK-MED ONCE .ROUTE Last administered on 09/23/16 09:10; Start 09/23/16 at 07:38; Stop 09/23/16 at 07:39; Status DC Fentanyl Citrate (Fentanyl 2ml Vial) 100 mcg STK-MED ONCE .ROUTE ; Start at 08:21; Stop 09/23/16 at 08:22; Status DC Neomycin/ Polymyxin/ Bacitracin (Triple Antibiotic Ointment) 1 pkt STK-MED ONCE TP ; Start 09/23/16 at 08:46; Stop 09/23/16 at 08:47; Status DC Dexamethasone Sodium Phosphate (Decadron) 20 mg STK-MED ONCE .ROUTE ; Start 09/23 at 09:08; Stop 09/23/16 at 09:09; Status DC Ondansetron HCl (Zofran) 4 mg STK-MED ONCE .ROUTE ; Start 09/23/16 at 09:08; Stop 09/23/16 at 09:09; Status DC Propofol 20 ml @ As Directed STK-MED ONCE IV ; Start 09/23/16 at 09:08; Stop 09/23 at 09:09; Status DC Lidocaine HCl (Lidocaine Pf 2% Vial) 5 ml STK-MED ONCE .ROUTE ; Start 09/23/16 at 09:08; Stop 09/23/16 at 09:09; Status DC Sevoflurane (Ultane) 30 ml STK-MED ONCE IH ; Start 09/23/16 at 09:08; Stop at 09:09; Status DC Phenylephrine HCl 1 mg STK-MED ONCE IV ; Start 09/23/16 at 09:08; Stop 09/23/16 at 09:09; Status DC Oxycodone/ Acetaminophen (Percocet 5/325) 1 tab PRN Q6HRS PRN PO PAIN Last administered on 09/27/16 09:11; Start 09/23/16 at 16:00 Insulin Aspart (NovoLOG) 2 units 1X ONCE SQ Last administered on 09/23/16 21: 51; Start 09/23/16 at 21:30; Stop 09/23/16 at 21:31; Status DC Insulin Detemir (Levemir) 10 units BID SQ Last administered on 09/26/16 08:04 ; Start 09/24/16 at 09:00; Stop 09/26/16 at 22:32; Status DC Diltiazem HCl (Cardizem 24hr Cd) 240 mg DAILY PO Last administered on 09:11; Start 09/24/16 at 09:00 Apixaban (Eliquis) 5 mg BID PO Last administered on 09/25/16 09:03; Start 09/24 at 10:00; Stop 09/25/16 at 12:01; Status DC Info (Anti-Coagulation Monitoring By Pharmacy) 1 each PRN DAILY PRN MC SEE COMMENTS Last administered on 09/25/16 09:23; Start 09/25/16 at 09:30; Stop 02/01 at 12:03; Status DC Metoprolol Tartrate (Lopressor) 25 mg BID PO Last administered on 09/26/16 21: 26; Start 09/26/16 at 21:00; Stop 09/27/16 at 08:39; Status DC Insulin Detemir (Levemir) 6 units BID SQ ; Start 09/27/16 at 09:00; Stop at 09:00; Status DC Insulin Detemir (Levemir) 6 units BID SQ Last administered on 09/26/16 22:45; Start 09/26/16 at 23:00; Stop 09/27/16 at 08:39; Status DC Sotalol HCl (Betapace) 40 mg BID PO Last administered on 09/27/16 09:12; Start 09/27/16 at 09:00 Glipizide (Glucotrol) 2.5 mg BID PO Last administered on 09/27/16 09:10; Start 09/27/16 at 09:00 Active Scripts Active Pantoprazole Sodium 40 Mg Tablet.dr 40 Mg PO BIDAC Reported Joaquin Back & [employer] Caplet (Aspirin/Caffeine) 1 Each Tablet 2 Each PO BID Zoloft (Sertraline Hcl) 50 Mg Tablet 1 Tab PO DAILY Glipizide 5 Mg Tablet 0.5 Tab PO BID Potassium Chloride 20 Meq Tablet.er 20 Meq PO BID last dose this am next dose with supper Sotalol (Sotalol Hcl) 80 Mg Tablet 40 Mg PO BID last dose this am next dose tonight Furosemide 80 Mg Tablet 80 Mg PO DAILY last dose this am next dose tomorrow Atorvastatin Calcium 40 Mg Tablet 40 Mg PO HS last dose was last dose next dose tonight Metformin Hcl 1,000 Mg Tablet 1,000 Mg PO BID last dose this am next dose with supper Allergies Allergies: Coded Allergies: Penicillins (Verified Allergy, Severe, RASH AND HIVES, 09/23/16) Vitals VITALS Vital Signs Date Time Temp Pulse Resp B/P (MAP) Pulse Ox O2 Delivery O2 Flow Rate FiO2 09/27/16 15:40 97.5 117 22 139/98 (112) 96 Room Air 97.5 Labs Labs Laboratory Tests Test 09/25/16 20:31 09/25/16 21:45 09/26/16 06:57 09/26/16 11:08 Glucose (Fingerstick) 216 mg/dL (70-99) 111 mg/dL (70-99) 172 mg/dL (70-99) Urine Collection Type Unknown Urine Color Yellow Urine Clarity Clear Urine pH 5.5 Urine Specific [place] 1.015 Urine Protein 30 mg/dL (NEG-TRACE) Urine Glucose (UA) Negative mg/dL (NEG) Urine Ketones (Stick) Negative mg/dL (NEG) Urine Blood Negative (NEG) Urine Nitrite Negative (NEG) Urine Bilirubin Negative (NEG) Urine Urobilinogen Dipstick 0.2 mg/dL (0.2 mg/dL) Urine Leukocyte Esterase Negative (NEG) Urine RBC 0 /HPF (0-2) Urine WBC 1-4 /HPF (0-4) Urine Squamous Epithelial Cells Few /LPF Urine Amorphous Sediment Present /HPF Urine Bacteria 0 /HPF (0-FEW) Urine Mucus Mod /LPF Urine Yeast Present /HPF Test 09/26/16 17:12 09/26/16 20:43 09/27/16 07:58 Glucose (Fingerstick) 271 mg/dL (70-99) 192 mg/dL (70-99) 91 mg/dL (70-99) Laboratory Tests Test 09/26/16 20:43 09/27/16 07:58 Glucose (Fingerstick) 192 mg/dL (70-99) 91 mg/dL (70-99) CJ RAMIREZ MD Sep 27, 2016 19:32
[2016-09-27 19:49] VITALS: BP 137/90
[2016-09-27 22:24] VITALS: BP 142/83
[2016-09-28 03:44] VITALS: BP 133/98
[2016-09-28] MEDS: PANTOPRAZOLE 40 MG TABLET.DR. PO SCH (06:30)
[2016-09-28] MEDS: oxyCODONE/APAP 5/325 1 TAB TABLET PO PRN (06:31)
[2016-09-28 07:57] VITALS: BP 148/103
--- NOTE | 2016-09-28 08:05 | PDOC ---
Provider Note Provider Note hr better on sotalol, no new sxs- burgos persists , TA bx neg for TA so will stop prednisone, mri in progress re headaches ANA MARIA REYNA MD Sep 28, 2016 08:05
[2016-09-28] MEDS ORDERED: IBUPROFEN 400 MG TABLET. PO PRN (08:15)
[2016-09-28] MEDS: glipiZIDE 5 MG TABLET PO SCH ×2 (09:26→19:22)
[2016-09-28] MEDS: SERTRALINE 50 MG TABLET. PO SCH (09:26)
[2016-09-28] MEDS: SOTALOL 80 MG TABLET. PO SCH ×2 (09:27→20:06)
[2016-09-28 11:06] VITALS: BP 130/84
[2016-09-28] MEDS: ACETAMINOPHEN 325 MG TABLET. PO PRN (11:48)
[2016-09-28] MEDS ORDERED: GADOBUTROL 10 MMOL/10 ML VIAL IV ONE (13:45)
--- NOTE | 2016-09-28 14:45 | RAD ---
MRI Brain with and without contrast History: Worsening headaches Technique: Axial diffusion, axial gradient echo T2, axial T2, axial FLAIR, sagittal and axial T1, and postcontrast axial, sagittal, and coronal T1-weighted images were acquired of the brain. Contrast: 10 cc Gadavist Comparison: None Findings: There is motion degradation. There is no evidence of recent infarct or cytotoxic edema. Ventricular size is proportionate to the sulcal spaces. There is mild to moderate generalized supratentorial atrophy.There is no significant midline shift, intraaxial mass effect, or focal abnormal extra-axial fluid collection. There is no significant signal abnormality including hemosiderin deposition of the brain parenchyma. There is no nodular parenchymal or leptomeningeal enhancement. There is preservation of the major intracranial flow-voids at the skull base. The cerebellar tonsils are normal in location. There is no significant abnormality of the pineal gland. Pituitary gland is small. Paranasal sinuses are overall aerated. The mastoid air cells are aerated. There is preserved marrow signal of the clivus. There has been lens surgery bilaterally. Impression: 1. There is no evidence of recent infarct or intracranial mass effect. There is generalized supratentorial atrophy.. Electronically signed by: Carlos Montelongo MD (09/28/2016 2:42 PM)
--- NOTE | 2016-09-28 16:17 | PDOC ---
PROGRESS NOTES Assessment Assessment Worsening of headaches. Chronic headache. MS changes. DM AFib/flutter Syncope. Obesity. No evidence of acute CVA or brain tumor. RECOMMENDATIONS/PLAN: Pain control Treat medical and cardiac diseases. OT/PT. Brain MRI w/wo contrast on 09/28/16: No acute findings. HISTORY OF THE PRESENT ILLNESS: 66-y-old male patient was admitted due to cardiac diseases. he has Hx of chronic headaches but his headaches became worse now and he rated his headaches 10/10. His haedaches were described as sharp pain in his left side of head to right side of head per his description. PAST MEDICAL HISTORY: AFib/flutter, CHF, diabetes, atherosclerotic heart disease, aortic insufficiency. ALLERGIES: ALLERGIC TO PENICILLIN. SOCIAL HISTORY: He is nonsmoker, nondrinker, does not use drugs. He is retired from the [employer]. FAMILY HISTORY: Noncontributory. MEDICATIONS: Refer to [facility] FAMILY HISTORY: Non contributory. SOCIAL HISTORY: Denies smoking, drinking, and illicit drug use. REVIEW OF SYSTEMS: Constitutional: No malnutrition, weight loss, cachexia. Head: No traumatic brain or head injury. Skin: No edema, or rash. Ear: pain in left side ear area. Eyes: No vision loss or color blindness. Nose: No bleeding or purulent discharges. Hearing: Hearing decrease. Neck: No injury. Cardiac: AFib, syncope. Pulmonary: No COPD. GI: No GI ulcer, GI bleeding. Urinary/genital: No dysuria, hematuria, incontinence. Endocrinologic: Diabetes Mellitus, obesity. Skeletomuscular: No muscular atrophy, deformity. Neurological: see HP. Psychiatric: Denies drug use/abuse. Otherwise, not [id number] review of systems. PHYSICAL EXAMINATION: General appearance is in subacute distress. HEENT: Normocephalic and nontraumatic. Eyes, nose, ears, and throat are unremarkable. Neck is supple. No lymphadenopathy. No crepitus. Cardiovascular: S1, S2, regular rate and rhythm. Pulmonary: Clear to auscultation bilaterally. Abdomen: Bowel sounds are positive. Abdomen is soft, nontender, and nondistended. Extremities: No rash, lesions, or edema. No restriction of range of motion NEUROLOGICAL EXAMINATION: Sleepiness but arousable. Oriented to time, place and person. PERRL. EOMI. CN: no focal findings. Muscle tone: within normal. Muscle strength: 4+ DTR: 2 Plantar reflex: Neutral response bilaterally Gait: not examined in bed. Sensory exam: no abnormal findings. No acute cerebellar signs elicited. F-T-N test fine. Objective Objective Vital Signs Date Time Temp Pulse Resp B/P (MAP) Pulse Ox O2 Delivery O2 Flow Rate FiO2 09/28/16 11:06 97.6 85 20 130/84 (99) Room Air 97.6 09/28/16 07:57 94 Intake and Output 09/28/16 07:00 Intake Total 3270 ml Output Total 1700 ml Balance 1570 ml Intake Oral 3270 ml Output Urine Total 1700 ml # Voids 5 Vitals Signs Vitals VS - Last 72 Hours, by Label Date Time Temp Pulse Resp B/P (MAP) Pulse Ox O2 Delivery O2 Flow Rate FiO2 09/28/16 11:06 97.6 85 20 130/84 (99) Room Air 97.6 09/28/16 09:27 98 148/103 09/28/16 09:27 98 148/103 09/28/16 07:57 98.1 90 20 148/103 (118) 94 Room Air 98.1 09/28/16 06:31 Room Air 09/28/16 03:44 97.3 87 20 133/98 (110) 93 Room Air 97.3 09/27/16 22:24 124 20 142/83 (102) 95 Room Air 09/27/16 21:13 124 137/90 09/27/16 20:10 Room Air 09/27/16 19:51 93 09/27/16 19:49 98.2 124 20 137/90 (106) 91 Room Air 98.2 09/27/16 15:40 97.5 117 22 139/98 (112) 96 Room Air 97.5 09/27/16 11:06 97.6 103 24 138/92 (107) 95 Room Air 97.6 09/27/16 10:11 18 94 Room Air 09/27/16 09:12 97 147/87 09/27/16 09:11 97 147/87 09/27/16 09:11 18 94 Room Air 09/27/16 08:00 Room Air 09/27/16 07:45 97.7 97 17 147/87 (107) 94 Room Air 97.7 Laboratory Laboratory Laboratory Tests Test 09/27/16 17:00 09/27/16 20:47 09/28/16 08:00 09/28/16 11:07 Glucose (Fingerstick) 171 mg/dL (70-99) 348 mg/dL (70-99) 98 mg/dL (70-99) 137 mg/dL (70-99) Medication Medications Current Medications Gadobutrol (Gadavist) 10 mmol 1X ONCE IV ; Start 09/28/16 at 13:45; Stop at 13:46; Status DC Glipizide (Glucotrol) 2.5 mg BIDWMEALS PO ; Start 09/28/16 at 17:00 Ibuprofen (Motrin) 400 mg PRN Q6HRS PRN PO INFLAMMATION; Start 09/28/16 at 08: 15 Comment Review of Relevant I have reviewed the following items mervin (where applicable) has been applied. JC RAMIREZ MD Sep 28, 2016 16:16
--- NOTE | 2016-09-28 17:36 | PDOC ---
PROGRESS NOTES Subjective Subjective Patient is confused. Neuro workup in progress Objective Objective Vital Signs Date Time Temp Pulse Resp B/P (MAP) Pulse Ox O2 Delivery O2 Flow Rate FiO2 09/28/16 11:06 97.6 85 20 130/84 (99) Room Air 97.6 09/28/16 07:57 94 09/23/16 09:31 10 Intake and Output 09/28/16 07:00 Intake Total 3270 ml Output Total 1700 ml Balance 1570 ml Intake Oral 3270 ml Output Urine Total 1700 ml # Voids 5 Physical Exam Physical Exam No significant changes in cardiac exam Assessment Assessment Patient is still confused and complaining of headache intermittently. Neuro workup in progress. Agree with present plan. Comment Review of Relevant I have reviewed the following items mervin (where applicable) has been applied. Labs Laboratory Tests Test 09/26/16 20:43 09/27/16 07:58 09/27/16 11:43 09/27/16 17:00 Glucose (Fingerstick) 192 mg/dL (70-99) 91 mg/dL (70-99) 138 mg/dL (70-99) 171 mg/dL (70-99) Test 09/27/16 20:47 09/28/16 08:00 09/28/16 11:07 09/28/16 17:05 Glucose (Fingerstick) 348 mg/dL (70-99) 98 mg/dL (70-99) 137 mg/dL (70-99) 115 mg/dL (70-99) Laboratory Tests Test 09/27/16 20:47 09/28/16 08:00 09/28/16 11:07 09/28/16 17:05 Glucose (Fingerstick) 348 mg/dL (70-99) 98 mg/dL (70-99) 137 mg/dL (70-99) 115 mg/dL (70-99) Medications Current Medications Aspirin (Children'S Aspirin) 324 mg 1X ONCE PO Last administered on 09/18/16 12:19; Start 09/18/16 at 12:15; Stop 09/18/16 at 12:16; Status DC Fentanyl Citrate (Fentanyl 2ml Vial) 25 mcg PRN Q15MIN PRN IV PAIN GREATER THAN 3/10 Last administered on 09/18/16 12:27; Start 09/18/16 at 12:15; Stop 09/18 at 15:34; Status DC Nitroglycerin (Nitrostat) 0.4 mg PRN Q5MIN PRN SL CHEST PAIN; Start 09/18/16 at 12:15 Amiodarone HCl 150 mg/Dextrose 103 ml @ 618 mls/hr 1X ONCE IV Last administered on 09/18/16 12:24; Start 09/18/16 at 12:15; Stop 09/18/16 at 12:24; Status DC Amiodarone HCl 900 mg/Dextrose 518 ml @ 0 mls/hr CONT PRN IV SEE I/O RECORD Last administered on 09/18/16 12:34; Start 09/18/16 at 12:15; Stop 09/18/16 at 12: 35; Status DC Sodium Chloride 1,000 ml @ 1,000 mls/hr 1X ONCE IV Last administered on 12:35; Start 09/18/16 at 12:45; Stop 09/18/16 at 13:44; Status DC Digoxin (Lanoxin) 500 mcg 1X ONCE PO Last administered on 09/18/16 12:50; Start 09/18/16 at 13:00; Stop 09/18/16 at 13:01; Status DC Sodium Chloride 500 ml @ 500 mls/hr 1X ONCE IV ; Start 09/18/16 at 12:45; Stop 09/18/16 at 13:44; Status DC Ondansetron HCl (Zofran) 4 mg PRN Q8HRS PRN IV NAUSEA/VOMITING; Start 09/18/16 at 15:30; Stop 09/19/16 at 15:29; Status DC Fentanyl Citrate (Fentanyl 2ml Vial) 50 mcg PRN Q2HR PRN IV PAIN Last administered on 09/19/16 14:07; Start 09/18/16 at 15:30; Stop 09/19/16 at 15:29; Status DC Acetaminophen (Tylenol) 650 mg PRN Q4HRS PRN PO FEVER; Start 09/18/16 at 15:30; Stop 09/19/16 at 15:29; Status DC Nitroglycerin (Nitrostat) 0.4 mg PRN Q5MIN PRN SL CHEST PAIN; Start 09/18/16 at 15:30; Stop 09/18/16 at 15:34; Status DC Insulin Aspart (NovoLOG) 0-5 UNITS TIDWMEALS SQ Last administered on 09/26/16 17:33; Start 09/18/16 at 17:00; Stop 09/28/16 at 08:06; Status DC Dextrose (Dextrose 50%-Water Syringe) 12.5 gm PRN Q15MIN PRN IV SEE COMMENTS; Start 09/18/16 at 15:30 Metoprolol Tartrate (Lopressor) 2.5 mg Q6HRS IVP ; Start 09/19/16 at 19:30; Stop 09/19/16 at 19:30; Status DC Enoxaparin Sodium (Lovenox 150mg Syringe) 130 mg 1X ONCE SQ Last administered on 09/18/16 19:51; Start 09/18/16 at 19:45; Stop 09/18/16 at 19:48; Status DC Metoprolol Tartrate (Lopressor) 2.5 mg Q6HRS IVP Last administered on 09/19/16 05:35; Start 09/18/16 at 20:30; Stop 09/19/16 at 12:53; Status DC Levothyroxine Sodium (Synthroid) 50 mcg DAILY07 PO ; Start 09/19/16 at 13:30; Stop 09/19/16 at 14:26; Status DC Sodium Chloride 1,000 ml @ 75 mls/hr [id number] IV Last administered on 09/20/16 02:50; Start 09/19/16 at 13:30; Stop 09/20/16 at 19:05; Status DC Enoxaparin Sodium (Lovenox Per Pharmacy Treatment Dosing) 1 each PRN DAILY PRN MC SEE COMMENTS; Start 09/19/16 at 13:00; Status Cancel Metoprolol Tartrate (Lopressor) 5 mg Q6HRS IVP Last administered on 09/20/16 19 :00; Start 09/19/16 at 13:30; Stop 09/20/16 at 21:22; Status DC Enoxaparin Sodium (Lovenox 150mg Syringe) 130 mg BID SQ Last administered on 14:03; Start 09/19/16 at 13:30; Stop 09/20/16 at 19:54; Status DC Sertraline HCl (Zoloft) 50 mg DAILY PO Last administered on 6/13/17at 09:26; Start 09/19/16 at 14:30 Non-Formulary Medication 2 each BID PO ; Start 09/19/16 at 21:00; Status UNV Info (Anti-Coagulation Monitoring By Pharmacy) 1 each PRN DAILY PRN MC SEE COMMENTS Last administered on 09/20/16t 08:20; Start 09/20/16 at 08:15; Stop at 16:21; Status DC Lidocaine HCl 20 ml STK-MED ONCE .ROUTE ; Start 09/20/16 at 13:40; Stop 09/20/16 at 13:41; Status DC Heparin Sodium/ Sodium Chloride 1,000 ml @ As Directed STK-MED ONCE .ROUTE ; Start 09/20/16 at 13:40; Stop 09/20/16 at 13:41; Status DC Iodixanol (Visipaque 320) 100 ml STK-MED ONCE .ROUTE ; Start 09/20/16 at 13:40; Stop 09/20/16 at 13:41; Status DC Midazolam HCl (Versed) 2 mg STK-MED ONCE .ROUTE ; Start 09/20/16 at 14:02; Stop 09/20/16 at 14:03; Status DC Fentanyl Citrate (Fentanyl 2ml Vial) 100 mcg STK-MED ONCE .ROUTE ; Start at 14:03; Stop 09/20/16 at 14:04; Status DC Heparin Sodium/ Sodium Chloride 500 ml @ As Directed STK-MED ONCE .ROUTE ; Start 09/20/16 at 14:32; Stop 09/20/16 at 14:33; Status DC Nitroglycerin/ Dextrose 250 ml @ As Directed STK-MED ONCE IV ; Start 09/20/16 at 14:39; Stop 09/20/16 at 14:40; Status DC Adenosine (Adenoscan) 90 mg STK-MED ONCE IV ; Start 09/20/16 at 14:49; Stop at 14:50; Status DC Hydralazine HCl (Apresoline) 20 mg STK-MED ONCE .ROUTE ; Start 09/20/16 at 15:06 ; Stop 09/20/16 at 15:07; Status DC Heparin Sodium (Porcine) (Heparin Sodium) 10,000 unit STK-MED ONCE .ROUTE ; Start 09/20/16 at 15:17; Stop 09/20/16 at 15:18; Status DC Heparin Sodium/ Sodium Chloride 1,000 unit 1X ONCE IART Last administered on 15:28; Start 09/20/16 at 15:30; Stop 09/20/16 at 15:31; Status DC Midazolam HCl (Versed) 2 mg 1X ONCE IV ; Start 09/20/16 at 15:30; Stop 09/20/16 at 15:31; Status DC Fentanyl Citrate (Fentanyl 2ml Vial) 100 mcg 1X ONCE IV ; Start 09/20/16 at 15: 30; Stop 09/20/16 at 15:31; Status DC Iodixanol (Visipaque 320) 100 ml 1X ONCE IART Last administered on 09/20/16 15 :28; Start 09/20/16 at 15:30; Stop 09/20/16 at 15:31; Status DC Heparin Sodium (Porcine) (Heparin Sodium) 4,000 unit 1X ONCE IV Last administered on 09/20/16 15:32; Start 09/20/16 at 15:30; Stop 09/20/16 at 15:31; Status DC Adenosine 90 mg/ Sodium Chloride 120 ml @ 200 mls/hr 1X ONCE IV Last administered on 09/20/16 15:29; Start 09/20/16 at 15:30; Stop 09/20/16 at 16:05; Status DC Hydralazine HCl (Apresoline) 5 mg 1X ONCE IVP Last administered on 09/20/16 15 :30; Start 09/20/16 at 15:30; Stop 09/20/16 at 15:31; Status DC Info (Do NOT chart on this entry -- for MONITORING) 1 each PRN DAILY PRN MC SEE COMMENTS; Start 09/20/16 at 15:30; Stop 09/22/16 at 15:29; Status DC Amlodipine Besylate (Norvasc) 5 mg DAILY PO Last administered on 09/21/16 08:30 ; Start 09/21/16 at 09:00; Stop 09/21/16 at 23:22; Status DC Amlodipine Besylate (Norvasc) 5 mg 1X ONCE PO Last administered on 09/20/16 21 :36; Start 09/20/16 at 21:15; Stop 09/20/16 at 21:16; Status DC Metoprolol Tartrate (Lopressor) 50 mg Q8HRS PO Last administered on 09/21/16 21 :39; Start 09/20/16 at 22:00; Stop 09/21/16 at 23:22; Status DC Acetaminophen (Tylenol) 650 mg PRN QID PRN PO PAIN Last administered on 11:48; Start 09/20/16 at 22:00 Pantoprazole Sodium (Protonix) 40 mg DAILYAC PO Last administered on 09/28/16 06:30; Start 09/21/16 at 11:30 Digoxin (Lanoxin) 500 mcg 1X ONCE PO Last administered on 09/21/16 09:28; Start 09/21/16 at 08:45; Stop 09/21/16 at 08:55; Status DC Digoxin (Lanoxin) 250 mcg DAILY PO Last administered on 09/25/16 09:03; Start 09/21/16 at 16:00; Stop 09/25/16 at 12:02; Status DC Metoprolol Tartrate (Lopressor) 50 mg BID PO Last administered on 09/26/16 07: 59; Start 09/22/16 at 09:00; Stop 09/26/16 at 11:29; Status DC Diltiazem HCl (Cardizem 24hr Cd) 180 mg DAILY PO Last administered on 09/24/16 08:40; Start 09/22/16 at 09:00; Stop 09/24/16 at 08:58; Status DC Prednisone (Prednisone) 40 mg DAILY PO Last administered on 09/27/16 09:12; Start 09/22/16 at 09:30; Stop 09/28/16 at 08:06; Status DC Metformin HCl (Glucophage) 1,000 mg BIDWMEALS PO Last administered on 09:26; Start 09/22/16 at 17:00 Levofloxacin/ Dextrose 100 ml @ 100 mls/hr 1X PREOP PRN IV prophylaxis Last administered on 09/23/16 08:44; Start 09/23/16 at 06:00; Stop 09/23/16 at 18:00; Status DC Fentanyl Citrate (Fentanyl 2ml Vial) 25 mcg PRN Q5MIN PRN IV MILD PAIN; Start 09/23/16 at 07:00; Stop 09/24/16 at 06:59; Status DC Fentanyl Citrate (Fentanyl 2ml Vial) 50 mcg PRN Q5MIN PRN IV MODERATE PAIN; Start 09/23/16 at 07:00; Stop 09/24/16 at 06:59; Status DC Morphine Sulfate 1 mg PRN Q10MIN PRN IV SEVERE PAIN; Start 09/23/16 at 07:00; Stop 09/24/16 at 06:59; Status DC Ringer's Solution 1,000 ml @ 0 mls/hr Q0M IV ; Start 09/23/16 at 07:00; Stop 09/23/16 at 18:59; Status DC Lidocaine HCl 2 ml PRN 1X PRN ID PRIOR TO IV START; Start 09/23/16 at 07:00; Stop 09/24/16 at 06:59; Status DC Hydromorphone HCl (Dilaudid) 0.5 mg PRN Q10MIN PRN IV SEV PAIN, Second choice; Start 09/23/16 at 07:00; Stop 09/24/16 at 06:59; Status DC Prochlorperazine Edisylate (Compazine) 5 mg PACU PRN PRN IV NAUSEA, MRX1; Start 09/23/16 at 07:00; Stop 09/24/16 at 06:59; Status DC Bupivacaine HCl/ Epinephrine Bitart (Sensorcain-Mpf Epi 0.5%-[id number]) 30 ml STK -MED ONCE .ROUTE ; Start 09/23/16 at 07:38; Stop 09/23/16 at 07:39; Status DC Bupivacaine HCl (Sensorcaine Mpf 0.5%) 30 ml STK-MED ONCE .ROUTE Last administered on 09/23/16t 09:10; Start 09/23/16 at 07:38; Stop 09/23/16 at 07:39; Status DC Fentanyl Citrate (Fentanyl 2ml Vial) 100 mcg STK-MED ONCE .ROUTE ; Start at 08:21; Stop 09/23/16 at 08:22; Status DC Neomycin/ Polymyxin/ Bacitracin (Triple Antibiotic Ointment) 1 pkt STK-MED ONCE TP ; Start 09/23/16 at 08:46; Stop 09/23/16 at 08:47; Status DC Dexamethasone Sodium Phosphate (Decadron) 20 mg STK-MED ONCE .ROUTE ; Start 09/23 at 09:08; Stop 09/23/16 at 09:09; Status DC Ondansetron HCl (Zofran) 4 mg STK-MED ONCE .ROUTE ; Start 09/23/16 at 09:08; Stop 09/23/16 at 09:09; Status DC Propofol 20 ml @ As Directed STK-MED ONCE IV ; Start 09/23/16 at 09:08; Stop 09/23 at 09:09; Status DC Lidocaine HCl (Lidocaine Pf 2% Vial) 5 ml STK-MED ONCE .ROUTE ; Start 09/23/16 at 09:08; Stop 09/23/16 at 09:09; Status DC Sevoflurane (Ultane) 30 ml STK-MED ONCE IH ; Start 09/23/16 at 09:08; Stop at 09:09; Status DC Phenylephrine HCl 1 mg STK-MED ONCE IV ; Start 09/23/16 at 09:08; Stop 09/23/16 at 09:09; Status DC Oxycodone/ Acetaminophen (Percocet 5/325) 1 tab PRN Q6HRS PRN PO PAIN Last administered on 09/28/16 06:31; Start 09/23/16 at 16:00; Stop 09/28/16 at 08:07 ; Status DC Insulin Aspart (NovoLOG) 2 units 1X ONCE SQ Last administered on 09/23/16 21: 51; Start 09/23/16 at 21:30; Stop 09/23/16 at 21:31; Status DC Insulin Detemir (Levemir) 10 units BID SQ Last administered on 09/26/16 08:04 ; Start 09/24/16 at 09:00; Stop 09/26/16 at 22:32; Status DC Diltiazem HCl (Cardizem 24hr Cd) 240 mg DAILY PO Last administered on 09:27; Start 09/24/16 at 09:00 Apixaban (Eliquis) 5 mg BID PO Last administered on 09/25/16 09:03; Start 09/24 at 10:00; Stop 09/25/16 at 12:01; Status DC Info (Anti-Coagulation Monitoring By Pharmacy) 1 each PRN DAILY PRN MC SEE COMMENTS Last administered on 09/25/16 09:23; Start 09/25/16 at 09:30; Stop 02/01 at 12:03; Status DC Metoprolol Tartrate (Lopressor) 25 mg BID PO Last administered on 09/26/16 21: 26; Start 09/26/16 at 21:00; Stop 09/27/16 at 08:39; Status DC Insulin Detemir (Levemir) 6 units BID SQ ; Start 09/27/16 at 09:00; Stop at 09:00; Status DC Insulin Detemir (Levemir) 6 units BID SQ Last administered on 09/26/16 22:45; Start 09/26/16 at 23:00; Stop 09/27/16 at 08:39; Status DC Sotalol HCl (Betapace) 40 mg BID PO Last administered on 09/28/16 09:27; Start 09/27/16 at 09:00 Glipizide (Glucotrol) 2.5 mg BID PO Last administered on 09/28/16 09:26; Start 09/27/16 at 09:00; Stop 09/28/16 at 13:57; Status DC Ibuprofen (Motrin) 400 mg PRN Q6HRS PRN PO INFLAMMATION; Start 09/28/16 at 08: 15 Gadobutrol (Gadavist) 10 mmol 1X ONCE IV ; Start 09/28/16 at 13:45; Stop at 13:46; Status DC Glipizide (Glucotrol) 2.5 mg BIDWMEALS PO ; Start 09/28/16 at 17:00 Active Scripts Active Pantoprazole Sodium 40 Mg Tablet.dr 40 Mg PO BIDAC Reported Joaquin Back & Body Caplet (Aspirin/Caffeine) 1 Each Tablet 2 Each PO BID Zoloft (Sertraline Hcl) 50 Mg Tablet 1 Tab PO DAILY Glipizide 5 Mg Tablet 0.5 Tab PO BID Potassium Chloride 20 Meq Tablet.er 20 Meq PO BID last dose this am next dose with supper Sotalol (Sotalol Hcl) 80 Mg Tablet 40 Mg PO BID last dose this am next dose tonight Furosemide 80 Mg Tablet 80 Mg PO DAILY last dose this am next dose tomorrow Atorvastatin Calcium 40 Mg Tablet 40 Mg PO HS last dose was last dose next dose tonight Metformin Hcl 1,000 Mg Tablet 1,000 Mg PO BID last dose this am next dose with supper Vitals/I & O Vital Sign - Last 24 Hours 09/27/16 09/27/16 09/27/16 09/27/16 19:49 19:51 20:10 21:13 Temp 98.2 98.2 Pulse 124 124 Resp 20 B/P (MAP) 137/90 (106) 137/90 Pulse Ox 91 93 O2 Delivery Room Air Room Air 09/27/16 09/28/16 09/28/16 09/28/16 22:24 03:44 06:31 07:57 Temp 97.3 98.1 97.3 98.1 Pulse 124 87 90 Resp 20 20 20 B/P (MAP) 142/83 (102) 133/98 (110) 148/103 (118) Pulse Ox 95 93 94 O2 Delivery Room Air Room Air Room Air Room Air 09/28/16 09/28/16 09/28/16 09:27 09:27 11:06 Temp 97.6 97.6 Pulse 98 98 85 Resp 20 B/P (MAP) 148/103 148/103 130/84 (99) O2 Delivery Room Air Intake and Output 09/27/16 09/27/16 09/28/16 15:00 23:00 07:00 Intake Total 2820 ml 450 ml Output Total 300 ml 1400 ml Balance 2520 ml -950 ml EUGENIO THOMPSON MD Sep 28, 2016 17:36
[2016-09-28 19:20] VITALS: BP 116/78
[2016-09-28 23:04] VITALS: BP 121/73
[2016-09-29 03:00] VITALS: BP 148/94
[2016-09-29] MEDS: PANTOPRAZOLE 40 MG TABLET.DR. PO SCH (06:30)
[2016-09-29 07:00] VITALS: BP 131/80
[2016-09-29] MEDS: SERTRALINE 50 MG TABLET. PO SCH (08:23)
[2016-09-29] MEDS: glipiZIDE 5 MG TABLET PO SCH (08:24)
[2016-09-29] MEDS: SOTALOL 80 MG TABLET. PO SCH (08:26)
--- NOTE | 2016-09-29 08:33 | DISCH ---
DISCHARGE INSTRUCTIONS Condition on Discharge Condition on Discharge: Stable Activity After Discharge Activity Instructions for Disc: No restrictions Diet after Discharge Diet after Discharge: Diabetic No Calorie Level Follow-Up Follow up with: as scheduled ANA MARIA REYNA MD Sep 29, 2016 08:33
--- NOTE | 2016-09-29 08:39 | PDOC ---
Provider Note Provider Note [id number] ANA MARIA REYNA MD Sep 29, 2016 08:39
[2016-09-29 10:47] VITALS: BP 125/87
--- NOTE | 2016-09-29 16:50 | PDOC ---
PROGRESS NOTES Assessment Assessment Worsening of headaches. Chronic headache. MS changes. DM AFib/flutter Syncope. Obesity. No evidence of acute CVA or brain tumor. RECOMMENDATIONS/PLAN: Pain control Treat medical and cardiac diseases. OT/PT. FU with PCP. FU with Neurology as needed. Brain MRI w/wo contrast on 09/28/16: No acute findings. HISTORY OF THE PRESENT ILLNESS: 66-y-old male patient was admitted due to cardiac diseases. he has Hx of chronic headaches but his headaches became worse now and he rated his headaches 10/10. His haedaches were described as sharp pain in his left side of head to right side of head per his description. He stated his headaches were resolved since 09/28. PAST MEDICAL HISTORY: AFib/flutter, CHF, diabetes, atherosclerotic heart disease, aortic insufficiency. ALLERGIES: ALLERGIC TO PENICILLIN. SOCIAL HISTORY: He is nonsmoker, nondrinker, does not use drugs. He is retired from the [employer]. FAMILY HISTORY: Noncontributory. MEDICATIONS: Refer to [facility] FAMILY HISTORY: Non contributory. SOCIAL HISTORY: Denies smoking, drinking, and illicit drug use. REVIEW OF SYSTEMS: Constitutional: No malnutrition, weight loss, cachexia. Head: No traumatic brain or head injury. Skin: No edema, or rash. Ear: pain in left side ear area. Eyes: No vision loss or color blindness. Nose: No bleeding or purulent discharges. Hearing: Hearing decrease. Neck: No injury. Cardiac: AFib, syncope. Pulmonary: No COPD. GI: No GI ulcer, GI bleeding. Urinary/genital: No dysuria, hematuria, incontinence. Endocrinologic: Diabetes Mellitus, obesity. Skeletomuscular: No muscular atrophy, deformity. Neurological: see HP. Psychiatric: Denies drug use/abuse. Otherwise, not [id number] review of systems. PHYSICAL EXAMINATION: General appearance is in subacute distress. HEENT: Normocephalic and nontraumatic. Eyes, nose, ears, and throat are unremarkable. Neck is supple. No lymphadenopathy. No crepitus. Cardiovascular: S1, S2, regular rate and rhythm. Pulmonary: Clear to auscultation bilaterally. Abdomen: Bowel sounds are positive. Abdomen is soft, nontender, and nondistended. Extremities: No rash, lesions, or edema. No restriction of range of motion NEUROLOGICAL EXAMINATION: Awake. Sitting in chair. Oriented to time, place and person. PERRL. EOMI. CN: no focal findings. Muscle tone: within normal. Muscle strength: 4+ DTR: 2 Plantar reflex: Neutral response bilaterally Gait: not examined in bed. Sensory exam: no abnormal findings. No acute cerebellar signs elicited. F-T-N test fine. Objective Objective Vital Signs Date Time Temp Pulse Resp B/P (MAP) Pulse Ox O2 Delivery O2 Flow Rate FiO2 09/29/16 10:47 98.1 115 19 125/87 (100) 96 Room Air 98.1 Intake and Output 09/29/16 07:00 Intake Total 1700 ml Output Total 1900 ml Balance -200 ml Intake Oral 1700 ml Output Urine Total 1900 ml # Voids 4 Vitals Signs Vitals VS - Last 72 Hours, by Label Date Time Temp Pulse Resp B/P (MAP) Pulse Ox O2 Delivery O2 Flow Rate FiO2 09/29/16 10:47 98.1 115 19 125/87 (100) 96 Room Air 98.1 09/29/16 08:26 107 131/80 09/29/16 08:24 107 131/80 09/29/16 08:00 Room Air 09/29/16 07:00 97.3 107 22 131/80 (97) 96 Room Air 97.3 09/29/16 03:00 98.3 91 18 148/94 (112) 94 Room Air 98.3 09/28/16 23:04 97.4 99 18 121/73 (89) 95 Room Air 97.4 09/28/16 20:06 87 116/78 09/28/16 19:30 Room Air 09/28/16 19:20 98.2 87 16 116/78 (91) 93 Room Air 98.2 09/28/16 11:06 97.6 85 20 130/84 (99) Room Air 97.6 09/28/16 09:27 98 148/103 09/28/16 09:27 98 148/103 09/28/16 08:00 Room Air 09/28/16 07:57 98.1 90 20 148/103 (118) 94 Room Air 98.1 Laboratory Laboratory Laboratory Tests Test 09/28/16 17:05 09/28/16 20:36 09/29/16 07:47 09/29/16 11:58 Glucose (Fingerstick) 115 mg/dL (70-99) 174 mg/dL (70-99) 91 mg/dL (70-99) 128 mg/dL (70-99) Medication Medications Current Medications Glipizide (Glucotrol) 2.5 mg BIDWMEALS PO Last administered on 09/29/16t 08:24 ; Start 09/28/16 at 17:00; Stop 09/29/16 at 15:44; Status DC Comment Review of Relevant I have reviewed the following items mervin (where applicable) has been applied. JC RAMIREZ MD Sep 29, 2016 16:50
--- NOTE | 2016-09-29 19:04 | DS ---
DATE OF DISCHARGE: 09/29/2016 HOSPITAL SUMMARY: The patient came in with chest pain and ongoing headaches. CT scan of the head x 2 and the brain MRI were normal as was the chest x-ray. For the headaches and temporal artery tenderness, he had a temporal artery biopsy, which showed no sign of temporal arteritis. The CBC was normal, sed rate mildly elevated at 29, cardiac enzymes all showed no abnormalities and his hemoglobin A1c was 6.4 with normal TSH and normal BMP and a low cholesterol of 1.09. Troponin did go up to 4.9 and 6.2 and then declined after that. Dr. Payne performed a cardiac catheterization, which revealed a 70% mid stenosis of the LAD, but no other significant abnormalities and he had a moderate aortic insufficiency with no severe pressure changes. Dr. Payne did perform a functional lability study, which was positive for the LAD. He was not felt to be a good surgical or interventional candidate. Prednisone was given for the possibility of temporal arteritis, but did not appear to improve his headaches and prednisone was stopped when the biopsy was negative. He continues to have atrial fibrillation with intermittent fairly rapid ventricular response and has been put back on sotalol along with the addition of diltiazem and he is medically stable and able to be followed as an outpatient at this point. FINAL DIAGNOSES: 1. Non-ST elevation myocardial infarction. 2. Coronary artery disease with 70% left anterior descending stenosis. 3. Moderate aortic valve insufficiency for bilateral headaches, etiology undetermined. 4. Chronic atrial fibrillation with intermittent ventricular response. OPERATIONS AND PROCEDURES: Cardiac catheterization and flow study and temporal artery biopsy. COMPLICATIONS: None. CONSULTATIONS: Dr. Payne, Dr. Dickinson, Dr. Garvin, Dr. Haynes. DISPOSITION: I will add diltiazem 240 mg daily to the sotalol and rest of meds remain the same. He is not felt to be a good candidate for oral anticoagulation as fall risk outweighs the benefit, though he does have appropriate need for this given his chronic atrial fibrillation. He will continue low dose aspirin for antiplatelet therapy for his coronary artery disease and simple medical followup at this point with ibuprofen as needed for headaches. ANA MARIA REYNA MD DR: PREETI/danni JOB#: [id number] / [id number]
--- NOTE | 2016-09-29 21:26 | PDOC ---
PROGRESS NOTES Subjective Subjective Patient is on and off confused again. 2 of the family members were present and we had a long discussion with regards to his situation. Objective Objective Vital Signs Date Time Temp Pulse Resp B/P (MAP) Pulse Ox O2 Delivery O2 Flow Rate FiO2 09/29/16 10:47 98.1 115 19 125/87 (100) 96 Room Air 98.1 09/23/16 09:31 10 Intake and Output 09/29/16 07:00 Intake Total 1700 ml Output Total 1900 ml Balance -200 ml Intake Oral 1700 ml Output Urine Total 1900 ml # Voids 4 Physical Exam Physical Exam No significant changes in cardiac exam Assessment Assessment This time the patient appears to be hemodynamically stable. I agree with discharging the patient and following him as an outpatient with home health and once he is in better shape both mentally as well as physically then we will need to have a discussion to decide on how he is to be treated. At the present time he is not a surgical candidate. The patient's family agreed with this approach. May go home today Comment Review of Relevant I have reviewed the following items mervin (where applicable) has been applied. Labs Laboratory Tests Test 09/28/16 08:00 09/28/16 11:07 09/28/16 17:05 09/28/16 20:36 Glucose (Fingerstick) 98 mg/dL (70-99) 137 mg/dL (70-99) 115 mg/dL (70-99) 174 mg/dL (70-99) Test 09/29/16 07:47 09/29/16 11:58 Glucose (Fingerstick) 91 mg/dL (70-99) 128 mg/dL (70-99) Laboratory Tests Test 09/29/16 07:47 09/29/16 11:58 Glucose (Fingerstick) 91 mg/dL (70-99) 128 mg/dL (70-99) Medications Current Medications Aspirin (Children'S Aspirin) 324 mg 1X ONCE PO Last administered on 09/18/16 12:19; Start 09/18/16 at 12:15; Stop 09/18/16 at 12:16; Status DC Fentanyl Citrate (Fentanyl 2ml Vial) 25 mcg PRN Q15MIN PRN IV PAIN GREATER THAN 3/10 Last administered on 09/18/16 12:27; Start 09/18/16 at 12:15; Stop 09/18 at 15:34; Status DC Nitroglycerin (Nitrostat) 0.4 mg PRN Q5MIN PRN SL CHEST PAIN; Start 09/18/16 at 12:15; Stop 09/29/16 at 15:44; Status DC Amiodarone HCl 150 mg/Dextrose 103 ml @ 618 mls/hr 1X ONCE IV Last administered on 09/18/16 12:24; Start 09/18/16 at 12:15; Stop 09/18/16 at 12:24; Status DC Amiodarone HCl 900 mg/Dextrose 518 ml @ 0 mls/hr CONT PRN IV SEE I/O RECORD Last administered on 09/18/16 12:34; Start 09/18/16 at 12:15; Stop 09/18/16 at 12: 35; Status DC Sodium Chloride 1,000 ml @ 1,000 mls/hr 1X ONCE IV Last administered on 12:35; Start 09/18/16 at 12:45; Stop 09/18/16 at 13:44; Status DC Digoxin (Lanoxin) 500 mcg 1X ONCE PO Last administered on 09/18/16 12:50; Start 09/18/16 at 13:00; Stop 09/18/16 at 13:01; Status DC Sodium Chloride 500 ml @ 500 mls/hr 1X ONCE IV ; Start 09/18/16 at 12:45; Stop 09/18/16 at 13:44; Status DC Ondansetron HCl (Zofran) 4 mg PRN Q8HRS PRN IV NAUSEA/VOMITING; Start 09/18/16 at 15:30; Stop 09/19/16 at 15:29; Status DC Fentanyl Citrate (Fentanyl 2ml Vial) 50 mcg PRN Q2HR PRN IV PAIN Last administered on 09/19/16 14:07; Start 09/18/16 at 15:30; Stop 09/19/16 at 15:29; Status DC Acetaminophen (Tylenol) 650 mg PRN Q4HRS PRN PO FEVER; Start 09/18/16 at 15:30; Stop 09/19/16 at 15:29; Status DC Nitroglycerin (Nitrostat) 0.4 mg PRN Q5MIN PRN SL CHEST PAIN; Start 09/18/16 at 15:30; Stop 09/18/16 at 15:34; Status DC Insulin Aspart (NovoLOG) 0-5 UNITS TIDWMEALS SQ Last administered on 09/26/16 17:33; Start 09/18/16 at 17:00; Stop 09/28/16 at 08:06; Status DC Dextrose (Dextrose 50%-Water Syringe) 12.5 gm PRN Q15MIN PRN IV SEE COMMENTS; Start 09/18/16 at 15:30; Stop 09/29/16 at 15:44; Status DC Metoprolol Tartrate (Lopressor) 2.5 mg Q6HRS IVP ; Start 09/19/16 at 19:30; Stop 09/19/16 at 19:30; Status DC Enoxaparin Sodium (Lovenox 150mg Syringe) 130 mg 1X ONCE SQ Last administered on 09/18/16 19:51; Start 09/18/16 at 19:45; Stop 09/18/16 at 19:48; Status DC Metoprolol Tartrate (Lopressor) 2.5 mg Q6HRS IVP Last administered on 09/19/16 05:35; Start 09/18/16 at 20:30; Stop 09/19/16 at 12:53; Status DC Levothyroxine Sodium (Synthroid) 50 mcg DAILY07 PO ; Start 09/19/16 at 13:30; Stop 09/19/16 at 14:26; Status DC Sodium Chloride 1,000 ml @ 75 mls/hr [id number] IV Last administered on 09/20/16 02:50; Start 09/19/16 at 13:30; Stop 09/20/16 at 19:05; Status DC Enoxaparin Sodium (Lovenox Per Pharmacy Treatment Dosing) 1 each PRN DAILY PRN MC SEE COMMENTS; Start 09/19/16 at 13:00; Status Cancel Metoprolol Tartrate (Lopressor) 5 mg Q6HRS IVP Last administered on 09/20/16 19 :00; Start 09/19/16 at 13:30; Stop 09/20/16 at 21:22; Status DC Enoxaparin Sodium (Lovenox 150mg Syringe) 130 mg BID SQ Last administered on 14:03; Start 09/19/16 at 13:30; Stop 09/20/16 at 19:54; Status DC Sertraline HCl (Zoloft) 50 mg DAILY PO Last administered on 09/29/16 08:23; Start 09/19/16 at 14:30; Stop 09/29/16 at 15:44; Status DC Non-Formulary Medication 2 each BID PO ; Start 09/19/16 at 21:00; Status UNV Info (Anti-Coagulation Monitoring By Pharmacy) 1 each PRN DAILY PRN MC SEE COMMENTS Last administered on 09/20/16 08:20; Start 09/20/16 at 08:15; Stop at 16:21; Status DC Lidocaine HCl 20 ml STK-MED ONCE .ROUTE ; Start 09/20/16 at 13:40; Stop 09/20/16 at 13:41; Status DC Heparin Sodium/ Sodium Chloride 1,000 ml @ As Directed STK-MED ONCE .ROUTE ; Start 09/20/16 at 13:40; Stop 09/20/16 at 13:41; Status DC Iodixanol (Visipaque 320) 100 ml STK-MED ONCE .ROUTE ; Start 09/20/16 at 13:40; Stop 09/20/16 at 13:41; Status DC Midazolam HCl (Versed) 2 mg STK-MED ONCE .ROUTE ; Start 09/20/16 at 14:02; Stop 09/20/16 at 14:03; Status DC Fentanyl Citrate (Fentanyl 2ml Vial) 100 mcg STK-MED ONCE .ROUTE ; Start at 14:03; Stop 09/20/16 at 14:04; Status DC Heparin Sodium/ Sodium Chloride 500 ml @ As Directed STK-MED ONCE .ROUTE ; Start 09/20/16 at 14:32; Stop 09/20/16 at 14:33; Status DC Nitroglycerin/ Dextrose 250 ml @ As Directed STK-MED ONCE IV ; Start 09/20/16 at 14:39; Stop 09/20/16 at 14:40; Status DC Adenosine (Adenoscan) 90 mg STK-MED ONCE IV ; Start 09/20/16 at 14:49; Stop at 14:50; Status DC Hydralazine HCl (Apresoline) 20 mg STK-MED ONCE .ROUTE ; Start 09/20/16 at 15:06 ; Stop 09/20/16 at 15:07; Status DC Heparin Sodium (Porcine) (Heparin Sodium) 10,000 unit STK-MED ONCE .ROUTE ; Start 09/20/16 at 15:17; Stop 09/20/16 at 15:18; Status DC Heparin Sodium/ Sodium Chloride 1,000 unit 1X ONCE IART Last administered on 15:28; Start 09/20/16 at 15:30; Stop 09/20/16 at 15:31; Status DC Midazolam HCl (Versed) 2 mg 1X ONCE IV ; Start 09/20/16 at 15:30; Stop 09/20/16 at 15:31; Status DC Fentanyl Citrate (Fentanyl 2ml Vial) 100 mcg 1X ONCE IV ; Start 09/20/16 at 15: 30; Stop 09/20/16 at 15:31; Status DC Iodixanol (Visipaque 320) 100 ml 1X ONCE IART Last administered on 09/20/16 15 :28; Start 09/20/16 at 15:30; Stop 09/20/16 at 15:31; Status DC Heparin Sodium (Porcine) (Heparin Sodium) 4,000 unit 1X ONCE IV Last administered on 09/20/16 15:32; Start 09/20/16 at 15:30; Stop 09/20/16 at 15:31; Status DC Adenosine 90 mg/ Sodium Chloride 120 ml @ 200 mls/hr 1X ONCE IV Last administered on 09/20/16 15:29; Start 09/20/16 at 15:30; Stop 09/20/16 at 16:05; Status DC Hydralazine HCl (Apresoline) 5 mg 1X ONCE IVP Last administered on 09/20/16 15 :30; Start 09/20/16 at 15:30; Stop 09/20/16 at 15:31; Status DC Info (Do NOT chart on this entry -- for MONITORING) 1 each PRN DAILY PRN MC SEE COMMENTS; Start 09/20/16 at 15:30; Stop 09/22/16 at 15:29; Status DC Amlodipine Besylate (Norvasc) 5 mg DAILY PO Last administered on 09/21/16 08:30 ; Start 09/21/16 at 09:00; Stop 09/21/16 at 23:22; Status DC Amlodipine Besylate (Norvasc) 5 mg 1X ONCE PO Last administered on 09/20/16 21 :36; Start 09/20/16 at 21:15; Stop 09/20/16 at 21:16; Status DC Metoprolol Tartrate (Lopressor) 50 mg Q8HRS PO Last administered on 09/21/16 21 :39; Start 09/20/16 at 22:00; Stop 09/21/16 at 23:22; Status DC Acetaminophen (Tylenol) 650 mg PRN QID PRN PO PAIN Last administered on 11:48; Start 09/20/16 at 22:00; Stop 09/29/16 at 15:44; Status DC Pantoprazole Sodium (Protonix) 40 mg DAILYAC PO Last administered on 09/29/16 06:30; Start 09/21/16 at 11:30; Stop 09/29/16 at 15:44; Status DC Digoxin (Lanoxin) 500 mcg 1X ONCE PO Last administered on 09/21/16 09:28; Start 09/21/16 at 08:45; Stop 09/21/16 at 08:55; Status DC Digoxin (Lanoxin) 250 mcg DAILY PO Last administered on 09/25/16 09:03; Start 09/21/16 at 16:00; Stop 09/25/16 at 12:02; Status DC Metoprolol Tartrate (Lopressor) 50 mg BID PO Last administered on 09/26/16 07: 59; Start 09/22/16 at 09:00; Stop 09/26/16 at 11:29; Status DC Diltiazem HCl (Cardizem 24hr Cd) 180 mg DAILY PO Last administered on 09/24/16 08:40; Start 09/22/16 at 09:00; Stop 09/24/16 at 08:58; Status DC Prednisone (Prednisone) 40 mg DAILY PO Last administered on 09/27/16 09:12; Start 09/22/16 at 09:30; Stop 09/28/16 at 08:06; Status DC Metformin HCl (Glucophage) 1,000 mg BIDWMEALS PO Last administered on 08:23; Start 09/22/16 at 17:00; Stop 09/29/16 at 15:44; Status DC Levofloxacin/ Dextrose 100 ml @ 100 mls/hr 1X PREOP PRN IV prophylaxis Last administered on 09/23/16 08:44; Start 09/23/16 at 06:00; Stop 09/23/16 at 18:00; Status DC Fentanyl Citrate (Fentanyl 2ml Vial) 25 mcg PRN Q5MIN PRN IV MILD PAIN; Start 09/23/16 at 07:00; Stop 09/24/16 at 06:59; Status DC Fentanyl Citrate (Fentanyl 2ml Vial) 50 mcg PRN Q5MIN PRN IV MODERATE PAIN; Start 09/23/16 at 07:00; Stop 09/24/16 at 06:59; Status DC Morphine Sulfate 1 mg PRN Q10MIN PRN IV SEVERE PAIN; Start 09/23/16 at 07:00; Stop 09/24/16 at 06:59; Status DC Ringer's Solution 1,000 ml @ 0 mls/hr Q0M IV ; Start 09/23/16 at 07:00; Stop 09/23/16 at 18:59; Status DC Lidocaine HCl 2 ml PRN 1X PRN ID PRIOR TO IV START; Start 09/23/16 at 07:00; Stop 09/24/16 at 06:59; Status DC Hydromorphone HCl (Dilaudid) 0.5 mg PRN Q10MIN PRN IV SEV PAIN, Second choice; Start 09/23/16 at 07:00; Stop 09/24/16 at 06:59; Status DC Prochlorperazine Edisylate (Compazine) 5 mg PACU PRN PRN IV NAUSEA, MRX1; Start 09/23/16 at 07:00; Stop 09/24/16 at 06:59; Status DC Bupivacaine HCl/ Epinephrine Bitart (Sensorcain-Mpf Epi 0.5%-[id number]) 30 ml STK -MED ONCE .ROUTE ; Start 09/23/16 at 07:38; Stop 09/23/16 at 07:39; Status DC Bupivacaine HCl (Sensorcaine Mpf 0.5%) 30 ml STK-MED ONCE .ROUTE Last administered on 09/23/16 09:10; Start 09/23/16 at 07:38; Stop 09/23/16 at 07:39; Status DC Fentanyl Citrate (Fentanyl 2ml Vial) 100 mcg STK-MED ONCE .ROUTE ; Start at 08:21; Stop 09/23/16 at 08:22; Status DC Neomycin/ Polymyxin/ Bacitracin (Triple Antibiotic Ointment) 1 pkt STK-MED ONCE TP ; Start 09/23/16 at 08:46; Stop 09/23/16 at 08:47; Status DC Dexamethasone Sodium Phosphate (Decadron) 20 mg STK-MED ONCE .ROUTE ; Start 09/23 at 09:08; Stop 09/23/16 at 09:09; Status DC Ondansetron HCl (Zofran) 4 mg STK-MED ONCE .ROUTE ; Start 09/23/16 at 09:08; Stop 09/23/16 at 09:09; Status DC Propofol 20 ml @ As Directed STK-MED ONCE IV ; Start 09/23/16 at 09:08; Stop 09/23 at 09:09; Status DC Lidocaine HCl (Lidocaine Pf 2% Vial) 5 ml STK-MED ONCE .ROUTE ; Start 09/23/16 at 09:08; Stop 09/23/16 at 09:09; Status DC Sevoflurane (Ultane) 30 ml STK-MED ONCE IH ; Start 09/23/16 at 09:08; Stop at 09:09; Status DC Phenylephrine HCl 1 mg STK-MED ONCE IV ; Start 09/23/16 at 09:08; Stop 09/23/16 at 09:09; Status DC Oxycodone/ Acetaminophen (Percocet 5/325) 1 tab PRN Q6HRS PRN PO PAIN Last administered on 09/28/16 06:31; Start 09/23/16 at 16:00; Stop 09/28/16 at 08:07 ; Status DC Insulin Aspart (NovoLOG) 2 units 1X ONCE SQ Last administered on 09/23/16 21: 51; Start 09/23/16 at 21:30; Stop 09/23/16 at 21:31; Status DC Insulin Detemir (Levemir) 10 units BID SQ Last administered on 09/26/16 08:04 ; Start 09/24/16 at 09:00; Stop 09/26/16 at 22:32; Status DC Diltiazem HCl (Cardizem 24hr ) 240 mg DAILY PO Last administered on 08:24; Start 09/24/16 at 09:00; Stop 09/29/16 at 15:44; Status DC Apixaban (Eliquis) 5 mg BID PO Last administered on 09/25/16 09:03; Start 09/24 at 10:00; Stop 09/25/16 at 12:01; Status DC Info (Anti-Coagulation Monitoring By Pharmacy) 1 each PRN DAILY PRN MC SEE COMMENTS Last administered on 09/25/16 09:23; Start 09/25/16 at 09:30; Stop 02/01 at 12:03; Status DC Metoprolol Tartrate (Lopressor) 25 mg BID PO Last administered on 09/26/16 21: 26; Start 09/26/16 at 21:00; Stop 09/27/16 at 08:39; Status DC Insulin Detemir (Levemir) 6 units BID SQ ; Start 09/27/16 at 09:00; Stop at 09:00; Status DC Insulin Detemir (Levemir) 6 units BID SQ Last administered on 09/26/16 22:45; Start 09/26/16 at 23:00; Stop 09/27/16 at 08:39; Status DC Sotalol HCl (Betapace) 40 mg BID PO Last administered on 09/29/16 08:26; Start 09/27/16 at 09:00; Stop 09/29/16 at 15:44; Status DC Glipizide (Glucotrol) 2.5 mg BID PO Last administered on 09/28/16 09:26; Start 09/27/16 at 09:00; Stop 09/28/16 at 13:57; Status DC Ibuprofen (Motrin) 400 mg PRN Q6HRS PRN PO INFLAMMATION; Start 09/28/16 at 08: 15; Stop 09/29/16 at 15:44; Status DC Gadobutrol (Gadavist) 10 mmol 1X ONCE IV ; Start 09/28/16 at 13:45; Stop at 13:46; Status DC Glipizide (Glucotrol) 2.5 mg BIDWMEALS PO Last administered on 09/29/16 08:24 ; Start 09/28/16 at 17:00; Stop 09/29/16 at 15:44; Status DC Active Scripts Active Pantoprazole Sodium 40 Mg Tablet.dr 40 Mg PO BIDAC Reported Joaquin Back & Body Caplet (Aspirin/Caffeine) 1 Each Tablet 2 Each PO BID Zoloft (Sertraline Hcl) 50 Mg Tablet 1 Tab PO DAILY Glipizide 5 Mg Tablet 0.5 Tab PO BID Potassium Chloride 20 Meq Tablet.er 20 Meq PO BID last dose this am next dose with supper Sotalol (Sotalol Hcl) 80 Mg Tablet 40 Mg PO BID last dose this am next dose tonight Furosemide 80 Mg Tablet 80 Mg PO DAILY last dose this am next dose tomorrow Atorvastatin Calcium 40 Mg Tablet 40 Mg PO HS last dose was last dose next dose tonight Metformin Hcl 1,000 Mg Tablet 1,000 Mg PO BID last dose this am next dose with supper Vitals/I & O Vital Sign - Last 24 Hours 09/28/16 09/29/16 09/29/16 09/29/16 23:04 03:00 07:00 08:00 Temp 97.4 98.3 97.3 97.4 98.3 97.3 Pulse 99 91 107 Resp 18 18 22 B/P (MAP) 121/73 (89) 148/94 (112) 131/80 (97) Pulse Ox 95 94 96 O2 Delivery Room Air Room Air Room Air Room Air 09/29/16 09/29/16 09/29/16 08:24 08:26 10:47 Temp 98.1 98.1 Pulse 107 107 115 Resp 19 B/P (MAP) 131/80 131/80 125/87 (100) Pulse Ox 96 O2 Delivery Room Air Intake and Output 09/28/16 09/28/16 09/29/16 15:00 23:00 07:00 Intake Total 1240 ml 240 ml 220 ml Output Total 500 ml 600 ml 800 ml Balance 740 ml -360 ml -580 ml EUGENIO THOMPSON MD Sep 29, 2016 21:26
== END 2016-09-29 13:50 | disposition home health service (06) | DRG 252 ==
LOC: ER 12:00 → 1 WEST ICU 13:43 → 2 NORTH 09-21 07:53
PROVIDERS: ADMIT Family Medicine; ATTEND Family Medicine
PROC: 4A033BC Measurement of Arterial Pressure, Coronary, Percutaneous Approach (ICD-10-PCS; principal; 2016-09-19)
PROC: 4A023N7 Measurement of Cardiac Sampling and Pressure, Left Heart, Percutaneous Approach (ICD-10-PCS; 2016-09-19)
PROC: B2111ZZ Fluoroscopy of Multiple Coronary Arteries using Low Osmolar Contrast (ICD-10-PCS; 2016-09-19)
PROC: 03BT0ZX Excision of Left Temporal Artery, Open Approach, Diagnostic (ICD-10-PCS; 2016-09-23)
DX: I21.4 Non-ST elevation (NSTEMI) myocardial infarction (principal); N17.0 Acute kidney failure with tubular necrosis; I48.92 Unspecified atrial flutter; I13.0 Hypertensive heart and chronic kidney disease with heart failure and stage 1 through stage 4 chronic kidney disease, or unspecified chronic kidney disease; I47.2 Ventricular tachycardia; I45.89 Other specified conduction disorders; E11.22 Type 2 diabetes mellitus with diabetic chronic kidney disease; I95.9 Hypotension, unspecified; J40 Bronchitis, not specified as acute or chronic; R55 Syncope and collapse; E78.5 Hyperlipidemia, unspecified; I25.10 Atherosclerotic heart disease of native coronary artery without angina pectoris; N18.9 Chronic kidney disease, unspecified; R29.6 Repeated falls; I48.2 Chronic atrial fibrillation; I50.9 Heart failure, unspecified; E11.51 Type 2 diabetes mellitus with diabetic peripheral angiopathy without gangrene; I35.1 Nonrheumatic aortic (valve) insufficiency; E66.9 Obesity, unspecified; Z68.37 Body mass index [BMI] 37.0-37.9, adult; Z88.0 Allergy status to penicillin; Z79.84 Long term (current) use of oral hypoglycemic drugs; Z79.899 Other long term (current) drug therapy; Z82.49 Family history of ischemic heart disease and other diseases of the circulatory system; Z79.1 Long term (current) use of non-steroidal anti-inflammatories (NSAID); Z79.82 Long term (current) use of aspirin; Z79.2 Long term (current) use of antibiotics; Z87.891 Personal history of nicotine dependence
CPT/HCPCS: 36415; 70450; 70553; 71010; 80047; 80048; 80061; 80076; 81001; 82962; 83036; 83735; 83880; 84443; 84484; 85027; 85651; 87641; 88305; 93005; 93306; 93458; 93571; 96365; 96375; C1769; C1771; C1887; C1892; G0269; J0153; J0282; J0360; J1100; J1650; J1815; J1956; J2370; J2405; J2704; J3010; J3490; J7030; J7512; 99285-25

== ENCOUNTER 2016-10-13 10:52 | Emergency (ER) | payer MEDICARE ==
[~2016-10-13] VITALS: Ht 190.5 cm; Wt 127.0 kg
--- NOTE | 2016-10-13 10:55 | PHYS DOC ---
Past Medical History Past Medical History: A-Fib, CHF, Diabetes-Type II, Heart Disease Additional Past Medical Histor: AORTIC VALVE LEAK Past Surgical History: Tonsillectomy Additional Past Surgical Histo: CARDIAC CATH W NO STENT PER PATIENT Alcohol Use: None Drug Use: None Adult General Chief Complaint Chief Complaint: RAPID HEART RATE [facility] HPI Patient is a 66 year old male who presents with shortness of breath that started at 8 AM when he struck her make the bed. He gets very frustrated and his told him he had to stop and sit down and his symptoms resolved. Home health came out and saw that his heart rate is 123 and his blood pressure is 94/[address] March of which she had an appointment with later today and told to come to the ER. Currently he denies any chest pain shortness of breath nausea vomiting. Review of Systems Review of Systems Constitutional: Denies fever or chills [] Eyes: Denies change in visual acuity, redness, or eye pain [] HENT: Denies nasal congestion or sore throat [] Respiratory: Denies cough or shortness of breath [] Cardiovascular: No additional information not addressed in HPI [] GI: Denies abdominal pain, nausea, vomiting, bloody stools or diarrhea [] : Denies dysuria or hematuria [] Musculoskeletal: Denies back pain or joint pain [] Integument: Denies rash or skin lesions [] Neurologic: Denies headache, focal weakness or sensory changes [] Endocrine: Denies polyuria or polydipsia [] Allergies Allergies Allergies Coded Allergies Type Severity Reaction Last Updated Verified Penicillins Allergy Severe RASH AND HIVES 09/23/16 Yes Physical Exam Physical Exam Constitutional: Well developed, well nourished, no acute distress, non-toxic appearance. [] HENT: Normocephalic, atraumatic, bilateral external ears normal, oropharynx moist, no oral exudates, nose normal. [] Eyes: PERRLA, EOMI, conjunctiva normal, no discharge. [] Neck: Normal range of motion, no tenderness, supple, no stridor. [] Cardiovascular:Heart rate regular rhythm, no murmur [] Lungs & Thorax: Bilateral breath sounds clear to auscultation [] Abdomen: Bowel sounds normal, soft, no tenderness, no masses, no pulsatile masses. [] Skin: Warm, dry, no erythema, no rash. [] Back: No tenderness, no CVA tenderness. [] Extremities: No tenderness, no cyanosis, no clubbing, ROM intact, no edema. [] Neurologic: Alert and oriented X 3, normal motor function, normal sensory function, no focal deficits noted. [] Psychologic: Affect normal, judgement normal, mood normal. [] Current Patient Data Vital Signs Vital Signs Date Time Temp Pulse Resp B/P (MAP) Pulse Ox O2 Delivery O2 Flow Rate FiO2 10/13/16 13:19 110 18 102/80 (87) 94 10/13/16 11:55 Room Air 10/13/16 10:55 97.7 97.7 Lab Values Laboratory Tests Test 10/13/16 11:05 White Blood Count 7.8 x10^3/uL (4.0-11.0) Red Blood Count 4.21 x10^6/uL (4.30-5.70) L Hemoglobin 12.2 g/dL (13.0-17.5) L Hematocrit 35.3 % (39.0-53.0) L Mean Corpuscular Volume 84 fL (79-100) Mean Corpuscular Hemoglobin 29 pg (25-35) Mean Corpuscular Hemoglobin Concent 34 g/dL (31-37) Red Cell Distribution Width 14.1 % (11.5-14.5) Platelet Count 192 x10^3/uL (140-400) Neutrophils (%) (Auto) 77 % (31-73) H Lymphocytes (%) (Auto) 14 % (24-48) L Monocytes (%) (Auto) 6 % (0-9) Eosinophils (%) (Auto) 2 % (0-3) Basophils (%) (Auto) 1 % (0-3) Neutrophils # (Auto) 6.0 x10^3uL (1.8-7.7) Lymphocytes # (Auto) 1.1 x10^3/uL (1.0-4.8) Monocytes # (Auto) 0.5 x10^3/uL (0.0-1.1) Eosinophils # (Auto) 0.2 x10^3/uL (0.0-0.7) Basophils # (Auto) 0.0 x10^3/uL (0.0-0.2) Prothrombin Time 13.8 SEC (11.7-14.0) Prothrombin Time INR 1.1 (0.8-1.1) Sodium Level 139 mmol/L (136-145) Potassium Level 4.8 mmol/L (3.5-5.1) Chloride Level 101 mmol/L (98-107) Carbon Dioxide Level 36 mmol/L (21-32) H Anion Gap 2 (6-14) L Blood Urea Nitrogen 36 mg/dL (8-26) H Creatinine 1.4 mg/dL (0.7-1.3) H Estimated GFR (Cockcroft-Gault) 50.4 Glucose Level 143 mg/dL (70-99) H Calcium Level 9.8 mg/dL (8.5-10.1) Magnesium Level 1.9 mg/dL (1.8-2.4) Total Bilirubin 0.4 mg/dL (0.2-1.0) Direct Bilirubin 0.2 mg/dL (0.0-0.2) Aspartate Amino Transferase (AST) 15 U/L (15-37) Alanine Aminotransferase (ALT) 21 U/L (16-63) Alkaline Phosphatase 88 U/L (46-116) Creatine Kinase 41 U/L (39-308) Creatine Kinase MB (Mass) 0.8 ng/mL (0.0-3.6) Creatine Kinase MB Relative Index % (0-4) Troponin I Quantitative < 0.017 ng/mL (0.000-0.055) LB-Rus-A-Type Natriuretic Peptide 1828 pg/mL (0-124) H Total Protein 7.8 g/dL (6.4-8.2) Albumin 4.1 g/dL (3.4-5.0) Lipase 96 U/L (73-393) Thyroid Stimulating Hormone (TSH) 2.347 uIU/mL (0.358-3.74) Laboratory Tests 10/13/16 11:05 Laboratory Tests 10/13/16 11:05 EKG EKG EKG shows A. fib/flutter with a rate of [address]ations, QTC 465 ms, as interpreted by me. Radiology/Procedures Radiology/Procedures [facility] [address] [place], [place] [id number] IMAGING REPORT Signed PATIENT: AGUSTIN ESTRELLA ACCOUNT: [id number] : 1950 LOCATION: ER AGE: 66 SEX: M EXAM STATUS: REG ER ORD. PHYSICIAN: SHONDA SPANN MD REASON: SHORTNESS OF AIR PROCEDURE: PORTABLE CHEST 1V Indication: Shortness of breath. Time of exam 11:19 AM Correlation is made with prior study from 09/18/2016. The heart is enlarged but stable. There is a calcified nodule in the right lung base consistent with a granuloma. No infiltrate or failure is detected. No effusion or pneumothorax is seen. Impression: Stable chest. No acute abnormality is detected. DICTATED and SIGNED BY: SEE HOLLAND MD DATE: 10/13/16 1125 CC: SHONDA SPANN MD; ANA MARIA REYNA MD ~ Impressions: Shortness of breath-resolved Course & Med Decision Making Course & Med Decision Making Pertinent Labs and Imaging studies reviewed. (See chart for details) Patient is EKG, labs do not show any acute abnormality other than slightly elevated creatinine. Spoke with Dr. March whose okay with this patient going home, ran the labs by him his physical exam, his EKG and vitals. Patient' s heart rates in the 120s or less and Dr. March is fine with his heart rate is less than 110. Currently it's 100. Patient feels completely normal at this time and he's been informed of his elevated creatinine and the need to follow- up with his primary care physician within the next few days. Return precautions given his agreeable Plan B discharged in stable condition. Dragon Disclaimer Dragon Disclaimer This electronic medical record was generated, in whole or in part, using a voice recognition dictation system. Departure Departure Impression: Primary Impression: Chest pain Disposition: HOME, SELF-CARE Condition: STABLE Referrals: ANA MARIA REYNA MD (PCP) Patient Instructions: Shortness of Breath Additional Instructions: You were seen today for your trouble breathing have resolved. Your labs showed that your kidney function is a little worse today than it was previously. You will need to follow-up with your primary care physician had these labs repeated. I spoke with Dr. March who is okay with you being discharged home. He start having additional troubles breathing, chest pain or other concerns please return back to emergency department. Problem Qualifiers Primary Impression: Chest pain Chest pain type: unspecified Qualified Codes: R07.9 - Chest pain, unspecified SHONDA SPANN MD Oct 13, 2016 10:55
[2016-10-13 11:25] LABS: CALCIUM 9.8 mg/dL (8.5-10.1); CREATININE 1.4 mg/dL (0.7-1.3); GFR 50.4; POTASSIUM 4.8 mmol/L (3.5-5.1)
[2016-10-13 11:27] LABS: BASO % 1 % (0-3); EOS % 2 % (0-3); HEMATOCRIT 35.3 % (39.0-53.0); HEMOGLOBIN 12.2 g/dL (13.0-17.5); LYMPH # 1.1 x10^3/uL (1.0-4.8); LYMPH % 14 % (24-48); MEAN CORPUSCULAR HEMOGLOBIN 29 pg (25-35); MEAN CORPUSCULAR HGB CONC 34 g/dL (31-37); MEAN CORPUSCULAR VOLUME 84 fL (79-100); MONO % 6 % (0-9); NEUT % 77 % (31-73); PLATELET COUNT 192 x10^3/uL (140-400); RED BLOOD COUNT 4.21 x10^6/uL (4.30-5.70); RED CELL DISTRIBUTION WIDTH 14.1 % (11.5-14.5); WHITE BLOOD COUNT 7.8 x10^3/uL (4.0-11.0)
--- NOTE | 2016-10-13 11:28 | RAD ---
Indication: Shortness of breath. Time of exam 11:19 AM Correlation is made with prior study from 09/18/2016. The heart is enlarged but stable. There is a calcified nodule in the right lung base consistent with a granuloma. No infiltrate or failure is detected. No effusion or pneumothorax is seen. Impression: Stable chest. No acute abnormality is detected.
[2016-10-13 11:30] LABS: ALBUMIN 4.1 g/dL (3.4-5.0); DIRECT BILIRUBIN 0.2 mg/dL (0.0-0.2); MAGNESIUM 1.9 mg/dL (1.8-2.4); TOTAL BILIRUBIN 0.4 mg/dL (0.2-1.0); TOTAL PROTEIN 7.8 g/dL (6.4-8.2)
[2016-10-13 11:37] LABS: CKMB MASS 0.8 ng/mL (0.0-3.6); CREATINE KINASE 41 U/L (39-308)
[2016-10-13 11:45] LABS: INR 1.1 (0.8-1.1); PROTHROMBIN TIME PATIENT 13.8 SEC (11.7-14.0)
--- NOTE | 2016-10-13 11:51 | EKG ---
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
[2016-10-13 13:19] VITALS: BP 102/80
== END 2016-10-13 13:44 | disposition home or self-care (01) ==
LOC: ER 10:52
DX: R07.9 Chest pain, unspecified (principal); R06.02 Shortness of breath; R74.8 Abnormal levels of other serum enzymes; I48.91 Unspecified atrial fibrillation; I50.9 Heart failure, unspecified; E11.9 Type 2 diabetes mellitus without complications; Z88.0 Allergy status to penicillin
CPT/HCPCS: 36415; 71010; 80048; 80076; 82553; 83690; 83735; 83880; 84443; 84484; 85027; 85610; 93005; 99285-25

== ENCOUNTER 2016-10-23 10:14 | Inpatient (IN) | payer MEDICARE ==
[~2016-10-23] VITALS: Ht 190.5 cm; Wt 127.5 kg
[2016-10-23] VITALS (13 sets, daily range): BP systolic 70–116; BP diastolic 52–73
[2016-10-23] MEDS ORDERED: AMIODARONE 900 MG in IV DEXTROSE 5% 500 ML IV PRN (10:30)
[2016-10-23] MEDS ORDERED: ASPIRIN ENTERIC COATED 325 MG TABLET.DR. PO ONE (10:30)
[2016-10-23] MEDS ORDERED: AMIODARONE 150 MG in IV DEXTROSE 5% 100 ML IV ONE (10:30)
[2016-10-23 10:39] LABS: BASO # 0.1 x10^3/uL (0.0-0.2); BASO % 1 % (0-3); EOS % 4 % (0-3); HEMATOCRIT 38.3 % (39.0-53.0); HEMOGLOBIN 12.6 g/dL (13.0-17.5); LYMPH # 1.3 x10^3/uL (1.0-4.8); LYMPH % 20 % (24-48); MEAN CORPUSCULAR HEMOGLOBIN 28 pg (25-35); MEAN CORPUSCULAR HGB CONC 33 g/dL (31-37); MEAN CORPUSCULAR VOLUME 85 fL (79-100); MONO % 6 % (0-9); NEUT % 69 % (31-73); PLATELET COUNT 190 x10^3/uL (140-400); RED BLOOD COUNT 4.49 x10^6/uL (4.30-5.70); RED CELL DISTRIBUTION WIDTH 14.3 % (11.5-14.5); WHITE BLOOD COUNT 6.2 x10^3/uL (4.0-11.0)
[2016-10-23 10:50] LABS: CALCIUM 8.9 mg/dL (8.5-10.1); CREATININE 1.5 mg/dL (0.7-1.3); GFR 46.5; POTASSIUM 4.3 mmol/L (3.5-5.1)
[2016-10-23 10:56] LABS: ALBUMIN 4.1 g/dL (3.4-5.0); ALBUMIN/GLOBULIN RATIO 1.1 (1.0-1.7); MAGNESIUM 1.7 mg/dL (1.8-2.4); TOTAL BILIRUBIN 0.5 mg/dL (0.2-1.0); TOTAL PROTEIN 7.7 g/dL (6.4-8.2)
[2016-10-23] MEDS ORDERED: IV NORMAL SALINE 1000ML BAG 1,000 ML IV ONE (11:00)
[2016-10-23] MEDS ORDERED: fentaNYL PF VIAL 100 MCG/2 ML VIAL IV PRN (11:00)
[2016-10-23] MEDS ORDERED: ONDANSETRON PF 4 MG/2 ML VIAL. IV PRN (11:00)
[2016-10-23] MEDS ORDERED: MAGNESIUM OXIDE 400 MG TABLET PO STA (11:10)
--- NOTE | 2016-10-23 11:30 | PHYS DOC ---
Past Medical History Past Medical History: A-Fib, CHF, Diabetes-Type II, Heart Disease Additional Past Medical Histor: AORTIC VALVE LEAK Past Surgical History: Knee Replacement, Tonsillectomy Additional Past Surgical Histo: CARDIAC CATH W NO STENT PER PATIENT Alcohol Use: None Drug Use: None Adult General Chief Complaint Chief Complaint: RAPID HEART RATE HPI HPI Patient is a 66 year old male presenting to the emergency department for evaluation of unstable V. tach. Patient had been feeling poorly all morning long with dizziness shortness of breath nausea and fatigue. Per EMS he was having rapid atrial flutter and runs of V. tach and they called for recommendations and I said if he is having unstable V. tach that they need to cardiovert him immediately. He was having episodes of hypotension in the 50-90 systolic range and was passing out and shortly after cardioverting him he woke up and he was back to normal and now he says he feels at his baseline. Patient denies any pain or shortness of breath and his blood pressure is improved in the 110 systolic range. Review of Systems Review of Systems Constitutional: Denies fever or chills [] Eyes: Denies change in visual acuity, redness, or eye pain [] HENT: Denies nasal congestion or sore throat [] Respiratory: Denies cough or shortness of breath [] Cardiovascular: No additional information not addressed in HPI [] GI: Denies abdominal pain, nausea, vomiting, bloody stools or diarrhea [] : Denies dysuria or hematuria [] Musculoskeletal: Denies back pain or joint pain [] Integument: Denies rash or skin lesions [] Neurologic: Denies headache, focal weakness or sensory changes [] Allergies Allergies Allergies Coded Allergies Type Severity Reaction Last Updated Verified Penicillins Allergy Severe RASH AND HIVES 09/23/16 Yes Physical Exam Physical Exam Constitutional: Well developed, well nourished, no acute distress, non-toxic appearance. [] HENT: Normocephalic, atraumatic, bilateral external ears normal, oropharynx moist, no oral exudates, nose normal. [] Eyes: PERRLA, EOMI, conjunctiva normal, no discharge. [] Neck: Normal range of motion, no tenderness, supple, no stridor. [] Cardiovascular:Heart rate regular rhythm, no murmur [] Lungs & Thorax: Bilateral breath sounds clear to auscultation [] Abdomen: Bowel sounds normal, soft, no tenderness, no masses, no pulsatile masses. [] Skin: Warm, dry, no erythema, no rash. [] Back: No tenderness, no CVA tenderness. [] Extremities: No tenderness, no cyanosis, no clubbing, ROM intact, no edema. [] Neurologic: Alert and oriented X 3, normal motor function, normal sensory function, no focal deficits noted. [] Psychologic: Affect normal, judgement normal, mood normal. [] Current Patient Data Vital Signs Vital Signs Date Time Temp Pulse Resp B/P (MAP) Pulse Ox O2 Delivery O2 Flow Rate FiO2 10/23/16 10:20 97.7 88 20 103/76 (85) 95 Room Air 97.7 Lab Values Laboratory Tests Test 10/23/16 10:24 10/23/16 10:26 POC Troponin I 0.00 ng/ml (<0.08) White Blood Count 6.2 x10^3/uL (4.0-11.0) Red Blood Count 4.49 x10^6/uL (4.30-5.70) Hemoglobin 12.6 g/dL (13.0-17.5) L POC Hemoglobin 12.9 g/dL (14-18) L Hematocrit 38.3 % (39.0-53.0) L POC Hematocrit 38 % (37-52) Mean Corpuscular Volume 85 fL (79-100) Mean Corpuscular Hemoglobin 28 pg (25-35) Mean Corpuscular Hemoglobin Concent 33 g/dL (31-37) Red Cell Distribution Width 14.3 % (11.5-14.5) Platelet Count 190 x10^3/uL (140-400) Neutrophils (%) (Auto) 69 % (31-73) Lymphocytes (%) (Auto) 20 % (24-48) L Monocytes (%) (Auto) 6 % (0-9) Eosinophils (%) (Auto) 4 % (0-3) H Basophils (%) (Auto) 1 % (0-3) Neutrophils # (Auto) 4.3 x10^3uL (1.8-7.7) Lymphocytes # (Auto) 1.3 x10^3/uL (1.0-4.8) Monocytes # (Auto) 0.4 x10^3/uL (0.0-1.1) Eosinophils # (Auto) 0.2 x10^3/uL (0.0-0.7) Basophils # (Auto) 0.1 x10^3/uL (0.0-0.2) POC Sodium 136 mmol/L (135-145) Sodium Level 142 mmol/L (136-145) POC Potassium 5.0 mmol/L (3.5-5.0) Potassium Level 4.3 mmol/L (3.5-5.1) POC Chloride 96 mmol/L (98-110) L Chloride Level 101 mmol/L (98-107) Carbon Dioxide Level 32 mmol/L (21-32) POC Total CO2 31 mmol/L (23-32) Anion Gap 15 mmol/L (6-14) H POC Blood Urea Nitrogen 45 mg/dL (8-26) H Blood Urea Nitrogen 38 mg/dL (8-26) H Creatinine 1.5 mg/dL (0.7-1.3) H POC Creatinine 1.4 mg/dL (0.5-1.4) Estimated GFR (Cockcroft-Gault) 46.5 BUN/Creatinine Ratio 25 (6-20) H Glucose Level 207 mg/dL (70-99) H Calcium Level 8.9 mg/dL (8.5-10.1) POC Ionized Calcium (Yasmine) 1.08 mmol/L (1.13-1.32) L Magnesium Level 1.7 mg/dL (1.8-2.4) L Total Bilirubin 0.5 mg/dL (0.2-1.0) Aspartate Amino Transferase (AST) 19 U/L (15-37) Alanine Aminotransferase (ALT) 21 U/L (16-63) Alkaline Phosphatase 95 U/L (46-116) Creatine Kinase 46 U/L (39-308) Troponin I Quantitative < 0.017 ng/mL (0.000-0.055) [id number]-Type Natriuretic Peptide 1308 pg/mL (0-124) H Total Protein 7.7 g/dL (6.4-8.2) Albumin 4.1 g/dL (3.4-5.0) Albumin/Globulin Ratio 1.1 (1.0-1.7) Thyroid Stimulating Hormone (TSH) 3.048 uIU/mL (0.358-3.74) Laboratory Tests 10/23/16 10:26 Laboratory Tests 10/23/16 10:26 EKG EKG Sinus rhythm at 80 bpm with left bundle branch block in addition to hyperacute T waves in leads V1 and V2 with no obvious ST elevation showing ischemia. Radiology/Procedures Radiology/Procedures Chest x-ray is quite abnormal with a widened mediastinum and cardiomegaly there is no worsening compared to prior done one week earlier. Course & Med Decision Making Course & Med Decision Making Patient was quite ill but is doing much better now since so I spoke to his ambulatory technologist Dr. March and he agreed with admission to the ICU with amiodarone drip. His primary care provider Dr. Selby and he agrees with admission. Patient is doing well in the emergency department except for transient hypotension with amiodarone. Patient will be admitted in guarded condition to the ICU. Critical care time of 35 minutes. Dragon Disclaimer Dragon Disclaimer This electronic medical record was generated, in whole or in part, using a voice recognition dictation system. Departure Departure Impression: Primary Impression: V-tach Additional Impressions: Elevated brain natriuretic peptide (BNP) level Hypomagnesemia Hypotension Disposition: ADMITTED INPATIENT Admitting Physician: Stanley Selby Condition: GUARDED Referrals: STANLEY SELBY MD (PCP) Problem Qualifiers STANLEY LEYVA DO Oct 23, 2016 11:29
--- NOTE | 2016-10-23 11:41 | EKG ---
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
[2016-10-23] MEDS ORDERED: MAGNESIUM SULFATE 2GM 50 ML IV ONE (11:45)
--- NOTE | 2016-10-23 11:48 | RAD ---
Examination: Single frontal view the chest. History: History of shortness of breath Comparison: 10/05/2016 Findings: Moderate cardiomegaly. There is no acute infiltrate or visualized pneumothorax. Impression 1. Moderate cardiomegaly.
--- NOTE | 2016-10-23 13:30 | PDOC1 ---
History and Physical Date of Admission Date of Admission 10/23/16 Identification/Chief Complaint Chief Complaint dizziness, presyncope Problems: Source Source: Chart review, Patient History of Present Illness History of Present Illness Patient is a 66 year old male presenting to the emergency department by ambulance. Patient had been feeling poorly all morning long with dizziness shortness of breath nausea and fatigue, he had a presyncopal episode and EMS was called, Per EMS he was having rapid atrial flutter and runs of V. tach he was cardioverted on the scene, He was having episodes of hypotension in the 50- 90 systolic range and was passing out and shortly after cardioverting him he woke up and he was back to normal and now he says he feels at his baseline. Patient denies any pain or shortness of breath and his blood pressure is improved in the 110 systolic range. Past Medical History Cardiovascular: AFIB, CAD, CHF, HTN, [place], Hyperlipidemia, Valve insufficiency ( aortic and mitral) Pulmonary: Bronchitis, COPD CENTRAL NERVOUS SYSTEM: Periperal neuropathy GI: GERD Heme/Onc: Anemia NOS Psych: Depression Rheumatologic: Rheumatoid arthritis, Other (osteoarthritis) Infectious disease: Other (hx sepsis 06/29) Renal/: Benign prostatic enlarg. Endocrine: Diabetes Past Surgical History Past Surgical History: Appendectomy, Total knee replacement (left), Tonsillectomy Family History Family History: Coronary Artery Disease, Hypertension, Obesity Social History Smoke: Quit (1987) ALCOHOL: rare Drugs: None Current Problem List Problem List Problems Medical Problems: (1) Elevated brain natriuretic peptide (BNP) level Status: Acute (2) Hypomagnesemia Status: Acute (3) Hypotension Status: Acute (4) V-tach Status: Acute Current Medications Current Medications Current Medications Medications (Trade) Dose Ordered Sig/Chantal Start Time Stop Time Status Last Admin Dose Admin Amiodarone HCl 150 mg/Dextrose 103 ml @ 618 mls/hr 1X ONCE 10/23/16 10:30 10/23/16 10:39 DC 10/23/16 10:56 618 MLS/HR Amiodarone HCl 900 mg/Dextrose 518 ml @ 0 mls/hr CONT PRN 10/23/16 10:30 10/23/16 11:28 DC 10/23/16 11:27 33 MLS/HR Aspirin (Ecotrin) 325 mg 1X ONCE 10/23/16 10:30 10/23/16 10:31 DC 10/23/16 10:56 325 MG Fentanyl Citrate (Fentanyl 2ml Vial) 50 mcg PRN Q2HR PRN 10/23/16 11:00 10/24/16 10:59 Magnesium Oxide (Magnesium Oxide) 800 mg 1X STAT 10/23/16 11:10 10/23/16 11:11 DC Magnesium Sulfate/ Dextrose 50 ml @ 25 mls/hr 1X ONCE 10/23/16 11:45 10/23/16 13:44 10/23/16 11:58 25 MLS/HR Ondansetron HCl (Zofran) 4 mg PRN Q8HRS PRN 10/23/16 11:00 10/24/16 10:59 Sodium Chloride 1,000 ml @ 1,000 mls/hr 1X ONCE 10/23/16 11:00 10/23/16 11:59 DC 10/23/16 11:00 1,000 MLS/HR Allergies Allergies Allergies Coded Allergies Type Severity Reaction Last Updated Verified Penicillins Allergy Severe RASH AND HIVES 09/23/16 Yes ROS Review of System CONSTITUTIONAL: No fever or chills EYES: No recent changes SKIN: No rash or itching CARDIOVASCULAR: No chest pain, RESPIRATORY: No cough GASTROINTESTINAL: No nausea, vomiting or abdominal pain NEUROLOGICAL: No headaches general fatigue earlier this morning ENDOCRINE: No cold or heat intolerance GENITOURINARY: + frequency of urination MUSCULOSKELETAL: Arthritis LYMPHATICS: No enlarged lymph nodes PSYCHIATRIC: History of depression Physical Exam Physical Exam GEN.: No apparent distress. Alert and oriented. HEENT: Head is normocephalic, atraumatic, he does have dentures he was waiting for glue NECK: Supple. LUNGS: Clear to auscultation. HEART: RRR, S1, S2 present. Peripheral pulses intact ABDOMEN: Soft, nontender. Positive bowel sounds. EXTREMITIES: Without any cyanosis. NEUROLOGIC: Normal speech, normal tone PSYCHIATRIC: Normal affect, normal mood. SKIN: No ulcerations Vitals Vitals Vital Signs Date Time Temp Pulse Resp B/P (MAP) Pulse Ox O2 Delivery O2 Flow Rate FiO2 10/23/16 12:33 79 18 97/73 (81) 99 Nasal Cannula 2.0 10/23/16 11:33 98.7 98.7 Labs Labs Laboratory Tests Test 10/23/16 10:24 10/23/16 10:26 Bedside Troponin I 0.00 ng/ml (<0.08) White Blood Count 6.2 x10^3/uL (4.0-11.0) Red Blood Count 4.49 x10^6/uL (4.30-5.70) Hemoglobin 12.6 g/dL (13.0-17.5) Bedside Hemoglobin 12.9 g/dL (14-18) Hematocrit 38.3 % (39.0-53.0) Bedside Hematocrit 38 % (37-52) Mean Corpuscular Volume 85 fL (79-100) Mean Corpuscular Hemoglobin 28 pg (25-35) Mean Corpuscular Hemoglobin Concent 33 g/dL (31-37) Red Cell Distribution Width 14.3 % (11.5-14.5) Platelet Count 190 x10^3/uL (140-400) Neutrophils (%) (Auto) 69 % (31-73) Lymphocytes (%) (Auto) 20 % (24-48) Monocytes (%) (Auto) 6 % (0-9) Eosinophils (%) (Auto) 4 % (0-3) Basophils (%) (Auto) 1 % (0-3) Neutrophils # (Auto) 4.3 x10^3uL (1.8-7.7) Lymphocytes # (Auto) 1.3 x10^3/uL (1.0-4.8) Monocytes # (Auto) 0.4 x10^3/uL (0.0-1.1) Eosinophils # (Auto) 0.2 x10^3/uL (0.0-0.7) Basophils # (Auto) 0.1 x10^3/uL (0.0-0.2) Bedside Sodium 136 mmol/L (135-145) Sodium Level 142 mmol/L (136-145) Bedside Potassium 5.0 mmol/L (3.5-5.0) Potassium Level 4.3 mmol/L (3.5-5.1) Bedside Chloride 96 mmol/L (98-110) Chloride Level 101 mmol/L (98-107) Carbon Dioxide Level 32 mmol/L (21-32) Bedside Total CO2 31 mmol/L (23-32) Anion Gap 15 mmol/L (6-14) Bedside Blood Urea Nitrogen 45 mg/dL (8-26) Blood Urea Nitrogen 38 mg/dL (8-26) Creatinine 1.5 mg/dL (0.7-1.3) Bedside Creatinine 1.4 mg/dL (0.5-1.4) Estimated GFR (Cockcroft-Gault) 46.5 BUN/Creatinine Ratio 25 (6-20) Glucose Level 207 mg/dL (70-99) Calcium Level 8.9 mg/dL (8.5-10.1) Bedside Ionized Calcium (Yasmine) 1.08 mmol/L (1.13-1.32) Magnesium Level 1.7 mg/dL (1.8-2.4) Total Bilirubin 0.5 mg/dL (0.2-1.0) Aspartate Amino Transf (AST/SGOT) 19 U/L (15-37) Alanine Aminotransferase (ALT/SGPT) 21 U/L (16-63) Alkaline Phosphatase 95 U/L (46-116) Creatine Kinase 46 U/L (39-308) Troponin I Quantitative < 0.017 ng/mL (0.000-0.055) ES-Kaa-B-Type Natriuretic Peptide 1308 pg/mL (0-124) Total Protein 7.7 g/dL (6.4-8.2) Albumin 4.1 g/dL (3.4-5.0) Albumin/Globulin Ratio 1.1 (1.0-1.7) Thyroid Stimulating Hormone (TSH) 3.048 uIU/mL (0.358-3.74) Laboratory Tests Test 10/23/16 10:24 10/23/16 10:26 Bedside Troponin I 0.00 ng/ml (<0.08) White Blood Count 6.2 x10^3/uL (4.0-11.0) Red Blood Count 4.49 x10^6/uL (4.30-5.70) Hemoglobin 12.6 g/dL (13.0-17.5) Bedside Hemoglobin 12.9 g/dL (14-18) Hematocrit 38.3 % (39.0-53.0) Bedside Hematocrit 38 % (37-52) Mean Corpuscular Volume 85 fL (79-100) Mean Corpuscular Hemoglobin 28 pg (25-35) Mean Corpuscular Hemoglobin Concent 33 g/dL (31-37) Red Cell Distribution Width 14.3 % (11.5-14.5) Platelet Count 190 x10^3/uL (140-400) Neutrophils (%) (Auto) 69 % (31-73) Lymphocytes (%) (Auto) 20 % (24-48) Monocytes (%) (Auto) 6 % (0-9) Eosinophils (%) (Auto) 4 % (0-3) Basophils (%) (Auto) 1 % (0-3) Neutrophils # (Auto) 4.3 x10^3uL (1.8-7.7) Lymphocytes # (Auto) 1.3 x10^3/uL (1.0-4.8) Monocytes # (Auto) 0.4 x10^3/uL (0.0-1.1) Eosinophils # (Auto) 0.2 x10^3/uL (0.0-0.7) Basophils # (Auto) 0.1 x10^3/uL (0.0-0.2) Bedside Sodium 136 mmol/L (135-145) Sodium Level 142 mmol/L (136-145) Bedside Potassium 5.0 mmol/L (3.5-5.0) Potassium Level 4.3 mmol/L (3.5-5.1) Bedside Chloride 96 mmol/L (98-110) Chloride Level 101 mmol/L (98-107) Carbon Dioxide Level 32 mmol/L (21-32) Bedside Total CO2 31 mmol/L (23-32) Anion Gap 15 mmol/L (6-14) Bedside Blood Urea Nitrogen 45 mg/dL (8-26) Blood Urea Nitrogen 38 mg/dL (8-26) Creatinine 1.5 mg/dL (0.7-1.3) Bedside Creatinine 1.4 mg/dL (0.5-1.4) Estimated GFR (Cockcroft-Gault) 46.5 BUN/Creatinine Ratio 25 (6-20) Glucose Level 207 mg/dL (70-99) Calcium Level 8.9 mg/dL (8.5-10.1) Bedside Ionized Calcium (Yasmine) 1.08 mmol/L (1.13-1.32) Magnesium Level 1.7 mg/dL (1.8-2.4) Total Bilirubin 0.5 mg/dL (0.2-1.0) Aspartate Amino Transf (AST/SGOT) 19 U/L (15-37) Alanine Aminotransferase (ALT/SGPT) 21 U/L (16-63) Alkaline Phosphatase 95 U/L (46-116) Creatine Kinase 46 U/L (39-308) Troponin I Quantitative < 0.017 ng/mL (0.000-0.055) BU-Lgk-X-Type Natriuretic Peptide 1308 pg/mL (0-124) Total Protein 7.7 g/dL (6.4-8.2) Albumin 4.1 g/dL (3.4-5.0) Albumin/Globulin Ratio 1.1 (1.0-1.7) Thyroid Stimulating Hormone (TSH) 3.048 uIU/mL (0.358-3.74) VTE Prophylaxis Ordered VTE Prophylaxis Devices: Yes VTE Pharmacological Prophylaxi: Yes Assessment/Plan Assessment/Plan 1-V tach 2-aortic regurgitation 3-CAD 4-hx A JOE Hoang MD Oct 23, 2016 13:30
[2016-10-23 13:42] LABS: INR 1.1 (0.8-1.1); PROTHROMBIN TIME PATIENT 13.9 SEC (11.7-14.0)
[2016-10-23] MEDS ORDERED: DEXTROSE 50% 25 GM / 50ML DISP.SYRIN. IV PRN (13:45)
[2016-10-23] MEDS ORDERED: ALPRAZolam 0.25 MG TABLET PO PRN (13:45)
[2016-10-23] MEDS: FUROSEMIDE 80 MG TABLET. PO SCH (14:00)
[2016-10-23] MEDS: SOTALOL 80 MG TABLET. PO SCH ×2 (14:00→20:22)
[2016-10-23] MEDS: SERTRALINE 50 MG TABLET. PO SCH (14:00)
--- NOTE | 2016-10-23 14:16 | EKG ---
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
[2016-10-23] MEDS: INSULIN ASPART 300 UNITS/3 ML INSULN.PEN SQ SCH ×2 (14:27→16:33)
[2016-10-23] MEDS ORDERED: NOREPINEPHRIN PREMIX 250 ML IV PRN (15:15)
[2016-10-23] MEDS: PANTOPRAZOLE 40 MG TABLET.DR. PO SCH (16:33)
[2016-10-23] MEDS: POTASSIUM CHLORIDE 20 MEQ TABLET.ER. PO SCH (16:33)
[2016-10-23] MEDS: AMIODARONE HCL 200 MG TABLET. PO SCH (17:55)
--- NOTE | 2016-10-23 18:42 | PDOC2 ---
CONSULT Date of Consult Date of Consult DATE: 10/23/16 TIME: 18:37 Reason for Consult Reason for Consult: Ventricular tachycardia Referring Physician Referring Physician: Dr. Selby Identification/Chief Complaint Chief Complaint Ventricular tachycardia Problems: History of Present Illness Reason for Visit: This patient is a 66-year-old gentleman that has a known cardiac history with atrial fibrillation, coronary artery disease, previous episodes of CHF. Valvular heart disease with aortic insufficiency and mitral insufficiency. He has extensive arthritis and has had previous surgeries for this. He had been recently discharged from this institution and while at home he started having palpitations with lightheadedness and feeling sick 911 was called and the paramedics found him to be in sustained ventricular tachycardia. The patient was shocked at home by the paramedics. And immediately after started feeling better. By the time he arrived in the emergency room his rhythm was controlled. At the time that I examined the patient he was feeling comfortable and was in sinus rhythm. Past Medical History Cardiovascular: AFIB, CAD, CHF, HTN, OH, Hyperlipidemia, Valve insufficiency ( aortic and mitral) Pulmonary: Bronchitis, COPD CENTRAL NERVOUS SYSTEM: Periperal neuropathy GI: GERD Heme/Onc: Anemia NOS Psych: Depression Rheumatologic: Rheumatoid arthritis, Other (osteoarthritis) Infectious disease: Other (hx sepsis 06/29) Renal/: Benign prostatic enlarg. Endocrine: Diabetes Past Surgical History Past Surgical History: Appendectomy, Total knee replacement (left), Tonsillectomy Family History Family History: Coronary Artery Disease, Hypertension, Obesity Social History Quit (1987) ALCOHOL: rare Drugs: None Current Problem List Problem List Problems Medical Problems: (1) Elevated brain natriuretic peptide (BNP) level Status: Acute (2) Hypomagnesemia Status: Acute (3) Hypotension Status: Acute (4) V-tach Status: Acute Current Medications Current Medications Current Medications Amiodarone HCl 150 mg/Dextrose 103 ml @ 618 mls/hr 1X ONCE IV Last administered on 10/23/16 10:56; Start 10/23/16 at 10:30; Stop 10/23/16 at 10:39; Status DC Amiodarone HCl 900 mg/Dextrose 518 ml @ 0 mls/hr CONT PRN IV SEE I/O RECORD Last administered on 10/23/16 11:27; Start 10/23/16 at 10:30; Stop 10/23/16 at 11: 28; Status DC Aspirin (Ecotrin) 325 mg 1X ONCE PO Last administered on 10/23/16 10:56; Start 10/23/16 at 10:30; Stop 10/23/16 at 10:31; Status DC Sodium Chloride 1,000 ml @ 1,000 mls/hr 1X ONCE IV Last administered on 11:00; Start 10/23/16 at 11:00; Stop 10/23/16 at 11:59; Status DC Ondansetron HCl (Zofran) 4 mg PRN Q8HRS PRN IV NAUSEA/VOMITING; Start 10/23/16 at 11:00; Stop 10/24/16 at 10:59 Fentanyl Citrate (Fentanyl 2ml Vial) 50 mcg PRN Q2HR PRN IV PAIN; Start at 11:00; Stop 10/24/16 at 10:59 Magnesium Oxide (Magnesium Oxide) 800 mg 1X STAT PO ; Start 10/23/16 at 11:10; Stop 10/23/16 at 11:11; Status DC Magnesium Sulfate/ Dextrose 50 ml @ 25 mls/hr 1X ONCE IV Last administered on 10/23/16 11:58; Start 10/23/16 at 11:45; Stop 10/23/16 at 13:44; Status DC Atorvastatin Calcium (Lipitor) 40 mg HS PO ; Start 10/23/16 at 21:00 Furosemide (Lasix) 80 mg DAILY PO ; Start 10/23/16 at 14:00 Glipizide (Glucotrol) 2.5 mg BID PO ; Start 10/23/16 at 21:00 Metformin HCl (Glucophage) 1,000 mg BIDWMEALS PO Last administered on 10/23/16 16:33; Start 10/23/16 at 17:00 Pantoprazole Sodium (Protonix) 40 mg BIDAC PO Last administered on 10/23/16 16: 33; Start 10/23/16 at 16:30 Sertraline HCl (Zoloft) 50 mg DAILY PO ; Start 10/23/16 at 14:00 Sotalol HCl (Betapace) 40 mg BID PO ; Start 10/23/16 at 14:00 Acetaminophen/ Aspirin/Caffeine (Excedrin Migraine) 1 tab BID PO ; Start at 21:00 Potassium Chloride (Klor-Con) 20 meq BIDWMEALS PO ; Start 10/23/16 at 17:00 Insulin Aspart (NovoLOG) 0-5 UNITS TIDWMEALS SQ Last administered on 10/23/16 14:27; Start 10/23/16 at 14:00 Dextrose (Dextrose 50%-Water Syringe) 12.5 gm PRN Q15MIN PRN IV SEE COMMENTS; Start 10/23/16 at 13:45 Alprazolam (Xanax) 0.25 mg PRN Q8HRS PRN PO ANXIETY / AGITATION; Start 10/23/16 at 13:45 Norepinephrine Bitartrate 250 ml @ 0 mls/hr CONT PRN IV SEE I/O RECORD Last administered on 10/23/16 15:18; Start 10/23/16 at 15:15 Amiodarone HCl (Cordarone) 400 mg BID PO ; Start 10/23/16 at 18:00 Active Scripts Active Pantoprazole Sodium 40 Mg Tablet.dr 40 Mg PO BIDAC Reported Joaquin [employer] Caplet (Aspirin/Caffeine) 1 Each Tablet 2 Each PO BID Zoloft (Sertraline Hcl) 50 Mg Tablet 1 Tab PO DAILY Glipizide 5 Mg Tablet 0.5 Tab PO BID Potassium Chloride 20 Meq Tablet.er 20 Meq PO BID last dose this am next dose with supper Sotalol (Sotalol Hcl) 80 Mg Tablet 40 Mg PO BID last dose this am next dose tonight Furosemide 80 Mg Tablet 80 Mg PO DAILY last dose this am next dose tomorrow Atorvastatin Calcium 40 Mg Tablet 40 Mg PO HS last dose was last dose next dose tonight Metformin Hcl 1,000 Mg Tablet 1,000 Mg PO BID last dose this am next dose with supper Allergies Allergies: Coded Allergies: Penicillins (Verified Allergy, Severe, RASH AND HIVES, 09/23/16) Physical Exam General: Alert, Oriented X3, Cooperative HEENT: PERRLA Lungs: Clear to auscultation Heart: Regular rate, Normal S1, Normal S2, Other (no changes in the systolic and diastolic murmur) Abdomen: Normal bowel sounds, Soft Extremities: Other (1+ edema) Vitals VITALS Vital Signs Date Time Temp Pulse Resp B/P (MAP) Pulse Ox O2 Delivery O2 Flow Rate FiO2 10/23/16 17:33 71 19 105/62 (76) 98 Nasal Cannula 2.0 10/23/16 16:33 98.7 98.7 Labs Labs Laboratory Tests Test 10/23/16 10:24 10/23/16 10:26 10/23/16 14:09 10/23/16 16:20 Bedside Troponin I 0.00 ng/ml (<0.08) White Blood Count 6.2 x10^3/uL (4.0-11.0) Red Blood Count 4.49 x10^6/uL (4.30-5.70) Hemoglobin 12.6 g/dL (13.0-17.5) Bedside Hemoglobin 12.9 g/dL (14-18) Hematocrit 38.3 % (39.0-53.0) Bedside Hematocrit 38 % (37-52) Mean Corpuscular Volume 85 fL (79-100) Mean Corpuscular Hemoglobin 28 pg (25-35) Mean Corpuscular Hemoglobin Concent 33 g/dL (31-37) Red Cell Distribution Width 14.3 % (11.5-14.5) Platelet Count 190 x10^3/uL (140-400) Neutrophils (%) (Auto) 69 % (31-73) Lymphocytes (%) (Auto) 20 % (24-48) Monocytes (%) (Auto) 6 % (0-9) Eosinophils (%) (Auto) 4 % (0-3) Basophils (%) (Auto) 1 % (0-3) Neutrophils # (Auto) 4.3 x10^3uL (1.8-7.7) Lymphocytes # (Auto) 1.3 x10^3/uL (1.0-4.8) Monocytes # (Auto) 0.4 x10^3/uL (0.0-1.1) Eosinophils # (Auto) 0.2 x10^3/uL (0.0-0.7) Basophils # (Auto) 0.1 x10^3/uL (0.0-0.2) Prothrombin Time 13.9 SEC (11.7-14.0) Prothromb Time International Ratio 1.1 (0.8-1.1) Activated Partial Thromboplast Time 27 SEC (24-38) Bedside Sodium 136 mmol/L (135-145) Sodium Level 142 mmol/L (136-145) Bedside Potassium 5.0 mmol/L (3.5-5.0) Potassium Level 4.3 mmol/L (3.5-5.1) Bedside Chloride 96 mmol/L (98-110) Chloride Level 101 mmol/L (98-107) Carbon Dioxide Level 32 mmol/L (21-32) Bedside Total CO2 31 mmol/L (23-32) Anion Gap 15 mmol/L (6-14) Bedside Blood Urea Nitrogen 45 mg/dL (8-26) Blood Urea Nitrogen 38 mg/dL (8-26) Creatinine 1.5 mg/dL (0.7-1.3) Bedside Creatinine 1.4 mg/dL (0.5-1.4) Estimated GFR (Cockcroft-Gault) 46.5 BUN/Creatinine Ratio 25 (6-20) Glucose Level 207 mg/dL (70-99) Calcium Level 8.9 mg/dL (8.5-10.1) Bedside Ionized Calcium (Yasmine) 1.08 mmol/L (1.13-1.32) Magnesium Level 1.7 mg/dL (1.8-2.4) Total Bilirubin 0.5 mg/dL (0.2-1.0) Aspartate Amino Transf (AST/SGOT) 19 U/L (15-37) Alanine Aminotransferase (ALT/SGPT) 21 U/L (16-63) Alkaline Phosphatase 95 U/L (46-116) Creatine Kinase 46 U/L (39-308) Troponin I Quantitative < 0.017 ng/mL (0.000-0.055) UC-Rwn-J-Type Natriuretic Peptide 1308 pg/mL (0-124) Total Protein 7.7 g/dL (6.4-8.2) Albumin 4.1 g/dL (3.4-5.0) Albumin/Globulin Ratio 1.1 (1.0-1.7) Thyroid Stimulating Hormone (TSH) 3.048 uIU/mL (0.358-3.74) Glucose (Fingerstick) 173 mg/dL (70-99) 102 mg/dL (70-99) Test 10/23/16 16:50 Troponin I Quantitative 0.095 ng/mL (0.000-0.055) Laboratory Tests Test 10/23/16 10:24 10/23/16 10:26 10/23/16 14:09 10/23/16 16:20 Bedside Troponin I 0.00 ng/ml (<0.08) White Blood Count 6.2 x10^3/uL (4.0-11.0) Red Blood Count 4.49 x10^6/uL (4.30-5.70) Hemoglobin 12.6 g/dL (13.0-17.5) Bedside Hemoglobin 12.9 g/dL (14-18) Hematocrit 38.3 % (39.0-53.0) Bedside Hematocrit 38 % (37-52) Mean Corpuscular Volume 85 fL (79-100) Mean Corpuscular Hemoglobin 28 pg (25-35) Mean Corpuscular Hemoglobin Concent 33 g/dL (31-37) Red Cell Distribution Width 14.3 % (11.5-14.5) Platelet Count 190 x10^3/uL (140-400) Neutrophils (%) (Auto) 69 % (31-73) Lymphocytes (%) (Auto) 20 % (24-48) Monocytes (%) (Auto) 6 % (0-9) Eosinophils (%) (Auto) 4 % (0-3) Basophils (%) (Auto) 1 % (0-3) Neutrophils # (Auto) 4.3 x10^3uL (1.8-7.7) Lymphocytes # (Auto) 1.3 x10^3/uL (1.0-4.8) Monocytes # (Auto) 0.4 x10^3/uL (0.0-1.1) Eosinophils # (Auto) 0.2 x10^3/uL (0.0-0.7) Basophils # (Auto) 0.1 x10^3/uL (0.0-0.2) Prothrombin Time 13.9 SEC (11.7-14.0) Prothromb Time International Ratio 1.1 (0.8-1.1) Activated Partial Thromboplast Time 27 SEC (24-38) Bedside Sodium 136 mmol/L (135-145) Sodium Level 142 mmol/L (136-145) Bedside Potassium 5.0 mmol/L (3.5-5.0) Potassium Level 4.3 mmol/L (3.5-5.1) Bedside Chloride 96 mmol/L (98-110) Chloride Level 101 mmol/L (98-107) Carbon Dioxide Level 32 mmol/L (21-32) Bedside Total CO2 31 mmol/L (23-32) Anion Gap 15 mmol/L (6-14) Bedside Blood Urea Nitrogen 45 mg/dL (8-26) Blood Urea Nitrogen 38 mg/dL (8-26) Creatinine 1.5 mg/dL (0.7-1.3) Bedside Creatinine 1.4 mg/dL (0.5-1.4) Estimated GFR (Cockcroft-Gault) 46.5 BUN/Creatinine Ratio 25 (6-20) Glucose Level 207 mg/dL (70-99) Calcium Level 8.9 mg/dL (8.5-10.1) Bedside Ionized Calcium (Yasmine) 1.08 mmol/L (1.13-1.32) Magnesium Level 1.7 mg/dL (1.8-2.4) Total Bilirubin 0.5 mg/dL (0.2-1.0) Aspartate Amino Transf (AST/SGOT) 19 U/L (15-37) Alanine Aminotransferase (ALT/SGPT) 21 U/L (16-63) Alkaline Phosphatase 95 U/L (46-116) Creatine Kinase 46 U/L (39-308) Troponin I Quantitative < 0.017 ng/mL (0.000-0.055) KF-Fkw-F-Type Natriuretic Peptide 1308 pg/mL (0-124) Total Protein 7.7 g/dL (6.4-8.2) Albumin 4.1 g/dL (3.4-5.0) Albumin/Globulin Ratio 1.1 (1.0-1.7) Thyroid Stimulating Hormone (TSH) 3.048 uIU/mL (0.358-3.74) Glucose (Fingerstick) 173 mg/dL (70-99) 102 mg/dL (70-99) Test 10/23/16 16:50 Troponin I Quantitative 0.095 ng/mL (0.000-0.055) Assessment/Plan Assessment/Plan This patient with significant heart disease and a known history of valvular heart disease as well as rhythm disturbances came in this time after an episode of sustained ventricular tachycardia which required emergency cardioversion. The patient has been started on IV amiodarone and I'm going to go ahead and advance him to by mouth amiodarone over the next 48 hours if stable by Tuesday the patient may be able to go home. This patient has a rather poor condition and even though he can hydrated well I think that he is developing significant dementia. Thank you very much for asking me to participate in the care of this patient EUGENIO THOMPSON MD Oct 23, 2016 18:42
[2016-10-23] MEDS: glipiZIDE 5 MG TABLET PO SCH (20:32)
[2016-10-23] MEDS: ATORVASTATIN CALCIUM 40 MG TABLET. PO SCH (20:32)
[2016-10-23] MEDS: IBUPROFEN 400 MG TABLET. PO PRN (20:32)
[2016-10-23] MEDS: ASA/APAP/CAFFEINE 250/250/65MG TABLET. PO SCH (20:32)
[2016-10-24] VITALS (15 sets, daily range): BP systolic 97–123; BP diastolic 60–78
[2016-10-24 04:33] LABS: BASO % 0 % (0-3); EOS % 3 % (0-3); HEMATOCRIT 29.9 % (39.0-53.0); HEMOGLOBIN 10.2 g/dL (13.0-17.5); LYMPH # 1.4 x10^3/uL (1.0-4.8); LYMPH % 20 % (24-48); MEAN CORPUSCULAR HEMOGLOBIN 29 pg (25-35); MEAN CORPUSCULAR HGB CONC 34 g/dL (31-37); MEAN CORPUSCULAR VOLUME 85 fL (79-100); MONO % 8 % (0-9); NEUT % 69 % (31-73); PLATELET COUNT 145 x10^3/uL (140-400); RED BLOOD COUNT 3.53 x10^6/uL (4.30-5.70); RED CELL DISTRIBUTION WIDTH 14.6 % (11.5-14.5); WHITE BLOOD COUNT 6.9 x10^3/uL (4.0-11.0)
[2016-10-24 05:55] LABS: CALCIUM 8.6 mg/dL (8.5-10.1); GFR 33.4; POTASSIUM 4.1 mmol/L (3.5-5.1)
[2016-10-24] MEDS: SERTRALINE 50 MG TABLET. PO SCH (07:30)
[2016-10-24] MEDS: FUROSEMIDE 80 MG TABLET. PO SCH (07:30)
[2016-10-24] MEDS: AMIODARONE HCL 200 MG TABLET. PO SCH ×2 (07:31→20:47)
[2016-10-24] MEDS: ASA/APAP/CAFFEINE 250/250/65MG TABLET. PO SCH ×2 (07:31→20:46)
[2016-10-24] MEDS: PANTOPRAZOLE 40 MG TABLET.DR. PO SCH ×2 (07:31→17:53)
[2016-10-24] MEDS: POTASSIUM CHLORIDE 20 MEQ TABLET.ER. PO SCH ×2 (07:31→17:55)
[2016-10-24] MEDS: SOTALOL 80 MG TABLET. PO SCH ×2 (07:32→20:47)
[2016-10-24] MEDS: glipiZIDE 5 MG TABLET PO SCH ×2 (07:32→20:47)
[2016-10-24] MEDS: INSULIN ASPART 300 UNITS/3 ML INSULN.PEN SQ SCH ×3 (07:33→17:00)
[2016-10-24] MEDS: IBUPROFEN 400 MG TABLET. PO PRN (10:47)
--- NOTE | 2016-10-24 11:46 | PDOC ---
SUBJECTIVE Subjective looks comfortable, denies chest pain OBJECTIVE Vital Signs Vital Signs Date Time Temp Pulse Resp B/P (MAP) Pulse Ox O2 Delivery O2 Flow Rate FiO2 10/24/16 11:00 61 16 104/67 (79) 99 Room Air 10/24/16 10:00 62 17 102/60 (74) 97 Room Air 10/24/16 09:00 66 17 103/70 (81) 96 Room Air 10/24/16 08:00 99.0 66 18 116/74 (88) 99 Room Air 99.0 10/24/16 08:00 Room Air 10/24/16 07:32 62 111/75 10/24/16 07:31 60 111/75 10/24/16 07:00 61 16 117/78 (91) 98 Room Air 10/24/16 06:00 61 16 108/66 (80) 98 Nasal Cannula 2.0 10/24/16 05:00 61 17 119/76 (90) 100 Nasal Cannula 2.0 10/24/16 04:00 98.5 66 20 105/71 (82) 98 Nasal Cannula 2.0 98.5 10/24/16 04:00 Nasal Cannula 2.0 10/24/16 03:00 67 19 103/64 (77) 99 Nasal Cannula 2.0 10/24/16 02:00 64 21 105/67 (80) 98 Nasal Cannula 2.0 10/24/16 01:00 61 20 104/65 (78) 98 Nasal Cannula 2.0 10/24/16 00:00 Nasal Cannula 2.0 10/24/16 00:00 98.6 63 19 97/61 (73) 98 Nasal Cannula 2.0 98.6 10/23/16 23:00 65 26 101/66 (78) 98 Nasal Cannula 2.0 10/23/16 22:00 68 20 104/65 (78) 97 Nasal Cannula 2.0 10/23/16 21:00 65 18 116/71 (86) 99 Nasal Cannula 2.0 10/23/16 20:22 64 104/66 10/23/16 20:00 98.6 64 18 104/66 (79) 99 Nasal Cannula 2.0 98.6 10/23/16 20:00 Nasal Cannula 2.0 10/23/16 19:00 66 16 96/64 (75) 99 Nasal Cannula 2.0 10/23/16 18:33 69 18 96/64 (75) 99 Nasal Cannula 2.0 10/23/16 17:33 71 19 105/62 (76) 98 Nasal Cannula 2.0 10/23/16 16:33 98.7 62 18 105/66 (79) 100 Nasal Cannula 2.0 98.7 10/23/16 16:00 Nasal Cannula 2.0 10/23/16 15:33 67 18 91/62 (72) 98 Nasal Cannula 2.0 10/23/16 14:33 63 18 77/52 (60) 98 Nasal Cannula 2.0 10/23/16 13:33 77 18 70/52 (58) 98 Nasal Cannula 2.0 10/23/16 12:33 79 18 97/73 (81) 99 Nasal Cannula 2.0 10/23/16 12:00 Nasal Cannula 2.0 I & O Intake and Output 10/24/16 07:00 Intake Total 1430 ml Output Total 220 ml Balance 1210 ml Intake Oral 1430 ml Output Urine Total 220 ml PHYSICAL EXAM Physical Exam no change ASSESSMENT/PLAN Assessment/Plan 1-V tach on Amiodarone no recurrence 2-aortic regurgitation 3-CAD 4-hx A fib 5- elevated troponin , now trending down Dr. Selby will resume care in AM Problems: COMMENT Lab Laboratory Tests Test 10/23/16 12:00 10/23/16 14:09 10/23/16 16:20 10/23/16 16:50 Nasal Screen MRSA (PCR) Negative (Negative) Glucose (Fingerstick) 173 mg/dL (70-99) 102 mg/dL (70-99) Troponin I Quantitative 0.095 ng/mL (0.000-0.055) Test 10/23/16 22:45 10/24/16 04:07 10/24/16 07:24 10/24/16 11:17 Troponin I Quantitative 0.072 ng/mL (0.000-0.055) White Blood Count 6.9 x10^3/uL (4.0-11.0) Red Blood Count 3.53 x10^6/uL (4.30-5.70) Hemoglobin 10.2 g/dL (13.0-17.5) Hematocrit 29.9 % (39.0-53.0) Mean Corpuscular Volume 85 fL (79-100) Mean Corpuscular Hemoglobin 29 pg (25-35) Mean Corpuscular Hemoglobin Concent 34 g/dL (31-37) Red Cell Distribution Width 14.6 % (11.5-14.5) Platelet Count 145 x10^3/uL (140-400) Neutrophils (%) (Auto) 69 % (31-73) Lymphocytes (%) (Auto) 20 % (24-48) Monocytes (%) (Auto) 8 % (0-9) Eosinophils (%) (Auto) 3 % (0-3) Basophils (%) (Auto) 0 % (0-3) Neutrophils # (Auto) 4.8 x10^3uL (1.8-7.7) Lymphocytes # (Auto) 1.4 x10^3/uL (1.0-4.8) Monocytes # (Auto) 0.5 x10^3/uL (0.0-1.1) Eosinophils # (Auto) 0.2 x10^3/uL (0.0-0.7) Basophils # (Auto) 0.0 x10^3/uL (0.0-0.2) Sodium Level 137 mmol/L (136-145) Potassium Level 4.1 mmol/L (3.5-5.1) Chloride Level 100 mmol/L (98-107) Carbon Dioxide Level 28 mmol/L (21-32) Anion Gap 9 (6-14) Blood Urea Nitrogen 44 mg/dL (8-26) Creatinine 2.0 mg/dL (0.7-1.3) Estimated GFR (Cockcroft-Gault) 33.4 Glucose Level 99 mg/dL (70-99) Calcium Level 8.6 mg/dL (8.5-10.1) Glucose (Fingerstick) 93 mg/dL (70-99) 108 mg/dL (70-99) JOE PAN MD Oct 24, 2016 11:46
--- NOTE | 2016-10-24 14:44 | PDOC ---
PROGRESS NOTES Subjective Subjective Continues to have headaches. No chest pain or shortness of breath. Objective Objective Vital Signs Remain in sinus rhythm rate of 60/m no further episodes of ventricular tachycardia Bloosd pressure 110/70 Lungs are clear Date Time Temp Pulse Resp B/P (MAP) Pulse Ox O2 Delivery O2 Flow Rate FiO2 10/24/16 11:00 61 16 104/67 (79) 99 Room Air 10/24/16 08:00 99.0 99.0 10/24/16 06:00 2.0 Intake and Output 10/24/16 07:00 Intake Total 1430 ml Output Total 220 ml Balance 1210 ml Intake Oral 1430 ml Output Urine Total 220 ml Diagnosis DIAGNOSIS Ventricular tachycardia no recurrence with a higher dose of amiodarone Relative bradycardia Will withhold Cardizem Headaches that have been chronic and investigated in the past History of aortic regurgitation History of the coronary artery disease that has not been intervened. Problems: Assessment Assessment Problems Medical Problems: (1) Elevated brain natriuretic peptide (BNP) level Status: Acute (2) Hypomagnesemia Status: Acute (3) Hypotension Status: Acute (4) V-tach Status: Acute Comment Review of Relevant I have reviewed the following items mervin (where applicable) has been applied. Labs Laboratory Tests Test 10/23/16 10:24 10/23/16 10:26 10/23/16 12:00 10/23/16 14:09 Bedside Troponin I 0.00 ng/ml (<0.08) White Blood Count 6.2 x10^3/uL (4.0-11.0) Red Blood Count 4.49 x10^6/uL (4.30-5.70) Hemoglobin 12.6 g/dL (13.0-17.5) Bedside Hemoglobin 12.9 g/dL (14-18) Hematocrit 38.3 % (39.0-53.0) Bedside Hematocrit 38 % (37-52) Mean Corpuscular Volume 85 fL (79-100) Mean Corpuscular Hemoglobin 28 pg (25-35) Mean Corpuscular Hemoglobin Concent 33 g/dL (31-37) Red Cell Distribution Width 14.3 % (11.5-14.5) Platelet Count 190 x10^3/uL (140-400) Neutrophils (%) (Auto) 69 % (31-73) Lymphocytes (%) (Auto) 20 % (24-48) Monocytes (%) (Auto) 6 % (0-9) Eosinophils (%) (Auto) 4 % (0-3) Basophils (%) (Auto) 1 % (0-3) Neutrophils # (Auto) 4.3 x10^3uL (1.8-7.7) Lymphocytes # (Auto) 1.3 x10^3/uL (1.0-4.8) Monocytes # (Auto) 0.4 x10^3/uL (0.0-1.1) Eosinophils # (Auto) 0.2 x10^3/uL (0.0-0.7) Basophils # (Auto) 0.1 x10^3/uL (0.0-0.2) Prothrombin Time 13.9 SEC (11.7-14.0) Prothromb Time International Ratio 1.1 (0.8-1.1) Activated Partial Thromboplast Time 27 SEC (24-38) Bedside Sodium 136 mmol/L (135-145) Sodium Level 142 mmol/L (136-145) Bedside Potassium 5.0 mmol/L (3.5-5.0) Potassium Level 4.3 mmol/L (3.5-5.1) Bedside Chloride 96 mmol/L (98-110) Chloride Level 101 mmol/L (98-107) Carbon Dioxide Level 32 mmol/L (21-32) Bedside Total CO2 31 mmol/L (23-32) Anion Gap 15 mmol/L (6-14) Bedside Blood Urea Nitrogen 45 mg/dL (8-26) Blood Urea Nitrogen 38 mg/dL (8-26) Creatinine 1.5 mg/dL (0.7-1.3) Bedside Creatinine 1.4 mg/dL (0.5-1.4) Estimated GFR (Cockcroft-Gault) 46.5 BUN/Creatinine Ratio 25 (6-20) Glucose Level 207 mg/dL (70-99) Calcium Level 8.9 mg/dL (8.5-10.1) Bedside Ionized Calcium (Yasmine) 1.08 mmol/L (1.13-1.32) Magnesium Level 1.7 mg/dL (1.8-2.4) Total Bilirubin 0.5 mg/dL (0.2-1.0) Aspartate Amino Transf (AST/SGOT) 19 U/L (15-37) Alanine Aminotransferase (ALT/SGPT) 21 U/L (16-63) Alkaline Phosphatase 95 U/L (46-116) Creatine Kinase 46 U/L (39-308) Troponin I Quantitative < 0.017 ng/mL (0.000-0.055) NH-Hso-G-Type Natriuretic Peptide 1308 pg/mL (0-124) Total Protein 7.7 g/dL (6.4-8.2) Albumin 4.1 g/dL (3.4-5.0) Albumin/Globulin Ratio 1.1 (1.0-1.7) Thyroid Stimulating Hormone (TSH) 3.048 uIU/mL (0.358-3.74) Nasal Screen MRSA (PCR) Negative (Negative) Glucose (Fingerstick) 173 mg/dL (70-99) Test 10/23/16 16:20 10/23/16 16:50 10/23/16 22:45 10/24/16 04:07 Glucose (Fingerstick) 102 mg/dL (70-99) Troponin I Quantitative 0.095 ng/mL (0.000-0.055) 0.072 ng/mL (0.000-0.055) White Blood Count 6.9 x10^3/uL (4.0-11.0) Red Blood Count 3.53 x10^6/uL (4.30-5.70) Hemoglobin 10.2 g/dL (13.0-17.5) Hematocrit 29.9 % (39.0-53.0) Mean Corpuscular Volume 85 fL (79-100) Mean Corpuscular Hemoglobin 29 pg (25-35) Mean Corpuscular Hemoglobin Concent 34 g/dL (31-37) Red Cell Distribution Width 14.6 % (11.5-14.5) Platelet Count 145 x10^3/uL (140-400) Neutrophils (%) (Auto) 69 % (31-73) Lymphocytes (%) (Auto) 20 % (24-48) Monocytes (%) (Auto) 8 % (0-9) Eosinophils (%) (Auto) 3 % (0-3) Basophils (%) (Auto) 0 % (0-3) Neutrophils # (Auto) 4.8 x10^3uL (1.8-7.7) Lymphocytes # (Auto) 1.4 x10^3/uL (1.0-4.8) Monocytes # (Auto) 0.5 x10^3/uL (0.0-1.1) Eosinophils # (Auto) 0.2 x10^3/uL (0.0-0.7) Basophils # (Auto) 0.0 x10^3/uL (0.0-0.2) Sodium Level 137 mmol/L (136-145) Potassium Level 4.1 mmol/L (3.5-5.1) Chloride Level 100 mmol/L (98-107) Carbon Dioxide Level 28 mmol/L (21-32) Anion Gap 9 (6-14) Blood Urea Nitrogen 44 mg/dL (8-26) Creatinine 2.0 mg/dL (0.7-1.3) Estimated GFR (Cockcroft-Gault) 33.4 Glucose Level 99 mg/dL (70-99) Calcium Level 8.6 mg/dL (8.5-10.1) Test 10/24/16 07:24 10/24/16 11:17 Glucose (Fingerstick) 93 mg/dL (70-99) 108 mg/dL (70-99) Laboratory Tests Test 10/23/16 16:20 10/23/16 16:50 10/23/16 22:45 10/24/16 04:07 Glucose (Fingerstick) 102 mg/dL (70-99) Troponin I Quantitative 0.095 ng/mL (0.000-0.055) 0.072 ng/mL (0.000-0.055) White Blood Count 6.9 x10^3/uL (4.0-11.0) Red Blood Count 3.53 x10^6/uL (4.30-5.70) Hemoglobin 10.2 g/dL (13.0-17.5) Hematocrit 29.9 % (39.0-53.0) Mean Corpuscular Volume 85 fL (79-100) Mean Corpuscular Hemoglobin 29 pg (25-35) Mean Corpuscular Hemoglobin Concent 34 g/dL (31-37) Red Cell Distribution Width 14.6 % (11.5-14.5) Platelet Count 145 x10^3/uL (140-400) Neutrophils (%) (Auto) 69 % (31-73) Lymphocytes (%) (Auto) 20 % (24-48) Monocytes (%) (Auto) 8 % (0-9) Eosinophils (%) (Auto) 3 % (0-3) Basophils (%) (Auto) 0 % (0-3) Neutrophils # (Auto) 4.8 x10^3uL (1.8-7.7) Lymphocytes # (Auto) 1.4 x10^3/uL (1.0-4.8) Monocytes # (Auto) 0.5 x10^3/uL (0.0-1.1) Eosinophils # (Auto) 0.2 x10^3/uL (0.0-0.7) Basophils # (Auto) 0.0 x10^3/uL (0.0-0.2) Sodium Level 137 mmol/L (136-145) Potassium Level 4.1 mmol/L (3.5-5.1) Chloride Level 100 mmol/L (98-107) Carbon Dioxide Level 28 mmol/L (21-32) Anion Gap 9 (6-14) Blood Urea Nitrogen 44 mg/dL (8-26) Creatinine 2.0 mg/dL (0.7-1.3) Estimated GFR (Cockcroft-Gault) 33.4 Glucose Level 99 mg/dL (70-99) Calcium Level 8.6 mg/dL (8.5-10.1) Test 10/24/16 07:24 10/24/16 11:17 Glucose (Fingerstick) 93 mg/dL (70-99) 108 mg/dL (70-99) Medications Current Medications Amiodarone HCl 150 mg/Dextrose 103 ml @ 618 mls/hr 1X ONCE IV Last administered on 10/23/16 10:56; Start 10/23/16 at 10:30; Stop 10/23/16 at 10:39; Status DC Amiodarone HCl 900 mg/Dextrose 518 ml @ 0 mls/hr CONT PRN IV SEE I/O RECORD Last administered on 10/23/16 11:27; Start 10/23/16 at 10:30; Stop 10/23/16 at 11: 28; Status DC Aspirin (Ecotrin) 325 mg 1X ONCE PO Last administered on 10/23/16 10:56; Start 10/23/16 at 10:30; Stop 10/23/16 at 10:31; Status DC Sodium Chloride 1,000 ml @ 1,000 mls/hr 1X ONCE IV Last administered on 11:00; Start 10/23/16 at 11:00; Stop 10/23/16 at 11:59; Status DC Ondansetron HCl (Zofran) 4 mg PRN Q8HRS PRN IV NAUSEA/VOMITING; Start 10/23/16 at 11:00; Stop 10/24/16 at 10:59; Status DC Fentanyl Citrate (Fentanyl 2ml Vial) 50 mcg PRN Q2HR PRN IV PAIN; Start at 11:00; Stop 10/24/16 at 10:59; Status DC Magnesium Oxide (Magnesium Oxide) 800 mg 1X STAT PO ; Start 10/23/16 at 11:10; Stop 10/23/16 at 11:11; Status DC Magnesium Sulfate/ Dextrose 50 ml @ 25 mls/hr 1X ONCE IV Last administered on 10/23/16 11:58; Start 10/23/16 at 11:45; Stop 10/23/16 at 13:44; Status DC Atorvastatin Calcium (Lipitor) 40 mg HS PO Last administered on 10/23/16 20:32 ; Start 10/23/16 at 21:00 Furosemide (Lasix) 80 mg DAILY PO Last administered on 10/24/16 07:30; Start at 14:00 Glipizide (Glucotrol) 2.5 mg BID PO Last administered on 10/24/16 07:32; Start 10/23/16 at 21:00 Metformin HCl (Glucophage) 1,000 mg BIDWMEALS PO Last administered on 10/24/16 07:30; Start 10/23/16 at 17:00 Pantoprazole Sodium (Protonix) 40 mg BIDAC PO Last administered on 10/24/16 07: 31; Start 10/23/16 at 16:30 Sertraline HCl (Zoloft) 50 mg DAILY PO Last administered on 10/24/16 07:30; Start 10/23/16 at 14:00 Sotalol HCl (Betapace) 40 mg BID PO Last administered on 10/24/16 07:32; Start 10/23/16 at 14:00 Acetaminophen/ Aspirin/Caffeine (Excedrin Migraine) 1 tab BID PO Last administered on 10/24/16 07:31; Start 10/23/16 at 21:00 Potassium Chloride (Klor-Con) 20 meq BIDWMEALS PO Last administered on 07:31; Start 10/23/16 at 17:00 Insulin Aspart (NovoLOG) 0-5 UNITS TIDWMEALS SQ Last administered on 10/23/16 14:27; Start 10/23/16 at 14:00 Dextrose (Dextrose 50%-Water Syringe) 12.5 gm PRN Q15MIN PRN IV SEE COMMENTS; Start 10/23/16 at 13:45 Alprazolam (Xanax) 0.25 mg PRN Q8HRS PRN PO ANXIETY / AGITATION; Start 10/23/16 at 13:45 Norepinephrine Bitartrate 250 ml @ 0 mls/hr CONT PRN IV SEE I/O RECORD Last administered on 10/23/16 15:18; Start 10/23/16 at 15:15 Amiodarone HCl (Cordarone) 400 mg BID PO Last administered on 10/24/16 07:31; Start 10/23/16 at 18:00 Ibuprofen (Motrin) 400 mg PRN TID PRN PO headache Last administered on 10:47; Start 10/23/16 at 20:15 Active Scripts Active Pantoprazole Sodium 40 Mg Tablet. 40 Mg PO BIDAC Reported Joaquin Back & Body Caplet (Aspirin/Caffeine) 1 Each Tablet 2 Each PO BID Zoloft (Sertraline Hcl) 50 Mg Tablet 1 Tab PO DAILY Glipizide 5 Mg Tablet 0.5 Tab PO BID Potassium Chloride 20 Meq Tablet.er 20 Meq PO BID last dose this am next dose with supper Sotalol (Sotalol Hcl) 80 Mg Tablet 40 Mg PO BID last dose this am next dose tonight Furosemide 80 Mg Tablet 80 Mg PO DAILY last dose this am next dose tomorrow Atorvastatin Calcium 40 Mg Tablet 40 Mg PO HS last dose was last dose next dose tonight Metformin Hcl 1,000 Mg Tablet 1,000 Mg PO BID last dose this am next dose with supper Vitals/I & O Vital Sign - Last 24 Hours 10/23/16 10/23/16 10/23/16 10/23/16 15:33 16:00 16:33 17:33 Temp 98.7 98.7 Pulse 67 62 71 Resp 18 18 19 B/P (MAP) 91/62 (72) 105/66 (79) 105/62 (76) Pulse Ox 98 100 98 O2 Delivery Nasal Cannula Nasal Cannula Nasal Cannula Nasal Cannula O2 Flow Rate 2.0 2.0 2.0 2.0 10/23/16 10/23/16 10/23/16 10/23/16 18:33 19:00 20:00 20:00 Temp 98.6 98.6 Pulse 69 66 64 Resp 18 16 18 B/P (MAP) 96/64 (75) 96/64 (75) 104/66 (79) Pulse Ox 99 99 99 O2 Delivery Nasal Cannula Nasal Cannula Nasal Cannula Nasal Cannula O2 Flow Rate 2.0 2.0 2.0 2.0 10/23/16 10/23/16 10/23/16 10/23/16 20:22 21:00 22:00 23:00 Pulse 64 65 68 65 Resp 18 20 26 B/P (MAP) 104/66 116/71 (86) 104/65 (78) 101/66 (78) Pulse Ox 99 97 98 O2 Delivery Nasal Cannula Nasal Cannula Nasal Cannula O2 Flow Rate 2.0 2.0 2.0 10/24/16 10/24/16 10/24/16 10/24/16 00:00 00:00 01:00 02:00 Temp 98.6 98.6 Pulse 63 61 64 Resp 19 20 21 B/P (MAP) 97/61 (73) 104/65 (78) 105/67 (80) Pulse Ox 98 98 98 O2 Delivery Nasal Cannula Nasal Cannula Nasal Cannula Nasal Cannula O2 Flow Rate 2.0 2.0 2.0 2.0 10/24/16 10/24/16 10/24/16 10/24/16 03:00 04:00 04:00 05:00 Temp 98.5 98.5 Pulse 67 66 61 Resp 19 20 17 B/P (MAP) 103/64 (77) 105/71 (82) 119/76 (90) Pulse Ox 99 98 100 O2 Delivery Nasal Cannula Nasal Cannula Nasal Cannula Nasal Cannula O2 Flow Rate 2.0 2.0 2.0 2.0 10/24/16 10/24/16 10/24/1617 06:00 07:00 07:31 07:32 Pulse 61 61 60 62 Resp 16 16 B/P (MAP) 108/66 (80) 117/78 (91) 111/75 111/75 Pulse Ox 98 98 O2 Delivery Nasal Cannula Room Air O2 Flow Rate 2.0 10/24/16 10/24/16 10/24/16 10/24/16 08:00 08:00 09:00 10:00 Temp 99.0 99.0 Pulse 66 66 62 Resp 18 17 17 B/P (MAP) 116/74 (88) 103/70 (81) 102/60 (74) Pulse Ox 99 96 97 O2 Delivery Room Air Room Air Room Air Room Air 10/24/16 11:00 Pulse 61 Resp 16 B/P (MAP) 104/67 (79) Pulse Ox 99 O2 Delivery Room Air Intake and Output 10/23/16 10/23/16 10/24/16 15:00 23:00 07:00 Intake Total 360 ml 350 ml 720 ml Output Total 220 ml Balance 360 ml 130 ml 720 ml AMADO YU MD Oct 24, 2016 14:44
[2016-10-24] MEDS: ATORVASTATIN CALCIUM 40 MG TABLET. PO SCH (20:46)
[2016-10-25 03:24] VITALS: BP 128/78
[2016-10-25 04:53] LABS: HEMATOCRIT 29.3 % (39.0-53.0); RED BLOOD COUNT 3.48 x10^6/uL (4.30-5.70); RED CELL DISTRIBUTION WIDTH 14.3 % (11.5-14.5); WHITE BLOOD COUNT 6.8 x10^3/uL (4.0-11.0)
[2016-10-25 05:04] LABS: CALCIUM 8.4 mg/dL (8.5-10.1); CREATININE 1.8 mg/dL (0.7-1.3); GFR 37.7
[2016-10-25] MEDS ORDERED: IV DEXTROSE 5% 500 ML IV ONE (06:30)
[2016-10-25 08:00] VITALS: BP 135/81
[2016-10-25] MEDS: INSULIN ASPART 300 UNITS/3 ML INSULN.PEN SQ SCH ×3 (08:00→17:00)
--- NOTE | 2016-10-25 09:03 | PDOC ---
Provider Note Provider Note will dc metfromin, lasix re higher bun/creat, less glipizide re hypo risk- rest same - ef 45 % per last echo- now on amio for vt, get baseline tsh ANA MARIA REYNA MD Oct 25, 2016 09:03
[2016-10-25] MEDS: ASA/APAP/CAFFEINE 250/250/65MG TABLET. PO SCH ×2 (09:17→20:44)
[2016-10-25] MEDS: AMIODARONE HCL 200 MG TABLET. PO SCH ×2 (09:17→20:46)
[2016-10-25] MEDS: PANTOPRAZOLE 40 MG TABLET.DR. PO SCH ×2 (09:18→17:00)
[2016-10-25] MEDS: SOTALOL 80 MG TABLET. PO SCH ×2 (09:20→20:44)
[2016-10-25] MEDS: SERTRALINE 50 MG TABLET. PO SCH (09:20)
[2016-10-25] MEDS: IBUPROFEN 400 MG TABLET. PO PRN (10:55)
[2016-10-25 12:00] VITALS: BP 117/73
--- NOTE | 2016-10-25 13:15 | PDOC ---
PROGRESS NOTES Subjective Subjective Mr Sevilla is currently in sinus rhythm. He doesn't have any complaints of chest pain or shortness of breath. His biggest concern is the severe headaches he has been experiencing. Objective Objective Vital Signs Date Time Temp Pulse Resp B/P (MAP) Pulse Ox O2 Delivery O2 Flow Rate FiO2 10/25/16 09:20 66 135/81 10/25/16 08:00 98.2 18 97 Room Air 98.2 10/24/16 06:00 2.0 Intake and Output 10/25/16 07:00 Intake Total 2220 ml Output Total 1375 ml Balance 845 ml Intake Oral 2220 ml Output Urine Total 1375 ml # Voids 2 Physical Exam Heart: Regular rate (and rhythm), Other (systolic murmur at 2nd ICS right sternum) Extremities: No edema, Normal pulses (2/4 radial b/l) General: Alert, No acute distress Lungs: Clear to auscultation Assessment Assessment Mr Sevilla's heart rhythm is being controlled well with amiodarone. Recommend neurology consult to find out cause of headaches Problems Medical Problems: (1) Elevated brain natriuretic peptide (BNP) level Status: Acute (2) Hypomagnesemia Status: Acute (3) Hypotension Status: Acute (4) V-tach Status: Acute Comment Review of Relevant I have reviewed the following items mervin (where applicable) has been applied. Labs Laboratory Tests Test 10/23/16 14:09 10/23/16 16:20 10/23/16 16:50 10/23/16 22:45 Glucose (Fingerstick) 173 mg/dL (70-99) 102 mg/dL (70-99) Troponin I Quantitative 0.095 ng/mL (0.000-0.055) 0.072 ng/mL (0.000-0.055) Test 10/24/16 04:07 10/24/16 07:24 10/24/16 11:17 10/24/16 17:11 White Blood Count 6.9 x10^3/uL (4.0-11.0) Red Blood Count 3.53 x10^6/uL (4.30-5.70) Hemoglobin 10.2 g/dL (13.0-17.5) Hematocrit 29.9 % (39.0-53.0) Mean Corpuscular Volume 85 fL (79-100) Mean Corpuscular Hemoglobin 29 pg (25-35) Mean Corpuscular Hemoglobin Concent 34 g/dL (31-37) Red Cell Distribution Width 14.6 % (11.5-14.5) Platelet Count 145 x10^3/uL (140-400) Neutrophils (%) (Auto) 69 % (31-73) Lymphocytes (%) (Auto) 20 % (24-48) Monocytes (%) (Auto) 8 % (0-9) Eosinophils (%) (Auto) 3 % (0-3) Basophils (%) (Auto) 0 % (0-3) Neutrophils # (Auto) 4.8 x10^3uL (1.8-7.7) Lymphocytes # (Auto) 1.4 x10^3/uL (1.0-4.8) Monocytes # (Auto) 0.5 x10^3/uL (0.0-1.1) Eosinophils # (Auto) 0.2 x10^3/uL (0.0-0.7) Basophils # (Auto) 0.0 x10^3/uL (0.0-0.2) Sodium Level 137 mmol/L (136-145) Potassium Level 4.1 mmol/L (3.5-5.1) Chloride Level 100 mmol/L (98-107) Carbon Dioxide Level 28 mmol/L (21-32) Anion Gap 9 (6-14) Blood Urea Nitrogen 44 mg/dL (8-26) Creatinine 2.0 mg/dL (0.7-1.3) Estimated GFR (Cockcroft-Gault) 33.4 Glucose Level 99 mg/dL (70-99) Calcium Level 8.6 mg/dL (8.5-10.1) Glucose (Fingerstick) 93 mg/dL (70-99) 108 mg/dL (70-99) 92 mg/dL (70-99) Test 10/24/16 21:00 10/25/16 03:45 10/25/16 07:55 10/25/16 11:03 Glucose (Fingerstick) 215 mg/dL (70-99) 81 mg/dL (70-99) 147 mg/dL (70-99) White Blood Count 6.8 x10^3/uL (4.0-11.0) Red Blood Count 3.48 x10^6/uL (4.30-5.70) Hemoglobin 10.0 g/dL (13.0-17.5) Hematocrit 29.3 % (39.0-53.0) Mean Corpuscular Volume 84 fL (79-100) Mean Corpuscular Hemoglobin 29 pg (25-35) Mean Corpuscular Hemoglobin Concent 34 g/dL (31-37) Red Cell Distribution Width 14.3 % (11.5-14.5) Platelet Count 141 x10^3/uL (140-400) Sodium Level 142 mmol/L (136-145) Potassium Level 4.0 mmol/L (3.5-5.1) Chloride Level 103 mmol/L (98-107) Carbon Dioxide Level 32 mmol/L (21-32) Anion Gap 7 (6-14) Blood Urea Nitrogen 45 mg/dL (8-26) Creatinine 1.8 mg/dL (0.7-1.3) Estimated GFR (Cockcroft-Gault) 37.7 Glucose Level 61 mg/dL (70-99) Calcium Level 8.4 mg/dL (8.5-10.1) Laboratory Tests Test 10/24/16 17:11 10/24/16 21:00 10/25/16 03:45 10/25/16 07:55 Glucose (Fingerstick) 92 mg/dL (70-99) 215 mg/dL (70-99) 81 mg/dL (70-99) White Blood Count 6.8 x10^3/uL (4.0-11.0) Red Blood Count 3.48 x10^6/uL (4.30-5.70) Hemoglobin 10.0 g/dL (13.0-17.5) Hematocrit 29.3 % (39.0-53.0) Mean Corpuscular Volume 84 fL (79-100) Mean Corpuscular Hemoglobin 29 pg (25-35) Mean Corpuscular Hemoglobin Concent 34 g/dL (31-37) Red Cell Distribution Width 14.3 % (11.5-14.5) Platelet Count 141 x10^3/uL (140-400) Sodium Level 142 mmol/L (136-145) Potassium Level 4.0 mmol/L (3.5-5.1) Chloride Level 103 mmol/L (98-107) Carbon Dioxide Level 32 mmol/L (21-32) Anion Gap 7 (6-14) Blood Urea Nitrogen 45 mg/dL (8-26) Creatinine 1.8 mg/dL (0.7-1.3) Estimated GFR (Cockcroft-Gault) 37.7 Glucose Level 61 mg/dL (70-99) Calcium Level 8.4 mg/dL (8.5-10.1) Test 10/25/16 11:03 Glucose (Fingerstick) 147 mg/dL (70-99) Medications Current Medications Amiodarone HCl 150 mg/Dextrose 103 ml @ 618 mls/hr 1X ONCE IV Last administered on 10/23/16 10:56; Start 10/23/16 at 10:30; Stop 10/23/16 at 10:39; Status DC Amiodarone HCl 900 mg/Dextrose 518 ml @ 0 mls/hr CONT PRN IV SEE I/O RECORD Last administered on 10/23/16 11:27; Start 10/23/16 at 10:30; Stop 10/23/16 at 11: 28; Status DC Aspirin (Ecotrin) 325 mg 1X ONCE PO Last administered on 10/23/16 10:56; Start 10/23/16 at 10:30; Stop 10/23/16 at 10:31; Status DC Sodium Chloride 1,000 ml @ 1,000 mls/hr 1X ONCE IV Last administered on 11:00; Start 10/23/16 at 11:00; Stop 10/23/16 at 11:59; Status DC Ondansetron HCl (Zofran) 4 mg PRN Q8HRS PRN IV NAUSEA/VOMITING; Start 10/23/16 at 11:00; Stop 10/24/16 at 10:59; Status DC Fentanyl Citrate (Fentanyl 2ml Vial) 50 mcg PRN Q2HR PRN IV PAIN; Start at 11:00; Stop 10/24/16 at 10:59; Status DC Magnesium Oxide (Magnesium Oxide) 800 mg 1X STAT PO ; Start 10/23/16 at 11:10; Stop 10/23/16 at 11:11; Status DC Magnesium Sulfate/ Dextrose 50 ml @ 25 mls/hr 1X ONCE IV Last administered on 10/23/16 11:58; Start 10/23/16 at 11:45; Stop 10/23/16 at 13:44; Status DC Atorvastatin Calcium (Lipitor) 40 mg HS PO Last administered on 10/24/16 20:46 ; Start 10/23/16 at 21:00 Furosemide (Lasix) 80 mg DAILY PO Last administered on 10/24/16 07:30; Start at 14:00; Stop 10/25/16 at 09:01; Status DC Glipizide (Glucotrol) 2.5 mg BID PO Last administered on 10/24/16 20:47; Start 10/23/16 at 21:00; Stop 10/25/16 at 09:00; Status DC Metformin HCl (Glucophage) 1,000 mg BIDWMEALS PO Last administered on 10/24/16 17:53; Start 10/23/16 at 17:00; Stop 10/25/16 at 09:00; Status DC Pantoprazole Sodium (Protonix) 40 mg BIDAC PO Last administered on 10/25/16 09 :18; Start 10/23/16 at 16:30 Sertraline HCl (Zoloft) 50 mg DAILY PO Last administered on 10/25/16 09:20; Start 10/23/16 at 14:00 Sotalol HCl (Betapace) 40 mg BID PO Last administered on 10/25/16 09:20; Start 10/23/16 at 14:00 Acetaminophen/ Aspirin/Caffeine (Excedrin Migraine) 1 tab BID PO Last administered on 10/25/16 09:17; Start 10/23/16 at 21:00 Potassium Chloride (Klor-Con) 20 meq BIDWMEALS PO Last administered on 17:55; Start 10/23/16 at 17:00; Stop 10/25/16 at 09:01; Status DC Insulin Aspart (NovoLOG) 0-5 UNITS TIDWMEALS SQ Last administered on 10/23/16 14:27; Start 10/23/16 at 14:00 Dextrose (Dextrose 50%-Water Syringe) 12.5 gm PRN Q15MIN PRN IV SEE COMMENTS; Start 10/23/16 at 13:45; Status Cancel Alprazolam (Xanax) 0.25 mg PRN Q8HRS PRN PO ANXIETY / AGITATION; Start 10/23/16 at 13:45 Norepinephrine Bitartrate 250 ml @ 0 mls/hr CONT PRN IV SEE I/O RECORD Last administered on 10/23/16 15:18; Start 10/23/16 at 15:15 Amiodarone HCl (Cordarone) 400 mg BID PO Last administered on 10/25/16 09:17; Start 10/23/16 at 18:00 Ibuprofen (Motrin) 400 mg PRN TID PRN PO headache Last administered on 10:55; Start 10/23/16 at 20:15 Dextrose 500 ml @ 500 mls/hr 1X ONCE IV ; Start 10/25/16 at 06:30; Stop at 07:29; Status Cancel Glipizide (Glucotrol) 2.5 mg DAILYWBKFT PO Last administered on 10/25/16 09:19 ; Start 10/26/16 at 08:00 Active Scripts Active Pantoprazole Sodium 40 Mg Tablet.dr 40 Mg PO BIDAC Reported Joaquin Back & Body Caplet (Aspirin/Caffeine) 1 Each Tablet 2 Each PO BID Zoloft (Sertraline Hcl) 50 Mg Tablet 1 Tab PO DAILY Glipizide 5 Mg Tablet 0.5 Tab PO BID Potassium Chloride 20 Meq Tablet.er 20 Meq PO BID last dose this am next dose with supper Sotalol (Sotalol Hcl) 80 Mg Tablet 40 Mg PO BID last dose this am next dose tonight Furosemide 80 Mg Tablet 80 Mg PO DAILY last dose this am next dose tomorrow Atorvastatin Calcium 40 Mg Tablet 40 Mg PO HS last dose was last dose next dose tonight Metformin Hcl 1,000 Mg Tablet 1,000 Mg PO BID last dose this am next dose with supper Vitals/I & O Vital Sign - Last 24 Hours 10/24/16 10/24/16 10/24/16 10/24/16 15:03 19:28 20:00 20:47 Temp 98.3 98.1 98.3 98.1 Pulse 62 70 70 Resp 22 16 B/P (MAP) 108/74 (85) 111/69 (83) 111/69 Pulse Ox 94 92 O2 Delivery Room Air Room Air Room Air 10/24/16 10/24/16 10/25/16 10/25/16 20:47 23:02 03:24 08:00 Temp 98.1 97.8 98.2 98.1 97.8 98.2 Pulse 70 69 64 66 Resp 16 18 18 B/P (MAP) 111/69 123/77 (92) 128/78 (95) 135/81 (99) Pulse Ox 94 95 97 O2 Delivery Room Air Room Air Room Air 10/25/16 10/25/16 09:17 09:20 Pulse 66 66 B/P (MAP) 135/81 135/81 Intake and Output 10/24/16 10/24/16 10/25/16 15:00 23:00 07:00 Intake Total 420 ml 1000 ml 800 ml Output Total 1375 ml Balance 420 ml 1000 ml -575 ml EUGENIO THOMPSON MD Oct 25, 2016 13:15
--- NOTE | 2016-10-25 14:42 | PDOC2 ---
NEUROLOGY CONSULT Date of Admission Date of Admission DATE: 10/25/16 TIME: 14:35 Reason for Consult Reason for Consult: Headaches Referring Physician Referring Physician: Dr. Dickinson PCP: Dr. Selby Source Source: Chart review, Patient History of Present Illness History of Present Illness The patient is a 66-year-old right-handed male admitted for ventricular tachycardia whom I am asked to see regarding headaches. He describes throbbing usually right-sided pain with photo phonophobia and nausea up to several times a week going on for up to 20 years. He has no history of stroke, seizure, or head injury. Dr. Haynes saw him for headaches last month and obtained MRI and CT studies, reviewed below, but did not start any medications as the headaches had resolved. The patient is interested in a daily prevention medication. He has not figured out any inciting or mitigating features except ibuprofen does help some. He says that he sees a doctor regarding his memory but does not remember her name. Past Medical History Cardiovascular: AFIB, CAD, HTN, Hyperlipidemia, Valve insufficiency, Other ( peripheral vascular disease) Pulmonary: Bronchitis, Other (respiratory failure and sepsis, 06/29) CENTRAL NERVOUS SYSTEM: Dementia (?), Periperal neuropathy GI: Peptic Ulcer disease Heme/Onc: Anemia NOS Psych: Anxiety, Depression Musculoskeletal: Osteoarthritis Rheumatologic: Rheumatoid arthritis ENT: Other (retinal detachment) Renal/: Benign prostatic enlarg., Other (urinary retention) Endocrine: Diabetes Past Surgical History Past Surgical History: Appendectomy, Cataract Removal, Total knee replacement ( left), Tonsillectomy, Other (cardiac catheterization) Family History Family History: Hypertension Social History Social History , quit smoking, no alcohol Current Medications Current Medications Current Medications Amiodarone HCl 150 mg/Dextrose 103 ml @ 618 mls/hr 1X ONCE IV Last administered on 10/23/16 10:56; Start 10/23/16 at 10:30; Stop 10/23/16 at 10:39; Status DC Amiodarone HCl 900 mg/Dextrose 518 ml @ 0 mls/hr CONT PRN IV SEE I/O RECORD Last administered on 10/23/16 11:27; Start 10/23/16 at 10:30; Stop 10/23/16 at 11: 28; Status DC Aspirin (Ecotrin) 325 mg 1X ONCE PO Last administered on 10/23/16 10:56; Start 10/23/16 at 10:30; Stop 10/23/16 at 10:31; Status DC Sodium Chloride 1,000 ml @ 1,000 mls/hr 1X ONCE IV Last administered on 11:00; Start 10/23/16 at 11:00; Stop 10/23/16 at 11:59; Status DC Ondansetron HCl (Zofran) 4 mg PRN Q8HRS PRN IV NAUSEA/VOMITING; Start 10/23/16 at 11:00; Stop 10/24/16 at 10:59; Status DC Fentanyl Citrate (Fentanyl 2ml Vial) 50 mcg PRN Q2HR PRN IV PAIN; Start at 11:00; Stop 10/24/16 at 10:59; Status DC Magnesium Oxide (Magnesium Oxide) 800 mg 1X STAT PO ; Start 10/23/16 at 11:10; Stop 10/23/16 at 11:11; Status DC Magnesium Sulfate/ Dextrose 50 ml @ 25 mls/hr 1X ONCE IV Last administered on 10/23/16 11:58; Start 10/23/16 at 11:45; Stop 10/23/16 at 13:44; Status DC Atorvastatin Calcium (Lipitor) 40 mg HS PO Last administered on 10/24/16 20:46 ; Start 10/23/16 at 21:00 Furosemide (Lasix) 80 mg DAILY PO Last administered on 10/24/16 07:30; Start at 14:00; Stop 10/25/16 at 09:01; Status DC Glipizide (Glucotrol) 2.5 mg BID PO Last administered on 10/24/16 20:47; Start 10/23/16 at 21:00; Stop 10/25/16 at 09:00; Status DC Metformin HCl (Glucophage) 1,000 mg BIDWMEALS PO Last administered on 10/24/16 17:53; Start 10/23/16 at 17:00; Stop 10/25/16 at 09:00; Status DC Pantoprazole Sodium (Protonix) 40 mg BIDAC PO Last administered on 10/25/16 09 :18; Start 10/23/16 at 16:30 Sertraline HCl (Zoloft) 50 mg DAILY PO Last administered on 10/25/16 09:20; Start 10/23/16 at 14:00 Sotalol HCl (Betapace) 40 mg BID PO Last administered on 10/25/16 09:20; Start 10/23/16 at 14:00 Acetaminophen/ Aspirin/Caffeine (Excedrin Migraine) 1 tab BID PO Last administered on 10/25/16 09:17; Start 10/23/16 at 21:00 Potassium Chloride (Klor-Con) 20 meq BIDWMEALS PO Last administered on 17:55; Start 10/23/16 at 17:00; Stop 10/25/16 at 09:01; Status DC Insulin Aspart (NovoLOG) 0-5 UNITS TIDWMEALS SQ Last administered on 10/23/16 14:27; Start 10/23/16 at 14:00 Dextrose (Dextrose 50%-Water Syringe) 12.5 gm PRN Q15MIN PRN IV SEE COMMENTS; Start 10/23/16 at 13:45; Status Cancel Alprazolam (Xanax) 0.25 mg PRN Q8HRS PRN PO ANXIETY / AGITATION; Start 10/23/16 at 13:45 Norepinephrine Bitartrate 250 ml @ 0 mls/hr CONT PRN IV SEE I/O RECORD Last administered on 10/23/16 15:18; Start 10/23/16 at 15:15 Amiodarone HCl (Cordarone) 400 mg BID PO Last administered on 10/25/16 09:17; Start 10/23/16 at 18:00 Ibuprofen (Motrin) 400 mg PRN TID PRN PO headache Last administered on 10:55; Start 10/23/16 at 20:15 Dextrose 500 ml @ 500 mls/hr 1X ONCE IV ; Start 10/25/16 at 06:30; Stop at 07:29; Status Cancel Glipizide (Glucotrol) 2.5 mg DAILYWBKFT PO Last administered on 10/25/16 09:19 ; Start 10/26/16 at 08:00 Active Scripts Active Pantoprazole Sodium 40 Mg Tablet. 40 Mg PO BIDAC Reported Joaquin Back & Body Caplet (Aspirin/Caffeine) 1 Each Tablet 2 Each PO BID Zoloft (Sertraline Hcl) 50 Mg Tablet 1 Tab PO DAILY Glipizide 5 Mg Tablet 0.5 Tab PO BID Potassium Chloride 20 Meq Tablet.er 20 Meq PO BID last dose this am next dose with supper Sotalol (Sotalol Hcl) 80 Mg Tablet 40 Mg PO BID last dose this am next dose tonight Furosemide 80 Mg Tablet 80 Mg PO DAILY last dose this am next dose tomorrow Atorvastatin Calcium 40 Mg Tablet 40 Mg PO HS last dose was last dose next dose tonight Metformin Hcl 1,000 Mg Tablet 1,000 Mg PO BID last dose this am next dose with supper Allergies Allergies: Coded Allergies: Penicillins (Verified Allergy, Severe, RASH AND HIVES, 09/23/16) ROS Review of System Patient denies fevers, chills, weight loss, dyspnea, angina, abdominal pain, change in bowels, or dysuria. 14 point review of systems is negative. Physical Exam Physical Examination PHYSICAL EXAMINATION: Vital signs: see above. General appearance is normal and in no acute distress. HEENT: Normocephalic and nontraumatic. Eyes, nose, ears, and throat are unremarkable. Neck is supple. No lymphadenopathy. No bruits are heard over the carotid artery. No crepitus. NEUROLOGICAL EXAMINATION: Mental Status Examination: Alert. Oriented to time, place, and person. Answers questions and follows commends. Somewhat of a poor historian. Pupils are equal round and reactive to light and accommodation. Funduscopic exam: No papilledema. Extraocular movements are intact. Visual field exam shows no defect on the direct confrontation. No motor or sensory deficits on the facial exam. Uvula in the midline and the soft palate elevated symmetrically. No deviation of the tongue to any direction. Gross hearing is normal. Shoulder shrug normal. Muscle tone is normal. Muscle strength is 5. Deep tendon reflexes are 1+ all around. Plantar reflex is with flexion response bilaterally. Eravuq-kj-[id number] test performance is accurate. Alternative movements are accurate. Romberg test is negative. Gait is arthritic, he usually uses a walker. Sensory exam shows stocking loss. No cerebellar signs are elicited. Vitals VITALS Vital Signs Date Time Temp Pulse Resp B/P (MAP) Pulse Ox O2 Delivery O2 Flow Rate FiO2 10/25/16 09:20 66 135/81 10/25/16 08:00 98.2 18 97 Room Air 98.2 Labs Labs Laboratory Tests Test 10/23/16 16:20 10/23/16 16:50 10/23/16 22:45 10/24/16 04:07 Glucose (Fingerstick) 102 mg/dL (70-99) Troponin I Quantitative 0.095 ng/mL (0.000-0.055) 0.072 ng/mL (0.000-0.055) White Blood Count 6.9 x10^3/uL (4.0-11.0) Red Blood Count 3.53 x10^6/uL (4.30-5.70) Hemoglobin 10.2 g/dL (13.0-17.5) Hematocrit 29.9 % (39.0-53.0) Mean Corpuscular Volume 85 fL (79-100) Mean Corpuscular Hemoglobin 29 pg (25-35) Mean Corpuscular Hemoglobin Concent 34 g/dL (31-37) Red Cell Distribution Width 14.6 % (11.5-14.5) Platelet Count 145 x10^3/uL (140-400) Neutrophils (%) (Auto) 69 % (31-73) Lymphocytes (%) (Auto) 20 % (24-48) Monocytes (%) (Auto) 8 % (0-9) Eosinophils (%) (Auto) 3 % (0-3) Basophils (%) (Auto) 0 % (0-3) Neutrophils # (Auto) 4.8 x10^3uL (1.8-7.7) Lymphocytes # (Auto) 1.4 x10^3/uL (1.0-4.8) Monocytes # (Auto) 0.5 x10^3/uL (0.0-1.1) Eosinophils # (Auto) 0.2 x10^3/uL (0.0-0.7) Basophils # (Auto) 0.0 x10^3/uL (0.0-0.2) Sodium Level 137 mmol/L (136-145) Potassium Level 4.1 mmol/L (3.5-5.1) Chloride Level 100 mmol/L (98-107) Carbon Dioxide Level 28 mmol/L (21-32) Anion Gap 9 (6-14) Blood Urea Nitrogen 44 mg/dL (8-26) Creatinine 2.0 mg/dL (0.7-1.3) Estimated GFR (Cockcroft-Gault) 33.4 Glucose Level 99 mg/dL (70-99) Calcium Level 8.6 mg/dL (8.5-10.1) Test 10/24/16 07:24 10/24/16 11:17 10/24/16 17:11 10/24/16 21:00 Glucose (Fingerstick) 93 mg/dL (70-99) 108 mg/dL (70-99) 92 mg/dL (70-99) 215 mg/dL (70-99) Test 10/25/16 03:45 10/25/16 07:55 10/25/16 11:03 White Blood Count 6.8 x10^3/uL (4.0-11.0) Red Blood Count 3.48 x10^6/uL (4.30-5.70) Hemoglobin 10.0 g/dL (13.0-17.5) Hematocrit 29.3 % (39.0-53.0) Mean Corpuscular Volume 84 fL (79-100) Mean Corpuscular Hemoglobin 29 pg (25-35) Mean Corpuscular Hemoglobin Concent 34 g/dL (31-37) Red Cell Distribution Width 14.3 % (11.5-14.5) Platelet Count 141 x10^3/uL (140-400) Sodium Level 142 mmol/L (136-145) Potassium Level 4.0 mmol/L (3.5-5.1) Chloride Level 103 mmol/L (98-107) Carbon Dioxide Level 32 mmol/L (21-32) Anion Gap 7 (6-14) Blood Urea Nitrogen 45 mg/dL (8-26) Creatinine 1.8 mg/dL (0.7-1.3) Estimated GFR (Cockcroft-Gault) 37.7 Glucose Level 61 mg/dL (70-99) Calcium Level 8.4 mg/dL (8.5-10.1) Glucose (Fingerstick) 81 mg/dL (70-99) 147 mg/dL (70-99) Laboratory Tests Test 10/24/16 17:11 10/24/16 21:00 10/25/16 03:45 10/25/16 07:55 Glucose (Fingerstick) 92 mg/dL (70-99) 215 mg/dL (70-99) 81 mg/dL (70-99) White Blood Count 6.8 x10^3/uL (4.0-11.0) Red Blood Count 3.48 x10^6/uL (4.30-5.70) Hemoglobin 10.0 g/dL (13.0-17.5) Hematocrit 29.3 % (39.0-53.0) Mean Corpuscular Volume 84 fL (79-100) Mean Corpuscular Hemoglobin 29 pg (25-35) Mean Corpuscular Hemoglobin Concent 34 g/dL (31-37) Red Cell Distribution Width 14.3 % (11.5-14.5) Platelet Count 141 x10^3/uL (140-400) Sodium Level 142 mmol/L (136-145) Potassium Level 4.0 mmol/L (3.5-5.1) Chloride Level 103 mmol/L (98-107) Carbon Dioxide Level 32 mmol/L (21-32) Anion Gap 7 (6-14) Blood Urea Nitrogen 45 mg/dL (8-26) Creatinine 1.8 mg/dL (0.7-1.3) Estimated GFR (Cockcroft-Gault) 37.7 Glucose Level 61 mg/dL (70-99) Calcium Level 8.4 mg/dL (8.5-10.1) Test 10/25/16 11:03 Glucose (Fingerstick) 147 mg/dL (70-99) ESR 29 on 09/21/[address] 09/26/16: Noncontrast images of the head were obtained and are compared to an examination one week earlier. No acute or significant calvarial finding is seen. The visualized paranasal sinuses appear unremarkable. There is no subdural or epidural hematoma. There is underlying atrophy. An acute finding is not seen. There is no evidence of hemorrhage. There has not been a significant change when compared to the previous exam IMPRESSION: No acute finding. No significant change MRI brain, 09/27/16: Findings: There is motion degradation. There is no evidence of recent infarct or cytotoxic edema. Ventricular size is proportionate to the sulcal spaces. There is mild to moderate generalized supratentorial atrophy.There is no significant midline shift, intraaxial mass effect, or focal abnormal extra-axial fluid collection. There is no significant signal abnormality including hemosiderin deposition of the brain parenchyma. There is no nodular parenchymal or leptomeningeal enhancement. There is preservation of the major intracranial flow-voids at the skull base. The cerebellar tonsils are normal in location. There is no significant abnormality of the pineal gland. Pituitary gland is small. Paranasal sinuses are overall aerated. The mastoid air cells are aerated. There is preserved marrow signal of the clivus. There has been lens surgery bilaterally. Impression: 1. There is no evidence of recent infarct or intracranial mass effect. There is generalized supratentorial atrophy.. Assessment/Plan Assessment/Plan Impression: Migraine headaches without evidence of other pathology on bedside exam or imaging. Note that he had a normal sedimentation rate a month ago. Peripheral neuropathy He says that he does see a specialist regarding memory problems but at worst he has mild cognitive impairment per my exam, no evidence of dementia. Recommendations: Ibuprofen, Excedrin, or Fioricet as needed. I advised the patient to try to limit pain medication use to no more than 2 days a week He has never been on a migraine prevention agent. I will start escitalopram 10 mg daily and discussed side effects. Hold off on additional studies. Follow-up with me in 6 weeks. Thank you for letting me help with the patient's care. ROSALINDA BLACKWOOD MD Oct 25, 2016 14:42
[2016-10-25 15:00] VITALS: BP 105/63
[2016-10-25] MEDS ORDERED: BUTALB/APAP/CAFEIN 50/325/40MG TABLET. PO PRN (15:00)
[2016-10-25] MEDS: ESCITALOPRAM 10 MG TABLET. PO SCH (17:36)
[2016-10-25 19:57] VITALS: BP 132/81
[2016-10-25] MEDS: ATORVASTATIN CALCIUM 40 MG TABLET. PO SCH (20:44)
[2016-10-25 23:14] VITALS: BP 121/76
[2016-10-26 03:00] VITALS: BP 116/63
--- NOTE | 2016-10-26 06:05 | ACF ---
Admission Forms Criteria GENERAL ADMISSION CRITERIA (Place 'X' for any and all applicable criteria): Admission is indicated for ANY ONE of the following: [ ]I. Hemodynamic instability as indicated by ANY ONE of the following(1)(2) (3)(4)(5): [ ]a) Vital sign abnormality not readily corrected by appropriate treatment within 12 to 24 hours indicated by ANY ONE of the following: [ ]i) Hypotension [ ]ii) Symptomatic Tachycardia unresponsive to treatment (eg , analgesia, fluids, sedation as indicated) [ ]iii) Orthostatic vital sign changes unresponsive to treatment (eg, fluids) [ ]b) Vital sign abnormality that is severe indicated by ANY ONE of the following: [ ]i) Inadequate perfusion indicated by ANY ONE of the following: [ ]1) Lactic acidosis (greater than 2 mmol/L) [ ]2) New abnormal capillary refill (greater than 3 seconds) [ ]3) Other metabolic acidosis (arterial pH less than 7.35) not otherwise explained [ ]4) Reduced urine output [ ]5) Altered mental status [ ]6) Myocardial Ischemia [ ]v) Mean arterial pressure[A] less than 60 mm Hg [ ]vi) Mean arterial pressure[A] less than 70 mm Hg after 30 minutes of appropriate treatment (eg, fluid resuscitation) [ ]vii) IV inotropic or vasopressor medication required to maintain adequate blood pressure or perfusion [ ]viii) Sustained heart rate greater than 120 beats per minute in adult or child 6 years or older[B]] [ ]II. Hypertension requiring inpatient treatment as indicated by ANY ONE of the following(6)(7)(8): [ ]a) SBP greater than 220 mm Hg or DBP greater than 120 mm Hg despite treatment [ ]b) SBP greater than 140 mm Hg or DBP greater than 100 mm Hg with evidence of acute end organ damage as indicated by ANY ONE of the following: [ ]i) Encephalopathy [ ]ii) Acute renal failure as indicated by new onset of ANY ONE of the following(9)(10)(11)(12)(13): [ ]1) A 3-fold rise in serum creatinine from baseline [ ]2) Serum creatinine greater than 4 mg/dL ( 354 micromoles/L) with acute rise greater than 0.5 mg/dL (44.2 micromoles/L) [ ]3) Reduction of more than 75% in estimated glomerular filtration rate from baseline [ ]4) Estimated glomerular filtration rate less than 35 mL/min/1.73m2 (0.59 mL/sec/1.73m2) in child up to 18 years of age [ ]5) Cessation of urine output indicated by ALL of the following: [ ]A. Adequate volume status [ ]B. Inadequate urine output as indicated by ANY ONE of the following: [ ]a. Urine output less than 0.3 mL/kg/hr for 24 hours [ ]b. Anuria (urine output less than 0.1 mL/kg/hr) for 12 hours [ ]iii) Aortic dissection [ ]iv) Myocardial ischemia [ ]v) Left ventricular heart failure [ ]vi) Retinal hemorrhage [ ]vii) Other significant finding [ ]c) Hypertension in child requiring inpatient treatment as indicated by ALL of the following(14)(15)(16): [ ]i) Outpatient treatment not effective, not available, or not appropriate [ ]ii) SBP or DBP greater than 95th percentile for age [ ]iii) Evidence of acute end organ damage as indicated by ANY ONE of the following: [ ]1) Altered mental status [ ]2) Acute renal failure as indicated by new onset of ANY ONE of the following(9)(10)(11)(12)(13): [ ]A. A 3-fold rise in serum creatinine from baseline [ ]B. Serum creatinine greater than 4 mg/dL (354 micromoles/L) with acute rise greater than 0.5 mg/dL (44.2 micromoles/L) [ ]C. Reduction of more than 75% in estimated glomerular filtration rate from baseline [ ]D. Estimated glomerular filtration rate less than 35 mL/min/1.73m2 (0.59 mL/sec/1.73m2)in child up to 18 years of age [ ]E. Cessation of urine output indicated by ALL of the following: [ ]a. Adequate volume status [ ]b. Inadequate urine output as indicated by ANY ONE of the following: [ ]1) Urine output less than 0.3 mL/kg/hr for 24 hours [ ]2) Anuria (urine output less than 0.1 mL/kg/hr) for 12 hours [ ]3) Severe headache [ ]4) Visual disturbance [ ]5) Retinal hemorrhage [ ]6) Other significant finding [ ]III. Acute cardiac or peripheral ischemia as indicated by ANY ONE of the following: [ ]a) Acute coronary syndrome(17)(18) [ ]b) Acute peripheral ischemia (eg, pulseless, cool, mottled, or cyanotic extremity)(19) [ ]IV. Cardiac arrhythmias or findings of immediate concern indicated by ANY ONE of the following(20)(21): [ ]a) Heart rhythms that are inherently dangerous or unstable indicated by ANY ONE of the following(22)(23)(24): [ ]i) Resuscitated ventricular fibrillation or cardiac arrest [ ]ii) Ventricular escape rhythm [ ]iii) Sustained ventricular tachycardia (30 seconds or more of ventricular rhythm at greater than 100 beats per minute) [ ]iv) Nonsustained ventricular tachycardia and ANY ONE of the following: [ ]1) Suspected cardiac ischemia as cause or consequence of ventricular tachycardia [ ]2) In setting of acute myocarditis [ ]b) Unstable cardiac conduction defects indicated by ANY ONE of the following(24)(25)(26): [ ]i) Type II second-degree atrioventricular block [ ]ii) Third-degree atrioventricular block [ ]iii) New-onset left bundle branch block with suspected myocardial ischemia [ ]c) Any heart rhythm and ANY ONE of the following(22)(23)(27)(28)( 29): [ ] i) Continuous long-term ECG monitoring needed (eg, initiation of drug requiring monitoring for more than 24 hours) [ ] ii) Patient has automatic implanted cardioverter defibrillator that is repeatedly firing, malfunctioning, or in need of immediate adjustment of settings beyond the scope of ambulatory or observation care. [ ]d) Heart rhythms of concern due to ANY ONE of the following: [ ]i) Hypotension [ ]ii) Respiratory distress [ ]iii) Association with other significant symptoms (eg, bradycardia with syncope or ongoing dizziness, supraventricular tachycardia with chest pain) (27)(28) (30) [ ] V. Severe heart failure as indicated by ANY ONE of the following ( 31)(32): [ ]a) Respiratory distress [ ]b) Hypotension [ ]c) Anasarca (refractory to outpatient therapy) [ ]d) Cardiac arrhythmias of immediate concern [ ]e) Myocardial ischemia [ ]. Respiratory abnormalities, including ANY ONE of the following(33)(34) (35)(36): [ ]a) Respiratory rate greater than 30 breaths per minute unresponsive to treatment [A] [ ]b) New saturation of arterial oxygen less than 90% [ ]c) New partial pressure of carbon dioxide greater than 44 mm Hg ( 5.9 kPa) [ ]d) Supplemental oxygen or respiratory treatments needed that are new or not performable at other levels of care [ ]e) New-onset cyanosis [ ]f) Inability to protect airway [ ]g) Chronic lung disease with severe deterioration (not responsive to emergency and observation care treatment as appropriate) as indicated by ANY ONE of the following(34)(36 ): [ ]i) SaO2 5% below baseline in patient with chronic hypoxemia [ ]ii) New requirement for supplemental oxygen to keep SaO2 at baseline or acceptable level [ ]iii) Required supplemental oxygen performable only in acute inpatient setting [ ]iv) Severe airflow or ventilation abnormalities [ ]v) Previously mobile patient unable to walk between rooms [ ]vi Inability to eat or sleep due to dyspnea [ ]vii) Rapid rate of exacerbation onset [ ]viii) Altered mental status ]VII. Severe airflow or ventilation abnormalities (not responsive to emergency and observation care treatment as appropriate) as indicated by ANY ONE of the following(33)(34)(35)(37): [ ]a) PCO2 greater than 42 mm Hg (5.6 kPa) and pH less than 7.35 (new ) [ ]b) Documented PCO2 increased more than 5 mm Hg (0.7 kPa) from disease baseline [ ]c) Airflow measurements [B] less than 60% of previous best or predicted (eg, peak expiratory flow rate less than 300 L/minute) despite intensive emergent treatment [C] [ ]d) Required respiratory treatments that are performable only in acute inpatient setting [ ]VIII. Impending or actual respiratory arrest ( Also use Respiratory Failure GRG for severe respiratory disease and long-term mechanical ventilation patients) [ ]IX. Neurologic abnormalities, including ANY ONE of the following: [ ]a) New findings that suggest ANY ONE of the following: [ ]i) [employer]OVING TECH[employer]ICIAN infection(38) [ ]ii) Cerebral bleeding, ischemia, or vasospasm(39)(40) [ ]iii) Increased intracranial pressure, hydrocephalus, or cerebral edema(41)(42)(43) [ ]iv) Spinal cord injury(44) [ ]b) Uncontrolled seizures(45) [ ]c) New-onset coma (eg, Jimmie coma scale score less than 9) or unexplained abnormal mental status (eg, Jimmie coma scale score less than 14) [D](41)(46)(47) [ ]X. New-onset severe neurologic findings requiring inpatient care; examples include(42)(48)(49): [ ]a) Papilledema [ ]b) Cerebral edema [ ]c) Mass effect on CT scan [ ]XI. Suspected acute intra-abdominal process with peritoneal signs, abdominal mass, or similar findings (50)(51)(52) [ ]XII. Severe physiologic disorder remaining after emergency or observation level care (as appropriate) as indicated by ANY ONE of the following (53): [ ]a) Significant dehydration [ ]b) Diabetic ketoacidosis [ ]c) Hyperglycemic hyperosmolar state (eg, osmolality greater than 320 mOsm/kg (mmol/kg) [ ]d) Hypoglycemia [ ]e) Other (new) acid-base disorder with pH less than 7.35 or greater than 7.5(54) [ ]f) Thyroid storm (55) [ ]g) Myxedema coma (55) [ ]XIII. Abdominal abnormalities with ANY ONE of the following(56)(57): [ ]a) Absent bowel sounds with complete ileus [ ]b) Signs of intestinal obstruction or peritonitis [E] [ ]c) Nausea and vomiting that cannot be controlled with outpatient or observation care [ ]XIV. Acute renal failure as indicated by new onset of ANY ONE of the following(9)(10)(11)(12)(13): [ ]a) A 3-fold rise in serum creatinine from baseline [ ]b) Serum creatinine greater than 4 mg/dL (354 micromoles/L) with acute rise greater than 0.5 mg/dL (44.2 micromoles/L) [ ]c) Reduction of more than 75% in estimated glomerular filtration rate from baseline [ ]d) Estimated glomerular filtration rate less than 35 mL/min/ 1.73m2 (0.59 mL/sec/1.73m2) in child up to 18 years of age [ ]e) Cessation of urine output indicated by ALL of the following: [ ]i) Adequate volume status [ ]ii) Inadequate urine output as indicated by ANY ONE of the following: [ ]1) Urine output less than 0.3 mL/kg/hr for 24 hours [ ]2) Anuria (urine output less than 0.1 mL/kg/hr) for 12 hours [ ]XV. Significant uremic complications as indicated by ANY ONE of the following(58)(59)(60): [ ]a) Outpatient therapy is ineffective or not feasible for ANY ONE of the following: [ ]i) Severe heart failure [ ]ii) Severehypertension [ ]iii) Pleural effusion [ ]iv) Pericarditis or pericardial effusion [ ]b) Cardiac arrhythmias of immediate concern [ ]c) Intractable nausea or vomiting [ ]d) Recurrent seizures [ ]e) Encephalopathy [ ]f) Bleeding abnormalities (eg, platelet dysfunction) with active (eg, gastrointestinal) bleeding [ ]g) Dialysis indicated before long-term access or ambulatory arrangements can be made [ ]h) Significant metabolic or electrolyte abnormalities (eg, severe acidosis or hyperkalemia) [ ]XVI. High fever or other high-risk infection situation as indicated by ANY ONE of the following(61)(62)(63)(64): [ ]a) Outpatient and observation care antimicrobial treatment unavailable, not effective, or not appropriate [ ]b) Documented bacteremia [ ]c) Temperature greater than 40.5 degrees C (104.9 degrees F) ( oral) [ ]d) Temperature greater than 39.5 degrees C (103.1 degrees F) ( oral) or less than 36 degrees C (96.8 degrees F) (rectal) that does not respond to e treatment and observation care [ ] XVII. Temperature less than 95 degrees F (35 degrees C)(rectal)(65) [ ] XVIII. Severe nutritional abnormalities as indicated by ALL of the following (66)(67): [ ]a) Inability to tolerate or establish sufficient oral or other enteral nutrition in outpatient setting [ ]b) Parenteral nutrition regimen need that must be implemented on inpatient basis [ ] XIX. Severe electrolyte abnormalities indicated by ALL of the following(68) (69)(70): [ ]a) Electrolytes and associated findings are not as expected for patient baseline or acceptable treatment effects. [ ]b) Severe abnormalities indicated by ANY ONE of the following: [ ]i) Sodium less than 130 mEq/L (mmol/L) (new) [ ]ii)Sodium less than 135 mEq/L (mmol/L) with ANY ONE of the following: [ ]1) Uncorrectable (to near normal or chronic baseline) after trial of outpatient and emergency treatment [ ]2) Altered mental status [ ]3) Seizures [ ]4) Severe medical etiology requiring inpatient management (eg, heart failure, hypovolemia) [ ]iii) Sodium greater than 155 mEq/L (mmol/L) [ ]iv) Sodium greater than 150 mEq/L (mmol/L) with ANY ONE of the following: [ ]1) Uncorrectable (to near normal or chronic baseline) with outpatient and emergency treatment [ ]2) Altered mental status [ ]3) Seizures [ ]4) Severe medical etiology (eg, hypovolemia, diabetes insipidus) [ ]v) Potassium less than 2.5 mEq/L (mmol/L) despite outpatient and emergency treatment [ ]vi) Potassium less than 3 mEq/L (mmol/L) with ANY ONE of the following: [ ]1) Weakness [ ]2) Cardiac abnormality (eg, arrhythmia, conduction disturbance) [ ]3) Cardiac ischemia [ ]4) Ileus [ ]5) Ongoing medical cause requiring inpatient management (eg, acute renal wasting or SIADH) [ ]6) Other severe symptoms [ ]vii) Potassium greater than 6.5 mEq/L (mmol/L) [ ]viii) Potassium greater than 5 mEq/L (mmol/L) with ANY ONE of the following: [ ]1) Uncorrectable (to near normal or chronic baseline) with outpatient and emergency treatment [ ]2) Severe ECG findings [F] [ ]3) Acute worsening of renal failure (creatinine greater than 2.5 mg/dL (221 micromoles/L) or significant elevation for age and size) [ ]4) Severe weakness [ ]5) Severe medical etiology (eg, hemolysis, infection, drug overdose) [ ]ix) Calcium less than 7 mg/dL (1.75 mmol/L) despite outpatient and emergency treatment (72) [ ]x) Calcium less than 8 mg/dL (2 mmol/L) with significant symptoms or findings; examples include(72): [ ]1) Altered mental status [ ]2) Muscle spasms [ ]3) Seizures [ ]4) Breathing difficulty [ ]5) Cardiac abnormality (eg, arrhythmia or conduction disturbance) [ ]xi) Calcium greater than 14 mg/dL (3.5 mmol/L)(72) [ ]xii) Calcium greater than 12 mg/dL (3 mmol/L) with ANY ONE of the following(72): [ ]1) Uncorrectable (to near normal or chronic baseline) with outpatient and emergency treatment [ ]2) Significant dehydration or hypovolemia as indicated by ALL of the following(70)(73)(74): [ ]A. Not resolved with initial treatments [ ]B. Clinically significant dehydration as indicated by ANY ONE of the following: [ ]a. Vomiting refractory to outpatient treatment (ie, precluding oral rehydration) [ ]b. Inability to drink [ ]c. Hypernatremia or other electrolyte abnormality unable to be corrected with outpatient and emergency treatment [ ]d. Failure to remain hydrated with outpatient therapy [ ]e. Reduced urine output [ ]f. Hypotension [ ]g. Serious cause for dehydration requiring acute hospitalization (eg, bowel obstruction, increased intracranial pressure, infectious cause) [ ]h. Child with ANY ONE of the following(75): [ ]1) Severe abdominal tenderness [ ]2) Adequate care not available at home [ ]3) Severe dehydration ( greater than 9% loss of body weight) [ ]4) Significant symptoms or findings; examples include: [ ]A. Altered mental status [ ]B. Cardiac abnormality (eg, arrhythmia, conduction disturbance) [ ]C. Malignant etiology requiring inpatient treatment [ ]xiii) Phosphorus less than 1 mg/dL (0.32 mmol/L) [ ]xiv) Phosphorus less than 1.5 mg/dL (0.48 mmol/L) with ANY ONE of the following: [ ]1) Patient unresponsive to outpatient and emergency treatment [ ]2) Significant symptoms or findings; examples include: [ ]A. Weakness [ ]B. Altered mental status [ ]C. Breathing difficulty [ ]D. Seizures [ ]E. Rhabdomyolysis [ ]xv) Phosphorus greater than 10 mg/dL (3.2 mmol/L) [ ]xvi) Phosphorus greater than 4.5 mg/dL (1.45 mmol/L) (new) with ANY ONE of the following: [ ]1) Severe medical etiology (eg, crush injury, acute renal failure) [ ]2) Associated hypocalcemia with significant findings; examples include: [ ]A. Neurologic symptoms [ ]B. Altered mental status [ ]C. Muscle spasms [ ]D. Seizures [ ]E. Breathing difficulty [ ]F. Cardiac abnormality (eg, arrhythmia, conduction disturbance) [ ]xvii) Magnesium less than 1 mg/dL (0.41 mmol/L) [ ]xviii) Magnesium less than 1.5 mg/dL (0.62 mmol/L) with ANY ONE of the following: [ ]1) Patient unresponsive to outpatient and emergency treatment [ ]2) Associated hypocalcemia with significant findings; examples include: [ ]A. Altered mental status [ ]B. Muscle spasms [ ]C. Seizures [ ]D. Breathing difficulty [ ]E. Cardiac abnormality (eg, arrhythmia , conduction disturbance) [ ]3) Associated hypokalemia (potassium less than 3 mEq/L (mmol/L)) with risk of arrhythmia [ ]xix) Magnesium greater than 4 mEq/L (2 mmol/L) [ ]xx) Magnesium greater than 2.5 mEq/L (1.25 mmol/L) with significant symptoms or findings; examples include: [ ]1) Weakness [ ]2) Altered mental status [ ]3) Cardiac abnormality (eg, arrhythmia, conduction disturbance) [ ]4) Breathing difficulty [ ]5) Severe medical etiology (eg, renal failure, hypovolemia) [ ]xxi) Uric acid greater than 20 mg/dL (1190 micromoles/L)(76) [ ]xxii) Uric acid greater than 8 mg/dL (476 micromoles/L) with significant symptoms or findings of tumor lysis syndrome; examples include(76): [ ]1) Creatinine greater than 1.5 times upper limit of normal [ ]2) Cardiac abnormality (eg, arrhythmia, conduction disturbance) [ ]3) Seizure [ ]XX. Acute blood loss causing significant abnormality as indicated by ANY ONE of the following(77)(78): [ ]a) Hemoglobin less than 10 g/dL (100 g/L) (not baseline) [ ]b) Hematocrit less than 30% (0.30) (not baseline) [ ]c) Repeat hematocrit decreased more than 2% (0.02) [ ]d) Uncontrolled bleeding [ ]XXI. Severe anemia indicated by ANY ONE of the following(78)(79): [ ]a) Altered mental status [ ]b) Chest pain [ ]c) Exertional dyspnea [ ]d) Syncope [ ]e) Other findings suggesting inadequate perfusion [ ]f) Treatment with transfusion or volume replacement is ineffective at resolving ANY ONE of the following [G]: [ ]i) Tachycardia for age [ ]ii) Orthostatic vital sign changes as indicated by ANY ONE of the following(80): [ ]1) Fall in SBP of 20 mm Hg or more 1 to 3 minutes after patient sits or stands from recumbent position [ ]2) Fall in DBP of 10 mm Hg or more 1 to 3 minutes after patient sits or stands from recumbent position [ ]XXII. High-risk low platelet count as indicated by ANY ONE of the following( 81)(82): [ ]a) Severe or life-threatening bleeding (eg, intracranial, major gastrointestinal, or extensive mucosal bleeding), with any reduced platelet count [ ]b) Platelet count less than 20,000/mm3 (20 x109/L) with any active bleeding [ ]c) Platelet count less than 10,000/mm3 (10 x109/L) with minor purpura or petechiae [ ]d) Platelet count less than 5000/mm3 (5 x109/L) [ ]e) Low platelet count with hemolytic anemia [ ]XXIII. Disseminated intravascular coagulation(77)(83) [ ]XXIV. Severe adverse drug or systemic toxin reaction requiring inpatient treatment; examples include(84)(85): [ ]a) Serotonin syndrome(86) [ ]b) Neuroleptic malignant syndrome(86) [ ]c) Cholinergic syndrome with severe symptoms (eg, bronchorrhea, weakness, mental status changes, seizures) [ ]d) Sympathetic syndrome with severe symptoms (eg, seizures, mental status changes, cardiac dysrhythmias) [ ]e) Anticholinergic syndrome [ ]XXV. Severe pain requiring acute inpatient management as indicated by ALL of the following (87)(88)(89): [ ]a) Continuous or frequent (eg, every 2 to 4 hours) parenteral analgesics required [H] [ ]b) Rapid improvement expected from treatment or acute intervention (eg, surgery, anesthesia procedure) [ ]XXVI.Severe behavioral health issues judged unmanageable at a lower level of care (eg, residential) in a patient who is ANY ONE of the following(91) [ ]a) Acutely suicidal [ ]b) A danger to self (eg, self-mutilating or suicidal behavior) [ ]c) A danger to others (eg, assaultive or homicidal behavior) [ ]d) Incapacitated because of grave disability (eg, inability to provide for self at lower level of care) (92) [X]XXVII. Inpatient monitoring needed; examples include(1)(3)(87)(93)(94)(95)(96 ): [X]a) Vital signs, neurologic signs, or vascular checks more frequently than every 4 hours [ ]b) Cardiac or respiratory monitoring beyond the scope (eg, over 24 hours) of observation care [ ]c) Pulmonary artery catheter monitoring [ ]d) Suspected compartment syndrome(97) (98) [ ]e) Cerebral bleeding, hydrocephalus, or vasospasm monitoring [ ]f) Increased intracranial pressure or cerebral edema monitoring [ ]g) monitoring [ ]XXVIII. Treatment requiring inpatient care; examples include: [ ]a) IV fluid to replace significant ongoing losses (greater than 3 L/m2 per day)(53) [ ]b) High concentration oxygen (greater than 40%)(33)(99)(100) [ ]c) Frequent respiratory therapy (more frequently than every 4 hours) to maintain airflow rates greater than 60% of baseline(33)(99)(100) [ ]d) Epidural analgesia(87) [ ]e) IV anticoagulation, vasoactive, or antiarrhythmic medication(19 )(23) [ ]f) Acute thrombolytics (generally require 24 hours of observation )(101)(102) [ ]XXIX. Emergency procedures needed; examples include: [ ]a) Emergency inpatient surgery [ ]b) Temporary pacemaker placement(103) [ ]c) Chest tube placement with active evacuation (eg, suction, drainage)(104) [ ]d) Emergent cardioversion(105) [ ]e) Emergent cardiac or vascular procedures (eg, cardiac catheterization, angioplasty) (17)(18) [ ]f) Emergent dialysis access placement and institution(10)(106) [ ]g) Emergent pericardiocentesis(107) [ ]h) Emergent plasmapheresis or leukapheresis(83) [ ]i) Emergent tracheostomy The original [employer] content created by [employer] has been revised. The portions of the content which have been revised are identified through the use of italic text or in bold, and [facility] has neither reviewed nor approved the modified material. All other unmodified content is copyright [employer]. Please see references footnoted in the original [facility] edition 2016 Admission Criteria Met?: Yes MARLIN DANIEL Oct 26, 2016 06:05
[2016-10-26 07:00] VITALS: BP 135/95
[2016-10-26] MEDS: INSULIN ASPART 300 UNITS/3 ML INSULN.PEN SQ SCH ×2 (08:00→11:57)
[2016-10-26] MEDS ORDERED: glipiZIDE 5 MG TABLET PO SCH (08:00)
[2016-10-26] MEDS: SOTALOL 80 MG TABLET. PO SCH (08:24)
[2016-10-26] MEDS: ESCITALOPRAM 10 MG TABLET. PO SCH (08:24)
[2016-10-26] MEDS: IBUPROFEN 400 MG TABLET. PO PRN (08:24)
[2016-10-26] MEDS: AMIODARONE HCL 200 MG TABLET. PO SCH (08:25)
[2016-10-26] MEDS: PANTOPRAZOLE 40 MG TABLET.DR. PO SCH (08:25)
[2016-10-26] MEDS: SERTRALINE 50 MG TABLET. PO SCH (08:26)
[2016-10-26] MEDS: ASA/APAP/CAFFEINE 250/250/65MG TABLET. PO SCH (08:26)
--- NOTE | 2016-10-26 08:39 | PDOC ---
Provider Note Provider Note feels ok, vss- will recheck renal fx off lasix- glucose ok on less meds- ANA MARIA REYNA MD Oct 26, 2016 08:39
--- NOTE | 2016-10-26 09:20 | PDOC ---
PROGRESS NOTES Subjective Subjective Mr Sevilla has maintained stable vitals. Reports no episodes of chest pain or shortness of breath. His only complaint is recurrent headaches. Objective Objective Vital Signs Date Time Temp Pulse Resp B/P (MAP) Pulse Ox O2 Delivery O2 Flow Rate FiO2 10/26/16 08:25 74 135/95 10/26/16 07:00 97.4 18 94 Room Air 97.4 10/24/16 06:00 2.0 Intake and Output 10/26/16 07:00 Intake Total 1650 ml Output Total 2550 ml Balance -900 ml Intake Oral 1650 ml Output Urine Total 2550 ml # Voids 1 # Bowel Movements 1 Physical Exam Heart: Regular rate (and rhythm), Other (systolic murmur unchanged from previous exam) Extremities: No edema, Normal pulses (2/4 radial b/l) General: Alert, No acute distress Lungs: Clear to auscultation (b/l), Normal air movement Assessment Assessment Mr Sevilla is having no chest pain or shortness of breath, and his holding sinus rhythm. His main concern is the headaches for which he was seen by neurology. Problems Medical Problems: (1) Elevated brain natriuretic peptide (BNP) level Status: Acute (2) Hypomagnesemia Status: Acute (3) Hypotension Status: Acute (4) V-tach Status: Acute Comment Review of Relevant I have reviewed the following items mervin (where applicable) has been applied. Labs Laboratory Tests Test 10/24/16 11:17 10/24/16 17:11 10/24/16 21:00 10/25/16 03:45 Glucose (Fingerstick) 108 mg/dL (70-99) 92 mg/dL (70-99) 215 mg/dL (70-99) White Blood Count 6.8 x10^3/uL (4.0-11.0) Red Blood Count 3.48 x10^6/uL (4.30-5.70) Hemoglobin 10.0 g/dL (13.0-17.5) Hematocrit 29.3 % (39.0-53.0) Mean Corpuscular Volume 84 fL (79-100) Mean Corpuscular Hemoglobin 29 pg (25-35) Mean Corpuscular Hemoglobin Concent 34 g/dL (31-37) Red Cell Distribution Width 14.3 % (11.5-14.5) Platelet Count 141 x10^3/uL (140-400) Sodium Level 142 mmol/L (136-145) Potassium Level 4.0 mmol/L (3.5-5.1) Chloride Level 103 mmol/L (98-107) Carbon Dioxide Level 32 mmol/L (21-32) Anion Gap 7 (6-14) Blood Urea Nitrogen 45 mg/dL (8-26) Creatinine 1.8 mg/dL (0.7-1.3) Estimated GFR (Cockcroft-Gault) 37.7 Glucose Level 61 mg/dL (70-99) Calcium Level 8.4 mg/dL (8.5-10.1) Test 10/25/16 07:55 10/25/16 11:03 10/25/16 17:03 10/25/16 20:38 Glucose (Fingerstick) 81 mg/dL (70-99) 147 mg/dL (70-99) 99 mg/dL (70-99) 223 mg/dL (70-99) Test 10/26/16 07:32 Glucose (Fingerstick) 108 mg/dL (70-99) Laboratory Tests Test 10/25/16 11:03 10/25/16 17:03 10/25/16 20:38 10/26/16 07:32 Glucose (Fingerstick) 147 mg/dL (70-99) 99 mg/dL (70-99) 223 mg/dL (70-99) 108 mg/dL (70-99) Medications Current Medications Amiodarone HCl 150 mg/Dextrose 103 ml @ 618 mls/hr 1X ONCE IV Last administered on 10/23/16 10:56; Start 10/23/16 at 10:30; Stop 10/23/16 at 10:39; Status DC Amiodarone HCl 900 mg/Dextrose 518 ml @ 0 mls/hr CONT PRN IV SEE I/O RECORD Last administered on 10/23/16 11:27; Start 10/23/16 at 10:30; Stop 10/23/16 at 11: 28; Status DC Aspirin (Ecotrin) 325 mg 1X ONCE PO Last administered on 10/23/16 10:56; Start 10/23/16 at 10:30; Stop 10/23/16 at 10:31; Status DC Sodium Chloride 1,000 ml @ 1,000 mls/hr 1X ONCE IV Last administered on 11:00; Start 10/23/16 at 11:00; Stop 10/23/16 at 11:59; Status DC Ondansetron HCl (Zofran) 4 mg PRN Q8HRS PRN IV NAUSEA/VOMITING; Start 10/23/16 at 11:00; Stop 10/24/16 at 10:59; Status DC Fentanyl Citrate (Fentanyl 2ml Vial) 50 mcg PRN Q2HR PRN IV PAIN; Start at 11:00; Stop 10/24/16 at 10:59; Status DC Magnesium Oxide (Magnesium Oxide) 800 mg 1X STAT PO ; Start 10/23/16 at 11:10; Stop 10/23/16 at 11:11; Status DC Magnesium Sulfate/ Dextrose 50 ml @ 25 mls/hr 1X ONCE IV Last administered on 10/23/16 11:58; Start 10/23/16 at 11:45; Stop 10/23/16 at 13:44; Status DC Atorvastatin Calcium (Lipitor) 40 mg HS PO Last administered on 10/25/16 20:44 ; Start 10/23/16 at 21:00 Furosemide (Lasix) 80 mg DAILY PO Last administered on 10/24/16 07:30; Start at 14:00; Stop 10/25/16 at 09:01; Status DC Glipizide (Glucotrol) 2.5 mg BID PO Last administered on 10/24/16 20:47; Start 10/23/16 at 21:00; Stop 10/25/16 at 09:00; Status DC Metformin HCl (Glucophage) 1,000 mg BIDWMEALS PO Last administered on 10/24/16 17:53; Start 10/23/16 at 17:00; Stop 10/25/16 at 09:00; Status DC Pantoprazole Sodium (Protonix) 40 mg BIDAC PO Last administered on 10/26/16 08 :25; Start 10/23/16 at 16:30 Sertraline HCl (Zoloft) 50 mg DAILY PO Last administered on 10/26/16 08:26; Start 10/23/16 at 14:00 Sotalol HCl (Betapace) 40 mg BID PO Last administered on 10/26/16 08:24; Start 10/23/16 at 14:00 Acetaminophen/ Aspirin/Caffeine (Excedrin Migraine) 1 tab BID PO Last administered on 10/25/16 20:44; Start 10/23/16 at 21:00 Potassium Chloride (Klor-Con) 20 meq BIDWMEALS PO Last administered on 17:55; Start 10/23/16 at 17:00; Stop 10/25/16 at 09:01; Status DC Insulin Aspart (NovoLOG) 0-5 UNITS TIDWMEALS SQ Last administered on 10/23/16 14:27; Start 10/23/16 at 14:00 Dextrose (Dextrose 50%-Water Syringe) 12.5 gm PRN Q15MIN PRN IV SEE COMMENTS; Start 10/23/16 at 13:45; Status Cancel Alprazolam (Xanax) 0.25 mg PRN Q8HRS PRN PO ANXIETY / AGITATION; Start 10/23/16 at 13:45 Norepinephrine Bitartrate 250 ml @ 0 mls/hr CONT PRN IV SEE I/O RECORD Last administered on 10/23/16 15:18; Start 10/23/16 at 15:15 Amiodarone HCl (Cordarone) 400 mg BID PO Last administered on 10/26/16 08:25; Start 10/23/16 at 18:00 Ibuprofen (Motrin) 400 mg PRN TID PRN PO headache Last administered on 08:24; Start 10/23/16 at 20:15 Dextrose 500 ml @ 500 mls/hr 1X ONCE IV ; Start 10/25/16 at 06:30; Stop at 07:29; Status Cancel Glipizide (Glucotrol) 2.5 mg DAILYWBKFT PO Last administered on 10/25/16 09:19 ; Start 10/26/16 at 08:00 Acetaminophen/ Butalbital/ Caffeine (Fioricet) 1 tab PRN Q6HRS PRN PO MIGRAINE HEADACHE; Start 10/25/16 at 15:00 Escitalopram Oxalate (Lexapro) 10 mg DAILY PO Last administered on 10/26/16 08 :24; Start 10/25/16 at 15:00 Active Scripts Active Pantoprazole Sodium 40 Mg Tablet.dr 40 Mg PO BIDAC Reported Joaquin Back & Body Caplet (Aspirin/Caffeine) 1 Each Tablet 2 Each PO BID Zoloft (Sertraline Hcl) 50 Mg Tablet 1 Tab PO DAILY Glipizide 5 Mg Tablet 0.5 Tab PO BID Potassium Chloride 20 Meq Tablet.er 20 Meq PO BID last dose this am next dose with supper Sotalol (Sotalol Hcl) 80 Mg Tablet 40 Mg PO BID last dose this am next dose tonight Furosemide 80 Mg Tablet 80 Mg PO DAILY last dose this am next dose tomorrow Atorvastatin Calcium 40 Mg Tablet 40 Mg PO HS last dose was last dose next dose tonight Metformin Hcl 1,000 Mg Tablet 1,000 Mg PO BID last dose this am next dose with supper Vitals/I & O Vital Sign - Last 24 Hours 10/25/16 10/25/16 10/25/16 10/25/16 09:17 09:20 12:00 15:00 Temp 98.0 97.5 98.0 97.5 Pulse 66 66 63 77 Resp 18 18 B/P (MAP) 135/81 135/81 117/73 (88) 105/63 (77) Pulse Ox 97 97 O2 Delivery Room Air 10/25/16 10/25/16 10/25/16 10/25/16 19:35 19:57 20:44 20:46 Temp 98.2 98.2 Pulse 86 86 86 Resp 20 B/P (MAP) 132/81 (98) 132/81 132/81 Pulse Ox 90 O2 Delivery Room Air Room Air 10/25/16 10/26/16 10/26/16 10/26/16 23:14 03:00 07:00 08:24 Temp 98.0 97.7 97.4 98.0 97.7 97.4 Pulse 72 65 56 74 Resp 18 18 18 B/P (MAP) 121/76 (91) 116/63 (80) 135/95 (108) 135/95 Pulse Ox 94 93 94 O2 Delivery Room Air Room Air Room Air 10/26/16 08:25 Pulse 74 B/P (MAP) 135/95 Intake and Output 10/25/16 10/25/16 10/26/16 15:00 23:00 07:00 Intake Total 1200 ml 450 ml Output Total 300 ml 1225 ml 1025 ml Balance -300 ml -25 ml -575 ml EUGENIO THOMPSON MD Oct 26, 2016 09:20
[2016-10-26 10:00] LABS: CALCIUM 8.8 mg/dL (8.5-10.1); CREATININE 1.5 mg/dL (0.7-1.3); GFR 46.5; POTASSIUM 4.2 mmol/L (3.5-5.1)
[2016-10-26 11:00] VITALS: BP 111/70
[2016-10-26] MEDS ORDERED: FURO80TA3 PO (11:10)
[2016-10-26] MEDS ORDERED: GLIP5TAB10 PO (11:11)
[2016-10-26] MEDS ORDERED: POTA20TA82 PO (11:13)
[2016-10-26] MEDS ORDERED: DILT240C2 PO (11:15)
[2016-10-26] MEDS ORDERED: AMIO200T2 PO ×2 (11:15→11:16)
--- NOTE | 2016-10-26 11:41 | PDOC ---
PROGRESS NOTES Assessment Problems Medical Problems: (1) Elevated brain natriuretic peptide (BNP) level Status: Acute (2) Hypomagnesemia Status: Acute (3) Hypotension Status: Acute (4) V-tach Status: Acute Migraine headaches Peripheral neuropathy Mild cognitive impairment Plan Ibuprofen, Excedrin, or Fioricet as needed. Limit pain medication use to no more than 2 days a week Escitalopram 10 mg daily Hold off on additional studies. Follow-up with me in 6 weeks. Subjective Has a bad headache this morning, just received medication Objective Vital Signs Date Time Temp Pulse Resp B/P (MAP) Pulse Ox O2 Delivery O2 Flow Rate FiO2 10/26/16 11:00 97.4 61 18 111/70 (84) 95 Room Air 97.4 10/26/16 08:00 2.0 Intake and Output 10/26/16 07:00 Intake Total 1650 ml Output Total 2550 ml Balance -900 ml Intake Oral 1650 ml Output Urine Total 2550 ml # Voids 1 # Bowel Movements 1 PHYSICAL EXAM Alert. Oriented to time, place and person. PERRL. EOMI. CN: Has chronic vision and hearing loss, otherwise no focal findings. Muscle tone: normal. Muscle strength: 4/5 DTR: 1+ Plantar reflex: flexor Gait: not examined in bed. Sensory exam: no abnormal findings. No cerebellar signs elicited. Review of Relevant I have reviewed the following items mervin (where applicable) has been applied. Labs Laboratory Tests Test 10/24/16 17:11 10/24/16 21:00 10/25/16 03:45 10/25/16 07:55 Glucose (Fingerstick) 92 mg/dL (70-99) 215 mg/dL (70-99) 81 mg/dL (70-99) White Blood Count 6.8 x10^3/uL (4.0-11.0) Red Blood Count 3.48 x10^6/uL (4.30-5.70) Hemoglobin 10.0 g/dL (13.0-17.5) Hematocrit 29.3 % (39.0-53.0) Mean Corpuscular Volume 84 fL (79-100) Mean Corpuscular Hemoglobin 29 pg (25-35) Mean Corpuscular Hemoglobin Concent 34 g/dL (31-37) Red Cell Distribution Width 14.3 % (11.5-14.5) Platelet Count 141 x10^3/uL (140-400) Sodium Level 142 mmol/L (136-145) Potassium Level 4.0 mmol/L (3.5-5.1) Chloride Level 103 mmol/L (98-107) Carbon Dioxide Level 32 mmol/L (21-32) Anion Gap 7 (6-14) Blood Urea Nitrogen 45 mg/dL (8-26) Creatinine 1.8 mg/dL (0.7-1.3) Estimated GFR (Cockcroft-Gault) 37.7 Glucose Level 61 mg/dL (70-99) Calcium Level 8.4 mg/dL (8.5-10.1) Test 10/25/16 11:03 10/25/16 17:03 10/25/16 20:38 10/26/16 07:32 Glucose (Fingerstick) 147 mg/dL (70-99) 99 mg/dL (70-99) 223 mg/dL (70-99) 108 mg/dL (70-99) Test 10/26/16 09:45 Sodium Level 141 mmol/L (136-145) Potassium Level 4.2 mmol/L (3.5-5.1) Chloride Level 101 mmol/L (98-107) Carbon Dioxide Level 31 mmol/L (21-32) Anion Gap 9 (6-14) Blood Urea Nitrogen 39 mg/dL (8-26) Creatinine 1.5 mg/dL (0.7-1.3) Estimated GFR (Cockcroft-Gault) 46.5 Glucose Level 205 mg/dL (70-99) Calcium Level 8.8 mg/dL (8.5-10.1) Laboratory Tests Test 10/25/16 17:03 10/25/16 20:38 10/26/16 07:32 10/26/16 09:45 Glucose (Fingerstick) 99 mg/dL (70-99) 223 mg/dL (70-99) 108 mg/dL (70-99) Sodium Level 141 mmol/L (136-145) Potassium Level 4.2 mmol/L (3.5-5.1) Chloride Level 101 mmol/L (98-107) Carbon Dioxide Level 31 mmol/L (21-32) Anion Gap 9 (6-14) Blood Urea Nitrogen 39 mg/dL (8-26) Creatinine 1.5 mg/dL (0.7-1.3) Estimated GFR (Cockcroft-Gault) 46.5 Glucose Level 205 mg/dL (70-99) Calcium Level 8.8 mg/dL (8.5-10.1) Medications Current Medications Amiodarone HCl 150 mg/Dextrose 103 ml @ 618 mls/hr 1X ONCE IV Last administered on 10/23/16 10:56; Start 10/23/16 at 10:30; Stop 10/23/16 at 10:39; Status DC Amiodarone HCl 900 mg/Dextrose 518 ml @ 0 mls/hr CONT PRN IV SEE I/O RECORD Last administered on 10/23/16 11:27; Start 10/23/16 at 10:30; Stop 10/23/16 at 11: 28; Status DC Aspirin (Ecotrin) 325 mg 1X ONCE PO Last administered on 10/23/16 10:56; Start 10/23/16 at 10:30; Stop 10/23/16 at 10:31; Status DC Sodium Chloride 1,000 ml @ 1,000 mls/hr 1X ONCE IV Last administered on 11:00; Start 10/23/16 at 11:00; Stop 10/23/16 at 11:59; Status DC Ondansetron HCl (Zofran) 4 mg PRN Q8HRS PRN IV NAUSEA/VOMITING; Start 10/23/16 at 11:00; Stop 10/24/16 at 10:59; Status DC Fentanyl Citrate (Fentanyl 2ml Vial) 50 mcg PRN Q2HR PRN IV PAIN; Start at 11:00; Stop 10/24/16 at 10:59; Status DC Magnesium Oxide (Magnesium Oxide) 800 mg 1X STAT PO ; Start 10/23/16 at 11:10; Stop 10/23/16 at 11:11; Status DC Magnesium Sulfate/ Dextrose 50 ml @ 25 mls/hr 1X ONCE IV Last administered on 10/23/16 11:58; Start 10/23/16 at 11:45; Stop 10/23/16 at 13:44; Status DC Atorvastatin Calcium (Lipitor) 40 mg HS PO Last administered on 10/25/16 20:44 ; Start 10/23/16 at 21:00 Furosemide (Lasix) 80 mg DAILY PO Last administered on 10/24/16 07:30; Start at 14:00; Stop 10/25/16 at 09:01; Status DC Glipizide (Glucotrol) 2.5 mg BID PO Last administered on 10/24/16 20:47; Start 10/23/16 at 21:00; Stop 10/25/16 at 09:00; Status DC Metformin HCl (Glucophage) 1,000 mg BIDWMEALS PO Last administered on 10/24/16 17:53; Start 10/23/16 at 17:00; Stop 10/25/16 at 09:00; Status DC Pantoprazole Sodium (Protonix) 40 mg BIDAC PO Last administered on 10/26/16 08 :25; Start 10/23/16 at 16:30 Sertraline HCl (Zoloft) 50 mg DAILY PO Last administered on 10/26/16 08:26; Start 10/23/16 at 14:00 Sotalol HCl (Betapace) 40 mg BID PO Last administered on 10/26/16 08:24; Start 10/23/16 at 14:00 Acetaminophen/ Aspirin/Caffeine (Excedrin Migraine) 1 tab BID PO Last administered on 10/25/16 20:44; Start 10/23/16 at 21:00 Potassium Chloride (Klor-Con) 20 meq BIDWMEALS PO Last administered on 17:55; Start 10/23/16 at 17:00; Stop 10/25/16 at 09:01; Status DC Insulin Aspart (NovoLOG) 0-5 UNITS TIDWMEALS SQ Last administered on 10/23/16 14:27; Start 10/23/16 at 14:00 Dextrose (Dextrose 50%-Water Syringe) 12.5 gm PRN Q15MIN PRN IV SEE COMMENTS; Start 10/23/16 at 13:45; Status Cancel Alprazolam (Xanax) 0.25 mg PRN Q8HRS PRN PO ANXIETY / AGITATION; Start 10/23/16 at 13:45 Norepinephrine Bitartrate 250 ml @ 0 mls/hr CONT PRN IV SEE I/O RECORD Last administered on 10/23/16 15:18; Start 10/23/16 at 15:15 Amiodarone HCl (Cordarone) 400 mg BID PO Last administered on 10/26/16 08:25; Start 10/23/16 at 18:00 Ibuprofen (Motrin) 400 mg PRN TID PRN PO headache Last administered on 08:24; Start 10/23/16 at 20:15 Dextrose 500 ml @ 500 mls/hr 1X ONCE IV ; Start 10/25/16 at 06:30; Stop at 07:29; Status Cancel Glipizide (Glucotrol) 2.5 mg DAILYWBKFT PO Last administered on 10/25/16 09:19 ; Start 10/26/16 at 08:00 Acetaminophen/ Butalbital/ Caffeine (Fioricet) 1 tab PRN Q6HRS PRN PO MIGRAINE HEADACHE Last administered on 10/26/16 10:20; Start 10/25/16 at 15:00 Escitalopram Oxalate (Lexapro) 10 mg DAILY PO Last administered on 10/26/16 08 :24; Start 10/25/16 at 15:00 Active Scripts Active Pantoprazole Sodium 40 Mg Tablet.dr 40 Mg PO BIDAC Reported Amiodarone Hcl 200 Mg Tablet 1 Tab PO DAILY Amiodarone Hcl 200 Mg Tablet 400 Mg PO BID Cardizem Cd (Diltiazem Hcl) 240 Mg Cap.er.24h 1 Cap PO DAILY Potassium Chloride 20 Meq Tablet.er 20 Meq PO QODAY Glipizide 5 Mg Tablet 1 Tab PO DAILY Furosemide 80 Mg Tablet 1 Tab PO QODAY Zoloft (Sertraline Hcl) 50 Mg Tablet 1 Tab PO DAILY Atorvastatin Calcium 40 Mg Tablet 40 Mg PO HS last dose was last dose next dose tonight Metformin Hcl 1,000 Mg Tablet 1,000 Mg PO BID last dose this am next dose with supper Vitals/I & O Vital Sign - Last 24 Hours 10/25/16 10/25/16 10/25/16 10/25/16 12:00 15:00 19:35 19:57 Temp 98.0 97.5 98.2 98.0 97.5 98.2 Pulse 63 77 86 Resp 18 18 20 B/P (MAP) 117/73 (88) 105/63 (77) 132/81 (98) Pulse Ox 97 97 90 O2 Delivery Room Air Room Air Room Air 10/25/16 10/25/16 10/25/16 10/26/16 20:44 20:46 23:14 03:00 Temp 98.0 97.7 98.0 97.7 Pulse 86 86 72 65 Resp 18 18 B/P (MAP) 132/81 132/81 121/76 (91) 116/63 (80) Pulse Ox 94 93 O2 Delivery Room Air Room Air 10/26/16 10/26/16 10/26/16 10/26/16 07:00 08:00 08:24 08:25 Temp 97.4 97.4 Pulse 56 74 74 Resp 18 B/P (MAP) 135/95 (108) 135/95 135/95 Pulse Ox 94 O2 Delivery Room Air Room Air O2 Flow Rate 2.0 10/26/16 11:00 Temp 97.4 97.4 Pulse 61 Resp 18 B/P (MAP) 111/70 (84) Pulse Ox 95 O2 Delivery Room Air Intake and Output 10/25/16 10/25/16 10/26/16 15:00 23:00 07:00 Intake Total 1200 ml 450 ml Output Total 300 ml 1225 ml 1025 ml Balance -300 ml -25 ml -575 ml ROSALINDA BLACKWOOD MD Oct 26, 2016 11:41
--- NOTE | 2016-10-27 08:00 | PDOC3 ---
Discharge Summary Visit Information Date of Discharge: Oct 26, 2016 Final Diagnosis Problems Medical Problems: (1) Elevated brain natriuretic peptide (BNP) level Status: Acute (2) Hypomagnesemia Status: Acute (3) Hypotension Status: Acute (4) V-tach Status: Acute Brief Hospital Course Allergies Allergies Coded Allergies Type Severity Reaction Last Updated Verified Penicillins Allergy Severe RASH AND HIVES 09/23/16 Yes Vital Signs Vital Signs Date Time Temp Pulse Resp B/P (MAP) Pulse Ox O2 Delivery O2 Flow Rate FiO2 10/26/16 11:00 97.4 61 18 111/70 (84) 95 Room Air 97.4 10/26/16 08:00 2.0 Lab Results Laboratory Tests Test 10/25/16 11:03 10/25/16 17:03 10/25/16 20:38 10/26/16 07:32 Glucose (Fingerstick) 147 mg/dL (70-99) 99 mg/dL (70-99) 223 mg/dL (70-99) 108 mg/dL (70-99) Test 10/26/16 09:45 10/26/16 11:52 Sodium Level 141 mmol/L (136-145) Potassium Level 4.2 mmol/L (3.5-5.1) Chloride Level 101 mmol/L (98-107) Carbon Dioxide Level 31 mmol/L (21-32) Anion Gap 9 (6-14) Blood Urea Nitrogen 39 mg/dL (8-26) Creatinine 1.5 mg/dL (0.7-1.3) Estimated GFR (Cockcroft-Gault) 46.5 Glucose Level 205 mg/dL (70-99) Calcium Level 8.8 mg/dL (8.5-10.1) Glucose (Fingerstick) 110 mg/dL (70-99) Laboratory Tests Test 10/26/16 09:45 10/26/16 11:52 Sodium Level 141 mmol/L (136-145) Potassium Level 4.2 mmol/L (3.5-5.1) Chloride Level 101 mmol/L (98-107) Carbon Dioxide Level 31 mmol/L (21-32) Anion Gap 9 (6-14) Blood Urea Nitrogen 39 mg/dL (8-26) Creatinine 1.5 mg/dL (0.7-1.3) Estimated GFR (Cockcroft-Gault) 46.5 Glucose Level 205 mg/dL (70-99) Calcium Level 8.8 mg/dL (8.5-10.1) Glucose (Fingerstick) 110 mg/dL (70-99) Brief Hospital Course Mr. Sevilla is a 66 old [sex] who presented with [ ] no sustained VT, all labs ok incl tsh, a1c 6.2- added iv and po amiodarone, good result ,a and sotalol stopped- dr dickerson added lexapro re HAs , was doing well at dc Discharge Information Scheduled Amiodarone Hcl (Amiodarone Hcl), 400 MG PO BID, (Reported) Amiodarone Hcl (Amiodarone Hcl), 1 TAB PO DAILY, (Reported) Atorvastatin Calcium (Atorvastatin Calcium), 40 MG PO HS, (Reported) Diltiazem Hcl (Cardizem Cd), 1 CAP PO DAILY, (Reported) Furosemide (Furosemide), 1 TAB PO QODAY, (Reported) Glipizide (Glipizide), 1 TAB PO DAILY, (Reported) Metformin Hcl (Metformin Hcl), 1,000 MG PO BID, (Reported) Pantoprazole Sodium (Pantoprazole Sodium), 40 MG PO BIDAC Potassium Chloride (Potassium Chloride), 20 MEQ PO QODAY, (Reported) Sertraline Hcl (Zoloft), 1 TAB PO DAILY, (Reported) Discontinued Medications Aspirin/Caffeine (Joaquin Back & Body Caplet), 2 EACH PO BID, (Reported) Furosemide (Furosemide), 80 MG PO DAILY, (Reported) Glipizide (Glipizide), 0.5 TAB PO BID, (Reported) Potassium Chloride (Potassium Chloride), 20 MEQ PO BID, (Reported) Sotalol Hcl (Sotalol), 40 MG PO BID, (Reported) ANA MARIA REYNA MD Oct 27, 2016 08:00
== END 2016-10-26 13:35 | disposition home health service (06) | DRG 309 ==
LOC: ER 10:14 → 1 WEST ICU 10:27 → 2 NORTH 10-24 13:00
PROVIDERS: ADMIT Family Medicine; ATTEND Family Medicine
DX: I47.2 Ventricular tachycardia (principal); I13.0 Hypertensive heart and chronic kidney disease with heart failure and stage 1 through stage 4 chronic kidney disease, or unspecified chronic kidney disease; E78.5 Hyperlipidemia, unspecified; E83.42 Hypomagnesemia; G43.909 Migraine, unspecified, not intractable, without status migrainosus; E11.51 Type 2 diabetes mellitus with diabetic peripheral angiopathy without gangrene; E11.22 Type 2 diabetes mellitus with diabetic chronic kidney disease; N18.3 Chronic kidney disease, stage 3 (moderate); I95.9 Hypotension, unspecified; E11.42 Type 2 diabetes mellitus with diabetic polyneuropathy; G31.84 Mild cognitive impairment of uncertain or unknown etiology; R33.8 Other retention of urine; N40.1 Benign prostatic hyperplasia with lower urinary tract symptoms; I25.10 Atherosclerotic heart disease of native coronary artery without angina pectoris; I35.1 Nonrheumatic aortic (valve) insufficiency; I50.9 Heart failure, unspecified; I48.91 Unspecified atrial fibrillation; J44.9 Chronic obstructive pulmonary disease, unspecified; K21.9 Gastro-esophageal reflux disease without esophagitis; M06.9 Rheumatoid arthritis, unspecified; M19.90 Unspecified osteoarthritis, unspecified site; Z96.652 Presence of left artificial knee joint; Z79.899 Other long term (current) drug therapy; Z87.891 Personal history of nicotine dependence; Z87.11 Personal history of peptic ulcer disease; Z88.0 Allergy status to penicillin; Z82.49 Family history of ischemic heart disease and other diseases of the circulatory system
CPT/HCPCS: 36415; 71010; 80047; 80048; 80053; 82550; 82962; 83036; 83735; 83880; 84443; 84484; 85027; 85610; 85730; 87641; 93005; 96361; 96374; 96375; A6539; C1887; J0282; J1815; J7030; J7060; 99285-25

== ENCOUNTER 2017-05-28 09:57 | Inpatient (IN) | payer MEDICARE ==
[2017-05-28 10:15] LABS: POC GLUCOSE 152 mg/dL (70-99)
[2017-05-28 10:15] LABS: AGAP ISTAT 15 mmol/L (6-14); BUN ISTAT 31 mg/dL (8-26); CHLORIDE ISTAT 98 mmol/L (98-110); CREATININE ISTAT 1.6 mg/dL (0.5-1.4); GLUCOSE ISTAT 176 mg/dL (70-99); HEMATOCRIT ISTAT 32 % (37-52); HEMOGLOBIN ISTAT 10.9 g/dL (14-18); SODIUM ISTAT 138 mmol/L (135-145); TOT CO2 ISTAT 30 mmol/L (23-32)
[2017-05-28 10:46] LABS: ADD MAN DIFF? NO
[2017-05-28 10:53] LABS: BASO % 0 % (0-3); EOS # 0.1 x10^3/uL (0.0-0.7); EOS % 2 % (0-3); HEMATOCRIT 33.2 % (39.0-53.0); HEMOGLOBIN 11.1 g/dL (13.0-17.5); LYMPH # 1.4 x10^3/uL (1.0-4.8); LYMPH % 20 % (24-48); MEAN CORPUSCULAR HEMOGLOBIN 29 pg (25-35); MEAN CORPUSCULAR HGB CONC 33 g/dL (31-37); MEAN CORPUSCULAR VOLUME 87 fL (79-100); MONO # 0.4 x10^3/uL (0.0-1.1); MONO % 6 % (0-9); NEUT # 5.4 x10^3uL (1.8-7.7); NEUT % 73 % (31-73); PLATELET COUNT 187 x10^3/uL (140-400); RED CELL DISTRIBUTION WIDTH 14.6 % (11.5-14.5); WHITE BLOOD COUNT 7.4 x10^3/uL (4.0-11.0)
[2017-05-28] MEDS: ASPIRIN CHEWABLE 81 MG TABLET. PO (11:00)
[2017-05-28] MEDS ORDERED: AMIODARONE 150 MG in IV DEXTROSE 5% 100 ML IV (11:00)
[2017-05-28 11:10] LABS: ANION GAP 8 (6-14); BLOOD UREA NITROGEN 31 mg/dL (8-26); CALCIUM 9.1 mg/dL (8.5-10.1); CARBON DIOXIDE 32 mmol/L (21-32); CHLORIDE 98 mmol/L (98-107); CREATININE 1.6 mg/dL (0.7-1.3); GFR 43.2; GLUCOSE 178 mg/dL (70-99); POTASSIUM 3.8 mmol/L (3.5-5.1); SODIUM 138 mmol/L (136-145)
[2017-05-28] MEDS: AMIODARONE 150 MG in IV DEXTROSE 5% 100 ML IV (11:12)
[2017-05-28 11:18] LABS: LACTIC ACID 2.1 mmol/L (0.4-2.0)
[2017-05-28 11:19] LABS: TROPONINI < 0.017 ng/mL (0.000-0.055)
[2017-05-28 11:21] LABS: NT-PRO BNP 1719 pg/mL (0-124)
[2017-05-28 11:24] LABS: ALBUMIN 3.8 g/dL (3.4-5.0); ALK PHOS 86 U/L (46-116); ALT (SGPT) 40 U/L (16-63); AST (SGOT) 29 U/L (15-37); DIRECT BILIRUBIN 0.2 mg/dL (0.0-0.2); LIPASE 123 U/L (73-393); TOTAL BILIRUBIN 0.4 mg/dL (0.2-1.0); TOTAL PROTEIN 7.4 g/dL (6.4-8.2)
[2017-05-28] MEDS: AMIODARONE 900 MG in IV DEXTROSE 5% 500 ML IV (11:44)
[2017-05-28] MEDS: IV NORMAL SALINE 1000ML BAG 1,000 ML IV ×2 (11:45→21:45)
[2017-05-28] MEDS ORDERED: ONDANSETRON PF 4 MG/2 ML VIAL. IV (11:45)
[2017-05-28] MEDS ORDERED: MORPHINE SULFATE 2 MG/ML DISP.SYRIN. IV (11:45)
[2017-05-28 13:34] LABS: POC GLUCOSE 103 mg/dL (70-99)
[2017-05-28 15:00] LABS: TROPONINI < 0.017 ng/mL (0.000-0.055)
[2017-05-28 15:17] LABS: BILIRUBIN,URINE NEGATIVE (NEG); CLARITY,URINE CLEAR; COLOR,URINE YELLOW; GLUCOSE,URINE NEGATIVE (NEG); NITRITE,URINE NEGATIVE (NEG); PROTEIN,URINE 30 mg/dL (NEG-TRACE)
[2017-05-28 15:32] LABS: BACTERIA,URINE 0 /HPF (0-FEW); RBC,URINE 0 /HPF (0-2); SQUAMOUS EPITHELIAL CELL,UR FEW /LPF; WBC,URINE 0 /HPF (0-4)
[2017-05-28 16:28] LABS: POC GLUCOSE 192 mg/dL (70-99)
[2017-05-28 18:04] LABS: TROPONINI < 0.017 ng/mL (0.000-0.055)
[2017-05-28 20:41] LABS: POC GLUCOSE 163 mg/dL (70-99)
[2017-05-28] MEDS: AMIODARONE HCL 200 MG TABLET. PO (20:47)
[2017-05-28] MEDS: ATORVASTATIN CALCIUM 40 MG TABLET. PO (20:47)
[2017-05-29 05:02] LABS: ADD MAN DIFF? NO
[2017-05-29 05:38] LABS: BASO % 0 % (0-3); EOS # 0.2 x10^3/uL (0.0-0.7); EOS % 2 % (0-3); HEMATOCRIT 27.1 % (39.0-53.0); HEMOGLOBIN 9.4 g/dL (13.0-17.5); LYMPH # 1.3 x10^3/uL (1.0-4.8); LYMPH % 20 % (24-48); MEAN CORPUSCULAR HEMOGLOBIN 30 pg (25-35); MEAN CORPUSCULAR HGB CONC 35 g/dL (31-37); MEAN CORPUSCULAR VOLUME 86 fL (79-100); MONO # 0.5 x10^3/uL (0.0-1.1); MONO % 7 % (0-9); NEUT # 4.9 x10^3uL (1.8-7.7); NEUT % 71 % (31-73); PLATELET COUNT 157 x10^3/uL (140-400); RED BLOOD COUNT 3.17 x10^6/uL (4.30-5.70); RED CELL DISTRIBUTION WIDTH 14.7 % (11.5-14.5); WHITE BLOOD COUNT 6.9 x10^3/uL (4.0-11.0)
[2017-05-29 05:58] LABS: ANION GAP 8 (6-14); BLOOD UREA NITROGEN 37 mg/dL (8-26); CALCIUM 8.9 mg/dL (8.5-10.1); CARBON DIOXIDE 30 mmol/L (21-32); CHLORIDE 99 mmol/L (98-107); CREATININE 1.7 mg/dL (0.7-1.3); GFR 40.2; GLUCOSE 113 mg/dL (70-99); POTASSIUM 4.3 mmol/L (3.5-5.1); SODIUM 137 mmol/L (136-145)
[2017-05-29] MEDS: PANTOPRAZOLE 40 MG TABLET.DR. PO ×2 (06:13→10:34)
[2017-05-29 07:44] LABS: POC GLUCOSE 108 mg/dL (70-99)
[2017-05-29] MEDS: SERTRALINE 25 MG TABLET. PO (10:33)
[2017-05-29] MEDS: AMIODARONE HCL 200 MG TABLET. PO ×2 (10:33→20:16)
[2017-05-29] MEDS: FUROSEMIDE 80 MG TABLET. PO (10:34)
[2017-05-29] MEDS: POTASSIUM CHLORIDE 20 MEQ TABLET.ER. PO (10:34)
[2017-05-29 11:32] LABS: POC GLUCOSE 159 mg/dL (70-99)
[2017-05-29 12:07] LABS: THYROID STIM HORMONE (TSH) 1.896 uIU/mL (0.358-3.74)
[2017-05-29 16:45] LABS: POC GLUCOSE 135 mg/dL (70-99)
[2017-05-29] MEDS: TAMSULOSIN 0.4 MG CAP.ER.24H. PO (20:16)
[2017-05-29] MEDS: ATORVASTATIN CALCIUM 40 MG TABLET. PO (20:16)
[2017-05-29 21:04] LABS: POC GLUCOSE 156 mg/dL (70-99)
[2017-05-30 07:42] LABS: POC GLUCOSE 136 mg/dL (70-99)
[2017-05-30] MEDS: ACETAMINOPHEN 500 MG TABLET PO (08:39)
[2017-05-30] MEDS: PANTOPRAZOLE 40 MG TABLET.DR. PO ×2 (08:39→16:59)
[2017-05-30] MEDS: SERTRALINE 25 MG TABLET. PO (08:39)
[2017-05-30] MEDS: AMIODARONE HCL 200 MG TABLET. PO ×2 (08:40→20:48)
[2017-05-30 09:13] LABS: PROSTATE SPECIFIC ANTIGEN 0.23 ng/mL (0.00-4.00)
[2017-05-30 09:25] LABS: HEMATOCRIT 30.5 % (39.0-53.0); HEMOGLOBIN 10.1 g/dL (13.0-17.5); MEAN CORPUSCULAR HEMOGLOBIN 29 pg (25-35); MEAN CORPUSCULAR HGB CONC 33 g/dL (31-37); MEAN CORPUSCULAR VOLUME 87 fL (79-100); PLATELET COUNT 165 x10^3/uL (140-400); RED BLOOD COUNT 3.51 x10^6/uL (4.30-5.70); RED CELL DISTRIBUTION WIDTH 14.4 % (11.5-14.5); WHITE BLOOD COUNT 9.1 x10^3/uL (4.0-11.0)
[2017-05-30 09:57] LABS: VITAMIN-B12 290 pg/mL (247-911)
[2017-05-30] MEDS: MEMANTINE 5 MG TABLET. PO ×2 (10:23→20:47)
[2017-05-30] MEDS: TAMSULOSIN 0.4 MG CAP.ER.24H. PO (10:23)
[2017-05-30 12:26] LABS: POC GLUCOSE 143 mg/dL (70-99)
[2017-05-30 13:08] LABS: ALBUMIN 3.6 g/dL (3.4-5.0); ALBUMIN/GLOBULIN RATIO 1.1 (1.0-1.7); ALK PHOS 81 U/L (46-116); ALT (SGPT) 28 U/L (16-63); ANION GAP 6 (6-14); AST (SGOT) 16 U/L (15-37); BLOOD UREA NITROGEN 30 mg/dL (8-26); BUN/CREATININE RATIO 21 (6-20); CALCIUM 8.7 mg/dL (8.5-10.1); CARBON DIOXIDE 34 mmol/L (21-32); CHLORIDE 98 mmol/L (98-107); CREATININE 1.4 mg/dL (0.7-1.3); GFR 50.2; GLUCOSE 160 mg/dL (70-99); POTASSIUM 4.2 mmol/L (3.5-5.1); SODIUM 138 mmol/L (136-145); TOTAL BILIRUBIN 0.6 mg/dL (0.2-1.0); TOTAL PROTEIN 6.8 g/dL (6.4-8.2)
[2017-05-30] MEDS: ATORVASTATIN CALCIUM 40 MG TABLET. PO (20:47)
[2017-05-30] MEDS: DONEPEZIL HCL 5 MG TABLET. PO (20:47)
[2017-05-30 20:53] LABS: POC GLUCOSE 173 mg/dL (70-99)
[2017-05-31] MEDS: PANTOPRAZOLE 40 MG TABLET.DR. PO ×2 (06:22→17:11)
[2017-05-31 06:48] LABS: CREATININE 1.3 mg/dL (0.7-1.3)
[2017-05-31 06:48] LABS: GFR 54.7
[2017-05-31 07:38] LABS: POC GLUCOSE 127 mg/dL (70-99)
[2017-05-31] MEDS: POTASSIUM CHLORIDE 20 MEQ TABLET.ER. PO (08:26)
[2017-05-31] MEDS: AMIODARONE HCL 200 MG TABLET. PO ×2 (08:27→21:42)
[2017-05-31] MEDS: SERTRALINE 25 MG TABLET. PO (08:28)
[2017-05-31] MEDS: FUROSEMIDE 80 MG TABLET. PO (08:28)
[2017-05-31] MEDS: TAMSULOSIN 0.4 MG CAP.ER.24H. PO (08:29)
[2017-05-31] MEDS: ACETAMINOPHEN 500 MG TABLET PO ×2 (08:30→22:49)
[2017-05-31] MEDS: MEMANTINE 5 MG TABLET. PO ×2 (08:30→21:41)
[2017-05-31 11:05] LABS: POC GLUCOSE 182 mg/dL (70-99)
[2017-05-31 17:02] LABS: POC GLUCOSE 145 mg/dL (70-99)
[2017-05-31 20:58] LABS: POC GLUCOSE 120 mg/dL (70-99)
[2017-05-31] MEDS: ATORVASTATIN CALCIUM 40 MG TABLET. PO (21:41)
[2017-05-31] MEDS: DONEPEZIL HCL 5 MG TABLET. PO (21:41)
[2017-06-01] MEDS: PANTOPRAZOLE 40 MG TABLET.DR. PO (05:36)
[2017-06-01 07:46] LABS: POC GLUCOSE 85 mg/dL (70-99)
[2017-06-01] MEDS: ACETAMINOPHEN 500 MG TABLET PO (07:49)
[2017-06-01] MEDS: SERTRALINE 25 MG TABLET. PO (07:49)
[2017-06-01] MEDS: TAMSULOSIN 0.4 MG CAP.ER.24H. PO (07:50)
[2017-06-01] MEDS: MEMANTINE 5 MG TABLET. PO (07:51)
[2017-06-01] MEDS: AMIODARONE HCL 200 MG TABLET. PO ×2 (07:51→12:00)
[2017-06-01 11:57] LABS: POC GLUCOSE 115 mg/dL (70-99)
[2017-06-05] MEDS ORDERED: AMIODARONE HCL 200 MG TABLET. PO (09:00)
== END 2017-06-01 14:15 | disposition home health service (06) | DRG 309 ==
LOC: ER 09:57 → 2 NORTH 11:46
DX: I47.2 Ventricular tachycardia (principal); I13.0 Hypertensive heart and chronic kidney disease with heart failure and stage 1 through stage 4 chronic kidney disease, or unspecified chronic kidney disease; E11.22 Type 2 diabetes mellitus with diabetic chronic kidney disease; E11.42 Type 2 diabetes mellitus with diabetic polyneuropathy; I50.32 Chronic diastolic (congestive) heart failure; N40.1 Benign prostatic hyperplasia with lower urinary tract symptoms; I48.0 Paroxysmal atrial fibrillation; N32.0 Bladder-neck obstruction; F03.90 Unspecified dementia, unspecified severity, without behavioral disturbance, psychotic disturbance, mood disturbance, and anxiety; E66.01 Morbid (severe) obesity due to excess calories; E78.5 Hyperlipidemia, unspecified; Z96.659 Presence of unspecified artificial knee joint; F32.9 Major depressive disorder, single episode, unspecified; F41.9 Anxiety disorder, unspecified; I08.0 Rheumatic disorders of both mitral and aortic valves; I25.10 Atherosclerotic heart disease of native coronary artery without angina pectoris; I44.7 Left bundle-branch block, unspecified; M06.9 Rheumatoid arthritis, unspecified; N18.3 Chronic kidney disease, stage 3 (moderate); R33.8 Other retention of urine; Z82.49 Family history of ischemic heart disease and other diseases of the circulatory system; Z87.11 Personal history of peptic ulcer disease; Z91.19 Patient's noncompliance with other medical treatment and regimen; Z79.4 Long term (current) use of insulin; Z88.0 Allergy status to penicillin
CPT/HCPCS: 36415; 71045; 80047; 80048; 80053; 80076; 81001; 82565; 82607; 82962; 83605; 83690; 83880; 84443; 84484; 85025; 85027; 93005; 93306; 99285; 99285-25; G0103; J0282